=== PATIENT | male | born 1965 | race Caucasian/White ===

== ENCOUNTER 2020-07-22 13:46 | Inpatient (IN) | payer OTHER, SELFPAY ==
[2020-07-23 02:51] VITALS: BMI 24.3
[2020-07-24] VITALS: BP 166/60; PULSE 88; RESP 18; TEMP 36.6; O2SAT 90
[2020-07-24 04:00] VITALS: BP 165/70; PULSE 85; RESP 18; TEMP 37; O2SAT 93
[2020-07-24] MEDS: 0.9 % Sodium Chloride Flush 3 ML SYRINGE 2 ML IVFLUSH ×2 (06:46→08:21)
[2020-07-24 08:00] VITALS: BP 103/56; PULSE 58; RESP 18; TEMP 36.3; O2SAT 95
[2020-07-24] MEDS: hydrOXYzine HCL 25 MG TABLET PO (08:21)
[2020-07-24] MEDS: Amphetamine Mixed Salts 20 MG TABLET PO (08:21)
[2020-07-24] MEDS: Buprenorphine/Naloxone 8/2 mg FILM 2 FILM SUBLINGUAL (08:21)
[2020-07-24] MEDS: Gabapentin 300 MG CAPSULE PO ×2 (08:21→14:23)
[2020-07-24] MEDS: clonazePAM 1 MG TABLET PO ×2 (08:21→14:23)
[2020-07-24 10:06] LABS: MANUAL DIFF FLAG NO
[2020-07-24 10:07] LABS: Basophils Percent Auto 0.2 % (0-2); Eosinophils Absolute Auto 0.2 X10*3/uL (0.0-0.4); Eosinophils Percent Auto 1.4 % (0-4); Hematocrit 32.5 % (42-52); Hemoglobin 10.7 g/dl (14.0-18.0); Imm Gran Abs Auto 0.04 X10*3/uL (0.00-0.03); Imm Gran Pct Auto 0.3 % (0.0-0.4); Lymphocytes Absolute Auto 2.9 X10*3/uL (1.2-4.9); Mean Corpuscular HGB Conc 32.9 g/dl (31.0-36.0); Mean Corpuscular Hemoglobin 29.3 pg (27.0-33.0); Mean Platelet Volume 9.5 fL (9.4-12.4); Monocytes Absolute Auto 0.9 X10*3/uL (0.1-1.2); Monocytes Percent Auto 7.4 % (2-11); Neutrophils Absolute Auto 8.5 X10*3/uL (2.0-8.3); Neutrophils Percent Auto 67.7 % (45-73); Platelet Count 268 X10*3/uL (160-400); Red Blood Count 3.65 X10*6/uL (4.60-5.80); Red Cell Distribution Width 13.1 % (11.0-16.0); White Blood Count 12.6 X10*3/uL (4.8-10.8)
[2020-07-24] MEDS: cefTRIAXone sodium 1 GM in 0.9 % Sodium Chloride 50 ML IV (11:43)
[2020-07-24] MEDS: Azithromycin 500 MG TABLET PO (11:44)
[2020-07-24 11:59] VITALS: BP 106/56; PULSE 66; RESP 18; TEMP 36.4; O2SAT 95
--- NOTE | 2020-07-24 13:43 | P.DS_ITS ---
DS: Providers Provider Date of admission: 07/22/20 13:46 Primary care physician: Alli Duarte MD DS: Summary Hospital Course Hospital Course: 54-year-old gentleman recently discharged from [facility] on 07/13/2020 after being treated for pneumonia presented to [facility] due to feeling tired with unsteady gait headache dizziness patient denied any shortness of breath patient was noted to be mildly hypoxemic with finger oximetry 90% on room [place] [address] D-dimer of 431 a CTA chest was obtained that was negative for PE aortic dissection or aneurysm however it showed small airway disease, patient had 2- recent COVID-19 test patient was subsequently admitted to [facility] due to ongoing symptoms of pneumonia. Discharge diagnosis pneumonia with no acute hypoxic respiratory failure patient was treated with azithromycin and IV ceftriaxone patient's symptoms improved significantly a Repeat covind PCR study came back nonreactive patient was treated with 1 dose of IV steroids therefore noted to have a bump in WBC count with a repeat CBC showing improvement in WBC since patient is hemodynamically stable finger oximetry is stable 93% on room air therefore patient is being discharged home to finish the course of Ceftin and azithromycin. in regard to patient's chronic medical issues including anxiety depression history of substance abuse and ADHD has been continued on all of his baseline medications. Time Spent with Patient Time attestation: Total time spent providing and/or coordinating discharge services: Physical Exam Vital Signs and I&O and Narrative: Vital Signs and I&O: Vital Signs Temp 97.6 F 07/24/20 11:59 Pulse 66 07/24/20 11:59 Resp 18 07/24/20 11:59 BP 106/56 L 07/24/20 11:59 Pulse Ox 95 07/24/20 11:59 Intake & Output 07/23/20 07/24/20 07/24/20 18:59 06:59 18:59 Intake Total 50 / 50 Output Total 2 / 2 Balance -2 / -2 50 / 50 Urine Output (Aver age ml/kg/hr) 0.00 0.00 Intake: Intake, IV Amoun t 50 / 50 cefTRIAXone so dium 1 gm In 0.9 50 / 50 % Sodium Chlor ottoniel 50 ml @ 100 mls/hr IV Q24H [facility] Rx#: [id number] Output: Output, Urine Am ount 2 / 2 Other: Meal Refused Yes Body Mass Index 24.3 DS: Data Data Completed and Pending Labs on day of discharge: Labs from last 24 hours 07/24/20 07/23/20 07/23/20 09:00 05:57 05:57 WBC 12.6 H Cancelled 18.2 H RBC 3.65 L Cancelled 3.76 L Hgb 10.7 L Cancelled 11.0 L Hct 32.5 L Cancelled 33.3 L MCV 89.0 Cancelled 88.6 MCH 29.3 Cancelled 29.3 MCHC 32.9 Cancelled 33.0 RDW 13.1 RDW Coeff of Selene Cancelled 12.7 Plt Count 268 Cancelled 314 D MPV 9.5 Cancelled 9.7 Immature Gran % (Auto) 0.3 0.7 H Neut % (Auto) 67.7 89.8 H Lymph % (Auto) 23.0 6.8 L [place] % (Auto) 7.4 2.6 Eos % (Auto) 1.4 0.0 Baso % (Auto) 0.2 0.1 Neut # (Auto) 8.5 H Lymph # (Auto) 2.9 [place] # (Auto) 0.9 Eos # (Auto) 0.2 Baso # (Auto) 0.0 Abs Immat Gran (auto) 0.04 H 0.13 H Absolute Lymphs (auto) 1.2 Absolute Monos (auto) 0.5 Absolute Eos (auto) 0.0 Absolute Basos (auto) 0.0 Absolute Nucleated RBC 0.000 Cancelled 0.000 Nucleated RBC % (auto) 0.0 Cancelled 0.0 Absolute Neutrophils 16.4 H D-Dimer Sodium Potassium Chloride Bicarbonate Anion Gap BUN Creatinine Estimated Creat Clear Est GFR (Non-Af Amer) Random Glucose Fasting Glucose Lactic Acid Calcium Magnesium Total Bilirubin Direct Bilirubin AST ALT Alkaline Phosphatase Lactate Dehydrogenase Troponin I High Sens B-Natriuretic Peptide Total Protein Albumin Urine Color Urine Appearance Urine pH Ur Specific [place] Urine Protein Urine Glucose (UA) Urine Ketones Urine Blood Urine Nitrite Urine WBC (Auto) Respiratory Panel Morton Adenovirus (PCR) B.pert (TEM-PCR) B.parapertussis DNA PCR C. pneumoniae DNA (PCR) Coronavirus OC43 (PCR) Coronavirus HKU1 (PCR) Coronavirus 229E (PCR) Coronavirus NL63 (PCR) Human Metapneumovir PCR Influenza A (RT-PCR) Influenza B (RT-PCR) M. pneumoniae (PCR) Parainfluenza 1 (PCR) Parainfluenza 2 (PCR) Parainfluenza 3 (PCR) Parainfluenza 4 (PCR) RSV (RT-PCR) Entero/Rhino (PCR) SARS Virus RNA (RT-PCR) 07/23/20 07/22/20 07/22/20 05:57 15:20 11:19 WBC RBC Hgb Hct MCV MCH MCHC RDW RDW Coeff of Selene Plt Count MPV Immature Gran % (Auto) Neut % (Auto) Lymph % (Auto) [place] % (Auto) Eos % (Auto) Baso % (Auto) Neut # (Auto) Lymph # (Auto) [place] # (Auto) Eos # (Auto) Baso # (Auto) Abs Immat Gran (auto) Absolute Lymphs (auto) Absolute Monos (auto) Absolute Eos (auto) Absolute Basos (auto) Absolute Nucleated RBC Nucleated RBC % (auto) Absolute Neutrophils D-Dimer Sodium 135 Potassium 4.5 Chloride 100 Bicarbonate 26 Anion Gap 14 BUN 22 H D Creatinine 0.81 Estimated Creat Clear 99.7 Est GFR (Non-Af Amer) > 60 Random Glucose Fasting Glucose 142 H Lactic Acid Calcium 9.7 D Magnesium Total Bilirubin Direct Bilirubin AST ALT Alkaline Phosphatase Lactate Dehydrogenase Troponin I High Sens B-Natriuretic Peptide Total Protein Albumin Urine Color YELLOW Urine Appearance CLEAR Urine pH 6.0 Ur Specific [place] 1.010 Urine Protein NEG Urine Glucose (UA) NEG Urine Ketones NEG Urine Blood NEG Urine Nitrite NEG Urine WBC (Auto) NEG Respiratory Panel Morton SEE NOTE Adenovirus (PCR) NOT DETECTED B.pert (TEM-PCR) NOT DETECTED B.parapertussis DNA PCR NOT DETECTED C. pneumoniae DNA (PCR) NOT DETECTED Coronavirus OC43 (PCR) NOT DETECTED Coronavirus HKU1 (PCR) NOT DETECTED Coronavirus 229E (PCR) NOT DETECTED Coronavirus NL63 (PCR) NOT DETECTED Human Metapneumovir PCR NOT DETECTED Influenza A (RT-PCR) NOT DETECTED Influenza B (RT-PCR) NOT DETECTED M. pneumoniae (PCR) NOT DETECTED Parainfluenza 1 (PCR) NOT DETECTED Parainfluenza 2 (PCR) NOT DETECTED Parainfluenza 3 (PCR) NOT DETECTED Parainfluenza 4 (PCR) NOT DETECTED RSV (RT-PCR) NOT DETECTED Entero/Rhino (PCR) NOT DETECTED SARS Virus RNA (RT-PCR) NOT DETECTED 07/22/20 07/22/20 07/22/20 10:35 10:35 10:35 WBC 16.0 H RBC 3.71 L Hgb 10.8 L Hct 32.7 L MCV 88.1 MCH 29.1 MCHC 33.0 RDW RDW Coeff of Selene 12.7 Plt Count 237 MPV 9.1 L Immature Gran % (Auto) 0.4 Neut % (Auto) 87.5 H Lymph % (Auto) 7.0 L [place] % (Auto) 4.1 Eos % (Auto) 0.9 Baso % (Auto) 0.1 Neut # (Auto) Lymph # (Auto) [place] # (Auto) Eos # (Auto) Baso # (Auto) Abs Immat Gran (auto) 0.07 H Absolute Lymphs (auto) 1.1 L Absolute Monos (auto) 0.7 Absolute Eos (auto) 0.2 Absolute Basos (auto) 0.0 Absolute Nucleated RBC 0.000 Nucleated RBC % (auto) 0.0 Absolute Neutrophils 14.0 H D-Dimer 431 Sodium Potassium Chloride Bicarbonate Anion Gap BUN Creatinine Estimated Creat Clear Est GFR (Non-Af Amer) Random Glucose Fasting Glucose Lactic Acid Calcium Magnesium Total Bilirubin Direct Bilirubin AST ALT Alkaline Phosphatase Lactate Dehydrogenase Troponin I High Sens 4.1 B-Natriuretic Peptide 72 Total Protein Albumin Urine Color Urine Appearance Urine pH Ur Specific [place] Urine Protein Urine Glucose (UA) Urine Ketones Urine Blood Urine Nitrite Urine WBC (Auto) Respiratory Panel [place] Adenovirus (PCR) B.pert (TEM-PCR) B.parapertussis DNA PCR C. pneumoniae DNA (PCR) Coronavirus OC43 (PCR) Coronavirus HKU1 (PCR) Coronavirus 229E (PCR) Coronavirus NL63 (PCR) Human Metapneumovir PCR Influenza A (RT-PCR) Influenza B (RT-PCR) M. pneumoniae (PCR) Parainfluenza 1 (PCR) Parainfluenza 2 (PCR) Parainfluenza 3 (PCR) Parainfluenza 4 (PCR) RSV (RT-PCR) Entero/Rhino (PCR) SARS Virus RNA (RT-PCR) 07/22/20 07/22/20 10:35 10:35 WBC RBC Hgb Hct MCV MCH MCHC RDW RDW Coeff of Selene Plt Count MPV Immature Gran % (Auto) Neut % (Auto) Lymph % (Auto) [place] % (Auto) Eos % (Auto) Baso % (Auto) Neut # (Auto) Lymph # (Auto) [place] # (Auto) Eos # (Auto) Baso # (Auto) Abs Immat Gran (auto) Absolute Lymphs (auto) Absolute Monos (auto) Absolute Eos (auto) Absolute Basos (auto) Absolute Nucleated RBC Nucleated RBC % (auto) Absolute Neutrophils D-Dimer Sodium 134 L Potassium 4.6 Chloride 101 Bicarbonate 26 Anion Gap 12 BUN 12 Creatinine 0.82 Estimated Creat Clear 98.5 Est GFR (Non-Af Amer) > 60 Random Glucose 126 H Fasting Glucose Lactic Acid 1.3 Calcium Magnesium 1.6 Total Bilirubin 0.5 Direct Bilirubin 0.2 AST 13 ALT 8 Alkaline Phosphatase 68 Lactate Dehydrogenase 144 Troponin I High Sens B-Natriuretic Peptide Total Protein 6.2 L Albumin 3.9 Urine Color Urine Appearance Urine pH Ur Specific [place] Urine Protein Urine Glucose (UA) Urine Ketones Urine Blood Urine Nitrite Urine WBC (Auto) Respiratory Panel [place] Adenovirus (PCR) B.pert (TEM-PCR) B.parapertussis DNA PCR C. pneumoniae DNA (PCR) Coronavirus OC43 (PCR) Coronavirus HKU1 (PCR) Coronavirus 229E (PCR) Coronavirus NL63 (PCR) Human Metapneumovir PCR Influenza A (RT-PCR) Influenza B (RT-PCR) M. pneumoniae (PCR) Parainfluenza 1 (PCR) Parainfluenza 2 (PCR) Parainfluenza 3 (PCR) Parainfluenza 4 (PCR) RSV (RT-PCR) Entero/Rhino (PCR) SARS Virus RNA (RT-PCR) Discharge Plan Discharge Patient Disposition: Home, Self-Care Referrals: Alli Duarte MD [Primary Care Provider] - Discharge Medications: Continued trazodone 50 mg Tablet 50 mg PO BEDTIME RF: 0 clonazepam 1 mg Tablet 1 mg PO TID RF: 0 dextroamphetamine-amphetamine [Adderall] 30 mg Tablet 30 mg PO DAILY RF: 0 fluoxetine 20 mg Tablet 20 mg PO BEDTIME RF: 0 dextroamphetamine-amphetamine [Adderall] 20 mg Tablet 20 mg PO DAILY RF: 0 gabapentin 300 mg Capsule 300 mg PO TID RF: 0 hydroxyzine HCl 25 mg Tablet 25 mg PO BID RF: 0 cefuroxime axetil 500 mg Tablet 500 mg PO Q12H RF: 0 prazosin [Minipress] 2 mg Capsule 2 mg PO BEDTIME RF: 0 azithromycin 500 mg Tablet 500 mg PO Q24H RF: 0 buprenorphine-naloxone [Suboxone] 8-2 mg Film 2 film SUBLINGUAL DAILY RF: 0 Discharge Orders: Discharge Order (Routine); Ordered 07/24/20 Ordered By: Michael Heard Diet: regular diet Activity on Discharge: As tolerated Visit Report Forms: Patient Portal Discharge page Care Plan Goals: As per discharge plan Health Concerns: as per discharge plan Plan of Treatment: close outpatient follow-up with PCP finish course of azithromycin and Ceftin
--- NOTE | 2020-07-24 14:06 | MHC.CM.PN ---
Patient is being discharged today back to [facility] via chair van.
== END 2020-07-24 15:40 | disposition home or self-care (01) | DRG 139 ==
PROVIDERS: Admitting Provider Internal Medicine; Emergency Provider Emergency Medicine; PCP Internal Medicine Hematology; Visit Provider Hospitalist
DX: J18.9 Pneumonia, unspecified organism (principal); F11.20 Opioid dependence, uncomplicated; F31.9 Bipolar disorder, unspecified; F17.210 Nicotine dependence, cigarettes, uncomplicated; Z71.6 Tobacco abuse counseling; F90.9 Attention-deficit hyperactivity disorder, unspecified type; F41.9 Anxiety disorder, unspecified; Z11.59 Encounter for screening for other viral diseases; Z79.899 Other long term (current) drug therapy
CPT/HCPCS: 0202U; 36415; 71045; 71275; 80048; 80051; 80076; 81003; 82565; 82947; 83605; 83615; 83735; 83880; 84484; 84520; 85025; 85379; 87040; 87070; 87205; 93005; 94640; 96365; 96366; 96367; 96375; 99219; 99285; J0456; J0572; J0574; J0696; J2405; J2930; Q9967

== ENCOUNTER 2020-07-26 12:48 | Emergency (ER) | payer OTHER, SELFPAY ==
[2020-07-26 13:03] VITALS: BP 120/56; PULSE 74; RESP 17; TEMP 37.2; O2SAT 96; BMI 24.4
--- NOTE | 2020-07-26 13:46 | ED.GENADULT ---
HPI - General Adult General Chief complaint: Medical Clearance Stated complaint: med refill Time Seen by Provider: 07/26/20 13:46 History of Present Illness HPI narrative: patient presents requesting medication refill for his Adderall because he has had trouble getting in to see his psychiatrist and missed an appointment an arm he has no other complaints Related Data Home Medications Medication Instructions Recorded Confirmed azithromycin 500 mg PO Q24H 07/23/20 07/23/20 buprenorphine-naloxone [Suboxone] 2 film SUBLINGUAL DAILY 07/23/20 07/23/20 cefuroxime axetil 500 mg PO Q12H 07/23/20 07/23/20 clonazepam 1 mg PO TID 07/23/20 07/23/20 dextroamphetamine-amphetamine 20 mg PO DAILY 07/23/20 07/23/20 [Adderall] dextroamphetamine-amphetamine 30 mg PO DAILY 07/23/20 07/23/20 [Adderall] fluoxetine 20 mg PO BEDTIME 07/23/20 07/23/20 gabapentin 300 mg PO TID 07/23/20 07/23/20 hydroxyzine HCl 25 mg PO BID 07/23/20 07/23/20 prazosin [Minipress] 2 mg PO BEDTIME 07/23/20 07/23/20 trazodone 50 mg PO BEDTIME 07/23/20 07/23/20 Previous Rx's Medication Instructions Recorded dextroamphetamine-amphetamine 20 mg PO DAILY #3 tab 07/26/20 [Adderall] dextroamphetamine-amphetamine 30 mg PO DAILY #3 tab 07/26/20 [Adderall] Allergies Allergy/AdvReac Type Severity Reaction Status Date / Time No Known Allergies Allergy Unverified 07/10/20 18:53 [No Known Allergies*] Review of Systems Review of Systems: no fever no chills no chest pain no shortness of breath no nausea no vomiting no palpitations no headache no weakness PMFSH Past Medical History Source: nursing notes reviewed Medical History (Updated 07/26/20 @ 13:57 by BING Wild) Anxiety No known health problems Pneumonia Social History Social History Alcohol intake: former Smoking Status: Current every day smoker Smoked in Last 30 Days: Yes Use of substances other than those prescribed or required for medical reasons: Unknown Advance Directives: No Advance Directives Information Provided: No Physical Exam Vital Signs and I&O and Narrative: Vital Signs and I&O: Vital Signs Temp 98.9 F 07/26/20 13:03 Pulse 74 07/26/20 13:03 Resp 17 07/26/20 13:03 BP 120/56 L 07/26/20 13:03 Pulse Ox 96 07/26/20 13:03 Intake & Output 07/25/20 07/26/20 07/26/20 18:59 06:59 18:59 Weight 70.76 kg Body Mass Index 24.4 general appearance no acute distress comfortable relaxed cooperative Neck is supple Respirations no respiratory distress Extremities full range of motion x4 neuro A&O x4 Course Reevaluation(s) Reevaluation #1: patient takes Adderall for several months for ADD and I agreed to a 3 day refill and he could contact his doctor during business hours on Tuesday or Tuesday Discharge Plan Discharge Clinical Impression: Medication refill Additional Instructions: a 3 day course of her medication was sent to the pharmacy As this is a controlled substance any long-term prescription has to come from your regular doctor Prescriptions: New dextroamphetamine-amphetamine [Adderall] 20 mg tablet 20 mg PO DAILY Qty: 3 RF: 0 dextroamphetamine-amphetamine [Adderall] 30 mg tablet 30 mg PO DAILY Qty: 3 RF: 0 No Action trazodone 50 mg Tablet 50 mg PO BEDTIME RF: 0 clonazepam 1 mg Tablet 1 mg PO TID RF: 0 dextroamphetamine-amphetamine [Adderall] 30 mg Tablet 30 mg PO DAILY RF: 0 fluoxetine 20 mg Tablet 20 mg PO BEDTIME RF: 0 dextroamphetamine-amphetamine [Adderall] 20 mg Tablet 20 mg PO DAILY RF: 0 gabapentin 300 mg Capsule 300 mg PO TID RF: 0 hydroxyzine HCl 25 mg Tablet 25 mg PO BID RF: 0 cefuroxime axetil 500 mg Tablet 500 mg PO Q12H RF: 0 prazosin [Minipress] 2 mg Capsule 2 mg PO BEDTIME RF: 0 azithromycin 500 mg Tablet 500 mg PO Q24H RF: 0 buprenorphine-naloxone [Suboxone] 8-2 mg Film 2 film SUBLINGUAL DAILY RF: 0
== END 2020-07-26 14:06 | disposition home or self-care (01) ==
PROVIDERS: Emergency Provider Emergency Medicine; PCP Internal Medicine Hematology
DX: Z76.0 Encounter for issue of repeat prescription (principal); F98.8 Other specified behavioral and emotional disorders with onset usually occurring in childhood and adolescence
CPT/HCPCS: 99282; 99284

== ENCOUNTER 2022-09-04 23:21 | Emergency (ER) | payer OTHER, SELFPAY ==
--- NOTE | ~2022-09-04 | XR_ITS ---
EXAMINATION: XR CHEST CLINICAL INFORMATION: Shortness of breath. COMPARISON: Chest radiograph 07/22/2020. TECHNIQUE: 2 views of the chest were obtained. FINDINGS: Normal appearance of the cardiomediastinal silhouette. Subtle focal airspace opacities in the lateral right lower lobe are new compared to 2020. No pleural effusion or pneumothorax. Unchanged nonaggressive appearing osseous lesion in the proximal right humerus. No displaced fractures. XR/XR chest 2V IMPRESSION: Very subtle focal airspace opacities in the lateral right lower lobe could represent subsegmental atelectasis or developing infiltrate. Recommend a follow-up imaging after treatment.
[2022-09-04 23:27] VITALS: BP 142/90; PULSE 24; BMI 25.8
[2022-09-04 23:31] VITALS: BP 94/68; PULSE 73; TEMP 37.1; O2SAT 89
[2022-09-04 23:40] VITALS: O2SAT 96
[2022-09-04] MEDS: Albuterol/Iprat 2.5/0.5MG 3 ML AMPUL.NEB INHALE (23:42)
[2022-09-04 23:43] VITALS: PULSE 71; RESP 16; O2SAT 97
[2022-09-04 23:46] LABS: Basophils Percent Auto 0.3 % (0-2); Eosinophils Absolute Auto 1.1 X10*3/uL (0.0-0.4); Eosinophils Percent Auto 12.1 % (0-4); Hematocrit 32.4 % (42.0-52.0); Hemoglobin 10.6 g/dl (14.0-18.0); Imm Gran Abs Auto 0.03 X10*3/uL (0.00-0.03); Imm Gran Pct Auto 0.3 % (0.0-0.4); Lymphocytes Absolute Auto 2.7 X10*3/uL (1.2-4.9); Lymphocytes Percent Auto 29.1 % (20-40); MANUAL DIFF FLAG NO; Mean Corpuscular HGB Conc 32.7 g/dl (31.0-36.0); Mean Corpuscular Hemoglobin 27.9 pg (27.0-33.0); Mean Corpuscular Volume 85.3 fL (80.0-98.0); Mean Platelet Volume 10.1 fL (9.4-12.4); Monocytes Absolute Auto 0.6 X10*3/uL (0.1-1.2); Monocytes Percent Auto 6.4 % (2-11); Neutrophils Absolute Auto 4.8 x10*3/uL (2.0-8.3); Neutrophils Percent Auto 51.8 % (45-73); Platelet Count 220 X10*3/uL (160-400); Red Cell Distribution Width 14.1 % (11.0-16.0); White Blood Count 9.2 X10*3/uL (4.8-10.8)
--- NOTE | 2022-09-04 23:53 | PC.NURSE ---
Pt refused EKG. Dr. Hu and nurse aware.
[2022-09-05 00:17] LABS: Troponin-I High Sensitivity < 3.5 ng/L (<3.5-35.0)
[2022-09-05 00:46] LABS: Anion Gap 15 (12-20); Blood Urea Nitrogen 14 mg/dL (9-16); Calcium 9.1 mg/dL (8.4-10.2); Carbon Dioxide 21 mmol/L (22-29); Chloride 108 mmol/L (96-108); Creatinine Clr Calc Pharmacy 98.6; Estimated Glomerular Filt Rate > 60; Glucose Random 111 mg/dL (60-115); Potassium 3.8 mmol/L (3.3-5.1); Sodium 140 mmol/L (135-145)
[2022-09-05 01:18] VITALS: BP 106/56; PULSE 63; RESP 17; O2SAT 94
--- NOTE | 2022-09-05 01:27 | ED.ASTHMA ---
HPI - Asthma General Chief Complaint: Asthma Stated Complaint: Sob Time Seen by Provider: 09/04/22 23:30 Source: patient History of Present Illness MD complaint: shortness of breath Onset (ago): day(s) (2) Severity: moderate Context: none known Associated symptoms: dry cough Related Data Current Asthma Therapy: none Home Medications Medication Instructions Recorded Confirmed azithromycin 500 mg tablet 500 mg PO Q24H 07/23/20 07/23/20 buprenorphine 8 mg-naloxone 2 mg 2 film sublingual DAILY 07/23/20 07/23/20 sublingual film (Suboxone) cefuroxime axetil 500 mg tablet 500 mg PO Q12H 07/23/20 07/23/20 clonazepam 1 mg tablet 1 mg PO TID 07/23/20 07/23/20 dextroamphetamine-amphetamine 20 20 mg PO DAILY 07/23/20 07/23/20 mg tablet (Adderall) dextroamphetamine-amphetamine 30 30 mg PO DAILY 07/23/20 07/23/20 mg tablet (Adderall) fluoxetine 20 mg tablet 20 mg PO BEDTIME 07/23/20 07/23/20 gabapentin 300 mg capsule 300 mg PO TID 07/23/20 07/23/20 hydroxyzine HCl 25 mg tablet 25 mg PO BID 07/23/20 07/23/20 prazosin 2 mg capsule (Minipress) 2 mg PO BEDTIME 07/23/20 07/23/20 trazodone 50 mg tablet 50 mg PO BEDTIME 07/23/20 07/23/20 Previous Rx's Medication Instructions Recorded dextroamphetamine-amphetamine 20 20 mg PO DAILY #3 tabs 07/26/20 mg tablet (Adderall) dextroamphetamine-amphetamine 30 30 mg PO DAILY #3 tabs 07/26/20 mg tablet (Adderall) azithromycin 250 mg tablet 250 mg PO DAILY 4 days #4 tabs 09/05/22 (Zithromax) Allergies Allergy/AdvReac Type Severity Reaction Status Date / Time No Known Allergies Allergy Unverified 07/10/20 18:53 [No Known Allergies*] Review of Systems Review of Systems: Yes all other systems are reviewed and are negative Constitutional: Constitutional: Denies chills and Denies fever(s) Eyes: Eyes: Reports no additional eye complaints ENT: Reports system reviewed and no additional complaints, except as documented Cardiovascular: Cardiovascular: Denies chest pain, Denies lightheadedness and Denies Loss of Consciousness Respiratory: Respiratory: Reports cough, Denies hemoptysis and Reports wheezing Gastrointestinal: Gastrointestinal: Reports no additional gastrointestinal complaints Genitourinary: Genitourinary: Reports no additional male genitourinary complaints Musculoskeletal: Musculoskeletal: Reports no additional musculoskeletal complaints Neurologic: Reports system reviewed and no additional complaints, except as documented Allergic/Immunologic: Allergic/Immunologic: Reports wheezing PMFSH Past Medical History Medical History Anxiety No known health problems Pneumonia Social History Social History Alcohol intake: former Advance Directives: No Physical Exam Vital Signs: Vital Signs: Last Vital Signs Temp 98.7 F 09/04/22 23:31 Pulse 63 09/05/22 01:18 Resp 17 09/05/22 01:18 BP 106/56 L 09/05/22 01:18 Pulse Ox 94 09/05/22 01:18 O2 Del Method 09/05/22 01:18 O2 Flow Rate 2 09/04/22 23:40 BMI result Body Mass Index 25.8 Vital signs noted and are normal Const: General: cooperative, healthy appearing and no acute distress Orientation/consciousness: patient oriented x3 HEENT: Head: Yes normal to inspection, Yes normocephalic and Yes atraumatic Ears: hearing grossly normal bilaterally and external ears normal General nose exam: Normal external nose present Eyes: General: appearance normal, both eyes and all related structures Conjunctivae: conjunctivae normal Sclerae: sclerae normal Neck: Neck: Yes normal visual inspection and Yes full ROM Chest: Chest palpation & inspection: normal inspection of the chest Resp: Effort & Inspection: normal respiratory effort and no cough Auscultation: wheezes Cardio: Rate: regular rate Rhythm: regular rhythm GI: Inspection: Yes normal to inspection and No obesity Back/Spine/Pelvis: Cervical Spine: normal cervical lordosis and cervical ROM normal Skin: General skin exam: no rashes or lesions noted Neuro: General: patient oriented x3 Cranial nerves: Yes CN's II-XII intact bilaterally and Yes Bilaterally intact EOM present Medications Administered Discontinued Medications Generic Name Dose Route Start Last Admin Trade Name Freq PRN Reason Stop Dose Admin Albuterol/Ipratropium 3 ml 09/04/22 23:32 11/12/22 23:42 Albuterol/Iprat 2.5/0.5mg 3 Ml Ampul.Neb INHALE 09/04/22 23:33 3 ml ONCE ONE Administration MDM - Asthma MDM Narrative Medical decision making narrative: 56-year-old male with shortness0 of breath for several days. No history of asthma. Laboratory studies unremarkable with exception of a hematocrit slightly low at 33. X-ray shows questionable pneumonia per Radiology. The patient will receive a dose of Zithromax 500 mg and will get a prescription for same. He will be able to be discharged home and follow-up with his primary care doctor on Tuesday. Differential Diagnosis Differential diagnosis: Likely Pneumonia Lab Data Attestation: I reviewed the patient's lab results. Result diagrams: 09/04/22 23:39 09/05/22 00:10 Labs: Lab Results 09/04/22 09/04/22 09/05/22 Range/Units 23:39 23:39 00:10 WBC 9.2 (4.8-10.8) X10*3/uL RBC 3.80 L (4.60-5.80) X10*6/uL Hgb 10.6 L (14.0-18.0) g/dl Hct 32.4 L (42.0-52.0) % MCV 85.3 (80.0-98.0) fL MCH 27.9 (27.0-33.0) pg MCHC 32.7 (31.0-36.0) g/dl RDW 14.1 (11.0-16.0) % Plt Count 220 (160-400) X10*3/uL MPV 10.1 (9.4-12.4) fL Immature Gran % (Auto) 0.3 (0.0-0.4) % Neut % (Auto) 51.8 (45-73) % Lymph % (Auto) 29.1 (20-40) % [place] % (Auto) 6.4 (2-11) % Eos % (Auto) 12.1 H (0-4) % Baso % (Auto) 0.3 (0-2) % Lymph # (Auto) 2.7 (1.2-4.9) X10*3/uL [place] # (Auto) 0.6 (0.1-1.2) X10*3/uL Eos # (Auto) 1.1 H (0.0-0.4) X10*3/uL Baso # (Auto) 0.0 (0.0-0.2) X10*3/uL Abs Immat Gran (auto) 0.03 (0.00-0.03) X10*3/uL Absolute Neuts (auto) 4.8 (2.0-8.3) x10*3/uL Absolute Nucleated RBC 0.000 (0.0-0.012) X10*3/uL Nucleated RBC % (auto) 0.0 (0.0-0.2) /100WBC Sodium 140 (135-145) mmol/L Potassium 3.8 (3.3-5.1) mmol/L Chloride 108 (96-108) mmol/L Carbon Dioxide 21 L (22-29) mmol/L Anion Gap 15 (12-20) BUN 14 (9-16) mg/dL Creatinine 0.80 (0.5-1.4) mg/dL Estim Creat Clear Calc 98.6 Estimated GFR > 60 Random Glucose 111 (60-115) mg/dL Calcium 9.1 (8.4-10.2) mg/dL Troponin I High Sens < 3.5 (<3.5-35.0) ng/L Imaging Data Chest x-ray: Radiologist's impression: IMPRESSION: Very subtle focal airspace opacities in the lateral right lower lobe could represent subsegmental atelectasis or developing infiltrate. Recommend a follow-up imaging after treatment. Discharge Plan Discharge Clinical Impression: Pneumonia Patient Disposition: Home, Self-Care Instructions: Pneumonia (ED) Prescriptions: New azithromycin [Zithromax] 250 mg tablet 250 mg PO DAILY 4 Days Qty: 4 0RF Rx Instructions: start on day 2 of therapy Tuesday afternoon No Action trazodone 50 mg Tablet 50 mg PO BEDTIME clonazepam 1 mg Tablet 1 mg PO TID dextroamphetamine-amphetamine [Adderall] 30 mg Tablet 30 mg PO DAILY Rx Instructions: TOTAL OF 50 MG/DAY fluoxetine 20 mg Tablet 20 mg PO BEDTIME dextroamphetamine-amphetamine [Adderall] 20 mg Tablet 20 mg PO DAILY Rx Instructions: TOTAL OF 50 MG/DAY gabapentin 300 mg Capsule 300 mg PO TID hydroxyzine HCl 25 mg Tablet 25 mg PO BID cefuroxime axetil 500 mg Tablet 500 mg PO Q12H prazosin [Minipress] 2 mg Capsule 2 mg PO BEDTIME azithromycin 500 mg Tablet 500 mg PO Q24H buprenorphine-naloxone [Suboxone] 8-2 mg Film 2 film SUBLINGUAL DAILY dextroamphetamine-amphetamine [Adderall] 20 mg tablet 20 mg PO DAILY Qty: 3 0RF Rx Instructions: 20 mg once a day in the morning for 3 days dextroamphetamine-amphetamine [Adderall] 30 mg tablet 30 mg PO DAILY Qty: 3 0RF Rx Instructions: 30 mg once daily in the evening for 3 days
[2022-09-05] MEDS: Azithromycin 500 MG TABLET PO (01:30)
[2022-09-05 01:47] LABS: COVID-19 Test Negative (Negative)
== END 2022-09-05 01:50 | disposition home or self-care (01) ==
PROVIDERS: Emergency Provider Emergency Medicine
DX: J18.9 Pneumonia, unspecified organism (principal); Z20.822 Contact with and (suspected) exposure to COVID-19
CPT/HCPCS: 36415; 71046; 80048; 84484; 85025; 87635; 94640; 99284

== ENCOUNTER 2025-08-24 16:46 | Inpatient (IN) | payer OTHER, SELFPAY ==
--- OUTSIDE RECORDS SUMMARY | 2025-04-04 07:00 | XMS_ITS ---
Author Organization [facility] Address [address] [place] [address] Care Team Providers Care Commercial Instructor Supervisor Name Role Phone ZZArchive - DO NOT USE, Mail Pickup Primary Care Provider Unavailable Linda Cisneros Unavailable ZZArchive - DO NOT USE, Benefits Intervention Un available Unavailable Encounters Encounter Location Date Provider Diagnosis [facility] [address] [place], [place] [phone] 04/04/2025 Linad Cisneros Plan Of Treatment No Information Progress Notes * Lon SANCHEZ DDOB: 8 (59 yo M)Acc No.[id number]:04/04/2025 Case Management Patient: Mayr Lon Costello Provider: Ashley Cisneros :1965 A ge:59 Y S ex:Male Date:04/04/2025 Address:[facility] [address], [place], [place] Pcp:Stephani Pickup ZZArchive - DO NOT USE Subjective: * Chief Complaints: * * Medical History: Objective: Assessment: Plan: * Treatment: * Images: Billing Information: * Visit Code: * Procedure Codes: Care Plan Details* * Electronic signature of Olman Cisneros on 08/24/2025 at 05:09 PM EDT Sign off status: Pending * Provider: Ashley Cisneros Date: 0 04/04/2025 Generated for Curt kendrcik/Saray/eTinder on: 10/24/2024 05:09 PM EDT
--- OUTSIDE RECORDS SUMMARY | 2025-05-10 05:00 | XMS_ITS ---
Author Organization [facility] Address [address] [place] [address] Care Team Providers Care Seo Expert Name Role Phone ZZArchive - DO NOT USE, Mail Pickup Primary Care Provider Unavailable Linda Cisneros Unavailable ZZArchive - DO NOT USE, Benefits Intervention Un available Unavailable Encounters Encounter Location Date Provider Diagnosis [facility] [address], [place] [phone] 05/10/2025 Linda Cisneros Plan Of Treatment No Information Progress Notes * Lon SANCHEZ DDOB: 8 (59 yo M)Acc No.[id number]:05/10/2025 Case Management Patient: Mary Lon Costello Provider: Ashley Cisneros :1965 A ge:59 Y S ex:Male Date:05/10/2025 Address:[facility] [address], [facility] Pcp:Stephani Pickup ZZArchive - DO NOT USE Subjective: * Chief Complaints: * * Medical History: Objective: Assessment: Plan: * Treatment: * Images: Billing Information: * Visit Code: * Procedure Codes: Care Plan Details* * Electronic signature of Olman Cisneros on 08/24/2025 at 05:10 PM EDT Sign off status: Pending * Provider: Ashley Cisneros Date: 05/10/2025 Generated for Curt kendrick/Saray/eTsaminasmcandice on: 10/24/2024 05:10 PM EDT
--- NOTE | ~2025-08-24 | CT_ITS ---
CLINICAL HISTORY: hypoxia CT angiography chest with contrast. 3D Postprocessing. Comparison: None provided Findings: NECK BASE: Limited views of the thyroid are unremarkable. LUNGS/PLEURA: Multifocal ground-glass consolidations. PULM VASCULAR: No pulmonary embolism. MEDIASTINUM: Mildly prominent mediastinal nodes measuring up to 9 mm, may be reactive. CARDIAC: No pericardial effusion. No cardiomegaly. AORTA: No aneurysm. CHEST WALL: No masses or axillary lymphadenopathy. LIMITED ABDOMEN: Limited views are unremarkable. BONES: No acute fracture. IMPRESSION: 1. No pulmonary emboli. 2. Multifocal pneumonia. This document has been electronically signed by: Karla Vasquez MD on 09/02/2025 01:18:33
--- NOTE | 2025-08-24 16:56 | ED.PSYCH ---
HPI - Psych General Chief Complaint: Psychiatric Symptoms Stated Complaint: Detox/crisis Time Seen by Provider: 08/24/25 17:10 Source: patient, family and old records reviewed Mode of arrival: ambulatory Limitations: no limitations History of Present Illness ED Provider: MICA LEONE Narrative: 59 yo male with PMH of substance abuse has not taken his methadone since 08/17, ETOH use disorder last drank 9 hours ago, mental health issues, here with c/o depression, overdosed and seen at [facility] after using 11.5 bags - doesn't carry narcan. He was kicked out of [facility] He states he has hx of seizures takes gabapentin. He has no medical complaints or injury. He told triage he was suicidal but now tells me he wants detox so he can stay or his of one week is going to leave him. MD complaint: suicidal ideation, feels depressed, substance abuse and alcohol abuse Onset (ago): day(s) Duration: getting worse History of same: Yes Relieving factors: none Exacerbating factors: alcohol and drug use Context: recent alcohol abuse, recent drug abuse, not taking psychiatric medications and significant life stressor Associated psychiatric symptoms: depression and suicidal ideation Associated symptoms: denies other symptoms Treatments prior to arrival: none Related Data Home Medications ?Medication ?Instructions ?Recorded ?Confirmed gabapentin 300 mg capsule 300 mg PO TID 07/23/20 08/24/25 trazodone 50 mg tablet 50 - 100 mg PO BEDTIME PRN Insomnia 07/23/20 08/24/25 doxazosin 1 mg tablet 1 mg PO BEDTIME 08/24/25 08/24/25 quetiapine 50 mg tablet 50 mg PO BEDTIME 08/24/25 08/24/25 sertraline 50 mg tablet 50 mg PO DAILY 08/24/25 08/24/25 methadone 10 mg/mL oral 180 mg PO DAILY 08/25/25 08/25/25 concentrate (Methadone Intensol) Allergies Allergy/AdvReac Type Severity Reaction Status Date / Time tomato sauce Allergy Intermediate Hives Uncoded 08/24/25 18:42 Review of Systems Review of Systems: Constitutional : No Fever, No Chills ENT/Mouth : No Ear Pain, No Nasal Congestion, No sore throat Eyes: No Eye Pain, No Swelling, No Redness Cardiovascular : No Chest Pain, No SOB Respiratory : No Cough, No Sputum, No Dyspnea Gastrointestinal : No Nausea, No Vomiting, No Diarrhea, No Hematochezia, No Melena Genitourinary : No Dysuria, No Urinary Frequency, No Hematuria Musculoskeletal : No Myalgias Skin : No Skin Lesions, No rash Neuro : No Weakness, No Numbness, No Paresthesias, No Dizziness, No Headache Psych : positive Anxiety, positive Depression, positive SI no HI All other systems reviewed and are negative [facility] Past Medical History Attestation statement: The following information was validated with the patient. Source: old records reviewed Medical History No known health problems Anxiety Pneumonia Social History Social History Housing: Homeless Housing Other:: Safe place Do you presently have visiting nurse or other home services: No Alcohol intake: current Alcohol intake frequency: a few times a week Alcohol type: beer and hard liquor Patient Tobacco Use Status: Current everyday Tobacco user Tobacco use type: Cigarette Cigarettes Per Day: 5 Smoked in Last 30 Days: Yes e-Cigarette/Vaping Use: Never Used Patient Interested in Nicotine Replacement: No Patient Given Instructions on How to Stop Smoking: Yes Date Education Initiated: 08/26/25 Second Hand Smoke Exposure: Yes Use of substances other than those prescribed or required for medical reasons: Yes Substance Use Type: Crack/Cocaine, Heroin and Opiates Substance Use Frequency: Chronic Longstanding Last Used Substance: Just Prior to Admission Any prior treatment program specific to substance use: No Have you been hit, kicked, punched, or otherwise hurt by someone within the past year? If so, by whom?: No Do you feel safe in your current relationship?: No Is there a partner from a previous relationship who is making you feel unsafe now?: No Are you made to feel afraid or neglected: No Spiritual Healthcare Practices: No Gnosticism Healthcare Practices: No Cultural Healthcare Practices: No Advance Directives: No Advance Directives Information Provided: No Do you have thoughts of harming others: None Do you have a plan to hurt others: No Plan Recently lost weight without trying: Unsure Eating poorly because of decreased appetite: No Physical Exam Vital Signs: Vital Signs: Last Vital Signs Temp 98.8 F 08/26/25 19:52 Pulse 88 08/26/25 20:15 Resp 18 08/26/25 20:15 BP 156/78 H 08/26/25 20:24 Pulse Ox 95 08/26/25 19:52 O2 Del Method Room Air 08/26/25 19:52 BMI result Body Mass Index 22.1 Appearance: Alert. Oriented X3. No acute distress. Eyes: Pupils equal, round and reactive to light. ENT: Pharynx normal. Neck: Normal inspection. Neck supple. CVS: Normal heart rate and rhythm. Pulses normal. Respiratory: No respiratory distress. Breath sounds normal. Abdomen: Soft and nontender. Skin: Skin warm and dry. Normal skin color. Normal skin turgor. Extremities: No lower extremity edema. No calf ttp Neuro: Oriented X 3. No motor deficit. No sensory deficit. CN2-12 intact Course Course Course Narrative: This is a Rapid Medical Exam performed in triage by Nicolle Nieves PA-C. Full HPI, ROS and PE to be performed by primary ED provider. 59 yo M presenting to the ED c/o +SI with plan. Admits he OD'd yesterday by drinking 3 bottles of vodka, injecting 11.5 bags heroin & smoking crack cocaine. states he was unresponsive. denies HI PE: suicidal, NAD, ambulating with steady gait Plan: EKG, labs, VALDEZ, CARE team consult Reevaluation(s) Reevaluation #1: Time: 06:14 Date: 08/26/25 Provider: Charity Elizabeth, DO Patient in physician observation for psychiatric evaluation.? No acute events reported overnight. No current complaints. VS stable.? Patient is in bed search status. Will continue to monitor. 08/26/2025 12:00 Physician observation ended and inpatient admitted inpatient [facility] Medications Administered Generic Name Dose Route Start Last Admin Trade Name Freq PRN Reason Stop Dose Admin Acetaminophen 650 mg 08/26/25 13:50 08/27/25 05:49 Acetaminophen 325 Mg Tablet PO 650 mg Q6H PRN Administration Headache/Pain, Scale 1-10 Doxazosin Mesylate 1 mg 08/24/25 21:00 08/26/25 20:24 Doxazosin Mesylate 1 Mg Tablet PO 1 mg BEDTIME AYDEE Administration Protocol Gabapentin 300 mg 08/24/25 21:00 08/26/25 20:24 Gabapentin 300 Mg Capsule PO 300 mg TID AYDEE Administration Hydroxyzine HCl 25 mg 08/26/25 13:50 08/27/25 05:49 Hydroxyzine Hcl 25 Mg Tablet PO 25 mg Q6H PRN Administration mild anxiety Lorazepam 1 mg 08/26/25 13:50 08/27/25 05:49 Lorazepam 1 Mg Tablet PO 1 mg Q2H PRN Administration CIWA 8-11 Methadone HCl 50 mg 08/26/25 09:00 08/26/25 07:58 Methadone Hcl 20 Mg/2 Ml Oral.Conc PO 50 mg DAILY AYDEE Administration Quetiapine Fumarate 50 mg 08/24/25 21:00 08/26/25 20:25 Quetiapine Fumarate 50 Mg Tablet PO 50 mg BEDTIME AYDEE Administration Sertraline HCl 50 mg 08/25/25 09:00 08/26/25 07:30 Sertraline Hcl 50 Mg Tablet PO 50 mg DAILY AYDEE Administration Trazodone HCl 100 mg 08/24/25 19:09 08/24/25 20:45 Trazodone Hcl 100 Mg Tablet PO 100 mg BEDTIME PRN Administration Insomnia Discontinued Medications Generic Name Dose Route Start Last Admin Trade Name Edilq PRN Reason Stop Dose Admin Lorazepam 2 mg 08/24/25 19:10 08/26/25 07:30 Lorazepam 1 Mg Tablet PO 2 mg Q3H PRN Administration Alcohol Withdrawal Methadone HCl 40 mg 08/24/25 18:00 08/24/25 18:24 Methadone Hcl 20 Mg/2 Ml Oral.Conc PO 40 mg DAILY AYDEE Administration Methadone HCl 50 mg 08/25/25 08:30 08/25/25 08:43 Methadone Hcl 20 Mg/2 Ml Oral.Conc PO 08/25/25 08:31 50 mg ONCE ONE Administration Medical Decision Making Medical Decision Making MDM Narrative: 59 yo male with PMH of substance abuse has not taken his methadone since 08/17, ETOH use disorder last drank 9 hours ago, mental health issues, here with c/o SI to triage and wants to stop using drugs at this time will need labs, PO methadone 40mg, refer to CARE team. He seems to be seeking dual dx. He has no medical complaints. His sister is at bedside Differential Diagnosis Differential Diagnoses: The differential diagnosis associated with the presentation includes substance abuse, depression Admission/Observation Consideration of admission/observation: Escalation of care including admission/observation considered phys obs started at 605pm pending CARE team Consult Healthcare Provider Management of the patient was discussed with: Behavioral Health Provider Lab Data MDM Lab Attestation statement: I reviewed the patient's lab results. 08/24/25 17:57 08/24/25 17:57 Labs: Lab Results 08/24/25 Range/Units 17:57 WBC 8.3 (4.8-10.8) X10*3/uL RBC 4.54 L (4.60-5.80) X10*6/uL Hgb 13.8 L D (14.0-18.0) g/dl Hct 40.3 L D (42.0-52.0) % MCV 88.8 (80.0-98.0) fL MCH 30.4 (27.0-33.0) pg MCHC 34.2 (31.0-36.0) g/dl RDW 12.0 (11.0-16.0) % Plt Count 310 D (160-400) X10*3/uL MPV 8.4 L (9.4-12.4) fL Immature Gran % (Auto) 0.2 (0.0-0.4) % Neut % (Auto) 55.4 (45-73) % Lymph % (Auto) 36.5 (20-40) % [place] % (Auto) 7.0 (2-11) % Eos % (Auto) 0.4 (0-4) % Baso % (Auto) 0.5 (0-2) % Lymph # (Auto) 3.0 (1.2-4.9) X10*3/uL [place] # (Auto) 0.6 (0.1-1.2) X10*3/uL Eos # (Auto) 0.0 (0.0-0.4) X10*3/uL Baso # (Auto) 0.0 (0.0-0.2) X10*3/uL Abs Immat Gran (auto) 0.02 (0.00-0.03) X10*3/uL Absolute Neuts (auto) 4.6 (2.0-8.3) x10*3/uL Absolute Nucleated RBC 0.000 (0.0-0.012) X10*3/uL Nucleated RBC % (auto) 0.0 (0.0-0.2) /100WBC Sodium 142 (135-145) mmol/L Potassium 3.4 (3.3-5.1) mmol/L Chloride 102 (96-108) mmol/L Carbon Dioxide 27 (22-29) mmol/L Anion Gap 16 (12-20) BUN 10 (9-16) mg/dL Creatinine 0.82 (0.5-1.4) mg/dL Estim Creat Clear Calc 90.1 Estimated GFR > 60 Random Glucose 96 (60-115) mg/dL Calcium 9.1 (8.4-10.2) mg/dL Total Bilirubin 0.5 (0.0-1.0) mg/dL Direct Bilirubin 0.2 (0.0-0.5) mg/dL AST 55 H (5-37) U/L ALT 34 (0-40) U/L Alkaline Phosphatase 108 (39-117) U/L Total Protein 7.5 (6.5-8.0) g/dL Albumin 4.7 (3.5-5.0) g/dL Lipase 48 (8-78) U/L Urine Color Yellow Urine Appearance Clear Urine pH 6.5 (5.0-9.0) Ur Specific [place] 1.010 (1.005-1.025) Urine Protein Trace (Neg-Trace) mg/dL Urine Glucose (UA) Negative (Negative) mg/dL Urine Ketones Negative (Negative) mg/dL Urine Blood Negative (Negative) Urine Nitrite Negative (Negative) Ur Leukocyte Esterase Negative (Negative) Urine Opiates Screen Not Detected (Not Detect) Ur Buprenorphine Scrn Not Detected (Not Detect) ng/mL Ur Oxycodone Screen Not Detected (Not Detect) ng/mL Urine Methadone Screen Positive H (Not Detect) ng/mL Urine Fentanyl Screen POSITIVE H (Not Detect) Ur Barbiturates Screen Not Detected (Not Detect) Ur Phencyclidine Scrn Not Detected (Not Detect) Ur Amphetamines Screen Not Detected (Not Detect) U Benzodiazepines Scrn Not Detected (Not Detect) Urine Cocaine Screen Not Detected (Not Detect) U Marijuana (THC) Screen Not Detected (Not Detect) Ethyl Alcohol 326 H* mg/dL Independent Historian Clinical information obtained from an independent historian. History obtained from or confirmed by: Other External Record Review External record reviewed: Outpatient record Discharge Plan Discharge Clinical Impression: Polysubstance abuse Depression Qualifiers: Depression Type: unspecified Qualified Code(s): F32.A - Depression, unspecified Patient Disposition: Admitted As Inpatient Interventions: [place]-Suicide Risk Severity Scale Last Done: 08/27/25 00:21 Admission Worksheet (ED) Last Done: 08/26/25 12:55 Discharge Date/Time: 08/26/25 13:38
[2025-08-24 16:57] VITALS: BP 160/72; PULSE 99; RESP 18; TEMP 36.6; O2SAT 96; BMI 22.1
--- OUTSIDE RECORDS SUMMARY | 2025-08-24 17:10 | XMS_ITS | Patient Health Record ---
Author Organization [facility] Address [address] [place] [address] Care Team Providers Care Beam Dyer Operator Name Role Phone ZZArchive - DO NOT USE, Mail Pickup Primary Care Provider Unavailable Linda Cisneros Unavailable [phone] ZZArchive - DO NOT USE, Benefits Intervention Un available Unavailable Reason For Referral No Information Encounters Encounter Location Date Provider Diagnosis [facility] [address] [place] [phone] 12/13/2024 Linda Cisneros [facility] [address] [place], [place] [phone] 12/17/2024 Linda Cisneros [facility] [address] [place] [phone] 12/27/2024 Linda Cisneros [facility] [address] [place] [phone] 05/03/2025 Linda Cisneros [facility] [address] [place], [place] [phone] 04/30/2025 Linda Cisneros [facility] [address] [place], [place] [phone] 05/10/2025 Linda Cisneros [facility] [address] [place] [phone] 06/05/2025 Linda Cisneros Plan Of Treatment No Information Insurance Providers Payer Name Payer Address Payer Phone Subscriber Number Group Number Insured Name Patient Relationship to Insured Coverage Start Date Coverage End Date [facility] [employer] [address] [place] [phone] [id number] Lon Anguiano Self - patient is the insured 8 9
[2025-08-24 17:12] VITALS: RESP 16
--- NOTE | 2025-08-24 17:25 | PC.NURSE ---
Lon presents to the ED today reporting increased depression over the past week with increased drinking and using drugs. Pt reports that he got one week ago and then attempted to overdose on heroin/other drugs as well as drinking tons and tons of alcohol . Pt reports that he has been having recent alcohol binges and regularly uses drugs (he reports that he orally ingests all drugs, does not use IV). Reports he last used drugs this am and his last drink was 7-8 hours prior to arrival (of note, patient smells strongly of alcohol at this time of conversation). Patient outwardly denies SI but states he is depressed enough to not want to do it anymore . Pt then follow statement up with my new is so beautiful and I will do anything to save myself to not lose her . Pt is intermittently tearful during converation, frequently bouncing from topic to topic, unable to maintain single conversation for a couple minutes of time. Pt is currently calm and cooperative, hyperverbal at time, has sister visiting in room. Pt is aware of plan of care for medical clearance and CARE team evaluation
--- NOTE | 2025-08-24 18:01 | PC.NURSE ---
RE: methadone pt typically doses at [facility] on [facility] ([phone]), last dosed there on 08/17/25 at 180mg Pt was recently at [facility] and dosed there on 08/23/25 at 30mg DO aware, plan for 40mg dose to start
[2025-08-24 18:02] LABS: MANUAL DIFF FLAG NO
[2025-08-24 18:06] LABS: Appearance Urine Clear; Glucose Urine UA Negative (Negative); PH 6.5 (5.0-9.0); Specific Gravity - Urine 1.010 (1.005-1.025)
[2025-08-24 18:08] LABS: Hematocrit 40.3 % (42.0-52.0); Hemoglobin 13.8 g/dl (14.0-18.0); Imm Gran Abs Auto 0.02 X10*3/uL (0.00-0.03); Imm Gran Pct Auto 0.2 % (0.0-0.4); Lymphocytes Absolute Auto 3.0 X10*3/uL (1.2-4.9); Mean Corpuscular HGB Conc 34.2 g/dl (31.0-36.0); Mean Corpuscular Hemoglobin 30.4 pg (27.0-33.0); Mean Corpuscular Volume 88.8 fL (80.0-98.0); NRBC Abs Auto 0.000 X10*3/uL (0.0-0.012); NRBC Pct Auto 0.0 /100WBC (0.0-0.2); Platelet Count 310 X10*3/uL (160-400); Red Blood Count 4.54 X10*6/uL (4.60-5.80); White Blood Count 8.3 X10*3/uL (4.8-10.8)
[2025-08-24 18:16] LABS: Lipase 48 U/L (8-78)
[2025-08-24 18:18] LABS: Alanine Aminotransferase 34 U/L (0-40); Albumin Level 4.7 g/dL (3.5-5.0); Alkaline Phosphatase 108 U/L (39-117); Anion Gap 16 (12-20); Aspartate Amino Transferase 55 U/L (5-37); Blood Urea Nitrogen 10 mg/dL (9-16); Calcium 9.1 mg/dL (8.4-10.2); Carbon Dioxide 27 mmol/L (22-29); Chloride 102 mmol/L (96-108); Creatinine Clr Calc Pharmacy 90.1; Estimated Glomerular Filt Rate > 60; Potassium 3.4 mmol/L (3.3-5.1); Sodium 142 mmol/L (135-145); Total Protein 7.5 g/dL (6.5-8.0)
[2025-08-24] MEDS: methADONE HCl 20 MG/2 ML ORAL.CONC 40 MG PO (18:24)
[2025-08-24 20:38] LABS: Cannabinoid Screen Urine Not Detected (Not Detect)
[2025-08-24 20:45] VITALS: BP 140/65; PULSE 80; RESP 19; TEMP 37.2; O2SAT 98
--- NOTE | 2025-08-24 21:41 | PC.NURSE ---
Assumed care at 1845. Presents as calm and cooperative. Speech is hyperverbal at times. Visible on the unit, spent time between milieu and room. Adherent to HS scheduled medications. Utilized PRN Trazodone for sleep. Reports he hasn't slept in days. Reports 5/10 chronic shoulder pain, improved by HS scheduled Gabapentin. Frequently requesting food/snacks. Endorses passive SI, no plan/intent. Feels safe on the unit. Presents as help seeking and states I just got last week and I need to do better for her. Denies HI/AVH. Agreeable to alert staff if feeling unsafe. 15 minute safety checks ongoing. Plan of care ongoing...
[2025-08-25] VITALS (7 sets, daily range): BP systolic 118–162; BP diastolic 62–74; PULSE 58–82; RESP 14–20; TEMP 36.2–36.6; O2SAT 95–99
--- NOTE | 2025-08-25 07:16 | PC.NURSE ---
Assumed care of patient at 0645, patient appears to be in no apparent distress this am, sleeping soundly, respirations are even and unlabored. Continue plan of care for CARE team assessment this am
--- NOTE | 2025-08-25 08:13 | HE.PHANOTE ---
Re: Methadone Pt receives 180mg from [facility], , per Lucero at facility, with no take home bottles. Last dosed @ [facility] on 08/23 @ per VENUS David.
[2025-08-25] MEDS: methADONE HCl 20 MG/2 ML ORAL.CONC 50 MG PO (08:43)
--- NOTE | 2025-08-25 11:08 | PHA.MEDREC ---
Pharmacy Consult ? Medication Reconciliation Pharmacy has reviewed the medication reconciliation.
--- NOTE | 2025-08-25 17:01 | PC.NURSE ---
Pt was noted to be tremulous by MHT, this RN observed and completed CIWA. VSS, hypertensive. Pt medicated per MAR for elevated CIWA score
--- NOTE | 2025-08-26 00:54 | PC.NURSE ---
Took over care at 23:00 pt sleeping at this time, no sign of distess.
--- NOTE | 2025-08-26 02:07 | PC.NURSE ---
pt sleeping at this time.
[2025-08-26 06:22] VITALS: BP 158/86; PULSE 66; RESP 16; TEMP 36.4; O2SAT 98
[2025-08-26] MEDS: methADONE HCl 20 MG/2 ML ORAL.CONC 50 MG PO (07:58)
--- NOTE | 2025-08-26 08:31 | ECG_ITS ---
Test Reason : CHECK QTC Blood Pressure : */* mmHG Vent. Rate : 60 BPM Atrial Rate : 60 BPM P-R Int : 202 ms QRS Dur : 98 ms QT Int : 426 ms P-R-T Axes : 37 59 42 degrees QTcB Int : 426 ms Normal sinus rhythm Normal ECG When compared with ECG of 22-Jul-2020 10:14, No significant change was found Referred By: Charity Elizabeth Electronically Signed By: Fran Sigala
--- NOTE | 2025-08-26 09:23 | PC.NURSE ---
Assumed care, report received. Pt is anxious with tremors and restless. He scores CIWA -9 and is medicated per orders. He is provided breakfast and ADL supplies.
--- NOTE | 2025-08-26 11:31 | MHC.EDTECH ---
Guest arrives with four bags of unopened candy, sweatpants, sweatshirt, package of underwear and package of socks. Candy given to patient and is at bedside. Clothing placed in belongings bag and added to patients other items in locker #4.
[2025-08-26 13:53] VITALS: BP 142/72; PULSE 76; RESP 18; TEMP 36.9; O2SAT 97
[2025-08-26 14:14] VITALS: BMI 22.6
--- NOTE | 2025-08-26 16:36 | PC.ADMIT ---
Nursing admission note: 59 year old male DX: Unspecified depressive Disorder, Stimulant use disorder. Referred for treatment by CARE team. Signed conditional voluntary for admission. Lon arrived to [facility] via private vehicle on 08/24/2025. Reported recent overdose with intent to . Patient engaged easily for admission assessment however appeared to have difficulty maintaining interaction, appearing drowsy, requiring frequent repetition of questions. Calm and cooperative. A+O x3, not oriented to date. Dressed in hospital attire, attending to ADL's. Not malodorous. Patient reports increase in depression, feelings of hopelessness. Reports feeling anxious, stating he does not feel right . Currently denies SI/HI. Able to engage staff if feelings intensify or become overwhelming. Thoughts are linear and organized. Denies A/V hallucinations at this time. No overt psychosis or expressed delusions. Reports good appetite eating a lot stating this is due to hyperactive thyroid . Reports poor sleep, difficulty falling and maintaining sleep. Reports alcohol use several times a week, reporting 1/2 gallon of vodka weekly. Last use prior to admission, BAL on presentation to ED 326. TOX positive for Fentanyl and Methadone. Long history of substance use, including detox and substance use treatment. Currently on Methadone. Reports smoking approx 5 cigarettes a day, declined NRT at this time. Medical history includes allergy to tomato sauce. Psoriasis with multiple patchy areas on legs, buttock, thighs and arms. Reports vaccinated for this flu season. Patient placed on q 4 hours CIWA, 15 minutes safety checks. Oriented to unit. See nursing assessment/crisis evaluation for further details.
[2025-08-26 19:52] VITALS: BP 182/77; PULSE 90; RESP 16; TEMP 37.1; O2SAT 95
[2025-08-26 20:15] VITALS: BP 156/78; PULSE 88; RESP 18
[2025-08-26 20:24] VITALS: BP 156/78
--- NOTE | 2025-08-26 23:21 | HO.PSYADMNOT ---
HPI Date of Service: 08/26/25 Chief Complaint: SI Sources of Information: patient interviewed, chart reviewed and crisis/core team assessment reviewed HPI Subjective Notes: Conditional Voluntary Healthcare Proxy: No Guardianship: No Medical Problems Affecting Mental Status: No Narrative: Per Care team note: Patient is a newly , 59yo [place] Speaking male with a history of poly substance use who self presented to [facility] on , driven by his sister, due to vague SI, alcohol and drug withdrawal , and following an alleged overdose with intent to . Lon recalled being assessed at [facility] a couple days ago after he drank booze and used 60 dollars worth of crack cocaine with intent to and suffered from a overdose . He was reportedly withdrawing from methadone and drinking 1/ 2 gallon of Vodka daily. Lon endorsed poor sleep, anhedonia, heightened anxiety and worsening depression. He reported a family history of completed suicides and addiction. I watched my brother off himself On M3: Patient observed falling asleep while sitting at the dining table prior to meeting with this provider. However, he is able to engage in assessment. Patient starts conversation with the content of missing Sun and Tuesday dosage out of no where like this provider is reading his mind. He goes back and forth the two days that he missed his dose. Then states that he takes MTD 180mg daily at the clinic in [facility]. Patient is mumbling says that he supposed to get take home bottle before the wedding just in case the has W/D symptoms and went to [facility] and [facility]. Somewhat does not make sense. Report that he is a man with no children. He is currently homeless and I need a place . Report he graduated high school with Associate Degree after. 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 Denies family mental health or substance use issues. Report he used to use heroin but not currently. Denies FEN. Report WILLA use once in while when I have access with last use was last week. Report on and off using MJ/THC. Report that he drinks daily wiht 1/2 Gallon of Vodka for 25 years but cannot recall when he had last drink. Report trauma hx I guest so but not able to give more information. Report no legal issues. No psychiatric provider but on the waiting list of therapist. No PCP. Report he has 12 IPLOC admission with last admission was 10-12 days ago but cannot recall the name of the hospital. Denies SI/SIB/HI/AVH. Denies suicide attempts. Patient has tried hard to stay away for the assessment but cannot finish as he is falling asleep. It is possible that patient is sedated from medication received (got Ativan PRN per CIWA protocol). He also admits that he is too sleepy but says that he will be clearer and more awake tomorrow to talk. Patient is A+Ox3, wearing hospital attire, calm, sedated but cooperative. Possible not a good historian at this time. Speech is soft, mumbling with period of clear. Thought process is disorganized- could be affected by medication received earlier per CIWA protocol. Thought content is WNL. No SI/SIB/HI/AVH. Poor judgment and insight. Past Psychiatric History: Report up to 12 psychiatric admission with last admission was 10-12 days ago. Cannot recall name of the hospital Current no psychiatrist, no PCP but on waiting list for therapist. On Methadone Maintenance. Not sure actually he supposes to receive. self report 180mg via [facility]. Medical Evaluation Reviewed: Yes REPLACED BY [facility] Medical History No known health problems Anxiety Pneumonia Family History: Denies family mental health or substance use but report to Care team suicide attempts in family Social History: , no children, currently homeless. Received SSI. 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 Denies FEN. Report WILLA use once in while when I have access with last use was last week. Report on and off using MJ/THC. Report that he drinks daily wiht 1/2 Gallon of Vodka for 25 years but cannot recall when he had last drink. Placed on CIWA protocol with PRN Ativan for W/D symptoms Trauma History: Unclear Diagnostics Vital Signs (24Hr): Vital Signs - 24 hr 08/26/25 06:22 08/26/25 13:53 08/26/25 19:52 Temperature 97.5 F 98.4 F 98.8 F Pulse Rate 66 76 90 Respiratory Rate 16 18 16 Blood Pressure 158/86 H 142/72 H 182/77 H Pulse Oximetry 98 97 95 Oxygen Delivery Method Room Air Room Air Room Air 08/26/25 20:15 08/26/25 20:24 Temperature Pulse Rate 88 Respiratory Rate 18 Blood Pressure 156/78 H 156/78 H Pulse Oximetry Oxygen Delivery Method BMI result Body Mass Index 22.6 Labs 08/24/25 17:57 08/24/25 17:57 EKG EKG: reviewed Meds/Allergies Meds Home Medications ?Medication ?Instructions ?Recorded ?Confirmed ?Type gabapentin 300 mg capsule 300 mg PO TID 07/23/20 08/24/25 History trazodone 50 mg tablet 50 - 100 mg PO BEDTIME PRN Insomnia 07/23/20 08/24/25 History doxazosin 1 mg tablet 1 mg PO BEDTIME 08/24/25 08/24/25 History quetiapine 50 mg tablet 50 mg PO BEDTIME 08/24/25 08/24/25 History sertraline 50 mg tablet 50 mg PO DAILY 08/24/25 08/24/25 History methadone 10 mg/mL oral 180 mg PO DAILY 08/25/25 08/25/25 History concentrate (Methadone Intensol) Allergies Allergies Allergy/AdvReac Type Severity Reaction Status Date / Time tomato sauce Allergy Intermediate Hives Uncoded 08/24/25 18:42 Mental Status Exam Mental Status Exam Narrative: Patient is A+Ox3, wearing hospital attire, calm, sedated but cooperative. Possible not a good historian at this time. Speech is soft, mumbling with period of clear. Thought process is disorganized- could be affected by medication received earlier per [facility] protocol. Thought content is WNL. No SI/SIB/HI/AVH. Poor judgment and insight. Assessment & Plan Assessment & Plan (1) Cocaine use disorder: Status: Acute Code(s): F14.10 - Cocaine abuse, uncomplicated (2) Alcohol abuse: Status: Acute Code(s): F10.10 - Alcohol abuse, uncomplicated (3) Major depressive disorder, recurrent, unspecified: Status: Acute Code(s): F33.9 - Major depressive disorder, recurrent, unspecified Plan HPI: Patient is a newly , 59yo [place] Speaking male with a history of poly substance use who self presented to [facility] ED on , driven by his sister, due to vague SI, alcohol and drug withdrawal , and following an alleged overdose with intent to . Patient recalled being assessed at [facility] a couple days ago after he drank booze and used 60 dollars worth of crack cocaine with intent to and suffered from a overdose . He was reportedly withdrawing from methadone and drinking 1/ 2 gallon of Vodka daily. Lon endorsed poor sleep, anhedonia, heightened anxiety and worsening depression. He reported a family history of completed suicides and addiction. I watched my brother off himself Formulation/clinical reasoning: Increased substance use, increase depression symptoms, homeless, SI and used WILLA with alcohol OD with intent to . Given above information, patient would benefit in restrictive environment for own safety, medication management , and refer patient to OP psychiatric services for for aftercare. Patient would also benefit for treatment for substance use programs. Hospital course: 08/26/25: continue with home meds. Not able to discuss with patient regarding medication hx/plan d/t sedation. Place on CIWA Protocol with Ativan PRN for alcohol W/D symptoms. Plan Patient on 15 minute checks for safety. Admitted to . CV. Work with treatment team to do collateral for CSS/CCS if possible for aftercare. Refer to patient to logistics specialist: Will address with patient is more coherence and less sedated. Patient educated on: diagnosis, medication risk/benefits, substance abuse and therapeutic strategies Informed Consent: further education needed Reason for continued inpatient stay Substantial Risk for: med/psych decompensation Statement Statement: I have reviewed the history and physical and performed a pertinent examination on my patient. No changes have occurred unless specified. If the History and Physical was not performed prior to admission, the Hospitalist's service will be consulted for completing the admission physical. Time Spent With Patient Time: Total time managing care of this patient today ____ minutes.
--- NOTE | 2025-08-27 06:09 | PC.NURSE ---
Patient came to the nurse around 5:45am and complained of headache, tremors, anxiety and feeling tactile disturbances. CIWA assessment was completed and he scored a 9. PRN Tylenol and Ativan were given.
[2025-08-27] MEDS: methADONE HCl 20 MG/2 ML ORAL.CONC 50 MG PO (08:02)
[2025-08-27 08:04] LABS: Alanine Aminotransferase 25 U/L (0-40); Albumin Level 4.6 g/dL (3.5-5.0); Alkaline Phosphatase 128 U/L (39-117); Anion Gap 11 (12-20); Aspartate Amino Transferase 27 U/L (5-37); Blood Urea Nitrogen 23 mg/dL (9-16); Calcium 9.9 mg/dL (8.4-10.2); Carbon Dioxide 31 mmol/L (22-29); Chloride 99 mmol/L (96-108); Cholesterol 201 mg/dL (<200); Creatinine Clr Calc Pharmacy 89.6; Estimated Glomerular Filt Rate > 60; HDL Cholesterol 55 mg/dL (>40); Potassium 5.0 mmol/L (3.3-5.1); Sodium 136 mmol/L (135-145); Total Protein 7.4 g/dL (6.5-8.0); Triglycerides 187 mg/dL (<150)
--- NOTE | 2025-08-27 08:31 | HO.PM.IMCN ---
History of Present Illness Data of Consult Service Date: 08/27/25 Primary Care Provider: Unknown Physician HPI Reason for consult: Medical consult 59-year-old male with a past medical history of major depressive disorder, seizure disorder alcohol abuse, polysubstance abuse on methadone presented to the ED with increased depression and suicidal ideation with a plan. Patient was seen at [facility] after using the 11.5 bags of heroin in the was kicked ?kicked out of [facility] patient also drank 3 bottles of vodka and was using crack cocaine along with the 11.5 bags of heroin. Initial workup revealed no leukocytosis, very mild anemia, slight increase in AST otherwise normal electrolytes. Urine without evidence of infection, U tox positive for methadone, fentanyl, BAL on admit 326. Patient is medically cleared and now admitted to inpatient psychiatry for further care and stabilization. On exam he has no medical concerns. Somnolent. Review of Systems Review of Systems: Denies any shortness of breath, chest pain, headaches, dysuria, abdominal pain or discomfort, nausea, vomiting or diarrhea. Denies fever or chills. [facility] Medical History No known health problems Anxiety Pneumonia Social History Housing: Homeless Housing Other:: Safe place Do you presently have visiting nurse or other home services: No Alcohol intake: current Alcohol intake frequency: a few times a week Alcohol type: beer and hard liquor Patient Tobacco Use Status: Current everyday Tobacco user Tobacco use type: Cigarette Cigarettes Per Day: 5 Smoked in Last 30 Days: Yes e-Cigarette/Vaping Use: Never Used Patient Interested in Nicotine Replacement: No Patient Given Instructions on How to Stop Smoking: Yes Date Education Initiated: 08/26/25 Second Hand Smoke Exposure: Yes Use of substances other than those prescribed or required for medical reasons: Yes Substance Use Type: Crack/Cocaine, Heroin and Opiates Substance Use Frequency: Chronic Longstanding Last Used Substance: Just Prior to Admission Any prior treatment program specific to substance use: No Have you been hit, kicked, punched, or otherwise hurt by someone within the past year? If so, by whom?: No Do you feel safe in your current relationship?: No Is there a partner from a previous relationship who is making you feel unsafe now?: No Are you made to feel afraid or neglected: No Spiritual Healthcare Practices: No Sabianism Healthcare Practices: No Cultural Healthcare Practices: No Advance Directives: No Advance Directives Information Provided: No Do you have thoughts of harming others: None Do you have a plan to hurt others: No Plan Recently lost weight without trying: Unsure Eating poorly because of decreased appetite: No service: No Sexual orientation: Straight/Heterosexual Meds Allergies Allergy/AdvReac Type Severity Reaction Status Date / Time tomato sauce Allergy Intermediate Hives Uncoded 08/24/25 18:42 Active Medications: Current Medications Acetaminophen (Acetaminophen 325 Mg Tablet) 650 mg PO Q6H PRN PRN Reason: Headache/Pain, Scale 1-10 Last Admin: 08/27/25 05:49 Dose: 650 mg Al Hydroxide/Mg Hydroxide (Magnesium Hydrox/Alum Hydrox 30 Ml Oral.Susp) 30 ml PO Q6H PRN PRN Reason: Heartburn/Nausea Doxazosin Mesylate (Doxazosin Mesylate 1 Mg Tablet) 1 mg PO BEDTIME [facility]; Protocol Last Admin: 08/26/25 20:24 Dose: 1 mg Gabapentin (Gabapentin 300 Mg Capsule) 300 mg PO TID [facility] Last Admin: 08/26/25 20:24 Dose: 300 mg Hydroxyzine HCl (Hydroxyzine Hcl 25 Mg Tablet) 25 mg PO Q6H PRN PRN Reason: mild anxiety Last Admin: 08/27/25 05:49 Dose: 25 mg Lorazepam (Lorazepam 1 Mg Tablet) 1 mg PO Q2H PRN PRN Reason: CIWA 8-11 Last Admin: 08/27/25 05:49 Dose: 1 mg Lorazepam (Lorazepam 1 Mg Tablet) 2 mg PO Q2H PRN PRN Reason: CIWA 12-15 Lorazepam (Lorazepam 1 Mg Tablet) 3 mg PO Q2H PRN PRN Reason: CIWA > 15, and call Magnesium Hydroxide (Milk Of Magnesia 30 Ml Oral.Susp) 30 ml PO DAILY PRN PRN Reason: Constipation Methadone HCl (Methadone Hcl 20 Mg/2 Ml Oral.Conc) 50 mg PO DAILY [facility] Last Admin: 08/27/25 08:02 Dose: 50 mg Nicotine (Nicotine 21 Mg Patch.Td24) 21 mg TRANSDERMA DAILY [facility] Nicotine Polacrilex (Nicotine Polacrilex 2 Mg Gum) 4 mg BUCCAL Q2H PRN PRN Reason: Nicotine Cravings Quetiapine Fumarate (Quetiapine Fumarate 50 Mg Tablet) 50 mg PO BEDTIME AYDEE Last Admin: 08/26/25 20:25 Dose: 50 mg Sertraline HCl (Sertraline Hcl 50 Mg Tablet) 50 mg PO DAILY AYDEE Last Admin: 08/26/25 07:30 Dose: 50 mg Thiamine HCl (Thiamine Hcl 100 Mg Tablet) 100 mg PO DAILY [facility] Trazodone HCl (Trazodone Hcl 100 Mg Tablet) 100 mg PO BEDTIME PRN PRN Reason: Insomnia Last Admin: 08/24/25 20:45 Dose: 100 mg Home Medications ?Medication ?Instructions ?Recorded ?Confirmed ?Last Taken ?Type gabapentin 300 mg capsule 300 mg PO TID 07/23/20 08/24/25 Unknown History trazodone 50 mg tablet 50 - 100 mg PO BEDTIME PRN Insomnia 07/23/20 08/24/25 Unknown History doxazosin 1 mg tablet 1 mg PO BEDTIME 08/24/25 08/24/25 Unknown History quetiapine 50 mg tablet 50 mg PO BEDTIME 08/24/25 08/24/25 Unknown History sertraline 50 mg tablet 50 mg PO DAILY 08/24/25 08/24/25 Unknown History methadone 10 mg/mL oral 180 mg PO DAILY 08/25/25 08/25/25 08/17/25 History concentrate (Methadone Intensol) 0709 Physical Exam Vital Signs and Narrative: Vital Signs: Last Vital Signs Temp 98.8 F 08/26/25 19:52 Pulse 88 08/26/25 20:15 Resp 18 08/26/25 20:15 BP 156/78 H 08/26/25 20:24 Pulse Ox 95 08/26/25 19:52 O2 Del Method Room Air 08/26/25 19:52 BMI result Body Mass Index 22.6 Alert and oriented X3, calm and cooperative. Answers questions. Falls asleep during exam Neuro: CN II-X11 intact, no deficits, visual acuity intact EYES: PERRLA, EOM intact ENT: Hearing intact, MMM Cardiac: S1 S2 RRR, No ectopy Pulmonary: lungs clear to auscultation, No increased WOB. Abdominal: BS active in all 4 quadrants, no guarding or tenderness MSK: Strength 5/5 upper and lower extremities : Deferred Extremities: No edema in lower extremities Psych: Mood stable, Quiet and cooperative. Skin: Warm and dry, Intact Results Labs 08/24/25 17:57 08/27/25 07:41 Labs: Laboratory Results - last 24 hr 08/27/25 07:41 Anion Gap 11 L Estim Creat Clear Calc 89.6 Estimated GFR > 60 Random Glucose 101 Estimat Average Glucose 111 Hemoglobin A1c % 5.5 Calcium 9.9 D Total Bilirubin 0.6 AST 27 ALT 25 Alkaline Phosphatase 128 H Total Protein 7.4 Albumin 4.6 Triglycerides 187 H Cholesterol 201 H LDL Cholesterol, Calc 109 H HDL Cholesterol 55 Assessment and Plan (1) Alcohol abuse: Status: Acute Plan 59-year-old male who has medical history listed below presented to the ED with increased depression and suicide ideation with a plan. Admitted to inpatient psych for further care and treatment. Major depressive disorder/alcohol abuse/polysubstance abuse on methadone/suicide ideation Blood alcohol level on admit 326-on CIWA scale Somnolent on exam, received methadone this morning Treatment per psychiatric team Seizure disorder No recent seizures reported Thank you for allowing me to participate in the care of this patient. Will follow with you, please notify medical provider with any changes in condition or concerns.
--- NOTE | 2025-08-27 09:07 | HO.PSYCHPN ---
Subjective Subjective Date of Service: 08/27/25 Reason For Visit: SI Subjective Notes: Conditional Voluntary Interim History: Active on unit. keeping to self. observed falling asleep while standing. Patient reports feeling depressed ; pt stated, I just feel suicidal sometimes. Everything was going great. I think the drugs are confusing me very much . denies HI/VH/AH. Patient reports he was using heroin, cocaine and alcohol prior to arrival to ER. continues on CIWA protocol. Patient presents with mumbled and slurred speech; difficult to understand at times. Addiction medicine consult placed; pt requesting to be switched from methadone to suboxone; Shea Morris NP, aware. Medication Compliance: Yes Mental Status Exam Mental Status Exam Patient Appearance: Appropriate Patient Orientation: Person, Place and Situation Level of Consciousness: Drowsy Patient Behavior: Cooperative and Sedated Mood Description: Depressed Affect Description: Blunted Ability to Follow Directions: Good Speech Pattern: Slurred and Mumbled Hallucinations: None Delusions: Not Present Thought Process: Slowed Thinking Thought Content: positive for Disoriented Diagnostics Vital Signs (24Hr): Vital Signs - 24 hr 08/26/25 13:53 08/26/25 19:52 08/26/25 20:15 Temperature 98.4 F 98.8 F Pulse Rate 76 90 88 Respiratory Rate 18 16 18 Blood Pressure 142/72 H 182/77 H 156/78 H Pulse Oximetry 97 95 Oxygen Delivery Method Room Air Room Air 08/26/25 20:24 Temperature Pulse Rate Respiratory Rate Blood Pressure 156/78 H Pulse Oximetry Oxygen Delivery Method BMI result Body Mass Index 22.6 Labs 08/24/25 17:57 08/27/25 07:41 Labs: Laboratory Results - last 48 hr 08/27/25 07:41 Sodium 136 Potassium 5.0 D Chloride 99 Carbon Dioxide 31 H Anion Gap 11 L BUN 23 H Creatinine 0.84 Estim Creat Clear Calc 89.6 Estimated GFR > 60 Random Glucose 101 Estimat Average Glucose 111 Hemoglobin A1c % 5.5 Calcium 9.9 D Total Bilirubin 0.6 AST 27 ALT 25 Alkaline Phosphatase 128 H Total Protein 7.4 Albumin 4.6 Triglycerides 187 H Cholesterol 201 H LDL Cholesterol, Calc 109 H HDL Cholesterol 55 Medications Medications Current Medications Acetaminophen (Acetaminophen 325 Mg Tablet) 650 mg PO Q6H PRN PRN Reason: Headache/Pain, Scale 1-10 Last Admin: 08/27/25 05:49 Dose: 650 mg Al Hydroxide/Mg Hydroxide (Magnesium Hydrox/Alum Hydrox 30 Ml Oral.Susp) 30 ml PO Q6H PRN PRN Reason: Heartburn/Nausea Doxazosin Mesylate (Doxazosin Mesylate 1 Mg Tablet) 1 mg PO BEDTIME AYDEE; Protocol Last Admin: 08/26/25 20:24 Dose: 1 mg Gabapentin (Gabapentin 300 Mg Capsule) 300 mg PO TID AYDEE Last Admin: 08/26/25 20:24 Dose: 300 mg Hydroxyzine HCl (Hydroxyzine Hcl 25 Mg Tablet) 25 mg PO Q6H PRN PRN Reason: mild anxiety Last Admin: 08/27/25 05:49 Dose: 25 mg Lorazepam (Lorazepam 1 Mg Tablet) 1 mg PO Q2H PRN PRN Reason: CIWA 8-11 Last Admin: 08/27/25 05:49 Dose: 1 mg Lorazepam (Lorazepam 1 Mg Tablet) 2 mg PO Q2H PRN PRN Reason: CIWA 12-15 Lorazepam (Lorazepam 1 Mg Tablet) 3 mg PO Q2H PRN PRN Reason: CIWA > 15, and call Magnesium Hydroxide (Milk Of Magnesia 30 Ml Oral.Susp) 30 ml PO DAILY PRN PRN Reason: Constipation Methadone HCl (Methadone Hcl 20 Mg/2 Ml Oral.Conc) 50 mg PO DAILY [facility] Last Admin: 08/27/25 08:02 Dose: 50 mg Nicotine (Nicotine 21 Mg Patch.Td24) 21 mg TRANSDERMA DAILY [facility] Nicotine Polacrilex (Nicotine Polacrilex 2 Mg Gum) 4 mg BUCCAL Q2H PRN PRN Reason: Nicotine Cravings Quetiapine Fumarate (Quetiapine Fumarate 50 Mg Tablet) 50 mg PO BEDTIME AYDEE Last Admin: 08/26/25 20:25 Dose: 50 mg Sertraline HCl (Sertraline Hcl 50 Mg Tablet) 50 mg PO DAILY AY[facility]E Last Admin: 08/26/25 07:30 Dose: 50 mg Thiamine HCl (Thiamine Hcl 100 Mg Tablet) 100 mg PO DAILY [facility] Trazodone HCl (Trazodone Hcl 100 Mg Tablet) 100 mg PO BEDTIME PRN PRN Reason: Insomnia Last Admin: 08/24/25 20:45 Dose: 100 mg Allergies Allergies Allergy/AdvReac Type Severity Reaction Status Date / Time tomato sauce Allergy Intermediate Hives Uncoded 08/24/25 18:42 Assessment & Plan Assessment & Plan (1) Major depressive disorder, recurrent, unspecified: Status: Acute Code(s): F33.9 - Major depressive disorder, recurrent, unspecified (2) Cocaine use disorder: Status: Acute Code(s): F14.10 - Cocaine abuse, uncomplicated (3) Alcohol abuse: Status: Acute Code(s): F10.10 - Alcohol abuse, uncomplicated Plan HPI: Patient is a newly , 59yo [place] Speaking male with a history of poly substance use who self presented to [facility] on , driven by his sister, due to vague SI, alcohol and drug withdrawal , and following an alleged overdose with intent to . Patient recalled being assessed at [facility] a couple days ago after he drank booze and used 60 dollars worth of crack cocaine with intent to and suffered from a overdose . He was reportedly withdrawing from methadone and drinking 1/ 2 gallon of Vodka daily. Lon endorsed poor sleep, anhedonia, heightened anxiety and worsening depression. He reported a family history of completed suicides and addiction. I watched my brother off himself Formulation/clinical reasoning: Increased substance use, increase depression symptoms, homeless, SI and used WILLA with alcohol OD with intent to . Given above information, patient would benefit in restrictive environment for own safety, medication management , and refer patient to OP psychiatric services for for aftercare. Patient would also benefit for treatment for substance use programs. Plan: Patient on 15 minute checks for safety. Admitted to . CV. Work with treatment team to do collateral for CSS/CCS if possible for aftercare. Refer to patient to supplier quality specialist: Will address with patient is more coherence and less sedated. 08/26: continue with home meds. Not able to discuss with patient regarding medication hx/plan d/t sedation. Place on CIWA Protocol with Ativan PRN for alcohol W/D symptoms. 08/27: Active on unit. keeping to self. observed falling asleep while standing. Patient reports feeling depressed ; pt stated, I just feel suicidal sometimes. Everything was going great. I think the drugs are confusing me very much . denies HI/VH/AH. Patient reports he was using heroin, cocaine and alcohol prior to arrival to ER. continues on CIWA protocol. Patient presents with mumbled and slurred speech; difficult to understand at times. Addiction medicine consult placed; pt requesting to be switched from methadone to suboxone; Shea Morris, OVI, aware. Patient educated on: diagnosis and medication risk/benefits Reason for continued inpatient stay Substantial Risk for: med/psych decompensation Time Spent With Patient Time: Total time managing care of this patient today _20___ minutes.
[2025-08-27] MEDS: Nicotine 21 MG PATCH.TD24 TRANSDERMA (09:13)
[2025-08-27 09:16] VITALS: BP 156/78; PULSE 87; RESP 16; TEMP 36.4; O2SAT 97
--- NOTE | 2025-08-27 16:22 | MHC.RECOVRN ---
Met with pt on M3 after consult placed to Addiction Medicine. Pt reports he wants to transition from Methadone to Suboxone. On approach pt appears lethargic with eyes closed, sitting alone. His speech is mumbled and difficult to follow. He agreed to meet with TW, however his eyes remained mostly closed for the duration of the conversation as well as periods when he appeared to be sleeping. Of note, pt was administered 2mg of lorazepam at 13:41 When questioned why he wants to transition he was unable to articulate a response other than, it helps my withdrawal Pt reports he is dosed 180mg of methadone for the last 5 years @ [facility] and feels his dose is adequate in the community. He is unsure why his dose is currently 50mg. He also reports utilizing a head girls golf coach Alysa through [facility] Pt adds he was previously on 32mg of Suboxone in the past but reports it was not helpful. Case was discussed w/ Shea Morris PMHNP-BC and pt will be reassessed tomorrow morning due to current presentation. ACS team available as needed for ongoing support.
[2025-08-27 20:00] VITALS: BP 146/71; PULSE 92; RESP 18; TEMP 36.2; O2SAT 95
[2025-08-28 07:57] VITALS: BP 130/63; PULSE 76; RESP 14; TEMP 36.2; O2SAT 97
[2025-08-28] MEDS: methADONE HCl 20 MG/2 ML ORAL.CONC 50 MG PO (08:06)
--- NOTE | 2025-08-28 09:06 | HO.ADDICTCON ---
History of Present Illness Date of Service: 08/28/2025 Chief Complaint: SI Reason for Consult: requesting to switch from methadone to buprenorphine Sources of Information: patient interviewed and chart reviewed HPI Narrative: Patient is a 59 year old male admitted to with worsening depression and ongoing substance use. Consult requested as patient requested to transition to buprenorphine from methadone. Patient seen in room 319. He was laying in bed upon approach, but wakes easily to voice and participated in interview. He states that he had previously been taking methadone 180mg QD through [facility] Cuffed and [facility]. Per RN, last dose 08/17. Patient then received methadone 30mg at [facility] on 08/23 --unclear why dose was decreased Admitted to [facility] on 08/24 and methadone 40mg administered. When asked about wanting to switch to buprenorphine, patient stated I think I am immune to it now . Has been engaged in treatment for OUD for 5 years. He reports that he has not discussed this with his [facility] provider. No other rationale provided to transition medication This morning patient received methadone 50mg. Feeling uncomfortable. Would like to go back up with methadone dose Past Psychiatric History: Report up to 12 psychiatric admission with last admission was 10-12 days ago. Cannot recall name of the hospital Current no psychiatrist, no PCP but on waiting list for therapist. On Methadone Maintenance. Not sure actually he supposes to receive. self report 180mg via [employer]. Medical Evaluation Reviewed: Yes Review of Systems Constitutional: Reports as per HPI, Reports body ache(s), Reports lethargy and Reports malaise Diagnostics Vital Signs (24Hr): Vital Signs - 24 hr 08/27/25 09:16 08/27/25 20:00 08/28/25 07:57 Temperature 97.6 F 97.2 F 97.2 F Pulse Rate 87 92 76 Respiratory Rate 16 18 14 Blood Pressure 156/78 H 146/71 H 130/63 Pulse Oximetry 97 95 97 Oxygen Delivery Method Room Air Room Air Room Air BMI result Body Mass Index 22.6 Labs 08/24/25 17:57 08/27/25 07:41 Labs: Laboratory Results - last 48 hr 08/27/25 07:41 Sodium 136 Potassium 5.0 D Chloride 99 Carbon Dioxide 31 H Anion Gap 11 L BUN 23 H Creatinine 0.84 Estim Creat Clear Calc 89.6 Estimated GFR > 60 Random Glucose 101 Estimat Average Glucose 111 Hemoglobin A1c % 5.5 Calcium 9.9 D Total Bilirubin 0.6 AST 27 ALT 25 Alkaline Phosphatase 128 H Total Protein 7.4 Albumin 4.6 Triglycerides 187 H Cholesterol 201 H LDL Cholesterol, Calc 109 H HDL Cholesterol 55 Mental Status Exam Mental Status Exam Patient Appearance: Appropriate Level of Consciousness: Awake, Appropriate and Alert Patient Behavior: Appropriate and Talkative Affect Description: Calm Speech Pattern: Clear Thought Process: Intact Thought Content: positive for Intact Judgement: Good Medications Medications Current Medications Acetaminophen (Acetaminophen 325 Mg Tablet) 650 mg PO Q6H PRN PRN Reason: Headache/Pain, Scale 1-10 Last Admin: 08/28/25 08:39 Dose: 650 mg Al Hydroxide/Mg Hydroxide (Magnesium Hydrox/Alum Hydrox 30 Ml Oral.Susp) 30 ml PO Q6H PRN PRN Reason: Heartburn/Nausea Doxazosin Mesylate (Doxazosin Mesylate 1 Mg Tablet) 1 mg PO BEDTIME [facility]; Protocol Last Admin: 08/27/25 20:34 Dose: 1 mg Gabapentin (Gabapentin 300 Mg Capsule) 300 mg PO TID [facility] Last Admin: 08/28/25 08:08 Dose: 300 mg Hydroxyzine HCl (Hydroxyzine Hcl 25 Mg Tablet) 25 mg PO Q6H PRN PRN Reason: mild anxiety Last Admin: 08/27/25 20:35 Dose: 25 mg Lorazepam (Lorazepam 1 Mg Tablet) 1 mg PO Q2H PRN PRN Reason: CIWA 8-11 Last Admin: 08/28/25 08:40 Dose: 1 mg Lorazepam (Lorazepam 1 Mg Tablet) 2 mg PO Q2H PRN PRN Reason: CIWA 12-15 Last Admin: 08/27/25 13:41 Dose: 2 mg Lorazepam (Lorazepam 1 Mg Tablet) 3 mg PO Q2H PRN PRN Reason: CIWA > 15, and call Magnesium Hydroxide (Milk Of Magnesia 30 Ml Oral.Susp) 30 ml PO DAILY PRN PRN Reason: Constipation Methadone HCl (Methadone Hcl 20 Mg/2 Ml Oral.Conc) 50 mg PO DAILY [facility] Last Admin: 08/28/25 08:06 Dose: 50 mg Nicotine (Nicotine 21 Mg Patch.Td24) 21 mg TRANSDERMA DAILY [facility] Last Admin: 08/28/25 08:09 Dose: Not Given Nicotine Polacrilex (Nicotine Polacrilex 2 Mg Gum) 4 mg BUCCAL Q2H PRN PRN Reason: Nicotine Cravings Quetiapine Fumarate (Quetiapine Fumarate 50 Mg Tablet) 50 mg PO BEDTIME [facility] Last Admin: 08/27/25 20:34 Dose: 50 mg Sertraline HCl (Sertraline Hcl 50 Mg Tablet) 50 mg PO DAILY [facility] Last Admin: 08/28/25 08:08 Dose: 50 mg Thiamine HCl (Thiamine Hcl 100 Mg Tablet) 100 mg PO DAILY [facility] Last Admin: 08/28/25 08:08 Dose: 100 mg Trazodone HCl (Trazodone Hcl 100 Mg Tablet) 100 mg PO BEDTIME PRN PRN Reason: Insomnia Last Admin: 08/24/25 20:45 Dose: 100 mg Allergies Allergies Allergy/AdvReac Type Severity Reaction Status Date / Time tomato sauce Allergy Intermediate Hives Uncoded 08/24/25 18:42 Assessment & Plan Assessment & Plan (1) Opioid use disorder: Status: Acute Code(s): F11.90 - Opioid use, unspecified, uncomplicated Assessment and Plan: additional 40mg methadone today-total 90mg. will continue to follow and titrate dose back up will follow up with patient regarding request to transition to buprenorphine, and appropriateness/feasibility of doing that inpatient--will defer to outpatient provider Total time managing care of this patient today ___35_ minutes. PMFSH Past Medical History Medical History No known health problems Anxiety Pneumonia Social History Social History Housing: Homeless Housing Other:: Safe place Do you presently have visiting nurse or other home services: No Alcohol intake: current Alcohol intake frequency: a few times a week Alcohol type: beer and hard liquor Patient Tobacco Use Status: Current everyday Tobacco user Tobacco use type: Cigarette Cigarettes Per Day: 5 Smoked in Last 30 Days: Yes e-Cigarette/Vaping Use: Never Used Patient Interested in Nicotine Replacement: No Patient Given Instructions on How to Stop Smoking: Yes Date Education Initiated: 08/26/25 Second Hand Smoke Exposure: Yes Use of substances other than those prescribed or required for medical reasons: Yes Substance Use Type: Crack/Cocaine, Heroin and Opiates Substance Use Frequency: Chronic Longstanding Last Used Substance: Just Prior to Admission Currently Displaying Signs/Symptoms of Drug Intoxication Withdrawal: No Any prior treatment program specific to substance use: No Have you been hit, kicked, punched, or otherwise hurt by someone within the past year? If so, by whom?: No Do you feel safe in your current relationship?: No Is there a partner from a previous relationship who is making you feel unsafe now?: No Are you made to feel afraid or neglected: No Spiritual Healthcare Practices: No Hindu Healthcare Practices: No Cultural Healthcare Practices: No Advance Directives: No Advance Directives Information Provided: No Do you have thoughts of harming others: None Do you have a plan to hurt others: No Plan Recently lost weight without trying: Unsure Eating poorly because of decreased appetite: No service: No Sexual orientation: Straight/Heterosexual
[2025-08-28] MEDS: methADONE HCl 20 MG/2 ML ORAL.CONC 40 MG PO (09:50)
--- NOTE | 2025-08-28 12:56 | P.PNPSI_ITS ---
Subjective Subjective Date of Service: 08/28/25 Reason For Visit: SI Subjective Notes: Conditional Voluntary Interim History: Observed making multiple phone calls today. Patient continues with mumbled speech; difficult to understand at times. Patient reports feeling depressed and anxious ; pt stated, I need some more rest. I think about the worst things in the world and it prevents me from sleeping. I've had a lot of friends overdose so I think about it . Per nursing, pt slept 6 hours last night. Patient reports he is interested in going to a substance abuse program; pt stated, I need a program. I want to get my life straightened out . denies SI/HI/VH/AH. continues on CIWA protocol. continue tx plan. Medication Compliance: Yes Side effects from medications: No Attending Groups: No Mental Status Exam Mental Status Exam Narrative: Pt is alert and oriented; behavior is cooperative and calm; dressed in casual attire; mood is described as depressed ; eye contact appropriate; Speech is normal rate, volume and not pressured; thought process is organized; Thought content is on tx; denies SI/HI/VH/AH. Diagnostics Vital Signs (24Hr): Vital Signs - 24 hr 08/27/25 20:00 08/28/25 07:57 Temperature 97.2 F 97.2 F Pulse Rate 92 76 Respiratory Rate 18 14 Blood Pressure 146/71 H 130/63 Pulse Oximetry 95 97 Oxygen Delivery Method Room Air Room Air BMI result Body Mass Index 22.6 Labs 08/24/25 17:57 08/27/25 07:41 Labs: Laboratory Results - last 48 hr 08/27/25 07:41 Sodium 136 Potassium 5.0 D Chloride 99 Carbon Dioxide 31 H Anion Gap 11 L BUN 23 H Creatinine 0.84 Estim Creat Clear Calc 89.6 Estimated GFR > 60 Random Glucose 101 Estimat Average Glucose 111 Hemoglobin A1c % 5.5 Calcium 9.9 D Total Bilirubin 0.6 AST 27 ALT 25 Alkaline Phosphatase 128 H Total Protein 7.4 Albumin 4.6 Triglycerides 187 H Cholesterol 201 H LDL Cholesterol, Calc 109 H HDL Cholesterol 55 Medications Medications Current Medications Acetaminophen (Acetaminophen 325 Mg Tablet) 650 mg PO Q6H PRN PRN Reason: Headache/Pain, Scale 1-10 Last Admin: 08/28/25 08:39 Dose: 650 mg Al Hydroxide/Mg Hydroxide (Magnesium Hydrox/Alum Hydrox 30 Ml Oral.Susp) 30 ml PO Q6H PRN PRN Reason: Heartburn/Nausea Doxazosin Mesylate (Doxazosin Mesylate 1 Mg Tablet) 1 mg PO BEDTIME [facility]; Protocol Last Admin: 08/27/25 20:34 Dose: 1 mg Gabapentin (Gabapentin 300 Mg Capsule) 300 mg PO TID [facility] Last Admin: 08/28/25 08:08 Dose: 300 mg Hydroxyzine HCl (Hydroxyzine Hcl 25 Mg Tablet) 25 mg PO Q6H PRN PRN Reason: mild anxiety Last Admin: 08/27/25 20:35 Dose: 25 mg Lorazepam (Lorazepam 1 Mg Tablet) 1 mg PO Q2H PRN PRN Reason: CIWA 8-11 Last Admin: 08/28/25 08:40 Dose: 1 mg Lorazepam (Lorazepam 1 Mg Tablet) 2 mg PO Q2H PRN PRN Reason: CIWA 12-15 Last Admin: 08/27/25 13:41 Dose: 2 mg Lorazepam (Lorazepam 1 Mg Tablet) 3 mg PO Q2H PRN PRN Reason: CIWA > 15, and call Magnesium Hydroxide (Milk Of Magnesia 30 Ml Oral.Susp) 30 ml PO DAILY PRN PRN Reason: Constipation Methadone HCl (Methadone Hcl 20 Mg/2 Ml Oral.Conc) 50 mg PO DAILY [facility] Last Admin: 08/28/25 08:06 Dose: 50 mg Nicotine (Nicotine 21 Mg Patch.Td24) 21 mg TRANSDERMA DAILY [facility] Last Admin: 08/28/25 08:09 Dose: Not Given Nicotine Polacrilex (Nicotine Polacrilex 2 Mg Gum) 4 mg BUCCAL Q2H PRN PRN Reason: Nicotine Cravings Quetiapine Fumarate (Quetiapine Fumarate 50 Mg Tablet) 50 mg PO BEDTIME [facility] Last Admin: 08/27/25 20:34 Dose: 50 mg Sertraline HCl (Sertraline Hcl 50 Mg Tablet) 50 mg PO DAILY [facility] Last Admin: 08/28/25 08:08 Dose: 50 mg Thiamine HCl (Thiamine Hcl 100 Mg Tablet) 100 mg PO DAILY [facility] Last Admin: 08/28/25 08:08 Dose: 100 mg Trazodone HCl (Trazodone Hcl 100 Mg Tablet) 100 mg PO BEDTIME PRN PRN Reason: Insomnia Last Admin: 08/24/25 20:45 Dose: 100 mg Allergies Allergies Allergy/AdvReac Type Severity Reaction Status Date / Time tomato sauce Allergy Intermediate Hives Uncoded 08/24/25 18:42 Assessment & Plan Assessment & Plan (1) Major depressive disorder, recurrent, unspecified: Status: Acute Code(s): F33.9 - Major depressive disorder, recurrent, unspecified (2) Opioid use disorder: Status: Acute Code(s): F11.90 - Opioid use, unspecified, uncomplicated Assessment and Plan: * additional 40mg methadone today-total 90mg. * will follow up with patient regarding request to transition to buprenorphine, and appropriateness/feasibility of doing that inpatient (3) Cocaine use disorder: Status: Acute Code(s): F14.10 - Cocaine abuse, uncomplicated (4) Alcohol abuse: Status: Acute Code(s): F10.10 - Alcohol abuse, uncomplicated Plan Patient is a newly , 59yo [place]ij[place] Speaking male with a history of poly substance use who self presented to [facility] on , driven by his sister, due to vague SI, alcohol and drug withdrawal , and following an alleged overdose with intent to . Patient recalled being assessed at [facility] a couple days ago after he drank booze and used 60 dollars worth of crack cocaine with intent to and suffered from a overdose . He was reportedly withdrawing from methadone and drinking 1/ 2 gallon of Vodka daily. Lon endorsed poor sleep, anhedonia, heightened anxiety and worsening depression. He reported a family history of completed suicides and addiction. I watched my brother off himself Formulation/clinical reasoning: Increased substance use, increase depression symptoms, homeless, SI and used WILLA with alcohol OD with intent to . Given above information, patient would benefit in restrictive environment for own safety, medication management , and refer patient to OP psychiatric services for for aftercare. Patient would also benefit for treatment for substance use programs. Plan: Patient on 15 minute checks for safety. Admitted to . CV. Work with treatment team to do collateral for CSS/CCS if possible for aftercare. Refer to patient to engineering technical specialist: Will address with patient is more coherence and less sedated. 08/26: continue with home meds. Not able to discuss with patient regarding medication hx/plan d/t sedation. Place on CIWA Protocol with Ativan PRN for alcohol W/D symptoms. 08/27: Active on unit. keeping to self. observed falling asleep while standing. Patient reports feeling depressed ; pt stated, I just feel suicidal sometimes. Everything was going great. I think the drugs are confusing me very much . denies HI/VH/AH. Patient reports he was using heroin, cocaine and alcohol prior to arrival to ER. continues on CIWA protocol. Patient presents with mumbled and slurred speech; difficult to understand at times. Addiction medicine consult placed; pt requesting to be switched from methadone to suboxone; Shea Morris NP, aware. 08/28: Observed making multiple phone calls today. Patient continues with mumbled speech; difficult to understand at times. Patient reports feeling depressed and anxious ; pt stated, I need some more rest. I think about the worst things in the world and it prevents me from sleeping. I've had a lot of friends overdose so I think about it . Per nursing, pt slept 6 hours last night. Patient reports he is interested in going to a substance abuse program; pt stated, I need a program. I want to get my life straightened out . denies SI/HI/VH/AH. continues on CIWA protocol. continue tx plan. Patient educated on: diagnosis and medication risk/benefits Reason for continued inpatient stay Substantial Risk for: med/psych decompensation Time Spent With Patient Time: Total time managing care of this patient today _20___ minutes.
[2025-08-28 20:00] VITALS: BP 128/62; PULSE 81; RESP 16; TEMP 36.6; O2SAT 98
[2025-08-29 07:00] VITALS: BMI 22.7
[2025-08-29] MEDS: methADONE HCl 20 MG/2 ML ORAL.CONC 90 MG PO (07:48)
[2025-08-29 07:55] VITALS: BP 159/62; PULSE 95; RESP 18; TEMP 37.1; O2SAT 96
--- NOTE | 2025-08-29 09:19 | P.PNPSI_ITS ---
Subjective Subjective Date of Service: 08/29/25 Reason For Visit: SI Subjective Notes: Conditional Voluntary Interim History: Patient presents with clearer speech today;however, difficult to understand at times. Patient continues to report feeling depressed; pt stated, my isn't doing good because we just got and this is happening . He reports not sleeping well last night d/t nightmares; discussed starting Prazosin; risks/benefits reviewed, pt agreed to trial. Start: Prazosin 1mg PO bedtime. denies SI/HI/VH/AH. continues on CIWA protocol; pt reports withdrawal symptoms are decreasing. Medication Compliance: Yes Side effects from medications: No Attending Groups: Intermittent Mental Status Exam Mental Status Exam Narrative: Pt is alert and oriented; behavior is cooperative and calm; dressed in casual attire; mood is described as depressed ; eye contact appropriate; Speech is normal rate, volume and not pressured; thought process is organized; Thought content is on tx; denies SI/HI/VH/AH. Diagnostics Vital Signs (24Hr): Vital Signs - 24 hr 08/28/25 20:00 08/29/25 07:55 Temperature 97.9 F 98.8 F Pulse Rate 81 95 Respiratory Rate 16 18 Blood Pressure 128/62 159/62 H Pulse Oximetry 98 96 Oxygen Delivery Method Room Air Room Air BMI result Body Mass Index 22.7 Labs 08/24/25 17:57 08/27/25 07:41 Medications Medications Current Medications Acetaminophen (Acetaminophen 325 Mg Tablet) 650 mg PO Q6H PRN PRN Reason: Headache/Pain, Scale 1-10 Last Admin: 08/28/25 14:44 Dose: 650 mg Al Hydroxide/Mg Hydroxide (Magnesium Hydrox/Alum Hydrox 30 Ml Oral.Susp) 30 ml PO Q6H PRN PRN Reason: Heartburn/Nausea Doxazosin Mesylate (Doxazosin Mesylate 1 Mg Tablet) 1 mg PO BEDTIME [facility]; Protocol Last Admin: 08/28/25 20:16 Dose: 1 mg Gabapentin (Gabapentin 300 Mg Capsule) 300 mg PO TID [facility] Last Admin: 08/29/25 08:51 Dose: 300 mg Hydroxyzine HCl (Hydroxyzine Hcl 25 Mg Tablet) 25 mg PO Q6H PRN PRN Reason: mild anxiety Last Admin: 08/29/25 00:43 Dose: 25 mg Ibuprofen (Ibuprofen 600 Mg Tablet) 600 mg PO Q8H PRN PRN Reason: Pain, Moderate(Pain Scale 4-6) Last Admin: 08/29/25 08:51 Dose: 600 mg Lorazepam (Lorazepam 1 Mg Tablet) 1 mg PO Q2H PRN PRN Reason: CIWA 8-11 Last Admin: 08/28/25 20:17 Dose: 1 mg Lorazepam (Lorazepam 1 Mg Tablet) 2 mg PO Q2H PRN PRN Reason: CIWA 12-15 Last Admin: 08/27/25 13:41 Dose: 2 mg Lorazepam (Lorazepam 1 Mg Tablet) 3 mg PO Q2H PRN PRN Reason: CIWA > 15, and call Magnesium Hydroxide (Milk Of Magnesia 30 Ml Oral.Susp) 30 ml PO DAILY PRN PRN Reason: Constipation Methadone HCl (Methadone Hcl 20 Mg/2 Ml Oral.Conc) 90 mg PO DAILY@0800 [facility] Last Admin: 08/29/25 07:48 Dose: 90 mg Nicotine (Nicotine 21 Mg Patch.Td24) 21 mg TRANSDERMA DAILY [facility] Last Admin: 08/29/25 08:51 Dose: Not Given Nicotine Polacrilex (Nicotine Polacrilex 2 Mg Gum) 4 mg BUCCAL Q2H PRN PRN Reason: Nicotine Cravings Quetiapine Fumarate (Quetiapine Fumarate 50 Mg Tablet) 50 mg PO BEDTIME [facility] Last Admin: 08/28/25 20:17 Dose: 50 mg Sertraline HCl (Sertraline Hcl 50 Mg Tablet) 50 mg PO DAILY [facility] Last Admin: 08/29/25 08:51 Dose: 50 mg Thiamine HCl (Thiamine Hcl 100 Mg Tablet) 100 mg PO DAILY [facility] Last Admin: 08/29/25 08:51 Dose: 100 mg Trazodone HCl (Trazodone Hcl 100 Mg Tablet) 100 mg PO BEDTIME PRN PRN Reason: Insomnia Last Admin: 08/29/25 00:43 Dose: 100 mg Allergies Allergies Allergy/AdvReac Type Severity Reaction Status Date / Time tomato sauce Allergy Intermediate Hives Uncoded 08/24/25 18:42 Assessment & Plan Assessment & Plan (1) Major depressive disorder, recurrent, unspecified: Status: Acute Code(s): F33.9 - Major depressive disorder, recurrent, unspecified (2) Opioid use disorder: Status: Acute Code(s): F11.90 - Opioid use, unspecified, uncomplicated Assessment and Plan: * additional 40mg methadone today-total 90mg. will continue to follow and titrate dose back up * will follow up with patient regarding request to transition to buprenorphine, and appropriateness/feasibility of doing that inpatient--will defer to outpatient provider (3) Alcohol abuse: Status: Acute Code(s): F10.10 - Alcohol abuse, uncomplicated (4) Cocaine use disorder: Status: Acute Code(s): F14.10 - Cocaine abuse, uncomplicated Plan Patient is a newly , 59yo [place] Speaking male with a history of poly substance use who self presented to [facility] on , driven by his sister, due to vague SI, alcohol and drug withdrawal , and following an alleged overdose with intent to . Patient recalled being assessed at [facility] a couple days ago after he drank booze and used 60 dollars worth of crack cocaine with intent to and suffered from a overdose . He was reportedly withdrawing from methadone and drinking 1/ 2 gallon of Vodka daily. Lon endorsed poor sleep, anhedonia, heightened anxiety and worsening depression. He reported a family history of completed suicides and addiction. I watched my brother off himself Formulation/clinical reasoning: Increased substance use, increase depression symptoms, homeless, SI and used WILLA with alcohol OD with intent to . Given above information, patient would benefit in restrictive environment for own safety, medication management , and refer patient to OP psychiatric services for for aftercare. Patient would also benefit for treatment for substance use programs. Plan: Patient on 15 minute checks for safety. Admitted to . CV. Work with treatment team to do collateral for CSS/CCS if possible for aftercare. Refer to patient to offender job retention specialist: Will address with patient is more coherence and less sedated. 08/26: continue with home meds. Not able to discuss with patient regarding medication hx/plan d/t sedation. Place on CIWA Protocol with Ativan PRN for alcohol W/D symptoms. 08/27: Active on unit. keeping to self. observed falling asleep while standing. Patient reports feeling depressed ; pt stated, I just feel suicidal sometimes. Everything was going great. I think the drugs are confusing me very much . denies HI/VH/AH. Patient reports he was using heroin, cocaine and alcohol prior to arrival to ER. continues on CIWA protocol. Patient presents with mumbled and slurred speech; difficult to understand at times. Addiction medicine consult placed; pt requesting to be switched from methadone to suboxone; Shea Morris SALES PROJECT COORDINATOR, aware. 08/28: Observed making multiple phone calls today. Patient continues with mumbled speech; difficult to understand at times. Patient reports feeling depressed and anxious ; pt stated, I need some more rest. I think about the worst things in the world and it prevents me from sleeping. I've had a lot of friends overdose so I think about it . Per nursing, pt slept 6 hours last night. Patient reports he is interested in going to a substance abuse program; pt stated, I need a program. I want to get my life straightened out . denies SI/HI/VH/AH. continues on CIWA protocol. continue tx plan. 08/29: Patient presents with clearer speech today;however, difficult to understand at times. Patient continues to report feeling depressed; pt stated, my isn't doing good because we just got and this is happening . He reports not sleeping well last night d/t nightmares; discussed starting Prazosin; risks/benefits reviewed, pt agreed to trial. Start: Prazosin 1mg PO bedtime. denies SI/HI/VH/AH. continues on CIWA protocol; pt reports withdrawal symptoms are decreasing. Patient educated on: diagnosis, medication risk/benefits and therapeutic strategies Reason for continued inpatient stay Substantial Risk for: med/psych decompensation Time Spent With Patient Time: Total time managing care of this patient today _20___ minutes.
--- NOTE | 2025-08-29 09:56 | PC.NURSE ---
Pt is asking if there is a sober living housing for couples in this area. He was referred to work.
--- NOTE | 2025-08-29 11:14 | PC.NURSE ---
Pt with slurred speech, trailing off mid-sentence, disorganized, audible wheezing. VSS. Reported to provider [id number]. She stated that she doesn't have any concerns. Pupils equal and reactive, fingers squeezed equally, and stimulus felt BL on feet. Pt also c/o dizziness.
[2025-08-29] MEDS: Triamcinolone Acet 0.1 % Cream 15 GM TUBE 1 APPL TOPICAL ×2 (11:31→20:16)
--- NOTE | 2025-08-29 15:24 | P.PNADD_ITS ---
Subjective Subjective Date of Service: 08/29/25 Reason For Visit: SI Interim History: Patient seen in follow up Reports feeling better as methadone dose is titrated Still experiencing restless legs and difficulty sleeping Review of Systems Acute medical concerns: No Review of Systems Constitutional: Reports as per HPI Mental Status Exam Mental Status Exam Patient Appearance: Disheveled Level of Consciousness: Awake, Appropriate and Alert Patient Behavior: Appropriate Affect Description: Calm Speech Pattern: Clear Thought Process: Intact Thought Content: positive for Intact Judgement: Fair Diagnostics Vital Signs (24Hr): Vital Signs - 24 hr 08/28/25 20:00 08/29/25 07:55 Temperature 97.9 F 98.8 F Pulse Rate 81 95 Respiratory Rate 16 18 Blood Pressure 128/62 159/62 H Pulse Oximetry 98 96 Oxygen Delivery Method Room Air Room Air BMI result Body Mass Index 22.7 Labs 08/24/25 17:57 08/27/25 07:41 Medications Medications Current Medications Acetaminophen (Acetaminophen 325 Mg Tablet) 650 mg PO Q6H PRN PRN Reason: Headache/Pain, Scale 1-10 Last Admin: 08/29/25 11:09 Dose: 650 mg Al Hydroxide/Mg Hydroxide (Magnesium Hydrox/Alum Hydrox 30 Ml Oral.Susp) 30 ml PO Q6H PRN PRN Reason: Heartburn/Nausea Doxazosin Mesylate (Doxazosin Mesylate 1 Mg Tablet) 1 mg PO BEDTIME AYDEE; Protocol Last Admin: 08/28/25 20:16 Dose: 1 mg Gabapentin (Gabapentin 300 Mg Capsule) 300 mg PO TID AYDEE Last Admin: 08/29/25 14:51 Dose: 300 mg Hydroxyzine HCl (Hydroxyzine Hcl 25 Mg Tablet) 25 mg PO Q6H PRN PRN Reason: mild anxiety Last Admin: 08/29/25 00:43 Dose: 25 mg Ibuprofen (Ibuprofen 600 Mg Tablet) 600 mg PO Q8H PRN PRN Reason: Pain, Moderate(Pain Scale 4-6) Last Admin: 08/29/25 08:51 Dose: 600 mg Lorazepam (Lorazepam 1 Mg Tablet) 1 mg PO Q2H PRN PRN Reason: CIWA 8-11 Last Admin: 08/28/25 20:17 Dose: 1 mg Lorazepam (Lorazepam 1 Mg Tablet) 2 mg PO Q2H PRN PRN Reason: CIWA 12-15 Last Admin: 08/27/25 13:41 Dose: 2 mg Lorazepam (Lorazepam 1 Mg Tablet) 3 mg PO Q2H PRN PRN Reason: CIWA > 15, and call Magnesium Hydroxide (Milk Of Magnesia 30 Ml Oral.Susp) 30 ml PO DAILY PRN PRN Reason: Constipation Methadone HCl (Methadone Hcl 20 Mg/2 Ml Oral.Conc) 90 mg PO DAILY@0800 [facility] Last Admin: 08/29/25 07:48 Dose: 90 mg Nicotine Polacrilex (Nicotine Polacrilex 2 Mg Gum) 4 mg BUCCAL Q2H PRN PRN Reason: Nicotine Cravings Prazosin HCl (Prazosin Hcl 1 Mg Capsule) 1 mg PO BEDTIME AYDEE; Protocol Quetiapine Fumarate (Quetiapine Fumarate 50 Mg Tablet) 50 mg PO BEDTIME AYDEE Last Admin: 08/28/25 20:17 Dose: 50 mg Sertraline HCl (Sertraline Hcl 50 Mg Tablet) 50 mg PO DAILY AYDEE Last Admin: 08/29/25 08:51 Dose: 50 mg Thiamine HCl (Thiamine Hcl 100 Mg Tablet) 100 mg PO DAILY [facility] Last Admin: 08/29/25 08:51 Dose: 100 mg Trazodone HCl (Trazodone Hcl 100 Mg Tablet) 100 mg PO BEDTIME PRN PRN Reason: Insomnia Last Admin: 08/29/25 00:43 Dose: 100 mg Triamcinolone Acetonide (Triamcinolone Acet 0.1 % Cream 15 Gm Tube) 1 appl TOPICAL BID AYDEE; Protocol Last Admin: 08/29/25 11:31 Dose: 1 appl Allergies Allergies Allergy/AdvReac Type Severity Reaction Status Date / Time tomato sauce Allergy Intermediate Hives Uncoded 08/24/25 18:42 Assessment & Plan Assessment & Plan (1) Opioid use disorder: Status: Acute Code(s): F11.90 - Opioid use, unspecified, uncomplicated Assessment and Plan: * methadone increase to 100mg in AM -can increase additional 10mg over the weekend * will follow up on Tuesday, if patient still admitted Total time managing care of this patient today _15___ minutes.
[2025-08-29] MEDS: Magnesium Hydrox/Alum Hydrox 30 ML ORAL.SUSP PO (16:49)
[2025-08-29 20:00] VITALS: BP 130/60; PULSE 86; RESP 16; TEMP 38; O2SAT 92
[2025-08-30 04:21] VITALS: RESP 16; TEMP 37.7
[2025-08-30 08:00] VITALS: BP 104/51; PULSE 86; RESP 18; TEMP 36.9; O2SAT 85
[2025-08-30] MEDS: methADONE HCl 20 MG/2 ML ORAL.CONC 100 MG PO (08:21)
[2025-08-30] MEDS: Triamcinolone Acet 0.1 % Cream 15 GM TUBE 1 APPL TOPICAL ×2 (08:24→21:05)
--- NOTE | 2025-08-30 08:42 | P.PNPSI_ITS ---
Subjective Subjective Date of Service: 08/30/25 Reason For Visit: SI Subjective Notes: Conditional Voluntary Interim History: Active on unit. Patient continues to report feeling depressed; pt stated, my is just worried about me. I hope I get into a program . denies SI/HI/VH/AH. Focused on going to a program after discharge. BECKYWA DC'd/ Started on Ativan taper. continue tx plan. Medication Compliance: Yes Side effects from medications: No Attending Groups: Intermittent Mental Status Exam Mental Status Exam Narrative: Pt is alert and oriented; behavior is cooperative and calm; dressed in casual attire; mood is described as depressed ; eye contact appropriate; Speech is normal rate, volume and not pressured; thought process is organized; Thought content is on tx; denies SI/HI/VH/AH. Diagnostics Vital Signs (24Hr): Vital Signs - 24 hr 08/29/25 20:00 08/30/25 04:21 08/30/25 08:00 Temperature 100.4 F 99.8 F 98.5 F Pulse Rate 86 86 Respiratory Rate 16 16 18 Blood Pressure 130/60 104/51 L Pulse Oximetry 92 85 L Oxygen Delivery Method Room Air Room Air BMI result Body Mass Index 22.7 Labs 08/24/25 17:57 08/27/25 07:41 Medications Medications Current Medications Acetaminophen (Acetaminophen 325 Mg Tablet) 650 mg PO Q6H PRN PRN Reason: Headache/Pain, Scale 1-10 Last Admin: 08/30/25 04:18 Dose: 650 mg Al Hydroxide/Mg Hydroxide (Magnesium Hydrox/Alum Hydrox 30 Ml Oral.Susp) 30 ml PO Q6H PRN PRN Reason: Heartburn/Nausea Last Admin: 08/29/25 16:49 Dose: 30 ml Doxazosin Mesylate (Doxazosin Mesylate 1 Mg Tablet) 1 mg PO BEDTIME AYDEE; Protocol Last Admin: 08/29/25 20:17 Dose: 1 mg Gabapentin (Gabapentin 300 Mg Capsule) 300 mg PO TID AYDEE Last Admin: 08/30/25 08:23 Dose: 300 mg Hydroxyzine HCl (Hydroxyzine Hcl 25 Mg Tablet) 25 mg PO Q6H PRN PRN Reason: mild anxiety Last Admin: 08/29/25 00:43 Dose: 25 mg Ibuprofen (Ibuprofen 600 Mg Tablet) 600 mg PO Q8H PRN PRN Reason: Pain, Moderate(Pain Scale 4-6) Last Admin: 08/29/25 20:16 Dose: 600 mg Lorazepam (Lorazepam 1 Mg Tablet) 1 mg PO Q2H PRN PRN Reason: CIWA 8-11 Last Admin: 08/30/25 04:15 Dose: 1 mg Lorazepam (Lorazepam 1 Mg Tablet) 2 mg PO Q2H PRN PRN Reason: CIWA 12-15 Last Admin: 08/29/25 16:57 Dose: 2 mg Lorazepam (Lorazepam 1 Mg Tablet) 3 mg PO Q2H PRN PRN Reason: CIWA > 15, and call Magnesium Hydroxide (Milk Of Magnesia 30 Ml Oral.Susp) 30 ml PO DAILY PRN PRN Reason: Constipation Methadone HCl (Methadone Hcl 20 Mg/2 Ml Oral.Conc) 100 mg PO DAILY@0800 AYDEE Last Admin: 08/30/25 08:21 Dose: 100 mg Nicotine Polacrilex (Nicotine Polacrilex 2 Mg Gum) 4 mg BUCCAL Q2H PRN PRN Reason: Nicotine Cravings Prazosin HCl (Prazosin Hcl 1 Mg Capsule) 1 mg PO BEDTIME AYDEE; Protocol Last Admin: 08/29/25 20:17 Dose: 1 mg Quetiapine Fumarate (Quetiapine Fumarate 50 Mg Tablet) 50 mg PO BEDTIME AYDEE Last Admin: 08/29/25 20:17 Dose: 50 mg Sertraline HCl (Sertraline Hcl 50 Mg Tablet) 50 mg PO DAILY AYDEE Last Admin: 08/30/25 08:23 Dose: 50 mg Thiamine HCl (Thiamine Hcl 100 Mg Tablet) 100 mg PO DAILY AYDEE Last Admin: 08/30/25 08:23 Dose: 100 mg Trazodone HCl (Trazodone Hcl 100 Mg Tablet) 100 mg PO BEDTIME PRN PRN Reason: Insomnia Last Admin: 08/29/25 00:43 Dose: 100 mg Triamcinolone Acetonide (Triamcinolone Acet 0.1 % Cream 15 Gm Tube) 1 appl TOPICAL BID AYDEE; Protocol Last Admin: 08/30/25 08:24 Dose: 1 appl Allergies Allergies Allergy/AdvReac Type Severity Reaction Status Date / Time tomato sauce Allergy Intermediate Hives Uncoded 08/24/25 18:42 Assessment & Plan Assessment & Plan (1) Major depressive disorder, recurrent, unspecified: Status: Acute Code(s): F33.9 - Major depressive disorder, recurrent, unspecified (2) Opioid use disorder: Status: Acute Code(s): F11.90 - Opioid use, unspecified, uncomplicated Assessment and Plan: * methadone increase to 100mg in AM -can increase additional 10mg over the weekend * will follow up on Tuesday, if patient still admitted (3) Cocaine use disorder: Status: Acute Code(s): F14.10 - Cocaine abuse, uncomplicated (4) Alcohol abuse: Status: Acute Code(s): F10.10 - Alcohol abuse, uncomplicated Plan Patient is a newly , 59yo Maced[place] Speaking male with a history of poly substance use who self presented to [facility] on , driven by his sister, due to vague SI, alcohol and drug withdrawal , and following an alleged overdose with intent to . Patient recalled being assessed at [facility] a couple days ago after he drank booze and used 60 dollars worth of crack cocaine with intent to and suffered from a overdose . He was reportedly withdrawing from methadone and drinking 1/ 2 gallon of Vodka daily. Lon endorsed poor sleep, anhedonia, heightened anxiety and worsening depression. He reported a family history of completed suicides and addiction. I watched my brother off himself Formulation/clinical reasoning: Increased substance use, increase depression symptoms, homeless, SI and used WILLA with alcohol OD with intent to . Given above information, patient would benefit in restrictive environment for own safety, medication management , and refer patient to OP psychiatric services for for aftercare. Patient would also benefit for treatment for substance use programs. Plan: Patient on 15 minute checks for safety. Admitted to . CV. Work with treatment team to do collateral for CSS/CCS if possible for aftercare. Refer to patient to customer training specialist: Will address with patient is more coherence and less sedated. 08/26: continue with home meds. Not able to discuss with patient regarding medication hx/plan d/t sedation. Place on CIWA Protocol with Ativan PRN for alcohol W/D symptoms. 08/27: Active on unit. keeping to self. observed falling asleep while standing. Patient reports feeling depressed ; pt stated, I just feel suicidal sometimes. Everything was going great. I think the drugs are confusing me very much . denies HI/VH/AH. Patient reports he was using heroin, cocaine and alcohol prior to arrival to ER. continues on CIWA protocol. Patient presents with mumbled and slurred speech; difficult to understand at times. Addiction medicine consult placed; pt requesting to be switched from methadone to suboxone; Shea Morris NP, aware. 08/28: Observed making multiple phone calls today. Patient continues with mumbled speech; difficult to understand at times. Patient reports feeling depressed and anxious ; pt stated, I need some more rest. I think about the worst things in the world and it prevents me from sleeping. I've had a lot of friends overdose so I think about it . Per nursing, pt slept 6 hours last night. Patient reports he is interested in going to a substance abuse program; pt stated, I need a program. I want to get my life straightened out . denies SI/HI/VH/AH. continues on CIWA protocol. continue tx plan. 08/29: Patient presents with clearer speech today;however, difficult to understand at times. Patient continues to report feeling depressed; pt stated, my isn't doing good because we just got and this is happening . He reports not sleeping well last night d/t nightmares; discussed starting Prazosin; risks/benefits reviewed, pt agreed to trial. Start: Prazosin 1mg PO bedtime. denies SI/HI/VH/AH. continues on CIWA protocol; pt reports withdrawal symptoms are decreasing. 08/30: Active on unit. Patient continues to report feeling depressed; pt stated, my is just worried about me. I hope I get into a program . denies SI/HI/VH/AH. Focused on going to a program after discharge. BECKYWA DC'd/ Started on Ativan taper. continue tx plan. Patient educated on: diagnosis, medication risk/benefits and therapeutic strategies Reason for continued inpatient stay Substantial Risk for: med/psych decompensation Time Spent With Patient Time: Total time managing care of this patient today _20___ minutes.
[2025-08-30 20:00] VITALS: BP 146/56; PULSE 90; RESP 18; TEMP 35.7; O2SAT 97
[2025-08-30 21:03] VITALS: BP 146/56
[2025-08-30 21:04] VITALS: BP 146/56
[2025-08-31] MEDS: methADONE HCl 20 MG/2 ML ORAL.CONC 100 MG PO (07:55)
[2025-08-31 08:00] VITALS: BP 134/63; PULSE 95; RESP 16; TEMP 36.6; O2SAT 95
[2025-08-31] MEDS: Triamcinolone Acet 0.1 % Cream 15 GM TUBE 1 APPL TOPICAL ×2 (10:57→20:28)
[2025-08-31 20:00] VITALS: BP 115/71; PULSE 82; RESP 20; TEMP 36.5; O2SAT 92
[2025-08-31 20:33] VITALS: BP 115/71
--- NOTE | 2025-08-31 22:59 | P.PNPSI_ITS ---
Subjective Subjective Date of Service: 08/31/25 Reason For Visit: SI Subjective Notes: Conditional Voluntary Healthcare Proxy: No Guardianship: No Medical Problems Affecting Mental Status: No Interim History: Medical record and nursing notes reviewed; case discussed during rounds with team/nursing staff, and met with patient for supportive therapy/psychoeducation, as well as medication management. Patient is focused on eating lunch, superficial, denies safety concerns, stating that he feel much better. Denies safety concerns. Yesterday he reports feeling congested and body ache received Motrin for headache. Patient appeared to be restless, somewhat disorganized. Medication Compliance: Yes Side effects from medications: No Attending Groups: No Review of Systems Medical Review of Systems: unchanged Review of Systems Review of Systems Constitutional: Denies fatigue and Denies fever(s) Cardiovascular: Denies chest pain and Denies dyspnea Respiratory: Denies dyspnea Gastrointestinal: Denies abdominal pain Psychiatric: denies suicidal ideation Endocrine: Denies fatigue Yes all other systems are reviewed and are negative Mental Status Exam Mental Status Exam Narrative: Pt is alert and oriented; behavior is cooperative and calm; dressed in casual attire; mood is described as I am ok ; eye contact appropriate; Speech is normal rate, volume and not pressured; thought process is with mild disorganized; Thought content is on tx; denies SI/HI/VH/AH. Diagnostics Vital Signs (24Hr): Vital Signs - 24 hr 08/31/25 08:00 08/31/25 20:00 08/31/25 20:33 Temperature 97.8 F 97.7 F Pulse Rate 95 82 Respiratory Rate 16 20 Blood Pressure 134/63 115/71 115/71 Pulse Oximetry 95 92 Oxygen Delivery Method Room Air Room Air 08/31/25 20:33 Temperature Pulse Rate Respiratory Rate Blood Pressure 115/71 Pulse Oximetry Oxygen Delivery Method BMI result Body Mass Index 22.7 Labs 08/24/25 17:57 08/27/25 07:41 Medications Medications Current Medications Acetaminophen (Acetaminophen 325 Mg Tablet) 650 mg PO Q6H PRN PRN Reason: Headache/Pain, Scale 1-10 Last Admin: 08/30/25 13:42 Dose: 650 mg Al Hydroxide/Mg Hydroxide (Magnesium Hydrox/Alum Hydrox 30 Ml Oral.Susp) 30 ml PO Q6H PRN PRN Reason: Heartburn/Nausea Last Admin: 08/29/25 16:49 Dose: 30 ml Doxazosin Mesylate (Doxazosin Mesylate 1 Mg Tablet) 1 mg PO BEDTIME AYDEE; Protocol Last Admin: 08/31/25 20:33 Dose: 1 mg Gabapentin (Gabapentin 300 Mg Capsule) 300 mg PO TID AYDEE Last Admin: 08/31/25 20:33 Dose: 300 mg Hydroxyzine HCl (Hydroxyzine Hcl 25 Mg Tablet) 25 mg PO Q6H PRN PRN Reason: mild anxiety Last Admin: 08/29/25 00:43 Dose: 25 mg Ibuprofen (Ibuprofen 600 Mg Tablet) 600 mg PO Q8H PRN PRN Reason: Pain, Moderate(Pain Scale 4-6) Last Admin: 08/31/25 17:07 Dose: 600 mg Lorazepam (Lorazepam 0.5 Mg Tablet) 0.5 mg PO BID AYDEE Stop: 09/02/25 22:00 Magnesium Hydroxide (Milk Of Magnesia 30 Ml Oral.Susp) 30 ml PO DAILY PRN PRN Reason: Constipation Methadone HCl (Methadone Hcl 20 Mg/2 Ml Oral.Conc) 100 mg PO DAILY@0800 [facility] Last Admin: 08/31/25 07:55 Dose: 100 mg Nicotine Polacrilex (Nicotine Polacrilex 2 Mg Gum) 4 mg BUCCAL Q2H PRN PRN Reason: Nicotine Cravings Prazosin HCl (Prazosin Hcl 1 Mg Capsule) 1 mg PO BEDTIME AYDEE; Protocol Last Admin: 08/31/25 20:33 Dose: 1 mg Quetiapine Fumarate (Quetiapine Fumarate 50 Mg Tablet) 50 mg PO BEDTIME AYDEE Last Admin: 08/31/25 20:35 Dose: 50 mg Sertraline HCl (Sertraline Hcl 50 Mg Tablet) 50 mg PO DAILY AYDEE Last Admin: 08/31/25 09:19 Dose: 50 mg Trazodone HCl (Trazodone Hcl 100 Mg Tablet) 100 mg PO BEDTIME PRN PRN Reason: Insomnia Last Admin: 08/29/25 00:43 Dose: 100 mg Triamcinolone Acetonide (Triamcinolone Acet 0.1 % Cream 15 Gm Tube) 1 appl TOPICAL BID AYDEE; Protocol Last Admin: 08/31/25 20:28 Dose: 1 appl Allergies Allergies Allergy/AdvReac Type Severity Reaction Status Date / Time tomato sauce Allergy Intermediate Hives Uncoded 08/24/25 18:42 Assessment & Plan Assessment & Plan (1) Major depressive disorder, recurrent, unspecified: Status: Acute Code(s): F33.9 - Major depressive disorder, recurrent, unspecified (2) Opioid use disorder: Status: Acute Code(s): F11.90 - Opioid use, unspecified, uncomplicated Assessment and Plan: * methadone increase to 100mg in AM -can increase additional 10mg over the weekend * will follow up on Tuesday, if patient still admitted (3) Cocaine use disorder: Status: Acute Code(s): F14.10 - Cocaine abuse, uncomplicated (4) Alcohol abuse: Status: Acute Code(s): F10.10 - Alcohol abuse, uncomplicated Plan Patient is a newly , 59yo [place] Speaking male with a history of poly substance use who self presented to [facility] [place] , driven by his sister, due to vague SI, alcohol and drug withdrawal , and following an alleged overdose with intent to . Patient recalled being assessed at [facility] a couple days ago after he drank booze and used 60 dollars worth of crack cocaine with intent to and suffered from a overdose . He was reportedly withdrawing from methadone and drinking 1/ 2 gallon of Vodka daily. Lon endorsed poor sleep, anhedonia, heightened anxiety and worsening depression. He reported a family history of completed suicides and addiction. I watched my brother off himself Formulation/clinical reasoning: Increased substance use, increase depression symptoms, homeless, SI and used WILLA with alcohol OD with intent to . Given above information, patient would benefit in restrictive environment for own safety, medication management , and refer patient to OP psychiatric services for for aftercare. Patient would also benefit for treatment for substance use programs. Plan: Patient on 15 minute checks for safety. Admitted to . CV. Work with treatment team to do collateral for CSS/CCS if possible for aftercare. Refer to patient to water pollution specialist: Will address with patient is more coherence and less sedated. 08/26: continue with home meds. Not able to discuss with patient regarding medication hx/plan d/t sedation. Place on CIWA Protocol with Ativan PRN for alcohol W/D symptoms. 08/27: Active on unit. keeping to self. observed falling asleep while standing. Patient reports feeling depressed ; pt stated, I just feel suicidal sometimes. Everything was going great. I think the drugs are confusing me very much . denies HI/VH/AH. Patient reports he was using heroin, cocaine and alcohol prior to arrival to ER. continues on [facility] protocol. Patient presents with mumbled and slurred speech; difficult to understand at times. Addiction medicine consult placed; pt requesting to be switched from methadone to suboxone; Shea Morris, OVI, aware. 08/28: Observed making multiple phone calls today. Patient continues with mumbled speech; difficult to understand at times. Patient reports feeling depressed and anxious ; pt stated, I need some more rest. I think about the worst things in the world and it prevents me from sleeping. I've had a lot of friends overdose so I think about it . Per nursing, pt slept 6 hours last night. Patient reports he is interested in going to a substance abuse program; pt stated, I need a program. I want to get my life straightened out . denies SI/HI/VH/AH. continues on [facility] protocol. continue tx plan. 08/29: Patient presents with clearer speech today;however, difficult to understand at times. Patient continues to report feeling depressed; pt stated, my isn't doing good because we just got and this is happening . He reports not sleeping well last night d/t nightmares; discussed starting Prazosin; risks/benefits reviewed, pt agreed to trial. Start: Prazosin 1mg PO bedtime. denies SI/HI/VH/AH. continues on [facility] protocol; pt reports withdrawal symptoms are decreasing. 08/30: Active on unit. Patient continues to report feeling depressed; pt stated, my is just worried about me. I hope I get into a program . denies SI/HI/VH/AH. Focused on going to a program after discharge. [facility] DC'd/ Started on Ativan taper. continue tx plan. 08/31/25: Patient is focused on eating lunch, superficial, denies safety concerns, stating that he feel much better. Denies safety concerns. Yesterday he reports feeling congested and body ache received Motrin for headache. Order Flonase and Mucinex as needed for congestion. Patient appeared to be restless, somewhat disorganized. Continue with Ativan taper. Patient educated on: diagnosis, medication risk/benefits, substance abuse and therapeutic strategies Informed Consent: understands and further education needed Reason for continued inpatient stay Substantial Risk for: med/psych decompensation Time Spent With Patient Time: Total time managing care of this patient today ____ minutes.
--- NOTE | 2025-09-01 | ECG_ITS ---
Test Reason : hypoxia Blood Pressure : */* mmHG Vent. Rate : 88 BPM Atrial Rate : 88 BPM P-R Int : 174 ms QRS Dur : 86 ms QT Int : 358 ms P-R-T Axes : 24 98 56 degrees QTcB Int : 433 ms Normal sinus rhythm Rightward axis Borderline ECG When compared with ECG of 26-Aug-2025 08:35, No significant change was found Referred By: Rosa Patel Electronically Signed By: RIGOBERTO GAITAN MD
[2025-09-01 08:00] VITALS: BP 123/58; PULSE 68; RESP 12; TEMP 35.9; O2SAT 90
[2025-09-01] MEDS: methADONE HCl 20 MG/2 ML ORAL.CONC 100 MG PO (08:09)
[2025-09-01 20:00] VITALS: BP 148/66; PULSE 73; RESP 18; TEMP 37.2; O2SAT 93
[2025-09-01] MEDS: Triamcinolone Acet 0.1 % Cream 15 GM TUBE 1 APPL TOPICAL (20:19)
[2025-09-01 20:20] VITALS: BP 148/66
[2025-09-01 20:22] VITALS: BP 148/66
--- NOTE | 2025-09-01 20:48 | P.PNPSI_ITS ---
Subjective Subjective Date of Service: 09/01/25 Reason For Visit: SI Subjective Notes: Conditional Voluntary Healthcare Proxy: No Guardianship: No Medical Problems Affecting Mental Status: No Interim History: Medical record and nursing notes reviewed; case discussed during rounds with team/nursing staff, and met with patient for supportive therapy/psychoeducation, as well as medication management. Meet with patient in room after lunch, appear to be sedated, confused, and disorganized, making nonsensical statements, slur speech. Per nursing, patient vomited yesterday morning. Patient sounds congested. Report hearing voices but not able to complete his thoughts, then shifted to his voices. Self report having fever and stressful , observed coughing a couple times during 1-1 assessment, eye close mostly d/t sedation. WIll order some labworks to rule out any medical conditions causing confusion. Medication Compliance: Yes Side effects from medications: No (Appear to be sedated, confused ) Attending Groups: No Review of Systems Acute medical concerns: No Medical Review of Systems: unchanged Review of Systems Review of Systems Constitutional: Denies fatigue and Denies fever(s) Cardiovascular: Denies chest pain and Denies dyspnea Respiratory: Denies dyspnea. Congested. Gastrointestinal: Denies abdominal pain. Report vomited yesterday per nursing. Psychiatric: denies suicidal ideation Endocrine: Denies fatigue Yes all other systems are reviewed and are negative Mental Status Exam Mental Status Exam Narrative: Pt is alert and oriented; behavior is cooperative and calm; dressed in same casual attire as yesterday; mood is described as stress ; eye closed mostly even sitting up in bed; Speech is soft, slow in rate, slur speech bu not pressured; thought process is with disorganized, confused; Thought content is on tx; denies SI/HI/VH/AH. Diagnostics Vital Signs (24Hr): Vital Signs - 24 hr 09/01/25 08:00 09/01/25 20:20 09/01/25 20:22 Temperature 96.6 F L Pulse Rate 68 Respiratory Rate 12 Blood Pressure 123/58 L 148/66 H 148/66 H Pulse Oximetry 90 L Oxygen Delivery Method Room Air BMI result Body Mass Index 22.7 Labs 08/24/25 17:57 08/27/25 07:41 Medications Medications Current Medications Acetaminophen (Acetaminophen 325 Mg Tablet) 650 mg PO Q6H PRN PRN Reason: Headache/Pain, Scale 1-10 Last Admin: 09/01/25 12:43 Dose: 650 mg Al Hydroxide/Mg Hydroxide (Magnesium Hydrox/Alum Hydrox 30 Ml Oral.Susp) 30 ml PO Q6H PRN PRN Reason: Heartburn/Nausea Last Admin: 08/29/25 16:49 Dose: 30 ml Benzocaine (Throat Lozenge, Medicated Lozenge) 1 lozenge MUCOUS MEM Q2H PRN PRN Reason: Sore Throat Doxazosin Mesylate (Doxazosin Mesylate 1 Mg Tablet) 1 mg PO BEDTIME AYDEE; Protocol Last Admin: 09/01/25 20:22 Dose: 1 mg Gabapentin (Gabapentin 300 Mg Capsule) 300 mg PO TID AYDEE Last Admin: 09/01/25 20:22 Dose: 300 mg Guaifenesin (Guaifenesin 200 Mg/10 Ml 10 Ml Liquid) 10 ml PO Q4H PRN PRN Reason: Cough Guaifenesin (Guaifenesin La 600 Mg Tab.Er.12h) 600 mg PO BID AYDEE Hydroxyzine HCl (Hydroxyzine Hcl 25 Mg Tablet) 25 mg PO Q6H PRN PRN Reason: mild anxiety Last Admin: 09/01/25 14:33 Dose: 25 mg Ibuprofen (Ibuprofen 600 Mg Tablet) 600 mg PO Q8H PRN PRN Reason: Pain, Moderate(Pain Scale 4-6) Last Admin: 08/31/25 17:07 Dose: 600 mg Lorazepam (Lorazepam 0.5 Mg Tablet) 0.5 mg PO BID [facility] Stop: 09/02/25 22:00 Last Admin: 09/01/25 20:20 Dose: 0.5 mg Magnesium Hydroxide (Milk Of Magnesia 30 Ml Oral.Susp) 30 ml PO DAILY PRN PRN Reason: Constipation Methadone HCl (Methadone Hcl 20 Mg/2 Ml Oral.Conc) 100 mg PO DAILY@0800 [facility] Last Admin: 09/01/25 08:09 Dose: 100 mg Nicotine Polacrilex (Nicotine Polacrilex 2 Mg Gum) 4 mg BUCCAL Q2H PRN PRN Reason: Nicotine Cravings Prazosin HCl (Prazosin Hcl 1 Mg Capsule) 1 mg PO BEDTIME AYDEE; Protocol Last Admin: 09/01/25 20:20 Dose: 1 mg Quetiapine Fumarate (Quetiapine Fumarate 50 Mg Tablet) 50 mg PO BEDTIME AYDEE Last Admin: 09/01/25 20:21 Dose: 50 mg Sertraline HCl (Sertraline Hcl 50 Mg Tablet) 50 mg PO DAILY AYDEE Last Admin: 09/01/25 08:08 Dose: 50 mg Trazodone HCl (Trazodone Hcl 100 Mg Tablet) 100 mg PO BEDTIME PRN PRN Reason: Insomnia Last Admin: 08/29/25 00:43 Dose: 100 mg Triamcinolone Acetonide (Triamcinolone Acet 0.1 % Cream 15 Gm Tube) 1 appl TOPICAL BID AYDEE; Protocol Last Admin: 09/01/25 20:19 Dose: 1 appl Allergies Allergies Allergy/AdvReac Type Severity Reaction Status Date / Time tomato sauce Allergy Intermediate Hives Uncoded 08/24/25 18:42 Assessment & Plan Assessment & Plan (1) Major depressive disorder, recurrent, unspecified: Status: Acute Code(s): F33.9 - Major depressive disorder, recurrent, unspecified (2) Opioid use disorder: Status: Acute Code(s): F11.90 - Opioid use, unspecified, uncomplicated Assessment and Plan: * methadone increase to 100mg in AM -can increase additional 10mg over the weekend * will follow up on Tuesday, if patient still admitted (3) Cocaine use disorder: Status: Acute Code(s): F14.10 - Cocaine abuse, uncomplicated (4) Alcohol abuse: Status: Acute Code(s): F10.10 - Alcohol abuse, uncomplicated Plan Patient is a newly , 59yo Zambian Speaking male with a history of poly substance use who self presented to [facility] on , driven by his sister, due to vague SI, alcohol and drug withdrawal , and following an alleged overdose with intent to . Patient recalled being assessed at [facility] a couple days ago after he drank booze and used 60 dollars worth of crack cocaine with intent to and suffered from a overdose . He was reportedly withdrawing from methadone and drinking 1/ 2 gallon of Vodka daily. Lon endorsed poor sleep, anhedonia, heightened anxiety and worsening depression. He reported a family history of completed suicides and addiction. I watched my brother off himself Formulation/clinical reasoning: Increased substance use, increase depression symptoms, homeless, SI and used WILLA with alcohol OD with intent to . Given above information, patient would benefit in restrictive environment for own safety, medication management , and refer patient to OP psychiatric services for for aftercare. Patient would also benefit for treatment for substance use programs. Plan: Patient on 15 minute checks for safety. Admitted to . CV. Work with treatment team to do collateral for CSS/CCS if possible for aftercare. Refer to patient to oracle specialist: Will address with patient is more coherence and less sedated. 08/26: continue with home meds. Not able to discuss with patient regarding medication hx/plan d/t sedation. Place on CIWA Protocol with Ativan PRN for alcohol W/D symptoms. 08/27: Active on unit. keeping to self. observed falling asleep while standing. Patient reports feeling depressed ; pt stated, I just feel suicidal sometimes. Everything was going great. I think the drugs are confusing me very much . denies HI/VH/AH. Patient reports he was using heroin, cocaine and alcohol prior to arrival to ER. continues on CIWA protocol. Patient presents with mumbled and slurred speech; difficult to understand at times. Addiction medicine consult placed; pt requesting to be switched from methadone to suboxone; Shea Morris, OVI, aware. 08/28: Observed making multiple phone calls today. Patient continues with mumbled speech; difficult to understand at times. Patient reports feeling depressed and anxious ; pt stated, I need some more rest. I think about the worst things in the world and it prevents me from sleeping. I've had a lot of friends overdose so I think about it . Per nursing, pt slept 6 hours last night. Patient reports he is interested in going to a substance abuse program; pt stated, I need a program. I want to get my life straightened out . denies SI/HI/VH/AH. continues on CIWA protocol. continue tx plan. 08/29: Patient presents with clearer speech today;however, difficult to understand at times. Patient continues to report feeling depressed; pt stated, my isn't doing good because we just got and this is happening . He reports not sleeping well last night d/t nightmares; discussed starting Prazosin; risks/benefits reviewed, pt agreed to trial. Start: Prazosin 1mg PO bedtime. denies SI/HI/VH/AH. continues on CIWA protocol; pt reports withdrawal symptoms are decreasing. 08/30: Active on unit. Patient continues to report feeling depressed; pt stated, my is just worried about me. I hope I get into a program . denies SI/HI/VH/AH. Focused on going to a program after discharge. [facility] DC'd/ Started on Ativan taper. continue tx plan. 08/31/25: Patient is focused on eating lunch, superficial, denies safety concerns, stating that he feel much better. Denies safety concerns. Yesterday he reports feeling congested and body ache received Motrin for headache. Order Flonase and Mucinex as needed for congestion. Patient appeared to be restless, somewhat disorganized. Continue with Ativan taper. 09/01/25: Meet with patient in room after lunch, appear to be sedated, confused, and disorganized, making nonsensical statements, slur speech. Per nursing, patient vomited yesterday morning. Patient sounds congested. Report hearing voices but not able to complete his thoughts, then shifted to his voices. Self report having fever and stressful , observed coughing a couple times during 1-1 assessment, eye close mostly d/t sedation. Will order some labworks to rule out any medical conditions causing confusion. Covid test, CBC w/diff, CMP, Ammonia, U/A wtih culture. Mucinex BID, Cough syrup, and Cepacol PRN for congestion/cough. Patient educated on: diagnosis, medication risk/benefits, substance abuse and therapeutic strategies Informed Consent: further education needed Reason for continued inpatient stay Substantial Risk for: med/psych decompensation Time Spent With Patient Time: Total time managing care of this patient today ____ minutes.
[2025-09-01] MEDS: guaiFENesin LA 600 MG TAB.ER.12H PO (21:15)
[2025-09-01 22:23] LABS: COVID-19 Test Negative (Negative); IDNOW Serial# 6674DD1D
--- NOTE | 2025-09-01 23:54 | PM.PSYDC ---
DS: Providers Provider Date of Service: 09/01/25 Date of admission: 08/26/25 11:53 Date of discharge: 09/01/25 Primary care physician: Unknown Physician Attending physician on admission: Marcy Healy Consults: 08/27/25 14:07 Addiction Medicine Provider Routine Consulting Provider: Addiction Covering Reason for consultation: wants to switch to suboxone from methadone Has provider been notified: No Attending physician on discharge: Marcy Healy DS: Diagnosis Discharge Diagnosis (1) Major depressive disorder, recurrent, unspecified: Status: Acute (2) Opioid use disorder: Status: Acute (3) Cocaine use disorder: Status: Acute (4) Alcohol abuse: Status: Acute DS: Medications Discharge Medications Home Medications: Home Medications ?Medication ?Instructions ?Recorded ?Confirmed gabapentin 300 mg capsule 300 mg PO TID 07/23/20 08/24/25 doxazosin 1 mg tablet 1 mg PO BEDTIME 08/24/25 08/24/25 quetiapine 50 mg tablet 50 mg PO BEDTIME 08/24/25 08/24/25 sertraline 50 mg tablet 50 mg PO DAILY 08/24/25 08/24/25 Previous Rx's ?Medication ?Instructions ?Recorded hydroxyzine HCl 25 mg tablet 25 mg PO Q6H PRN mild anxiety #0 09/01/25 tabs ibuprofen 600 mg tablet 600 mg PO Q8H PRN Pain, 09/01/25 Moderate(Pain Scale 4-6) #0 tabs lorazepam 0.5 mg tablet 0.5 mg PO BID #0 tabs 09/01/25 methadone 10 mg/mL oral 100 mg (10 mL) PO DAILY@0800 #0 mL 09/01/25 concentrate (Methadose) prazosin 1 mg capsule 1 mg PO BEDTIME #0 caps 09/01/25 trazodone 100 mg tablet 100 mg PO BEDTIME PRN Insomnia #0 09/01/25 tabs triamcinolone acetonide 0.1 % 1 appl topical BID #0 grams 09/01/25 topical cream Mental Status Exam Mental Status Exam Narrative: Patient is discharged to [facility] for further workup for altered mental status Data Data Completed and Pending Completed studies during hospitalization [Text1]: 08/27/25 09/01/25 07:41 21:23 Sodium 136 Potassium 5.0 D Chloride 99 Carbon Dioxide 31 H Anion Gap 11 L BUN 23 H Creatinine 0.84 Estim Creat Clear Calc 89.6 Estimated GFR > 60 Random Glucose 101 Estimat Average Glucose 111 Hemoglobin A1c % 5.5 Calcium 9.9 D Total Bilirubin 0.6 AST 27 ALT 25 Alkaline Phosphatase 128 H Total Protein 7.4 Albumin 4.6 Triglycerides 187 H Cholesterol 201 H LDL Cholesterol, Calc 109 H HDL Cholesterol 55 COVID-19 (ROXANN) Negative COVID-19 Clin Com See Note DS: Summary Hospital Course Hospital Course: HPI: Patient is a newly , 59yo Hungarian Speaking male with a history of poly substance use who self presented to [facility] on , driven by his sister, due to vague SI, alcohol and drug withdrawal , and following an alleged overdose with intent to . Patient recalled being assessed at [facility] a couple days ago after he drank booze and used 60 dollars worth of crack cocaine with intent to and suffered from a overdose . He was reportedly withdrawing from methadone and drinking 1/ 2 gallon of Vodka daily. Lon endorsed poor sleep, anhedonia, heightened anxiety and worsening depression. He reported a family history of completed suicides and addiction. I watched my brother off himself Formulation/clinical reasoning: Increased substance use, increase depression symptoms, homeless, SI and used WILLA with alcohol OD with intent to . Given above information, patient would benefit in restrictive environment for own safety, medication management , and refer patient to OP psychiatric services for for aftercare. Patient would also benefit for treatment for substance use programs. Hospital course: 08/26: continue with home meds. Not able to discuss with patient regarding medication hx/plan d/t sedation. Place on CIWA Protocol with Ativan PRN for alcohol W/D symptoms. 08/27: Active on unit. keeping to self. observed falling asleep while standing. Patient reports feeling depressed ; pt stated, I just feel suicidal sometimes. Everything was going great. I think the drugs are confusing me very much . denies HI/VH/AH. Patient reports he was using heroin, cocaine and alcohol prior to arrival to ER. continues on CIWA protocol. Patient presents with mumbled and slurred speech; difficult to understand at times. Addiction medicine consult placed; pt requesting to be switched from methadone to suboxone; Shea Morris NP, aware. 08/28: Observed making multiple phone calls today. Patient continues with mumbled speech; difficult to understand at times. Patient reports feeling depressed and anxious ; pt stated, I need some more rest. I think about the worst things in the world and it prevents me from sleeping. I've had a lot of friends overdose so I think about it . Per nursing, pt slept 6 hours last night. Patient reports he is interested in going to a substance abuse program; pt stated, I need a program. I want to get my life straightened out . denies SI/HI/VH/AH. continues on [facility] protocol. continue tx plan. 08/29: Patient presents with clearer speech today;however, difficult to understand at times. Patient continues to report feeling depressed; pt stated, my isn't doing good because we just got and this is happening . He reports not sleeping well last night d/t nightmares; discussed starting Prazosin; risks/benefits reviewed, pt agreed to trial. Start: Prazosin 1mg PO bedtime. denies SI/HI/VH/AH. continues on [facility] protocol; pt reports withdrawal symptoms are decreasing. 08/30: Active on unit. Patient continues to report feeling depressed; pt stated, my is just worried about me. I hope I get into a program . denies SI/HI/VH/AH. Focused on going to a program after discharge. [facility] DC'd/ Started on Ativan taper. continue tx plan. 08/31/25: Patient is focused on eating lunch, superficial, denies safety concerns, stating that he feel much better. Denies safety concerns. Yesterday he reports feeling congested and body ache received Motrin for headache. Order Flonase and Mucinex as needed for congestion. Patient appeared to be restless, somewhat disorganized. Continue with Ativan taper. 09/01/25: Meet with patient in room after lunch, appear to be sedated, confused, and disorganized, making nonsensical statements, slur speech. Per nursing, patient vomited yesterday morning. Patient sounds congested. Report hearing voices but not able to complete his thoughts, then shifted to his voices. Self report having fever and stressful , observed coughing a couple times during 1-1 assessment, eye close mostly d/t sedation. Will order some labworks to rule out any medical conditions causing confusion. Covid test, CBC w/diff, CMP, Ammonia, U/A with culture. Mucinex BID, Cough syrup, and Cepacol PRN for congestion/cough. Nursing contacted, requested discharge order per Hospitalist plan. Patient is discharged to [facility] for further workup d/t altered mental status. Increasing in confusion and disorganization which may affected by medical conditions. Time spent discussing smoking cessation with patient: 3 to 10 minutes (not able to discuss d/t mental status change. Patient d/c to [facility]) Status at Discharge Cognitive/behavioral status at discharge: Confused, disorganization. Patient discharged to [facility] for further workup Functional status at discharge: independent ambulation Overall status at discharge: patient is not back to baseline Time Spent with Patient Time attestation: Total time managing care of this patient today ____ minutes. Time spent: Greater than 30 minutes Discharge Plan Discharge Anticipated Discharge Date/Time: 09/01/25 23:34 Patient Disposition: er [facility] Discharge Diagnosis: MDD- unspecified, Opioid use D/O, Cocaine use D/O, Alcohol Use D/O Referrals: Physician,Unknown J [Primary Care Provider, Medical] - 1 Week Discharge Medications: New prazosin 1 mg Capsule 1 mg PO BEDTIME Qty: 0 0RF Protocol: Hold for SBP< HOLD for SBP < : 90 triamcinolone acetonide 0.1 % Cream 1 appl topical BID Qty: 0 0RF Protocol: Apply to: Apply to: affected area trazodone 100 mg Tablet 100 mg PO BEDTIME PRN (Reason: Insomnia) Qty: 0 0RF hydroxyzine HCl 25 mg Tablet 25 mg PO Q6H PRN (Reason: mild anxiety) Qty: 0 0RF ibuprofen 600 mg Tablet 600 mg PO Q8H PRN (Reason: Pain, Moderate(Pain Scale 4-6)) Qty: 0 0RF lorazepam 0.5 mg Tablet 0.5 mg PO BID Qty: 0 0RF methadone [Methadose] 10 mg/mL Concentrate 100 mg PO DAILY@0800 Qty: 0 0RF Rx Instructions: Partial Fill upon patient request. Continued gabapentin 300 mg Capsule 300 mg PO TID doxazosin 1 mg tablet 1 mg PO BEDTIME sertraline 50 mg tablet 50 mg PO DAILY quetiapine 50 mg tablet 50 mg PO BEDTIME Discontinued trazodone 50 mg Tablet 50 - 100 mg PO BEDTIME PRN (Reason: Insomnia) methadone [Methadone Intensol] 10 mg/mL Concentrate 180 mg PO DAILY Discharge Orders: Discharge Order (Routine); Ordered 09/01/25 Ordered By: Marcy Healy Diet: Regular diet Activity on Discharge: No Restrictions Stand Alone Forms: Patient Portal Discharge page Print Language: Hungarian Care Plan Goals: Maintain mood and safe behaviors Take medications as prescribed Continue to pursue sobriety Practice coping skills Continue with outpatient providers and reach out to them as needed Health Concerns: Patient has increased altered mental status Plan of Treatment: Follow up with your PCP, psychiatric provider and other outpatient providers regarding above concerns Take medications as prescribed Assessment: Patient sent to [facility] for further workup d/t increasing altered mental status
[2025-09-01 23:58] LABS: MANUAL DIFF FLAG NO
[2025-09-01 23:59] LABS: Hematocrit 28.8 % (42.0-52.0); Hemoglobin 9.6 g/dl (14.0-18.0); Imm Gran Abs Auto 0.21 X10*3/uL (0.00-0.03); Imm Gran Pct Auto 2.0 % (0.0-0.4); Lymphocytes Absolute Auto 1.0 X10*3/uL (1.2-4.9); Mean Corpuscular HGB Conc 33.3 g/dl (31.0-36.0); Mean Corpuscular Hemoglobin 30.4 pg (27.0-33.0); Mean Corpuscular Volume 91.1 fL (80.0-98.0); NRBC Abs Auto 0.000 X10*3/uL (0.0-0.012); NRBC Pct Auto 0.0 /100WBC (0.0-0.2); Platelet Count 200 X10*3/uL (160-400); Red Blood Count 3.16 X10*6/uL (4.60-5.80); White Blood Count 10.5 X10*3/uL (4.8-10.8)
--- NOTE | 2025-09-02 00:14 | PC.NURSE ---
Roughly around 22:50 patient is seen wandering in the hallway looking confused. He stated that he was looking for his room and had to be guided back to it with staff assistance. Patient appeared diaphoretic and stated I'm burning up! Patient was brought to his bed and layed down immediately. He is visualized picking objects in the air and heard making non sensical statements while staring up at the ceiling. RA O2 sat 73% Temp 101.8. Temperature was retaken using oral thermometer reading 104.0. Patient was administered Tylenol 650mg. will call clerk Hospitalist Janey CHAVEZ was notified promptly of patients rapid decompensation and increased altered mental status. VS at 23:10- BP 158/67 HR 78 RA O2 86% BING Jensen and Chencho Toth MD came to patients bedside to evaluate. 4L oxygen via nasal cannula placed onto patient, O2 reading increased to 86% Per Hospitalist, patient is to be moved to [facility] floor at this time and orders will be put in for EKG, CT, lab work, and abx. Housing Wafer Fab Operator made aware and patient was moved to [facility]. Nurse to nurse report was given on unit by viscose cellar charge hand.
[2025-09-02 00:23] LABS: Alanine Aminotransferase 10 U/L (0-40); Albumin Level 3.8 g/dL (3.5-5.0); Alkaline Phosphatase 80 U/L (39-117); Anion Gap 16 (12-20); Aspartate Amino Transferase 20 U/L (5-37); Blood Urea Nitrogen 19 mg/dL (9-16); Calcium 9.5 mg/dL (8.4-10.2); Carbon Dioxide 26 mmol/L (22-29); Chloride 96 mmol/L (96-108); Creatinine Clr Calc Pharmacy 71.6; Estimated Glomerular Filt Rate > 60; Potassium 4.6 mmol/L (3.3-5.1); Sodium 133 mmol/L (135-145); Total Protein 6.8 g/dL (6.5-8.0)
[2025-09-02 00:27] LABS: NT Pro B Type Natriuretic Pept 1121.6 pg/mL (<300); Troponin-I High Sensitivity 31.4 ng/L (<3.5-35.0)
[2025-09-02] MEDS: iohexoL 350 MG/ML 100 ML INFUS..BTL 65 ML IV (00:32)
[2025-09-02 11:24] LABS: Glucose, Whole Blood 107 mg/dL (60-115)
== END 2025-09-02 00:04 | disposition short-term general hospital (02) | DRG 751 ==
LOC: HO.ED 17:12 → HO.PADLT16 08-26 12:01
PROVIDERS: Nurse Practitioner Psychiatric/Mental Health; Physician Assistant; Admitting Provider Registered Nurse; Emergency Provider Emergency Medicine; Responsible Provider Registered Nurse; Visit Provider Psychiatry & Neurology Psychiatry
DX: F33.9 Major depressive disorder, recurrent, unspecified (principal); R45.851 Suicidal ideations; G40.909 Epilepsy, unspecified, not intractable, without status epilepticus; F10.139 Alcohol abuse with withdrawal, unspecified; F11.20 Opioid dependence, uncomplicated; Y90.8 Blood alcohol level of 240 mg/100 ml or more; F14.10 Cocaine abuse, uncomplicated; Z20.822 Contact with and (suspected) exposure to COVID-19; Z79.899 Other long term (current) drug therapy
CPT/HCPCS: 36415; 71275; 80048; 80053; 80061; 80076; 80307; 81003; 82947; 83036; 83605; 83690; 83880; 84484; 85025; 87040; 87077; 87186; 87205; 87635; 93005; 99285; Q9967; S9485

== ENCOUNTER → 2025-08-26 08:31 | Outpatient (BNV) | payer OTHER, SELFPAY | PROVIDERS: Admitting Provider Registered Nurse; Emergency Provider Emergency Medicine; Responsible Provider Registered Nurse; Visit Provider Internal Medicine Cardiovascular Disease | DX: Z13.6 Encounter for screening for cardiovascular disorders (principal) | CPT/HCPCS: 93010 ==

== ENCOUNTER 2025-08-26 11:53 | Outpatient (BNV) | payer OTHER, SELFPAY | END 2025-09-01 23:39 | PROVIDERS: Admitting Provider Registered Nurse; Emergency Provider Emergency Medicine; Responsible Provider Registered Nurse; Visit Provider Internal Medicine Cardiovascular Disease | DX: R09.02 Hypoxemia (principal) | CPT/HCPCS: 93010 ==

== ENCOUNTER → 2025-08-26 11:53 | Outpatient (BNV) | payer OTHER, SELFPAY | PROVIDERS: Admitting Provider Registered Nurse; Emergency Provider Emergency Medicine; Responsible Provider Registered Nurse; Visit Provider Nurse Practitioner Family | DX: F10.10 Alcohol abuse, uncomplicated (principal) | CPT/HCPCS: 99221 ==

== ENCOUNTER → 2025-08-26 11:53 | Outpatient (BNV) | payer OTHER, SELFPAY | PROVIDERS: Admitting Provider Registered Nurse; Emergency Provider Emergency Medicine; Responsible Provider Registered Nurse; Visit Provider Registered Nurse | DX: F11.90 Opioid use, unspecified, uncomplicated (principal) | CPT/HCPCS: 99231; 99232; 99499 ==

== ENCOUNTER 2025-09-02 01:07 | Outpatient (BNV) | payer OTHER, SELFPAY | END 2025-09-10 08:43 | PROVIDERS: Admitting Provider Hospitalist; Visit Provider Internal Medicine | DX: R00.1 Bradycardia, unspecified (principal); I44.0 Atrioventricular block, first degree | CPT/HCPCS: 93010 ==

== ENCOUNTER 2025-09-02 01:07 | Outpatient (BNV) | payer OTHER, SELFPAY | END 2025-09-07 09:12 | PROVIDERS: Admitting Provider Hospitalist; Visit Provider Radiology Neuroradiology | DX: K80.20 Calculus of gallbladder without cholecystitis without obstruction (principal); N32.89 Other specified disorders of bladder; M61.411 Other calcification of muscle, right shoulder | CPT/HCPCS: 73200; 74177 ==

== ENCOUNTER 2025-09-02 01:07 | Inpatient (IN) | payer OTHER, SELFPAY ==
--- OUTSIDE RECORDS SUMMARY | 2025-04-04 06:00 | XMS_ITS ---
Author Organization [facility] Address [address] [place] [address] Care Team Providers Care Care Transition Mgr Name Role Phone [employer] - DO NOT USE, Mail Pickup Primary Care Provider Unavailable Linda Cisneros Unavailable [employer] - DO NOT USE, Benefits Intervention Un available Unavailable Encounters Encounter Location Date Provider Diagnosis [facility] [address], [place] [phone] 04/04/2025 Linda Cisneros Plan Of Treatment No Information Progress Notes * Lon SANCHEZ DDOB: [birth year] (59 yo M)Acc No.[id number]:04/04/2025 Case Management Patient: Mary Lon Costello Provider: Ashley Cisneros :1965 A ge:59 Y S ex:Male Date:04/04/2025 Address:[facility] [address], [place], [id number] Pcp:Stephani Pickup [employer] - DO NOT USE Subjective: * Chief Complaints: * * Medical History: Objective: Assessment: Plan: * Treatment: * Images: Billing Information: * Visit Code: * Procedure Codes: Care Plan Details* * Electronic signature of Olman Cisneros on 09/02/2025 at 01:12 AM EST Sign off status: Pending * Provider: Ashley Cisneros Date: 0 04/04/2025 Generated for Curt kendrick/Saray/Carmina on: 1 11/02/2024 01:12 AM EST
--- OUTSIDE RECORDS SUMMARY | 2025-05-10 04:00 | XMS_ITS ---
Author Organization [facility] Address [address] [place] [address] Care Team Providers Care Cover Stripper Name Role Phone ZZArchive - DO NOT USE, Mail Pickup Primary Care Provider Unavailable Linda Cisneros Unavailable ZZArchive - DO NOT USE, Benefits Intervention Un available Unavailable Encounters Encounter Location Date Provider Diagnosis [facility] [address] [place], [place] [phone] 05/10/2025 Linda Cisneros Plan Of Treatment No Information Progress Notes * Lon SANCHEZ DDOB: 8 (59 yo M)Acc No.[id number]:05/10/2025 Case Management Patient: Mary Lon Costello Provider: Ashley Cisneros :1965 A ge:59 Y S ex:Male Date:05/10/2025 Address:[facility] [address], [place], [place] Pcp:Stephani Pickup ZZArchive - DO NOT USE Subjective: * Chief Complaints: * * Medical History: Objective: Assessment: Plan: * Treatment: * Images: Billing Information: * Visit Code: * Procedure Codes: Care Plan Details* * Electronic signature of Olman Cisneros on 09/02/2025 at 01:12 AM EST Sign off status: Pending * Provider: Ashley Cisneros Date: 05/10/2025 Generated for Curt kendrick/Saray/Carmina on: 11/02/2024 01:12 AM EST
--- NOTE | ~2025-09-02 | CT_ITS ---
CLINICAL HISTORY: brain abcess vs hematoma-request by ID Dr [email or web address] CT head without contrast Comparison: None Findings: No intracranial mass, midline shift, hydrocephalus, or acute hemorrhage. No CT evidence of acute ischemia. Visualized paranasal sinuses and mastoid air cells normal. Orbits unremarkable. No skull fracture Impression: 1. No acute intracranial abnormalities. This document has been electronically signed by: Leonid Perez MD on 09/07/2025 16:35:31
--- NOTE | ~2025-09-02 | CT_ITS ---
CLINICAL HISTORY: Klebsiella bacteremia r o liver abcess CT abdomen and pelvis with contrast Comparison: None provided Findings: Airspace disease is nonspecific and most pronounced in the imaged right lung base. Differential considerations include pneumonitis/pneumonia. Steatotic change of the fat deposition of the liver. With regards with reported history of the lower abscess, fluid is minimal of the anterior margin of the liver measuring up to 6 mm thickness. No well-defined or definite drainable intraparenchymal abscess by [address] at this time. Cholelithiasis by CT. Gallbladder wall thickening is nonspecific and accentuated by underdistention. The spleen is nonenlarged. Adrenal glands are within upper limits of normal. Pancreas partly obscured and otherwise unremarkable. Imaged CBD measures 1.1 cm diameter. Multiple right-sided nephrolithiasis measuring up to 5 mm. No hydronephrosis of the either kidney. Small retroperitoneal and mesenteric lymph nodes are nonspecific and may be reactive. A left anterior mesenteric lymph node measures 9 mm (225 of series 4), for follow-up. No small bowel obstruction. Fluid in the cecum can be seen with diarrhea type illnesses in the mild colitis, along with a additional fluid in the portions of the large intestine including descending colon. Diverticula noted. Imaged appendix is nondilated (43 of series 5). Calcified and noncalcified plaque include imaged aorta and its branches. Moderate wall thickening of the urinary bladder is nonspecific and can be associated with cystitis. The prostate gland measures 4.8 cm transverse. Small fat containing bilateral inguinal hernias. Degenerative changes include imaged hips, pubic symphysis, and SI joints. Partial fusion of the SI joints (ankylosis) noted. Degenerative disc changes and facet arthropathy are multifocal. IMPRESSION: 1. Mild fluid of the anterior margin of the liver without well-defined intraparenchymal liver abscess at this time. Please consider attention on follow-up to ensure complete resolution. 2. Cholelithiasis by CT. 3. Fluid in the large intestine is nonspecific and can be associated with diarrhea type illnesses and mild colitis. 4. Wall thickening of the urinary bladder. No hydronephrosis. This document has been electronically signed by: Hank Dumont MD on 09/07/2025 11:17:30
--- NOTE | ~2025-09-02 | XR_ITS ---
EXAMINATION: XR HUMERUS, RIGHT CLINICAL INFORMATION: Right shoulder pain COMPARISON: Correlated to CT chest dated September 02, 2025. TECHNIQUE: AP and lateral views of the right humerus. FINDINGS: 22 mm sclerotic/osseous lesion, right humeral neck. No acute cortical disruption. No periosteal bone reaction. Pulmonary reticular nodular pattern right lung. 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 Multifocal pneumonia versus malignancy, right lung. Electronically signed by: Alcon Butts MD 09/06/2025 10:12 AM [facility]
--- NOTE | ~2025-09-02 | CT_ITS ---
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 Comparison: Humerus radiographs dated 09/06/2025. Findings: Osseous structures: There is no fracture or dislocation. Mildly irregular calcification within the surgical neck of the proximal humerus measures up to 17 x 14 mm cross-sectional dimension (measured on 2; 131, and extends over oblique craniocaudad distance of up to 2.5 cm (6; 42). There is no surrounding lucency, findings suggest likely enchondroma. No osseous resorption. No other focal osseous lesions. There are very minimal glenohumeral and acromioclavicular degenerative changes. Soft tissues: No axillary adenopathy or masses. No circumscribed collections appreciated. Chest wall appears intact. Visualized lungs reveal patchy increased reticular markings and minimal areas of ground-glass opacity, could suggest nonspecific pneumonitis or sequela of scarring/fibrosis. Impression: 1. Intramedullary calcification within right femoral neck, likely representing enchondroma. Consider follow-up humerus or shoulder radiographs in approximately 6 months, to document stability. This document has been electronically signed by: Leonid Perez MD on 09/07/2025 17:58:04
[2025-09-02 00:30] VITALS: BP 131/60; PULSE 68; RESP 16; TEMP 37.9; O2SAT 96
--- NOTE | 2025-09-02 01:05 | P.HPHOSP_ITS ---
History of Present Illness Date of Service: 09/02/25 Attending physician on admission: Chencho Toth Chief Complaint: fever, hypoxia, delirium pt is a 59-year-old male with a past medical history of major depressive disorder, seizure disorder alcohol abuse, polysubstance abuse on methadone presented to the ED with increased depression and suicidal ideation with a plan, transferred to [place] [id number], with worsening delirium. he has auditory and likely visual hallucinations at he is trying to hand me something but has nothing in his hand. when he was seen in the ED he reported heroin use and he drank 3 bottles of vodka, used crack cocine and 11.5 bag of heroin prior to arrival. Initial workup revealed no leukocytosis, very mild anemia, slight increase in AST otherwise normal electrolytes. Urine without evidence of infection, U tox positive for methadone, fentanyl, BAL on admit 326. Nursing staff notified hospitalist that the pt has been febrile, initially 101.8, given tylenol and 104 on recheck. pt is more delirious and became combatitive with her, which is unlike him. he is unable to provide an accurate history at this time but say yes to SOB and chest pain when asked. he also stated that he does not feel good . he has been reporting cold sx for the past few days including headache, congestion, runny nose and cough. Review of Systems Review of Systems: Yes Unobtainable due to mental condition and Unobtainable due to mental status [facility] Medical History No known health problems Anxiety Pneumonia Social History Housing: Homeless Housing Other:: Safe place Do you presently have visiting nurse or other home services: No Alcohol intake: current Alcohol intake frequency: a few times a week Alcohol type: beer and hard liquor Patient Tobacco Use Status: Current everyday Tobacco user Tobacco use type: Cigarette Cigarettes Per Day: 5 e-Cigarette/Vaping Use: Never Used Second Hand Smoke Exposure: Yes Substance Use Type: Crack/Cocaine, Heroin and Opiates Advance Directives: No Advance Directives Information Provided: No service: No Sexual orientation: Straight/Heterosexual Meds Allergies Allergy/AdvReac Type Severity Reaction Status Date / Time tomato sauce Allergy Intermediate Hives Uncoded 08/24/25 18:42 Active Medications: Current Medications Acetaminophen (Acetaminophen 325 Mg Tablet) 650 mg PO Q6H PRN PRN Reason: Headache/Pain, Scale 1-10 Al Hydroxide/Mg Hydroxide (Magnesium Hydrox/Alum Hydrox 30 Ml Oral.Susp) 30 ml PO Q6H PRN PRN Reason: Heartburn/Nausea Benzocaine (Throat Lozenge, Medicated Lozenge) 1 lozenge MUCOUS MEM Q2H PRN PRN Reason: Sore Throat Calcium Carbonate (Calcium Carbonate 750 Mg Tab.Chew) 750 mg PO Q4H PRN PRN Reason: Heartburn Doxazosin Mesylate (Doxazosin Mesylate 1 Mg Tablet) 1 mg PO BEDTIME AYDEE; Protocol Enoxaparin Sodium (Enoxaparin Sodium 40 Mg/0.4 Ml Syringe) 40 mg SUBCUT Q24H [facility] Gabapentin (Gabapentin 300 Mg Capsule) 300 mg PO TID [facility] Guaifenesin (Guaifenesin La 600 Mg Tab.Er.12h) 600 mg PO BID [facility] Guaifenesin (Guaifenesin 200 Mg/10 Ml 10 Ml Liquid) 10 ml PO Q4H PRN PRN Reason: Cough Hydroxyzine HCl (Hydroxyzine Hcl 25 Mg Tablet) 25 mg PO Q6H PRN PRN Reason: mild anxiety Lactated Ringer's (Lr) 1,000 mls @ 100 mls/hr IVCONT .Q10H [facility] Ceftriaxone Sodium 1 gm/ (Sodium Chloride) 50 mls @ 100 mls/hr IV Q24H [facility] Thiamine HCl 500 mg/ Sodium (Chloride) 105 mls @ 210 mls/hr IV DAILY [facility] Stop: 09/05/25 08:59 Ibuprofen (Ibuprofen 600 Mg Tablet) 600 mg PO Q8H PRN PRN Reason: Pain, Moderate(Pain Scale 4-6) Lorazepam (Lorazepam 0.5 Mg Tablet) 0.5 mg PO BID [facility] Stop: 09/02/25 22:00 Magnesium Hydroxide (Milk Of Magnesia 30 Ml Oral.Susp) 30 ml PO DAILY PRN PRN Reason: Constipation Magnesium Hydroxide (Milk Of Magnesia 30 Ml Oral.Susp) 30 ml PO DAILY PRN PRN Reason: Constipation Melatonin (Melatonin 3 Mg Tablet) 6 mg PO BEDTIME PRN PRN Reason: Insomnia Methadone HCl (Methadone Hcl 20 Mg/2 Ml Oral.Conc) 100 mg PO DAILY@0800 [facility] Nicotine Polacrilex (Nicotine Polacrilex 2 Mg Gum) 4 mg BUCCAL Q2H PRN PRN Reason: Nicotine Cravings Ondansetron HCl (Ondansetron Hcl 4 Mg/2 Ml Vial) 4 mg IVPUSH Q8H PRN PRN Reason: Nausea and Vomiting Prazosin HCl (Prazosin Hcl 1 Mg Capsule) 1 mg PO BEDTIME AYDEE; Protocol Quetiapine Fumarate (Quetiapine Fumarate 50 Mg Tablet) 50 mg PO BEDTIME AY[facility]E Sertraline HCl (Sertraline Hcl 50 Mg Tablet) 50 mg PO DAILY [facility] Sodium Chloride (0.9 % Sodium Chloride Flush 3 Ml Syringe) 3 ml IVFLUSH QSHIFT [facility] Trazodone HCl (Trazodone Hcl 100 Mg Tablet) 100 mg PO BEDTIME PRN PRN Reason: Insomnia Triamcinolone Acetonide (Triamcinolone Acet 0.1 % Cream 15 Gm Tube) 1 appl TOPICAL BID AYDEE; Protocol Home Medications ?Medication ?Instructions ?Recorded ?Confirmed ?Last Taken ?Type gabapentin 300 mg capsule 300 mg PO TID 07/23/2008/24 Unknown History doxazosin 1 mg tablet 1 mg PO BEDTIME 08/24/2511/17 Unknown History quetiapine 50 mg tablet 50 mg PO BEDTIME 08/24/25 Unknown History sertraline 50 mg tablet 50 mg PO DAILY 08/24/2511/17 Unknown History Physical Exam Vital Signs and Narrative: General: Alert, not oriented, no acute distress Resp: diminished throughout, no wheezing or crackles CVS: S1, S2, RRR GI: +BS, NT, no distention Skin: Warm, dry Neuro: Cranial nerves II-XII grossly intact bilaterally. Motor grossly intact bilaterally Extremities: No pitting edema Psych: Delirious, visual and hallucinations Assessment and Plan (1) Acute respiratory failure with hypoxia: Status: Acute (2) Acute delirium: Status: Acute (3) Fever: Status: Acute Plan pt is a 59-year-old male with a past medical history of major depressive disorder, seizure disorder alcohol abuse, polysubstance abuse on methadone presented to the ED with increased depression and suicidal ideation with a plan, transferred to adult psych M3, with worsening delirium. acute delirium, concern for Wernicke encephalopathy - monitor CIWA - thiamine 500mg IV daily x3 days - 1:1 sitter acute hypoxia, fever - CBC, CMP, trop, lactic, blood culture x2 - CTA chest r/o PE/pneumonia - ceftriaxone prophylactically - monitor CBC and BMP anemia,normocytic - hgb 13.8 --> 9.6 over 8 days - iron, b12, folate, OBS x1 seizure disorder - seizure precautions - gabapentin MDD/SI - plan per psych - prazosin, sertraline, quetiapine, hydroxyzine Full code VTE prophylaxis: Lovenox Patient with acute delirium, acute hypoxia and fever, requiring admission transfer to medical floor for at least 2 midnight stay for further evaluation, treatment and monitoring. Quality Stroke Does the patient have a stroke diagnosis?: No VTE Prior VTE?: No VTE Risk Level:: Medical - moderate - high VTE Device Contraindication: Treatment Not Indicated VTE Drug Contraindication: N/A - Med Ordered
--- OUTSIDE RECORDS SUMMARY | 2025-09-02 01:13 | XMS_ITS | Patient Health Record ---
Author Organization [facility] Address [address] [place] [address] Care Team Providers Care Dental Assistant Medical Assistant Name Role Phone [employer] - DO NOT USE, Mail Pickup Primary Care Provider Unavailable Linda Cisneros Unavailable [phone] [employer] - DO NOT USE, Benefits Intervention Un available Unavailable Reason For Referral No Information Encounters Encounter Location Date Provider Diagnosis [facility] [address] [place] [phone] 12/13/2024 Linda Cisneros [facility] [address] [place], [place] [phone] 12/17/2024 Linda Cisneros [facility] [address] [place] [address] [id number] 12/27/2024 Linda Cisneros [facility] [address] [place] [address] [phone] 05/03/2025 Linda Cisneors [facility] [address] [place], [place] [phone] 04/30/2025 Linda Cisneros [facility] [address] [place], [place] [phone] 05/10/2025 Linda Cisneros [facility] [address] [place] [address] [phone] 06/05/2025 Linda Cisneros Plan Of Treatment No Information Insurance Providers Payer Name Payer Address Payer Phone Subscriber Number Group Number Insured Name Patient Relationship to Insured Coverage Start Date Coverage End Date [facility] [address] [place] [address] [place] [address] [phone] [id number] Lon Anguiano Self - patient is the insured 8 [phone]
[2025-09-02] MEDS: Lactated Ringers 1,000 ML 100 ML IVCONT ×3 (01:43→22:56)
[2025-09-02 04:00] VITALS: BP 129/70; PULSE 65; RESP 16; TEMP 36.2; O2SAT 92
--- NOTE | 2025-09-02 06:43 | PC.NURSE ---
S.O. notified of transfer
[2025-09-02 07:13] LABS: MANUAL DIFF FLAG NO
[2025-09-02 07:22] VITALS: BP 116/57; PULSE 58; RESP 18; TEMP 36.1; O2SAT 92
[2025-09-02 07:35] LABS: Anion Gap 13 (12-20); Blood Urea Nitrogen 16 mg/dL (9-16); Calcium 9.5 mg/dL (8.4-10.2); Carbon Dioxide 27 mmol/L (22-29); Chloride 101 mmol/L (96-108); Estimated Glomerular Filt Rate > 60; Iron 11 mcg/dL (45-160); Magnesium 2.0 mg/dL (1.6-2.6); Percent Iron Saturation 5 % (15-50); Potassium 4.2 mmol/L (3.3-5.1); Sodium 137 mmol/L (135-145); Total Iron Binding Capacity 206 mcg/dL (228-428); Unsaturated Iron Binding 195 ug/dL
[2025-09-02 07:37] LABS: Ammonia 34 umol/L (13-55)
[2025-09-02 07:38] LABS: Alanine Aminotransferase 8 U/L (0-40); Albumin Level 3.7 g/dL (3.5-5.0); Alkaline Phosphatase 81 U/L (39-117); Anion Gap 14 (12-20); Aspartate Amino Transferase 18 U/L (5-37); Blood Urea Nitrogen 16 mg/dL (9-16); Calcium 9.7 mg/dL (8.4-10.2); Carbon Dioxide 25 mmol/L (22-29); Chloride 102 mmol/L (96-108); Estimated Glomerular Filt Rate > 60; Potassium 4.2 mmol/L (3.3-5.1); Sodium 137 mmol/L (135-145); Total Protein 6.6 g/dL (6.5-8.0)
[2025-09-02 07:46] LABS: Hematocrit 32.9 % (42.0-52.0); Hemoglobin 10.8 g/dl (14.0-18.0); Imm Gran Abs Auto 0.23 X10*3/uL (0.00-0.03); Imm Gran Pct Auto 2.7 % (0.0-0.4); Lymphocytes Absolute Auto 1.2 X10*3/uL (1.2-4.9); Mean Corpuscular HGB Conc 32.8 g/dl (31.0-36.0); Mean Corpuscular Hemoglobin 30.3 pg (27.0-33.0); Mean Corpuscular Volume 92.4 fL (80.0-98.0); NRBC Abs Auto 0.000 X10*3/uL (0.0-0.012); NRBC Pct Auto 0.0 /100WBC (0.0-0.2); Platelet Count 214 X10*3/uL (160-400); Red Blood Count 3.56 X10*6/uL (4.60-5.80); White Blood Count 8.6 X10*3/uL (4.8-10.8)
[2025-09-02 07:47] LABS: Chlamydia pneumoniae PCR Not Detected (Not Detect.); Coronavirus 229E PCR Not Detected (Not Detect.); Coronavirus HKU1 PCR Not Detected (Not Detect.); Coronavirus NL63 PCR Not Detected (Not Detect.); Coronavirus OC43 PCR Not Detected (Not Detect.); RSV PCR Not Detected (Not Detect.); Rhino/Enterovirus PCR Not Detected (Not Detect.)
[2025-09-02 07:47] LABS: Hematocrit 33.1 % (42.0-52.0); Hemoglobin 10.7 g/dl (14.0-18.0); Imm Gran Abs Auto 0.26 X10*3/uL (0.00-0.03); Imm Gran Pct Auto 3.1 % (0.0-0.4); Lymphocytes Absolute Auto 1.1 X10*3/uL (1.2-4.9); Mean Corpuscular HGB Conc 32.3 g/dl (31.0-36.0); Mean Corpuscular Hemoglobin 29.8 pg (27.0-33.0); Mean Corpuscular Volume 92.2 fL (80.0-98.0); NRBC Abs Auto 0.000 X10*3/uL (0.0-0.012); NRBC Pct Auto 0.0 /100WBC (0.0-0.2); Platelet Count 220 X10*3/uL (160-400); Red Blood Count 3.59 X10*6/uL (4.60-5.80); White Blood Count 8.5 X10*3/uL (4.8-10.8)
[2025-09-02 07:50] LABS: SARS-CoV-2 PCR Not Detected (Not Detect.)
[2025-09-02 07:51] LABS: Influenza A H1 PCR Not Detected (Not Detect.); Influenza A H1-2009 PCR Not Detected (Not Detect.); Influenza A H3 PCR Not Detected (Not Detect.)
[2025-09-02 08:09] LABS: Folate 9.0 ng/mL (> or = 4.0); Vitamin B12 472 pg/mL (200-900)
[2025-09-02 08:11] VITALS: BMI 24.3
[2025-09-02] MEDS: methADONE HCl 20 MG/2 ML ORAL.CONC 100 MG PO (08:15)
--- NOTE | 2025-09-02 08:37 | HO.PM.IMPN ---
Subjective Subjective Date of Service: 09/02/25 Interval History: feeling withdrawal Physical Exam Exam: Exam: General: AO X 3, no acute distress, jittery, anxious Resp: CTA bilateral, no accessory muscles used CVS: S1,S2,RRR GI: soft, non tender, non distended Neuro: motor grossly intact, alert, mild tremor Vital Signs: Vital Signs: Last Vital Signs Temp 97.0 F 09/02/25 07:22 Pulse 58 09/02/25 07:22 Resp 18 09/02/25 07:22 BP 116/57 L 09/02/25 07:22 Pulse Ox 92 09/02/25 07:22 O2 Del Method Room Air 09/02/25 07:22 O2 Flow Rate 4 09/02/25 00:30 BMI result Body Mass Index 24.3 Objective Data Active Medications Acetaminophen (Acetaminophen 325 Mg Tablet) 650 mg PO Q6H PRN PRN Reason: Headache/Pain, Scale 1-10 Last Admin: 09/02/25 01:44 Dose: 650 mg Documented By: ROSITA Al Hydroxide/Mg Hydroxide (Magnesium Hydrox/Alum Hydrox 30 Ml Oral.Susp) 30 ml PO Q6H PRN PRN Reason: Heartburn/Nausea Azithromycin (Azithromycin 500 Mg Tablet) 500 mg PO Q24H [facility] Benzocaine (Throat Lozenge, Medicated Lozenge) 1 lozenge MUCOUS MEM Q2H PRN PRN Reason: Sore Throat Calcium Carbonate (Calcium Carbonate 750 Mg Tab.Chew) 750 mg PO Q4H PRN PRN Reason: Heartburn Doxazosin Mesylate (Doxazosin Mesylate 1 Mg Tablet) 1 mg PO BEDTIME AYDEE; Protocol Enoxaparin Sodium (Enoxaparin Sodium 40 Mg/0.4 Ml Syringe) 40 mg SUBCUT Q24H [facility] Gabapentin (Gabapentin 300 Mg Capsule) 300 mg PO TID [facility] Guaifenesin (Guaifenesin La 600 Mg Tab.Er.12h) 600 mg PO BID [facility] Guaifenesin (Guaifenesin 200 Mg/10 Ml 10 Ml Liquid) 10 ml PO Q4H PRN PRN Reason: Cough Hydroxyzine HCl (Hydroxyzine Hcl 25 Mg Tablet) 25 mg PO Q6H PRN PRN Reason: mild anxiety Last Admin: 09/02/25 01:44 Dose: 25 mg Documented By: ROSITA Lactated Ringer's (Lr) 1,000 mls @ 100 mls/hr IVCONT .Q10H [facility] Last Infusion: 09/02/25 04:00 Dose: 100 mls/hr Documented By: ROSITA Ceftriaxone Sodium 1 gm/ (Sodium Chloride) 50 mls @ 100 mls/hr IV Q24H [facility] Last Infusion: 09/02/25 02:14 Dose: Infused Documented By: ROSITA Thiamine HCl 500 mg/ Sodium (Chloride) 105 mls @ 210 mls/hr IV DAILY [facility] Stop: 09/05/25 08:59 Ibuprofen (Ibuprofen 600 Mg Tablet) 600 mg PO Q8H PRN PRN Reason: Pain, Moderate(Pain Scale 4-6) Lorazepam (Lorazepam 0.5 Mg Tablet) 0.5 mg PO BID [facility] Stop: 09/02/25 22:00 Magnesium Hydroxide (Milk Of Magnesia 30 Ml Oral.Susp) 30 ml PO DAILY PRN PRN Reason: Constipation Magnesium Hydroxide (Milk Of Magnesia 30 Ml Oral.Susp) 30 ml PO DAILY PRN PRN Reason: Constipation Melatonin (Melatonin 3 Mg Tablet) 6 mg PO BEDTIME PRN PRN Reason: Insomnia Methadone HCl (Methadone Hcl 20 Mg/2 Ml Oral.Conc) 100 mg PO DAILY@0800 [facility] Last Admin: 09/02/25 08:15 Dose: 100 mg Documented By: TRUNG Co-signed By: JENN Nicotine Polacrilex (Nicotine Polacrilex 2 Mg Gum) 4 mg BUCCAL Q2H PRN PRN Reason: Nicotine Cravings Ondansetron HCl (Ondansetron Hcl 4 Mg/2 Ml Vial) 4 mg IVPUSH Q8H PRN PRN Reason: Nausea and Vomiting Pharmacy Consult (Consult Rx Etoh Phenob Im/Po) 1 each MISCELLANE ONCE PRN; Protocol PRN Reason: Consult order Phenobarbital (Phenobarbital 15 Mg Tablet) 45 mg PO BID [facility] Stop: 09/04/25 09:01 Phenobarbital (Phenobarbital 30 Mg Tablet) 30 mg PO BID [facility] Stop: 09/06/25 09:01 Phenobarbital (Phenobarbital 30 Mg Tablet) 30 mg PO BEDTIME [facility] Stop: 09/07/25 21:01 Phenobarbital Sodium (Phenobarbital Sodium 130 Mg/Ml Vial Im Q3hx2) 198 mg IM Q3H [facility] Stop: 11/10/25 14:31 Prazosin HCl (Prazosin Hcl 1 Mg Capsule) 1 mg PO BEDTIME ADYEE; Protocol Quetiapine Fumarate (Quetiapine Fumarate 50 Mg Tablet) 50 mg PO BEDTIME [facility] Sertraline HCl (Sertraline Hcl 50 Mg Tablet) 50 mg PO DAILY [facility] Sodium Chloride (0.9 % Sodium Chloride Flush 3 Ml Syringe) 3 ml IVFLUSH QSHIFT [facility] Trazodone HCl (Trazodone Hcl 100 Mg Tablet) 100 mg PO BEDTIME PRN PRN Reason: Insomnia Triamcinolone Acetonide (Triamcinolone Acet 0.1 % Cream 15 Gm Tube) 1 appl TOPICAL BID AYDEE; Protocol Labs 09/02/25 07:07 09/02/25 07:07 Labs: Laboratory Results - last 24 hr 09/02/25 09/02/25 09/02/25 02:14 07:07 07:07 MCV 92.2 92.4 MCH 29.8 MCHC RDW Plt Count MPV Immature Gran % (Auto) Neut % (Auto) Lymph % (Auto) Alpine % (Auto) Eos % (Auto) Baso % (Auto) Lymph # (Auto) Alpine # (Auto) Eos # (Auto) Baso # (Auto) Abs Immat Gran (auto) Absolute Neuts (auto) Absolute Nucleated RBC Nucleated RBC % (auto) Anion Gap Estim Creat Clear Calc Estimated GFR Random Glucose Calcium Magnesium Iron TIBC % Saturation Unsat Iron Binding Total Bilirubin AST ALT Alkaline Phosphatase Ammonia Total Protein Albumin Vitamin B12 Folate Respiratory Panel Morton See Note Adenovirus (Rapid PCR) Not Detected B.pert (TEM-PCR) Not Detected B.parapertussis DNA PCR Not Detected C. pneumoniae DNA (PCR) Not Detected Coronavirus OC43 (PCR) Not Detected Coronavirus HKU1 (PCR) Not Detected Coronavirus 229E (PCR) Not Detected Coronavirus NL63 (PCR) Not Detected Human Metapneumovir PCR Not Detected Influenza A (RT-PCR) Not Detected Influenza A (H1) PCR Not Detected Influ A (H1/09) PCR Not Detected Influenza A (H3) PCR Not Detected Influenza B (RT-PCR) Not Detected M. pneumoniae (PCR) Not Detected Parainfluenza 1 (PCR) Not Detected Parainfluenza 2 (PCR) Not Detected Parainfluenza 3 (PCR) Not Detected Parainfluenza 4 (PCR) Not Detected RSV (PCR) Not Detected Entero/Rhino (PCR) Not Detected SARS-CoV-2 RNA (RT-PCR) Not Detected 09/02/25 09/02/25 09/02/25 07:07 07:07 07:07 MCV MCH 30.3 MCHC 32.3 32.8 RDW 11.9 12.0 Plt Count 220 MPV Immature Gran % (Auto) Neut % (Auto) Lymph % (Auto) Alpine % (Auto) Eos % (Auto) Baso % (Auto) Lymph # (Auto) Alpine # (Auto) Eos # (Auto) Baso # (Auto) Abs Immat Gran (auto) Absolute Neuts (auto) Absolute Nucleated RBC Nucleated RBC % (auto) Anion Gap Estim Creat Clear Calc Estimated GFR Random Glucose Calcium Magnesium Iron TIBC % Saturation Unsat Iron Binding Total Bilirubin AST ALT Alkaline Phosphatase Ammonia Total Protein Albumin Vitamin B12 Folate Respiratory Panel [place] Adenovirus (Rapid PCR) B.pert (TEM-PCR) B.parapertussis DNA PCR C. pneumoniae DNA (PCR) Coronavirus OC43 (PCR) Coronavirus HKU1 (PCR) Coronavirus 229E (PCR) Coronavirus NL63 (PCR) Human Metapneumovir PCR Influenza A (RT-PCR) Influenza A (H1) PCR Influ A (H1/09) PCR Influenza A (H3) PCR Influenza B (RT-PCR) M. pneumoniae (PCR) Parainfluenza 1 (PCR) Parainfluenza 2 (PCR) Parainfluenza 3 (PCR) Parainfluenza 4 (PCR) RSV (PCR) Entero/Rhino (PCR) SARS-CoV-2 RNA (RT-PCR) 09/02/25 09/02/25 09/02/25 07:07 07:07 07:07 MCV MCH MCHC RDW Plt Count 214 MPV 9.4 9.5 Immature Gran % (Auto) 3.1 H 2.7 H Neut % (Auto) 67.9 Lymph % (Auto) Alpine % (Auto) Eos % (Auto) Baso % (Auto) Lymph # (Auto) Alpine # (Auto) Eos # (Auto) Baso # (Auto) Abs Immat Gran (auto) Absolute Neuts (auto) Absolute Nucleated RBC Nucleated RBC % (auto) Anion Gap Estim Creat Clear Calc Estimated GFR Random Glucose Calcium Magnesium Iron TIBC % Saturation Unsat Iron Binding Total Bilirubin AST ALT Alkaline Phosphatase Ammonia Total Protein Albumin Vitamin B12 Folate Respiratory Panel [place] Adenovirus (Rapid PCR) B.pert (TEM-PCR) B.parapertussis DNA PCR C. pneumoniae DNA (PCR) Coronavirus OC43 (PCR) Coronavirus HKU1 (PCR) Coronavirus 229E (PCR) Coronavirus NL63 (PCR) Human Metapneumovir PCR Influenza A (RT-PCR) Influenza A (H1) PCR Influ A () PCR Influenza A (H3) PCR Influenza B (RT-PCR) M. pneumoniae (PCR) Parainfluenza 1 (PCR) Parainfluenza 2 (PCR) Parainfluenza 3 (PCR) Parainfluenza 4 (PCR) RSV (PCR) Entero/Rhino (PCR) SARS-CoV-2 RNA (RT-PCR) 09/02/25 09/02/25 09/02/25 07:07 07:07 07:07 MCV MCH MCHC RDW Plt Count MPV Immature Gran % (Auto) Neut % (Auto) 67.2 Lymph % (Auto) 12.5 L 14.1 L Alpine % (Auto) 13.8 H 13.1 H Eos % (Auto) 2.0 Baso % (Auto) Lymph # (Auto) Alpine # (Auto) Eos # (Auto) Baso # (Auto) Abs Immat Gran (auto) Absolute Neuts (auto) Absolute Nucleated RBC Nucleated RBC % (auto) Anion Gap Estim Creat Clear Calc Estimated GFR Random Glucose Calcium Magnesium Iron TIBC % Saturation Unsat Iron Binding Total Bilirubin AST ALT Alkaline Phosphatase Ammonia Total Protein Albumin Vitamin B12 Folate Respiratory Panel [place] Adenovirus (Rapid PCR) B.pert (TEM-PCR) B.parapertussis DNA PCR C. pneumoniae DNA (PCR) Coronavirus OC43 (PCR) Coronavirus HKU1 (PCR) Coronavirus 229E (PCR) Coronavirus NL63 (PCR) Human Metapneumovir PCR Influenza A (RT-PCR) Influenza A (H1) PCR Influ A () PCR Influenza A (H3) PCR Influenza B (RT-PCR) M. pneumoniae (PCR) Parainfluenza 1 (PCR) Parainfluenza 2 (PCR) Parainfluenza 3 (PCR) Parainfluenza 4 (PCR) RSV (PCR) Entero/Rhino (PCR) SARS-CoV-2 RNA (RT-PCR) 09/02/25 09/02/25 09/02/25 07:07 07:07 07:07 MCV MCH MCHC RDW Plt Count MPV Immature Gran % (Auto) Neut % (Auto) Lymph % (Auto) Alpine % (Auto) Eos % (Auto) 2.1 Baso % (Auto) 0.7 0.8 Lymph # (Auto) 1.1 L 1.2 Alpine # (Auto) 1.2 Eos # (Auto) Baso # (Auto) Abs Immat Gran (auto) Absolute Neuts (auto) Absolute Nucleated RBC Nucleated RBC % (auto) Anion Gap Estim Creat Clear Calc Estimated GFR Random Glucose Calcium Magnesium Iron TIBC % Saturation Unsat Iron Binding Total Bilirubin AST ALT Alkaline Phosphatase Ammonia Total Protein Albumin Vitamin B12 Folate Respiratory Panel Morton Adenovirus (Rapid PCR) B.pert (TEM-PCR) B.parapertussis DNA PCR C. pneumoniae DNA (PCR) Coronavirus OC43 (PCR) Coronavirus HKU1 (PCR) Coronavirus 229E (PCR) Coronavirus NL63 (PCR) Human Metapneumovir PCR Influenza A (RT-PCR) Influenza A (H1) PCR Influ A (H1/09) PCR Influenza A (H3) PCR Influenza B (RT-PCR) M. pneumoniae (PCR) Parainfluenza 1 (PCR) Parainfluenza 2 (PCR) Parainfluenza 3 (PCR) Parainfluenza 4 (PCR) RSV (PCR) Entero/Rhino (PCR) SARS-CoV-2 RNA (RT-PCR) 09/02/25 09/02/25 09/02/25 07:07 07:07 07:07 MCV MCH MCHC RDW Plt Count MPV Immature Gran % (Auto) Neut % (Auto) Lymph % (Auto) Alpine % (Auto) Eos % (Auto) Baso % (Auto) Lymph # (Auto) Alpine # (Auto) 1.1 Eos # (Auto) 0.2 0.2 Baso # (Auto) 0.1 0.1 Abs Immat Gran (auto) 0.26 H Absolute Neuts (auto) Absolute Nucleated RBC Nucleated RBC % (auto) Anion Gap Estim Creat Clear Calc Estimated GFR Random Glucose Calcium Magnesium Iron TIBC % Saturation Unsat Iron Binding Total Bilirubin AST ALT Alkaline Phosphatase Ammonia Total Protein Albumin Vitamin B12 Folate Respiratory Panel [place] Adenovirus (Rapid PCR) B.pert (TEM-PCR) B.parapertussis DNA PCR C. pneumoniae DNA (PCR) Coronavirus OC43 (PCR) Coronavirus HKU1 (PCR) Coronavirus 229E (PCR) Coronavirus NL63 (PCR) Human Metapneumovir PCR Influenza A (RT-PCR) Influenza A (H1) PCR Influ A (H1) PCR Influenza A (H3) PCR Influenza B (RT-PCR) M. pneumoniae (PCR) Parainfluenza 1 (PCR) Parainfluenza 2 (PCR) Parainfluenza 3 (PCR) Parainfluenza 4 (PCR) RSV (PCR) Entero/Rhino (PCR) SARS-CoV-2 RNA (RT-PCR) 09/02/25 09/02/25 09/02/25 07:07 07:07 07:07 MCV MCH MCHC RDW Plt Count MPV Immature Gran % (Auto) Neut % (Auto) Lymph % (Auto) Alpine % (Auto) Eos % (Auto) Baso % (Auto) Lymph # (Auto) Alpine # (Auto) Eos # (Auto) Baso # (Auto) Abs Immat Gran (auto) 0.23 H Absolute Neuts (auto) 5.7 5.8 Absolute Nucleated RBC 0.000 0.000 Nucleated RBC % (auto) 0.0 Anion Gap Estim Creat Clear Calc Estimated GFR Random Glucose Calcium Magnesium Iron TIBC % Saturation Unsat Iron Binding Total Bilirubin AST ALT Alkaline Phosphatase Ammonia Total Protein Albumin Vitamin B12 Folate Respiratory Panel [place] Adenovirus (Rapid PCR) B.pert (TEM-PCR) B.parapertussis DNA PCR C. pneumoniae DNA (PCR) Coronavirus OC43 (PCR) Coronavirus HKU1 (PCR) Coronavirus 229E (PCR) Coronavirus NL63 (PCR) Human Metapneumovir PCR Influenza A (RT-PCR) Influenza A (H1) PCR Influ A (H1/) PCR Influenza A (H3) PCR Influenza B (RT-PCR) M. pneumoniae (PCR) Parainfluenza 1 (PCR) Parainfluenza 2 (PCR) Parainfluenza 3 (PCR) Parainfluenza 4 (PCR) RSV (PCR) Entero/Rhino (PCR) SARS-CoV-2 RNA (RT-PCR) 09/02/25 09/02/25 09/02/25 07:07 07:07 07:07 MCV MCH MCHC RDW Plt Count MPV Immature Gran % (Auto) Neut % (Auto) Lymph % (Auto) Alpine % (Auto) Eos % (Auto) Baso % (Auto) Lymph # (Auto) Alpine # (Auto) Eos # (Auto) Baso # (Auto) Abs Immat Gran (auto) Absolute Neuts (auto) Absolute Nucleated RBC Nucleated RBC % (auto) 0.0 Anion Gap 14 13 Estim Creat Clear Calc TNP TNP Estimated GFR > 60 Random Glucose Calcium Magnesium Iron TIBC % Saturation Unsat Iron Binding Total Bilirubin AST ALT Alkaline Phosphatase Ammonia Total Protein Albumin Vitamin B12 Folate Respiratory Panel Morton Adenovirus (Rapid PCR) B.pert (TEM-PCR) B.parapertussis DNA PCR C. pneumoniae DNA (PCR) Coronavirus OC43 (PCR) Coronavirus HKU1 (PCR) Coronavirus 229E (PCR) Coronavirus NL63 (PCR) Human Metapneumovir PCR Influenza A (RT-PCR) Influenza A (H1) PCR Influ A (H1/09) PCR Influenza A (H3) PCR Influenza B (RT-PCR) M. pneumoniae (PCR) Parainfluenza 1 (PCR) Parainfluenza 2 (PCR) Parainfluenza 3 (PCR) Parainfluenza 4 (PCR) RSV (PCR) Entero/Rhino (PCR) SARS-CoV-2 RNA (RT-PCR) 09/02/25 09/02/25 09/02/25 07:07 07:07 07:07 MCV MCH MCHC RDW Plt Count MPV Immature Gran % (Auto) Neut % (Auto) Lymph % (Auto) Alpine % (Auto) Eos % (Auto) Baso % (Auto) Lymph # (Auto) Alpine # (Auto) Eos # (Auto) Baso # (Auto) Abs Immat Gran (auto) Absolute Neuts (auto) Absolute Nucleated RBC Nucleated RBC % (auto) Anion Gap Estim Creat Clear Calc Estimated GFR > 60 Random Glucose 97 95 Calcium 9.7 9.5 Magnesium 2.0 Iron 11 L TIBC 206 L % Saturation 5 L Unsat Iron Binding 195 Total Bilirubin 0.2 AST 18 ALT 8 Alkaline Phosphatase 81 Ammonia 34 Total Protein 6.6 Albumin 3.7 Vitamin B12 472 Folate 9.0 Respiratory Panel Morton Adenovirus (Rapid PCR) B.pert (TEM-PCR) B.parapertussis DNA PCR C. pneumoniae DNA (PCR) Coronavirus OC43 (PCR) Coronavirus HKU1 (PCR) Coronavirus 229E (PCR) Coronavirus NL63 (PCR) Human Metapneumovir PCR Influenza A (RT-PCR) Influenza A (H1) PCR Influ A (H1/) PCR Influenza A (H3) PCR Influenza B (RT-PCR) M. pneumoniae (PCR) Parainfluenza 1 (PCR) Parainfluenza 2 (PCR) Parainfluenza 3 (PCR) Parainfluenza 4 (PCR) RSV (PCR) Entero/Rhino (PCR) SARS-CoV-2 RNA (RT-PCR) Assessment and Plan (1) Alcohol abuse: Status: Acute Plan 59M PMH mood disorder, etoh dependence, epilepsy, polysubstance dependence, presented with SI and fever ,ams Alcohol dependence with acute withdrawal and withdrawal delirium Phenobarb, CIWA, thiamine Transient hypoxia, fevers Due to multifocal pneumonia Ceftriaxone azithromycin Now on room air Epilepsy Gabapentin Polysubstance dependence Methadone Mood disorder Sertraline, Ativan DVT prophylaxis with Lovenox Full code reason for continued hospitalization: Active withdrawal Quality Stroke Does the patient have a stroke diagnosis?: No VTE Prior VTE?: No VTE Risk Level:: Medical - moderate - high VTE Device Contraindication: Treatment Not Indicated VTE Drug Contraindication: N/A - Med Ordered
--- NOTE | 2025-09-02 08:41 | MHC.CM.PN ---
CM met with Patient at bedside. Patient is homeless and was recently and his is homeless as well(she is currently staying with a Friend). Patient came to [facility] from [facility] and may return there pending Care Team Consult. Per [facility] PN, Patient is on a waiting list for [facility]. CM has initiated and will follow for dc planning. Patient cannot provide the name of his PCP. Patient receives hos Methadone from [facility]. Transport at dc it TBD.
[2025-09-02] MEDS: guaiFENesin LA 600 MG TAB.ER.12H PO ×2 (08:47→20:33)
[2025-09-02] MEDS: 0.9 % Sodium Chloride Flush 3 ML SYRINGE IVFLUSH ×2 (08:48→15:42)
[2025-09-02] MEDS: Triamcinolone Acet 0.1 % Cream 15 GM TUBE 1 APPL TOPICAL (08:52)
[2025-09-02] MEDS: PHENobarbitaL sodium 130 MG/ML IM ONCE 264 MG IM (09:06)
--- NOTE | 2025-09-02 09:26 | PHA.MEDREC ---
Addendum entered by Palomo Smith, PharmD 09/02/25 09:54: MED REC CHECKED BY [facility] Original Note: Pharmacy Consult ? Medication Reconciliation Pharmacy has completed the medication reconciliation. Patient was able to name his medications. Patient confirmed Methadone [address] [facility]. pt could not tell me when he last had his medications.
[2025-09-02 11:16] VITALS: BP 120/62; PULSE 68; RESP 18; TEMP 36.9; O2SAT 92
[2025-09-02] MEDS: PHENobarbitaL sodium 130 MG/ML VIAL IM Q3Hx2 198 MG IM ×2 (12:26→15:39)
--- NOTE | 2025-09-02 12:48 | HO.ADDICTPRO ---
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 Prior to this he spent some time sharing his frustration for not being able to find an apt. When asked about withdrawal sx, he stated I'm fine, but body just hurts He does not appear diaphoretic, is somewhat restless, unable to assess for tremor as patient declined to bring arms out from under blanket In terms of orientation he is able to tell t/w that he was on a different floor before this that he is currently at now--but not aware of date While on unit patient was being monitored with CIWA and receiving lorazepam based on CIWA scores Review of Systems Acute medical concerns: Yes Review of Systems Constitutional: Reports as per HPI (pt declining to engage ) Mental Status Exam Mental Status Exam Level of Consciousness: Awake Patient Behavior: Uncooperative (irritable, but allowing medical care ) Affect Description: Angry Speech Pattern: Clear Thought Content: positive for [place] Judgement: Fair Diagnostics Vital Signs (24Hr): Vital Signs - 24 hr 09/02/25 00:30 09/02/25 04:00 09/02/25 07:22 Temperature 100.2 F 97.2 F 97.0 F Pulse Rate 68 65 58 Respiratory Rate 16 16 18 Blood Pressure 131/60 129/70 116/57 L Pulse Oximetry 96 92 92 Oxygen Delivery Method Nasal Cannula Room Air Room Air Oxygen Flow Rate 4 09/02/25 11:16 Temperature 98.5 F Pulse Rate 68 Respiratory Rate 18 Blood Pressure 120/62 Pulse Oximetry 92 Oxygen Delivery Method Nasal Cannula Oxygen Flow Rate 2 BMI result Body Mass Index 24.3 Labs 09/02/25 07:07 09/02/25 07:07 Labs: Laboratory Results - last 48 hr 09/02/25 09/02/25 09/02/25 02:14 07:07 07:07 WBC 8.5 8.6 RBC 3.59 L Hgb Hct MCV MCH MCHC RDW Plt Count MPV Immature Gran % (Auto) Neut % (Auto) Lymph % (Auto) [place] % (Auto) Eos % (Auto) Baso % (Auto) Lymph # (Auto) [place] # (Auto) Eos # (Auto) Baso # (Auto) Abs Immat Gran (auto) Absolute Neuts (auto) Absolute Nucleated RBC Nucleated RBC % (auto) Sodium Potassium Chloride Carbon Dioxide Anion Gap BUN Creatinine Estim Creat Clear Calc Estimated GFR Random Glucose Calcium Magnesium Iron TIBC % Saturation Unsat Iron Binding Total Bilirubin AST ALT Alkaline Phosphatase Ammonia Total Protein Albumin Vitamin B12 Folate Respiratory Panel Morton See Note Adenovirus (Rapid PCR) Not Detected B.pert (TEM-PCR) Not Detected B.parapertussis DNA PCR Not Detected C. pneumoniae DNA (PCR) Not Detected Coronavirus OC43 (PCR) Not Detected Coronavirus HKU1 (PCR) Not Detected Coronavirus 229E (PCR) Not Detected Coronavirus NL63 (PCR) Not Detected Human Metapneumovir PCR Not Detected Influenza A (RT-PCR) Not Detected Influenza A (H1) PCR Not Detected Influ A (H1/09) PCR Not Detected Influenza A (H3) PCR Not Detected Influenza B (RT-PCR) Not Detected M. pneumoniae (PCR) Not Detected Parainfluenza 1 (PCR) Not Detected Parainfluenza 2 (PCR) Not Detected Parainfluenza 3 (PCR) Not Detected Parainfluenza 4 (PCR) Not Detected RSV (PCR) Not Detected Entero/Rhino (PCR) Not Detected SARS-CoV-2 RNA (RT-PCR) Not Detected 09/02/25 09/02/25 09/02/25 07:07 07:07 07:07 WBC RBC 3.56 L Hgb 10.7 L 10.8 L Hct 33.1 L 32.9 L MCV 92.2 MCH MCHC RDW Plt Count MPV Immature Gran % (Auto) Neut % (Auto) Lymph % (Auto) [place] % (Auto) Eos % (Auto) Baso % (Auto) Lymph # (Auto) [place] # (Auto) Eos # (Auto) Baso # (Auto) Abs Immat Gran (auto) Absolute Neuts (auto) Absolute Nucleated RBC Nucleated RBC % (auto) Sodium Potassium Chloride Carbon Dioxide Anion Gap BUN Creatinine Estim Creat Clear Calc Estimated GFR Random Glucose Calcium Magnesium Iron TIBC % Saturation Unsat Iron Binding Total Bilirubin AST ALT Alkaline Phosphatase Ammonia Total Protein Albumin Vitamin B12 Folate Respiratory Panel [place] Adenovirus (Rapid PCR) B.pert (TEM-PCR) B.parapertussis DNA PCR C. pneumoniae DNA (PCR) Coronavirus OC43 (PCR) Coronavirus HKU1 (PCR) Coronavirus 229E (PCR) Coronavirus NL63 (PCR) Human Metapneumovir PCR Influenza A (RT-PCR) Influenza A (H1) PCR Influ A () PCR Influenza A (H3) PCR Influenza B (RT-PCR) M. pneumoniae (PCR) Parainfluenza 1 (PCR) Parainfluenza 2 (PCR) Parainfluenza 3 (PCR) Parainfluenza 4 (PCR) RSV (PCR) Entero/Rhino (PCR) SARS-CoV-2 RNA (RT-PCR) 09/02/25 09/02/25 09/02/25 07:07 07:07 07:07 WBC RBC Hgb Hct MCV 92.4 MCH 29.8 30.3 MCHC 32.3 32.8 RDW 11.9 Plt Count MPV Immature Gran % (Auto) Neut % (Auto) Lymph % (Auto) [place] % (Auto) Eos % (Auto) Baso % (Auto) Lymph # (Auto) [place] # (Auto) Eos # (Auto) Baso # (Auto) Abs Immat Gran (auto) Absolute Neuts (auto) Absolute Nucleated RBC Nucleated RBC % (auto) Sodium Potassium Chloride Carbon Dioxide Anion Gap BUN Creatinine Estim Creat Clear Calc Estimated GFR Random Glucose Calcium Magnesium Iron TIBC % Saturation Unsat Iron Binding Total Bilirubin AST ALT Alkaline Phosphatase Ammonia Total Protein Albumin Vitamin B12 Folate Respiratory Panel [place] Adenovirus (Rapid PCR) B.pert (TEM-PCR) B.parapertussis DNA PCR C. pneumoniae DNA (PCR) Coronavirus OC43 (PCR) Coronavirus HKU1 (PCR) Coronavirus 229E (PCR) Coronavirus NL63 (PCR) Human Metapneumovir PCR Influenza A (RT-PCR) Influenza A (H1) PCR Influ A () PCR Influenza A (H3) PCR Influenza B (RT-PCR) M. pneumoniae (PCR) Parainfluenza 1 (PCR) Parainfluenza 2 (PCR) Parainfluenza 3 (PCR) Parainfluenza 4 (PCR) RSV (PCR) Entero/Rhino (PCR) SARS-CoV-2 RNA (RT-PCR) 09/02/25 09/02/25 09/02/25 07:07 07:07 07:07 WBC RBC Hgb Hct MCV MCH MCHC RDW 12.0 Plt Count 220 214 MPV 9.4 9.5 Immature Gran % (Auto) 3.1 H Neut % (Auto) Lymph % (Auto) [place] % (Auto) Eos % (Auto) Baso % (Auto) Lymph # (Auto) [place] # (Auto) Eos # (Auto) Baso # (Auto) Abs Immat Gran (auto) Absolute Neuts (auto) Absolute Nucleated RBC Nucleated RBC % (auto) Sodium Potassium Chloride Carbon Dioxide Anion Gap BUN Creatinine Estim Creat Clear Calc Estimated GFR Random Glucose Calcium Magnesium Iron TIBC % Saturation Unsat Iron Binding Total Bilirubin AST ALT Alkaline Phosphatase Ammonia Total Protein Albumin Vitamin B12 Folate Respiratory Panel [place] Adenovirus (Rapid PCR) B.pert (TEM-PCR) B.parapertussis DNA PCR C. pneumoniae DNA (PCR) Coronavirus OC43 (PCR) Coronavirus HKU1 (PCR) Coronavirus 229E (PCR) Coronavirus NL63 (PCR) Human Metapneumovir PCR Influenza A (RT-PCR) Influenza A (H1) PCR Influ A (H1/09) PCR Influenza A (H3) PCR Influenza B (RT-PCR) M. pneumoniae (PCR) Parainfluenza 1 (PCR) Parainfluenza 2 (PCR) Parainfluenza 3 (PCR) Parainfluenza 4 (PCR) RSV (PCR) Entero/Rhino (PCR) SARS-CoV-2 RNA (RT-PCR) 09/02/25 09/02/25 09/02/25 07:07 07:07 07:07 WBC RBC Hgb Hct MCV MCH MCHC RDW Plt Count MPV Immature Gran % (Auto) 2.7 H Neut % (Auto) 67.9 67.2 Lymph % (Auto) 12.5 L 14.1 L [place] % (Auto) 13.8 H Eos % (Auto) Baso % (Auto) Lymph # (Auto) [place] # (Auto) Eos # (Auto) Baso # (Auto) Abs Immat Gran (auto) Absolute Neuts (auto) Absolute Nucleated RBC Nucleated RBC % (auto) Sodium Potassium Chloride Carbon Dioxide Anion Gap BUN Creatinine Estim Creat Clear Calc Estimated GFR Random Glucose Calcium Magnesium Iron TIBC % Saturation Unsat Iron Binding Total Bilirubin AST ALT Alkaline Phosphatase Ammonia Total Protein Albumin Vitamin B12 Folate Respiratory Panel [place] Adenovirus (Rapid PCR) B.pert (TEM-PCR) B.parapertussis DNA PCR C. pneumoniae DNA (PCR) Coronavirus OC43 (PCR) Coronavirus HKU1 (PCR) Coronavirus 229E (PCR) Coronavirus NL63 (PCR) Human Metapneumovir PCR Influenza A (RT-PCR) Influenza A (H1) PCR Influ A () PCR Influenza A (H3) PCR Influenza B (RT-PCR) M. pneumoniae (PCR) Parainfluenza 1 (PCR) Parainfluenza 2 (PCR) Parainfluenza 3 (PCR) Parainfluenza 4 (PCR) RSV (PCR) Entero/Rhino (PCR) SARS-CoV-2 RNA (RT-PCR) 09/02/25 09/02/25 09/02/25 07:07 07:07 07:07 WBC RBC Hgb Hct MCV MCH MCHC RDW Plt Count MPV Immature Gran % (Auto) Neut % (Auto) Lymph % (Auto) [place] % (Auto) 13.1 H Eos % (Auto) 2.0 2.1 Baso % (Auto) 0.7 0.8 Lymph # (Auto) 1.1 L [place] # (Auto) Eos # (Auto) Baso # (Auto) Abs Immat Gran (auto) Absolute Neuts (auto) Absolute Nucleated RBC Nucleated RBC % (auto) Sodium Potassium Chloride Carbon Dioxide Anion Gap BUN Creatinine Estim Creat Clear Calc Estimated GFR Random Glucose Calcium Magnesium Iron TIBC % Saturation Unsat Iron Binding Total Bilirubin AST ALT Alkaline Phosphatase Ammonia Total Protein Albumin Vitamin B12 Folate Respiratory Panel [place] Adenovirus (Rapid PCR) B.pert (TEM-PCR) B.parapertussis DNA PCR C. pneumoniae DNA (PCR) Coronavirus OC43 (PCR) Coronavirus HKU1 (PCR) Coronavirus 229E (PCR) Coronavirus NL63 (PCR) Human Metapneumovir PCR Influenza A (RT-PCR) Influenza A (H1) PCR Influ A () PCR Influenza A (H3) PCR Influenza B (RT-PCR) M. pneumoniae (PCR) Parainfluenza 1 (PCR) Parainfluenza 2 (PCR) Parainfluenza 3 (PCR) Parainfluenza 4 (PCR) RSV (PCR) Entero/Rhino (PCR) SARS-CoV-2 RNA (RT-PCR) 09/02/25 09/02/25 09/02/25 07:07 07:07 07:07 WBC RBC Hgb Hct MCV MCH MCHC RDW Plt Count MPV Immature Gran % (Auto) Neut % (Auto) Lymph % (Auto) [place] % (Auto) Eos % (Auto) Baso % (Auto) Lymph # (Auto) 1.2 [place] # (Auto) 1.2 1.1 Eos # (Auto) 0.2 0.2 Baso # (Auto) 0.1 Abs Immat Gran (auto) Absolute Neuts (auto) Absolute Nucleated RBC Nucleated RBC % (auto) Sodium Potassium Chloride Carbon Dioxide Anion Gap BUN Creatinine Estim Creat Clear Calc Estimated GFR Random Glucose Calcium Magnesium Iron TIBC % Saturation Unsat Iron Binding Total Bilirubin AST ALT Alkaline Phosphatase Ammonia Total Protein Albumin Vitamin B12 Folate Respiratory Panel [place] Adenovirus (Rapid PCR) B.pert (TEM-PCR) B.parapertussis DNA PCR C. pneumoniae DNA (PCR) Coronavirus OC43 (PCR) Coronavirus HKU1 (PCR) Coronavirus 229E (PCR) Coronavirus NL63 (PCR) Human Metapneumovir PCR Influenza A (RT-PCR) Influenza A (H1) PCR Influ A (H1/09) PCR Influenza A (H3) PCR Influenza B (RT-PCR) M. pneumoniae (PCR) Parainfluenza 1 (PCR) Parainfluenza 2 (PCR) Parainfluenza 3 (PCR) Parainfluenza 4 (PCR) RSV (PCR) Entero/Rhino (PCR) SARS-CoV-2 RNA (RT-PCR) 09/02/25 09/02/25 09/02/25 07:07 07:07 07:07 WBC RBC Hgb Hct MCV MCH MCHC RDW Plt Count MPV Immature Gran % (Auto) Neut % (Auto) Lymph % (Auto) [place] % (Auto) Eos % (Auto) Baso % (Auto) Lymph # (Auto) [place] # (Auto) Eos # (Auto) Baso # (Auto) 0.1 Abs Immat Gran (auto) 0.26 H 0.23 H Absolute Neuts (auto) 5.7 5.8 Absolute Nucleated RBC 0.000 Nucleated RBC % (auto) Sodium Potassium Chloride Carbon Dioxide Anion Gap BUN Creatinine Estim Creat Clear Calc Estimated GFR Random Glucose Calcium Magnesium Iron TIBC % Saturation Unsat Iron Binding Total Bilirubin AST ALT Alkaline Phosphatase Ammonia Total Protein Albumin Vitamin B12 Folate Respiratory Panel [place] Adenovirus (Rapid PCR) B.pert (TEM-PCR) B.parapertussis DNA PCR C. pneumoniae DNA (PCR) Coronavirus OC43 (PCR) Coronavirus HKU1 (PCR) Coronavirus 229E (PCR) Coronavirus NL63 (PCR) Human Metapneumovir PCR Influenza A (RT-PCR) Influenza A (H1) PCR Influ A () PCR Influenza A (H3) PCR Influenza B (RT-PCR) M. pneumoniae (PCR) Parainfluenza 1 (PCR) Parainfluenza 2 (PCR) Parainfluenza 3 (PCR) Parainfluenza 4 (PCR) RSV (PCR) Entero/Rhino (PCR) SARS-CoV-2 RNA (RT-PCR) 09/02/25 09/02/25 09/02/25 07:07 07:07 07:07 WBC RBC Hgb Hct MCV MCH MCHC RDW Plt Count MPV Immature Gran % (Auto) Neut % (Auto) Lymph % (Auto) [place] % (Auto) Eos % (Auto) Baso % (Auto) Lymph # (Auto) [place] # (Auto) Eos # (Auto) Baso # (Auto) Abs Immat Gran (auto) Absolute Neuts (auto) Absolute Nucleated RBC 0.000 Nucleated RBC % (auto) 0.0 0.0 Sodium 137 137 Potassium 4.2 Chloride Carbon Dioxide Anion Gap BUN Creatinine Estim Creat Clear Calc Estimated GFR Random Glucose Calcium Magnesium Iron TIBC % Saturation Unsat Iron Binding Total Bilirubin AST ALT Alkaline Phosphatase Ammonia Total Protein Albumin Vitamin B12 Folate Respiratory Panel [place] Adenovirus (Rapid PCR) B.pert (TEM-PCR) B.parapertussis DNA PCR C. pneumoniae DNA (PCR) Coronavirus OC43 (PCR) Coronavirus HKU1 (PCR) Coronavirus 229E (PCR) Coronavirus NL63 (PCR) Human Metapneumovir PCR Influenza A (RT-PCR) Influenza A (H1) PCR Influ A () PCR Influenza A (H3) PCR Influenza B (RT-PCR) M. pneumoniae (PCR) Parainfluenza 1 (PCR) Parainfluenza 2 (PCR) Parainfluenza 3 (PCR) Parainfluenza 4 (PCR) RSV (PCR) Entero/Rhino (PCR) SARS-CoV-2 RNA (RT-PCR) 09/02/25 09/02/25 09/02/25 07:07 07:07 07:07 WBC RBC Hgb Hct MCV MCH MCHC RDW Plt Count MPV Immature Gran % (Auto) Neut % (Auto) Lymph % (Auto) [place] % (Auto) Eos % (Auto) Baso % (Auto) Lymph # (Auto) [place] # (Auto) Eos # (Auto) Baso # (Auto) Abs Immat Gran (auto) Absolute Neuts (auto) Absolute Nucleated RBC Nucleated RBC % (auto) Sodium Potassium 4.2 Chloride 102 101 Carbon Dioxide 25 27 Anion Gap 14 BUN Creatinine Estim Creat Clear Calc Estimated GFR Random Glucose Calcium Magnesium Iron TIBC % Saturation Unsat Iron Binding Total Bilirubin AST ALT Alkaline Phosphatase Ammonia Total Protein Albumin Vitamin B12 Folate Respiratory Panel [place] Adenovirus (Rapid PCR) B.pert (TEM-PCR) B.parapertussis DNA PCR C. pneumoniae DNA (PCR) Coronavirus OC43 (PCR) Coronavirus HKU1 (PCR) Coronavirus 229E (PCR) Coronavirus NL63 (PCR) Human Metapneumovir PCR Influenza A (RT-PCR) Influenza A (H1) PCR Influ A (H1/09) PCR Influenza A (H3) PCR Influenza B (RT-PCR) M. pneumoniae (PCR) Parainfluenza 1 (PCR) Parainfluenza 2 (PCR) Parainfluenza 3 (PCR) Parainfluenza 4 (PCR) RSV (PCR) Entero/Rhino (PCR) SARS-CoV-2 RNA (RT-PCR) 09/02/25 09/02/25 09/02/25 07:07 07:07 07:07 WBC RBC Hgb Hct MCV MCH MCHC RDW Plt Count MPV Immature Gran % (Auto) Neut % (Auto) Lymph % (Auto) [place] % (Auto) Eos % (Auto) Baso % (Auto) Lymph # (Auto) [place] # (Auto) Eos # (Auto) Baso # (Auto) Abs Immat Gran (auto) Absolute Neuts (auto) Absolute Nucleated RBC Nucleated RBC % (auto) Sodium Potassium Chloride Carbon Dioxide Anion Gap 13 BUN 16 16 Creatinine 0.81 0.79 Estim Creat Clear Calc TNP Estimated GFR Random Glucose Calcium Magnesium Iron TIBC % Saturation Unsat Iron Binding Total Bilirubin AST ALT Alkaline Phosphatase Ammonia Total Protein Albumin Vitamin B12 Folate Respiratory Panel [place] Adenovirus (Rapid PCR) B.pert (TEM-PCR) B.parapertussis DNA PCR C. pneumoniae DNA (PCR) Coronavirus OC43 (PCR) Coronavirus HKU1 (PCR) Coronavirus 229E (PCR) Coronavirus NL63 (PCR) Human Metapneumovir PCR Influenza A (RT-PCR) Influenza A (H1) PCR Influ A () PCR Influenza A (H3) PCR Influenza B (RT-PCR) M. pneumoniae (PCR) Parainfluenza 1 (PCR) Parainfluenza 2 (PCR) Parainfluenza 3 (PCR) Parainfluenza 4 (PCR) RSV (PCR) Entero/Rhino (PCR) SARS-CoV-2 RNA (RT-PCR) 09/02/25 09/02/25 09/02/25 07:07 07:07 07:07 WBC RBC Hgb Hct MCV MCH MCHC RDW Plt Count MPV Immature Gran % (Auto) Neut % (Auto) Lymph % (Auto) [place] % (Auto) Eos % (Auto) Baso % (Auto) Lymph # (Auto) [place] # (Auto) Eos # (Auto) Baso # (Auto) Abs Immat Gran (auto) Absolute Neuts (auto) Absolute Nucleated RBC Nucleated RBC % (auto) Sodium Potassium Chloride Carbon Dioxide Anion Gap BUN Creatinine Estim Creat Clear Calc TNP Estimated GFR > 60 > 60 Random Glucose 97 95 Calcium 9.7 Magnesium Iron TIBC % Saturation Unsat Iron Binding Total Bilirubin AST ALT Alkaline Phosphatase Ammonia Total Protein Albumin Vitamin B12 Folate Respiratory Panel [place] Adenovirus (Rapid PCR) B.pert (TEM-PCR) B.parapertussis DNA PCR C. pneumoniae DNA (PCR) Coronavirus OC43 (PCR) Coronavirus HKU1 (PCR) Coronavirus 229E (PCR) Coronavirus NL63 (PCR) Human Metapneumovir PCR Influenza A (RT-PCR) Influenza A (H1) PCR Influ A () PCR Influenza A (H3) PCR Influenza B (RT-PCR) M. pneumoniae (PCR) Parainfluenza 1 (PCR) Parainfluenza 2 (PCR) Parainfluenza 3 (PCR) Parainfluenza 4 (PCR) RSV (PCR) Entero/Rhino (PCR) SARS-CoV-2 RNA (RT-PCR) 09/02/25 07:07 WBC RBC Hgb Hct MCV MCH MCHC RDW Plt Count MPV Immature Gran % (Auto) Neut % (Auto) Lymph % (Auto) [place] % (Auto) Eos % (Auto) Baso % (Auto) Lymph # (Auto) [place] # (Auto) Eos # (Auto) Baso # (Auto) Abs Immat Gran (auto) Absolute Neuts (auto) Absolute Nucleated RBC Nucleated RBC % (auto) Sodium Potassium Chloride Carbon Dioxide Anion Gap BUN Creatinine Estim Creat Clear Calc Estimated GFR Random Glucose Calcium 9.5 Magnesium 2.0 Iron 11 L TIBC 206 L % Saturation 5 L Unsat Iron Binding 195 Total Bilirubin 0.2 AST 18 ALT 8 Alkaline Phosphatase 81 Ammonia 34 Total Protein 6.6 Albumin 3.7 Vitamin B12 472 Folate 9.0 Respiratory Panel [place] Adenovirus (Rapid PCR) B.pert (TEM-PCR) B.parapertussis DNA PCR C. pneumoniae DNA (PCR) Coronavirus OC43 (PCR) Coronavirus HKU1 (PCR) Coronavirus 229E (PCR) Coronavirus NL63 (PCR) Human Metapneumovir PCR Influenza A (RT-PCR) Influenza A (H1) PCR Influ A (H1/09) PCR Influenza A (H3) PCR Influenza B (RT-PCR) M. pneumoniae (PCR) Parainfluenza 1 (PCR) Parainfluenza 2 (PCR) Parainfluenza 3 (PCR) Parainfluenza 4 (PCR) RSV (PCR) Entero/Rhino (PCR) SARS-CoV-2 RNA (RT-PCR) Medications Medications Current Medications Acetaminophen (Acetaminophen 325 Mg Tablet) 650 mg PO Q6H PRN PRN Reason: Headache/Pain, Scale 1-10 Last Admin: 09/02/25 01:44 Dose: 650 mg Al Hydroxide/Mg Hydroxide (Magnesium Hydrox/Alum Hydrox 30 Ml Oral.Susp) 30 ml PO Q6H PRN PRN Reason: Heartburn/Nausea Azithromycin (Azithromycin 500 Mg Tablet) 500 mg PO Q24H AYDEE Last Admin: 09/02/25 08:47 Dose: 500 mg Benzocaine (Throat Lozenge, Medicated Lozenge) 1 lozenge MUCOUS MEM Q2H PRN PRN Reason: Sore Throat Calcium Carbonate (Calcium Carbonate 750 Mg Tab.Chew) 750 mg PO Q4H PRN PRN Reason: Heartburn Doxazosin Mesylate (Doxazosin Mesylate 1 Mg Tablet) 1 mg PO BEDTIME [facility]; Protocol Enoxaparin Sodium (Enoxaparin Sodium 40 Mg/0.4 Ml Syringe) 40 mg SUBCUT Q24H [facility] Last Admin: 09/02/25 08:57 Dose: 40 mg Gabapentin (Gabapentin 300 Mg Capsule) 300 mg PO TID [facility] Last Admin: 09/02/25 08:47 Dose: 300 mg Guaifenesin (Guaifenesin La 600 Mg Tab.Er.12h) 600 mg PO BID [facility] Last Admin: 09/02/25 08:47 Dose: 600 mg Guaifenesin (Guaifenesin 200 Mg/10 Ml 10 Ml Liquid) 10 ml PO Q4H PRN PRN Reason: Cough Hydroxyzine HCl (Hydroxyzine Hcl 25 Mg Tablet) 25 mg PO Q6H PRN PRN Reason: mild anxiety Last Admin: 09/02/25 01:44 Dose: 25 mg Lactated Ringer's (Lr) 1,000 mls @ 100 mls/hr IVCONT .Q10H [facility] Last Admin: 09/02/25 12:31 Dose: 100 mls/hr Ceftriaxone Sodium 1 gm/ (Sodium Chloride) 50 mls @ 100 mls/hr IV Q24H [facility] Last Infusion: 09/02/25 02:14 Dose: Infused Thiamine HCl 500 mg/ Sodium (Chloride) 105 mls @ 210 mls/hr IV DAILY [facility] Stop: 09/05/25 08:59 Last Infusion: 09/02/25 09:45 Dose: Infused Ibuprofen (Ibuprofen 600 Mg Tablet) 600 mg PO Q8H PRN PRN Reason: Pain, Moderate(Pain Scale 4-6) Lorazepam (Lorazepam 0.5 Mg Tablet) 0.5 mg PO BID [facility] Stop: 09/02/25 22:00 Last Admin: 09/02/25 08:47 Dose: 0.5 mg Magnesium Hydroxide (Milk Of Magnesia 30 Ml Oral.Susp) 30 ml PO DAILY PRN PRN Reason: Constipation Magnesium Hydroxide (Milk Of Magnesia 30 Ml Oral.Susp) 30 ml PO DAILY PRN PRN Reason: Constipation Melatonin (Melatonin 3 Mg Tablet) 6 mg PO BEDTIME PRN PRN Reason: Insomnia Methadone HCl (Methadone Hcl 20 Mg/2 Ml Oral.Conc) 100 mg PO DAILY@0800 [facility] Last Admin: 09/02/25 08:15 Dose: 100 mg Nicotine Polacrilex (Nicotine Polacrilex 2 Mg Gum) 4 mg BUCCAL Q2H PRN PRN Reason: Nicotine Cravings Ondansetron HCl (Ondansetron Hcl 4 Mg/2 Ml Vial) 4 mg IVPUSH Q8H PRN PRN Reason: Nausea and Vomiting Pharmacy Consult (Consult Rx Etoh Phenob Im/Po) 1 each MISCELLANE ONCE PRN; Protocol PRN Reason: Consult order Phenobarbital (Phenobarbital 15 Mg Tablet) 45 mg PO BID [facility] Stop: 09/04/25 09:01 Phenobarbital (Phenobarbital 30 Mg Tablet) 30 mg PO BID [facility] Stop: 09/06/25 09:01 Phenobarbital (Phenobarbital 30 Mg Tablet) 30 mg PO BEDTIME [facility] Stop: 09/07/25 21:01 Phenobarbital Sodium (Phenobarbital Sodium 130 Mg/Ml Vial Im Q3hx2) 198 mg IM Q3H [facility] Stop: 09/02/25 14:31 Last Admin: 09/02/25 12:26 Dose: 198 mg Prazosin HCl (Prazosin Hcl 1 Mg Capsule) 1 mg PO BEDTIME [facility]; Protocol Quetiapine Fumarate (Quetiapine Fumarate 50 Mg Tablet) 50 mg PO BEDTIME [facility] Sertraline HCl (Sertraline Hcl 50 Mg Tablet) 50 mg PO DAILY [facility] Last Admin: 09/02/25 08:57 Dose: 50 mg Sodium Chloride (0.9 % Sodium Chloride Flush 3 Ml Syringe) 3 ml IVFLUSH QSHIFT [facility] Last Admin: 09/02/25 08:48 Dose: 3 ml Trazodone HCl (Trazodone Hcl 100 Mg Tablet) 100 mg PO BEDTIME PRN PRN Reason: Insomnia Triamcinolone Acetonide (Triamcinolone Acet 0.1 % Cream 15 Gm Tube) 1 appl TOPICAL BID [facility]; Protocol Last Admin: 09/02/25 08:52 Dose: 1 appl Allergies Allergies Allergy/AdvReac Type Severity Reaction Status Date / Time tomato sauce Allergy Intermediate Hives Uncoded 08/24/25 18:42 Assessment & Plan Assessment & Plan (1) Opioid use disorder: Status: Acute Code(s): F11.90 - Opioid use, unspecified, uncomplicated Assessment and Plan: methadone increase to 110mg in AM consult requesting switch to buprenorphine --however now not appropriate secondary to AMS will continue to follow (2) Alcohol use disorder, severe, dependence: Status: Acute Code(s): F10.20 - Alcohol dependence, uncomplicated Assessment and Plan: phenobarbital initiated high dose IV thiamine order in place Total time managing care of this patient today __25__ minutes.
[2025-09-02 15:19] VITALS: BP 133/79; PULSE 63; RESP 18; TEMP 36.1; O2SAT 98
[2025-09-02 19:10] VITALS: BP 133/69; PULSE 71; RESP 16; TEMP 37.9; O2SAT 93
[2025-09-03] VITALS (8 sets, daily range): BP systolic 117–146; BP diastolic 60–89; PULSE 60–97; RESP 16–18; TEMP 36.2–37.3; O2SAT 90–97
[2025-09-03 06:39] LABS: Hematocrit 30.4 % (42.0-52.0); Hematocrit 30.5 % (42.0-52.0); Hemoglobin 10.0 g/dl (14.0-18.0); Mean Corpuscular HGB Conc 32.8 g/dl (31.0-36.0); Mean Corpuscular HGB Conc 32.9 g/dl (31.0-36.0); Mean Corpuscular Hemoglobin 30.0 pg (27.0-33.0); Mean Corpuscular Hemoglobin 30.1 pg (27.0-33.0); Mean Corpuscular Volume 91.6 fL (80.0-98.0); NRBC Abs Auto 0.000 X10*3/uL (0.0-0.012); NRBC Pct Auto 0.0 /100WBC (0.0-0.2); Platelet Count 225 X10*3/uL (160-400); Platelet Count 237 X10*3/uL (160-400); Red Blood Count 3.32 X10*6/uL (4.60-5.80); Red Blood Count 3.33 X10*6/uL (4.60-5.80); White Blood Count 6.8 X10*3/uL (4.8-10.8); White Blood Count 7.7 X10*3/uL (4.8-10.8)
[2025-09-03 07:03] LABS: Atypical Lymph Absolute Manual 0.2 x10*3/uL; Atypical Lymphs Percent Manual 2 % (0-6); Band Neutrophils Percent 3 % (3-5); Basophils Abs Manual 0.1 X10*3/uL (0.0-0.2); Basophils Percent Manual 1 % (0-2); Eosinophils Absolute Manual 0.1 X10*3/uL (0.0-0.4); Eosinophils Percent Manual 1 % (0-4); INTERNATIONAL NORM RATIO 1.2 (0.9-1.1); Lymphocytes Absolute Manual 1.7 X10*3/uL (1.2-4.9); Lymphocytes Percent Manual 22 % (20-40); Metamyelocytes Absolute 0.3 X10*3/uL; Metamyelocytes Percent 4 %; Monocytes Absolute Manual 0.6 X10*3/uL (0.1-1.2); Monocytes Percent Manual 8 % (2-11); Myelocytes Absolute 0.1 X10*/uL; Myelocytes Percent 1 %; Neutrophils Absolute Manual 4.7 X10*3/uL (2.0-8.3); Neutrophils Percent Manual 58 % (45-73); Prothrombin Time 14.9 SEC (11.2-13.5)
[2025-09-03 07:05] LABS: RBC Morphology NORMAL
[2025-09-03 07:17] LABS: Alanine Aminotransferase 14 U/L (0-40); Albumin Level 3.5 g/dL (3.5-5.0); Alkaline Phosphatase 79 U/L (39-117); Anion Gap 11 (12-20); Aspartate Amino Transferase 30 U/L (5-37); Blood Urea Nitrogen 15 mg/dL (9-16); Calcium 9.3 mg/dL (8.4-10.2); Carbon Dioxide 30 mmol/L (22-29); Chloride 94 mmol/L (96-108); Creatinine Clr Calc Pharmacy 85.6; Estimated Glomerular Filt Rate > 60; Magnesium 1.8 mg/dL (1.6-2.6); Potassium 4.2 mmol/L (3.3-5.1); Sodium 131 mmol/L (135-145); Total Protein 6.6 g/dL (6.5-8.0)
[2025-09-03] MEDS: guaiFENesin LA 600 MG TAB.ER.12H PO ×2 (08:07→20:29)
[2025-09-03] MEDS: methADONE HCl 20 MG/2 ML ORAL.CONC 100 MG PO (08:08)
[2025-09-03] MEDS: 0.9 % Sodium Chloride Flush 3 ML SYRINGE IVFLUSH ×2 (08:09→15:11)
[2025-09-03] MEDS: Triamcinolone Acet 0.1 % Cream 15 GM TUBE 1 APPL TOPICAL ×2 (08:17→20:28)
--- NOTE | 2025-09-03 09:52 | P.PNIM_ITS ---
Subjective Subjective Date of Service: 09/03/25 Interval History: Still feeling withdrawal symptoms Physical Exam 2 Exam: Exam: General: AO X 3, no acute distress, jittery, anxious Resp: CTA bilateral, no accessory muscles used CVS: S1,S2,RRR GI: soft, non tender, non distended Neuro: motor grossly intact, alert, mild tremor Vital Signs: Vital Signs: Last Vital Signs Temp 98.7 F 09/03/25 07:11 Pulse 69 09/03/25 07:11 Resp 16 09/03/25 07:11 BP 146/89 H 09/03/25 07:11 Pulse Ox 92 09/03/25 07:11 O2 Del Method Nasal Cannula 09/03/25 07:11 O2 Flow Rate 2 09/03/25 07:11 BMI result Body Mass Index 24.3 Objective Data Active Medications Acetaminophen (Acetaminophen 325 Mg Tablet) 650 mg PO Q6H PRN PRN Reason: Headache/Pain, Scale 1-10 Last Admin: 09/02/25 01:44 Dose: 650 mg Documented By: ROSITA Al Hydroxide/Mg Hydroxide (Magnesium Hydrox/Alum Hydrox 30 Ml Oral.Susp) 30 ml PO Q6H PRN PRN Reason: Heartburn/Nausea Azithromycin (Azithromycin 500 Mg Tablet) 500 mg PO Q24H [facility] Last Admin: 09/03/25 08:07 Dose: 500 mg Documented By: TRUNG Benzocaine (Throat Lozenge, Medicated Lozenge) 1 lozenge MUCOUS MEM Q2H PRN PRN Reason: Sore Throat Calcium Carbonate (Calcium Carbonate 750 Mg Tab.Chew) 750 mg PO Q4H PRN PRN Reason: Heartburn Doxazosin Mesylate (Doxazosin Mesylate 1 Mg Tablet) 1 mg PO BEDTIME [facility]; Protocol Last Admin: 09/02/25 20:33 Dose: 1 mg Documented By: CHEL Enoxaparin Sodium (Enoxaparin Sodium 40 Mg/0.4 Ml Syringe) 40 mg SUBCUT Q24H [facility] Last Admin: 09/03/25 08:08 Dose: 40 mg Documented By: TRUNG Gabapentin (Gabapentin 300 Mg Capsule) 300 mg PO TID [facility] Last Admin: 09/03/25 08:07 Dose: 300 mg Documented By: TRUNG Guaifenesin (Guaifenesin La 600 Mg Tab.Er.12h) 600 mg PO BID [facility] Last Admin: 09/03/25 08:07 Dose: 600 mg Documented By: TRUNG Guaifenesin (Guaifenesin 200 Mg/10 Ml 10 Ml Liquid) 10 ml PO Q4H PRN PRN Reason: Cough Hydroxyzine HCl (Hydroxyzine Hcl 25 Mg Tablet) 25 mg PO Q6H PRN PRN Reason: mild anxiety Last Admin: 09/03/25 02:36 Dose: 25 mg Documented By: CHEL Ceftriaxone Sodium 1 gm/ (Sodium Chloride) 50 mls @ 100 mls/hr IV Q24H [facility] Last Infusion: 09/03/25 02:45 Dose: Infused Documented By: CHEL Thiamine HCl 500 mg/ Sodium (Chloride) 105 mls @ 210 mls/hr IV DAILY [facility] Stop: 09/05/25 08:59 Last Infusion: 09/03/25 09:31 Dose: Infused Documented By: TRUNG Ibuprofen (Ibuprofen 600 Mg Tablet) 600 mg PO Q8H PRN PRN Reason: Pain, Moderate(Pain Scale 4-6) Magnesium Hydroxide (Milk Of Magnesia 30 Ml Oral.Susp) 30 ml PO DAILY PRN PRN Reason: Constipation Magnesium Hydroxide (Milk Of Magnesia 30 Ml Oral.Susp) 30 ml PO DAILY PRN PRN Reason: Constipation Melatonin (Melatonin 3 Mg Tablet) 6 mg PO BEDTIME PRN PRN Reason: Insomnia Methadone HCl (Methadone Hcl 20 Mg/2 Ml Oral.Conc) 100 mg PO DAILY@0800 [facility] Last Admin: 09/03/25 08:08 Dose: 100 mg Documented By: TRUNG Co-signed By: CLAIRE Nicotine Polacrilex (Nicotine Polacrilex 2 Mg Gum) 4 mg BUCCAL Q2H PRN PRN Reason: Nicotine Cravings Ondansetron HCl (Ondansetron Hcl 4 Mg/2 Ml Vial) 4 mg IVPUSH Q8H PRN PRN Reason: Nausea and Vomiting Pharmacy Consult (Consult Rx Etoh Phenob Im/Po) 1 each MISCELLANE ONCE PRN; Protocol PRN Reason: Consult order Phenobarbital (Phenobarbital 15 Mg Tablet) 45 mg PO BID [facility] Stop: 09/04/25 09:01 Last Admin: 09/03/25 08:07 Dose: 45 mg Documented By: TRUNG Phenobarbital (Phenobarbital 30 Mg Tablet) 30 mg PO BID [facility] Stop: 09/06/25 09:01 Phenobarbital (Phenobarbital 30 Mg Tablet) 30 mg PO BEDTIME [facility] Stop: 09/07/25 21:01 Prazosin HCl (Prazosin Hcl 1 Mg Capsule) 1 mg PO BEDTIME [facility]; Protocol Last Admin: 09/02/25 20:33 Dose: 1 mg Documented By: CHEL Quetiapine Fumarate (Quetiapine Fumarate 50 Mg Tablet) 50 mg PO BEDTIME [facility] Last Admin: 09/02/25 20:32 Dose: 50 mg Documented By: CHEL Sertraline HCl (Sertraline Hcl 50 Mg Tablet) 50 mg PO DAILY [facility] Last Admin: 09/03/25 08:06 Dose: 50 mg Documented By: TRUNG Sodium Chloride (0.9 % Sodium Chloride Flush 3 Ml Syringe) 3 ml IVFLUSH QSHIFT [facility] Last Admin: 09/03/25 08:09 Dose: 3 ml Documented By: TRUNG Trazodone HCl (Trazodone Hcl 100 Mg Tablet) 100 mg PO BEDTIME PRN PRN Reason: Insomnia Trazodone HCl (Trazodone Hcl 100 Mg Tablet) 100 mg PO BEDTIME PRN PRN Reason: Insomnia Triamcinolone Acetonide (Triamcinolone Acet 0.1 % Cream 15 Gm Tube) 1 appl TOPICAL BID [facility]; Protocol Last Admin: 09/03/25 08:17 Dose: 1 appl Documented By: TRUNG Labs 09/03/25 06:20 09/03/25 06:20 Labs: Laboratory Results - last 24 hr 09/03/25 09/03/25 09/03/25 06:20 06:20 06:20 MCV 91.6 91.6 MCH 30.0 30.1 MCHC 32.8 RDW Plt Count MPV Immature Gran % (Auto) Neut % (Auto) Lymph % (Auto) [place] % (Auto) Eos % (Auto) Baso % (Auto) Lymph # (Auto) [place] # (Auto) Eos # (Auto) Baso # (Auto) Abs Immat Gran (auto) Absolute Neuts (auto) Absolute Nucleated RBC Nucleated RBC % (auto) Neutrophils % (Manual) Band Neutrophils % Lymphocytes % (Manual) Atypical Lymphs % (Man) Monocytes % (Manual) Eosinophils % (Manual) Basophils % (Manual) Metamyelocytes % Myelocytes % Abs Neuts (Manual) Lymphocytes # (Manual) Atyp Lymphs # (Manual) Monocytes # (Manual) Eosinophils # (Manual) Basophils # (Manual) Metamyelocytes # Myelocytes # Platelet Estimate Plt Morphology Comment RBC Morphology PT INR Anion Gap Estim Creat Clear Calc Estimated GFR Random Glucose Calcium Magnesium Total Bilirubin Direct Bilirubin AST ALT Alkaline Phosphatase Total Protein Albumin 09/03/25 09/03/25 09/03/25 06:20 06:20 06:20 MCV MCH MCHC 32.9 RDW 12.2 12.3 Plt Count 225 237 MPV 8.8 L Immature Gran % (Auto) Neut % (Auto) Lymph % (Auto) [place] % (Auto) Eos % (Auto) Baso % (Auto) Lymph # (Auto) [place] # (Auto) Eos # (Auto) Baso # (Auto) Abs Immat Gran (auto) Absolute Neuts (auto) Absolute Nucleated RBC Nucleated RBC % (auto) Neutrophils % (Manual) Band Neutrophils % Lymphocytes % (Manual) Atypical Lymphs % (Man) Monocytes % (Manual) Eosinophils % (Manual) Basophils % (Manual) Metamyelocytes % Myelocytes % Abs Neuts (Manual) Lymphocytes # (Manual) Atyp Lymphs # (Manual) Monocytes # (Manual) Eosinophils # (Manual) Basophils # (Manual) Metamyelocytes # Myelocytes # Platelet Estimate Plt Morphology Comment RBC Morphology PT INR Anion Gap Estim Creat Clear Calc Estimated GFR Random Glucose Calcium Magnesium Total Bilirubin Direct Bilirubin AST ALT Alkaline Phosphatase Total Protein Albumin 09/03/25 09/03/25 09/03/25 06:20 06:20 06:20 MCV MCH MCHC RDW Plt Count MPV 9.0 L Immature Gran % (Auto) Cancelled Neut % (Auto) Cancelled Lymph % (Auto) Cancelled [place] % (Auto) Cancelled Eos % (Auto) Cancelled Baso % (Auto) Cancelled Lymph # (Auto) Cancelled [place] # (Auto) Cancelled Eos # (Auto) Cancelled Baso # (Auto) Cancelled Abs Immat Gran (auto) Cancelled Absolute Neuts (auto) Cancelled Absolute Nucleated RBC 0.000 0.000 Nucleated RBC % (auto) 0.0 0.0 Neutrophils % (Manual) 58 Band Neutrophils % 3 Lymphocytes % (Manual) 22 Atypical Lymphs % (Man) 2 Monocytes % (Manual) 8 Eosinophils % (Manual) 1 Basophils % (Manual) 1 Metamyelocytes % 4 Myelocytes % 1 Abs Neuts (Manual) 4.7 Lymphocytes # (Manual) 1.7 Atyp Lymphs # (Manual) 0.2 Monocytes # (Manual) 0.6 Eosinophils # (Manual) 0.1 Basophils # (Manual) 0.1 Metamyelocytes # 0.3 Myelocytes # 0.1 Platelet Estimate NORMAL Plt Morphology Comment NORMAL RBC Morphology NORMAL PT 14.9 H INR 1.2 H Anion Gap 11 L Estim Creat Clear Calc 85.6 Estimated GFR > 60 Random Glucose 80 Calcium 9.3 Magnesium 1.8 Total Bilirubin 0.2 Direct Bilirubin < 0.2 AST 30 ALT 14 Alkaline Phosphatase 79 Total Protein 6.6 Albumin 3.5 Assessment and Plan (1) Alcohol abuse: Status: Acute Plan 59M PMH mood disorder, etoh dependence, epilepsy, polysubstance dependence, presented with SI and fever ,ams Alcohol dependence with acute withdrawal and withdrawal delirium Continue Phenobarb, CIWA, thiamine Mental status back to baseline Transient hypoxia, fevers Due to multifocal pneumonia Ceftriaxone azithromycin Now on room air Epilepsy Gabapentin Polysubstance dependence Methadone Mood disorder with suicide ideation Sertraline, Ativan, 1:1 sitter care team prior to discharge DVT prophylaxis with Lovenox Full code reason for continued hospitalization: Active withdrawal Quality Stroke Does the patient have a stroke diagnosis?: No VTE Prior VTE?: No VTE Risk Level:: Medical - moderate - high VTE Device Contraindication: Treatment Not Indicated VTE Drug Contraindication: N/A - Med Ordered
--- NOTE | 2025-09-03 14:21 | HO.ADDICTPRO ---
Subjective Subjective Date of Service: 09/03/25 Reason For Visit: increased altermental status Interim History: Patient seen in follow up Still appearing confused--minimal responses to questions-mumbling Reporting his body is sore--working to titrate methadone dose back to previous dose Review of Systems Acute medical concerns: Yes Review of Systems Constitutional: Reports as per HPI (confused ) Mental Status Exam Mental Status Exam Level of Consciousness: Disoriented Patient Behavior: Confused Judgement: Poor Diagnostics Vital Signs (24Hr): Vital Signs - 24 hr 09/02/25 15:19 09/02/25 19:10 09/03/25 00:00 Temperature 97.0 F 100.3 F 97.1 F Pulse Rate 63 71 62 Respiratory Rate 18 16 18 Blood Pressure 133/79 133/69 123/60 Pulse Oximetry 98 93 93 Oxygen Delivery Method Nasal Cannula Nasal Cannula Nasal Cannula Oxygen Flow Rate 2 2 2 09/03/25 03:32 09/03/25 07:11 09/03/25 11:39 Temperature 97.5 F 98.7 F 98.8 F Pulse Rate 97 69 62 Respiratory Rate 18 16 18 Blood Pressure 121/78 146/89 H 131/70 Pulse Oximetry 97 92 94 Oxygen Delivery Method Nasal Cannula Nasal Cannula Nasal Cannula Oxygen Flow Rate 2 2 2 BMI result Body Mass Index 24.3 Labs 09/03/25 06:20 09/03/25 06:20 Labs: Laboratory Results - last 48 hr 09/02/25 09/02/25 09/02/25 02:14 07:07 07:07 WBC 8.5 8.6 RBC 3.59 L Hgb Hct MCV MCH MCHC RDW Plt Count MPV Immature Gran % (Auto) Neut % (Auto) Lymph % (Auto) Hughes % (Auto) Eos % (Auto) Baso % (Auto) Lymph # (Auto) Hughes # (Auto) Eos # (Auto) Baso # (Auto) Abs Immat Gran (auto) Absolute Neuts (auto) Absolute Nucleated RBC Nucleated RBC % (auto) Neutrophils % (Manual) Band Neutrophils % Lymphocytes % (Manual) Atypical Lymphs % (Man) Monocytes % (Manual) Eosinophils % (Manual) Basophils % (Manual) Metamyelocytes % Myelocytes % Abs Neuts (Manual) Lymphocytes # (Manual) Atyp Lymphs # (Manual) Monocytes # (Manual) Eosinophils # (Manual) Basophils # (Manual) Metamyelocytes # Myelocytes # Platelet Estimate Plt Morphology Comment RBC Morphology PT INR Sodium Potassium Chloride Carbon Dioxide Anion Gap BUN Creatinine Estim Creat Clear Calc Estimated GFR Random Glucose Calcium Magnesium Iron TIBC % Saturation Unsat Iron Binding Total Bilirubin Direct Bilirubin AST ALT Alkaline Phosphatase Ammonia Total Protein Albumin Vitamin B12 Folate Respiratory Panel Morton See Note Adenovirus (Rapid PCR) Not Detected B.pert (TEM-PCR) Not Detected B.parapertussis DNA PCR Not Detected C. pneumoniae DNA (PCR) Not Detected Coronavirus OC43 (PCR) Not Detected Coronavirus HKU1 (PCR) Not Detected Coronavirus 229E (PCR) Not Detected Coronavirus NL63 (PCR) Not Detected Human Metapneumovir PCR Not Detected Influenza A (RT-PCR) Not Detected Influenza A (H1) PCR Not Detected Influ A (H1/09) PCR Not Detected Influenza A (H3) PCR Not Detected Influenza B (RT-PCR) Not Detected M. pneumoniae (PCR) Not Detected Parainfluenza 1 (PCR) Not Detected Parainfluenza 2 (PCR) Not Detected Parainfluenza 3 (PCR) Not Detected Parainfluenza 4 (PCR) Not Detected RSV (PCR) Not Detected Entero/Rhino (PCR) Not Detected SARS-CoV-2 RNA (RT-PCR) Not Detected 09/02/25 09/02/25 09/02/25 07:07 07:07 07:07 WBC RBC 3.56 L Hgb 10.7 L 10.8 L Hct 33.1 L 32.9 L MCV 92.2 MCH MCHC RDW Plt Count MPV Immature Gran % (Auto) Neut % (Auto) Lymph % (Auto) Hughes % (Auto) Eos % (Auto) Baso % (Auto) Lymph # (Auto) Hughes # (Auto) Eos # (Auto) Baso # (Auto) Abs Immat Gran (auto) Absolute Neuts (auto) Absolute Nucleated RBC Nucleated RBC % (auto) Neutrophils % (Manual) Band Neutrophils % Lymphocytes % (Manual) Atypical Lymphs % (Man) Monocytes % (Manual) Eosinophils % (Manual) Basophils % (Manual) Metamyelocytes % Myelocytes % Abs Neuts (Manual) Lymphocytes # (Manual) Atyp Lymphs # (Manual) Monocytes # (Manual) Eosinophils # (Manual) Basophils # (Manual) Metamyelocytes # Myelocytes # Platelet Estimate Plt Morphology Comment RBC Morphology PT INR Sodium Potassium Chloride Carbon Dioxide Anion Gap BUN Creatinine Estim Creat Clear Calc Estimated GFR Random Glucose Calcium Magnesium Iron TIBC % Saturation Unsat Iron Binding Total Bilirubin Direct Bilirubin AST ALT Alkaline Phosphatase Ammonia Total Protein Albumin Vitamin B12 Folate Respiratory Panel [place] Adenovirus (Rapid PCR) B.pert (TEM-PCR) B.parapertussis DNA PCR C. pneumoniae DNA (PCR) Coronavirus OC43 (PCR) Coronavirus HKU1 (PCR) Coronavirus 229E (PCR) Coronavirus NL63 (PCR) Human Metapneumovir PCR Influenza A (RT-PCR) Influenza A (H1) PCR Influ A (H1/09) PCR Influenza A (H3) PCR Influenza B (RT-PCR) M. pneumoniae (PCR) Parainfluenza 1 (PCR) Parainfluenza 2 (PCR) Parainfluenza 3 (PCR) Parainfluenza 4 (PCR) RSV (PCR) Entero/Rhino (PCR) SARS-CoV-2 RNA (RT-PCR) 09/02/25 09/02/25 09/02/25 07:07 07:07 07:07 WBC RBC Hgb Hct MCV 92.4 MCH 29.8 30.3 MCHC 32.3 32.8 RDW 11.9 Plt Count MPV Immature Gran % (Auto) Neut % (Auto) Lymph % (Auto) Hughes % (Auto) Eos % (Auto) Baso % (Auto) Lymph # (Auto) Hughes # (Auto) Eos # (Auto) Baso # (Auto) Abs Immat Gran (auto) Absolute Neuts (auto) Absolute Nucleated RBC Nucleated RBC % (auto) Neutrophils % (Manual) Band Neutrophils % Lymphocytes % (Manual) Atypical Lymphs % (Man) Monocytes % (Manual) Eosinophils % (Manual) Basophils % (Manual) Metamyelocytes % Myelocytes % Abs Neuts (Manual) Lymphocytes # (Manual) Atyp Lymphs # (Manual) Monocytes # (Manual) Eosinophils # (Manual) Basophils # (Manual) Metamyelocytes # Myelocytes # Platelet Estimate Plt Morphology Comment RBC Morphology PT INR Sodium Potassium Chloride Carbon Dioxide Anion Gap BUN Creatinine Estim Creat Clear Calc Estimated GFR Random Glucose Calcium Magnesium Iron TIBC % Saturation Unsat Iron Binding Total Bilirubin Direct Bilirubin AST ALT Alkaline Phosphatase Ammonia Total Protein Albumin Vitamin B12 Folate Respiratory Panel [place] Adenovirus (Rapid PCR) B.pert (TEM-PCR) B.parapertussis DNA PCR C. pneumoniae DNA (PCR) Coronavirus OC43 (PCR) Coronavirus HKU1 (PCR) Coronavirus 229E (PCR) Coronavirus NL63 (PCR) Human Metapneumovir PCR Influenza A (RT-PCR) Influenza A (H1) PCR Influ A () PCR Influenza A (H3) PCR Influenza B (RT-PCR) M. pneumoniae (PCR) Parainfluenza 1 (PCR) Parainfluenza 2 (PCR) Parainfluenza 3 (PCR) Parainfluenza 4 (PCR) RSV (PCR) Entero/Rhino (PCR) SARS-CoV-2 RNA (RT-PCR) 09/02/25 09/02/25 09/02/25 07:07 07:07 07:07 WBC RBC Hgb Hct MCV MCH MCHC RDW 12.0 Plt Count 220 214 MPV 9.4 9.5 Immature Gran % (Auto) 3.1 H Neut % (Auto) Lymph % (Auto) Hughes % (Auto) Eos % (Auto) Baso % (Auto) Lymph # (Auto) Hughes # (Auto) Eos # (Auto) Baso # (Auto) Abs Immat Gran (auto) Absolute Neuts (auto) Absolute Nucleated RBC Nucleated RBC % (auto) Neutrophils % (Manual) Band Neutrophils % Lymphocytes % (Manual) Atypical Lymphs % (Man) Monocytes % (Manual) Eosinophils % (Manual) Basophils % (Manual) Metamyelocytes % Myelocytes % Abs Neuts (Manual) Lymphocytes # (Manual) Atyp Lymphs # (Manual) Monocytes # (Manual) Eosinophils # (Manual) Basophils # (Manual) Metamyelocytes # Myelocytes # Platelet Estimate Plt Morphology Comment RBC Morphology PT INR Sodium Potassium Chloride Carbon Dioxide Anion Gap BUN Creatinine Estim Creat Clear Calc Estimated GFR Random Glucose Calcium Magnesium Iron TIBC % Saturation Unsat Iron Binding Total Bilirubin Direct Bilirubin AST ALT Alkaline Phosphatase Ammonia Total Protein Albumin Vitamin B12 Folate Respiratory Panel [place] Adenovirus (Rapid PCR) B.pert (TEM-PCR) B.parapertussis DNA PCR C. pneumoniae DNA (PCR) Coronavirus OC43 (PCR) Coronavirus HKU1 (PCR) Coronavirus 229E (PCR) Coronavirus NL63 (PCR) Human Metapneumovir PCR Influenza A (RT-PCR) Influenza A (H1) PCR Influ A () PCR Influenza A (H3) PCR Influenza B (RT-PCR) M. pneumoniae (PCR) Parainfluenza 1 (PCR) Parainfluenza 2 (PCR) Parainfluenza 3 (PCR) Parainfluenza 4 (PCR) RSV (PCR) Entero/Rhino (PCR) SARS-CoV-2 RNA (RT-PCR) 09/02/25 09/02/25 09/02/25 07:07 07:07 07:07 WBC RBC Hgb Hct MCV MCH MCHC RDW Plt Count MPV Immature Gran % (Auto) 2.7 H Neut % (Auto) 67.9 67.2 Lymph % (Auto) 12.5 L 14.1 L Hughes % (Auto) 13.8 H Eos % (Auto) Baso % (Auto) Lymph # (Auto) Hughes # (Auto) Eos # (Auto) Baso # (Auto) Abs Immat Gran (auto) Absolute Neuts (auto) Absolute Nucleated RBC Nucleated RBC % (auto) Neutrophils % (Manual) Band Neutrophils % Lymphocytes % (Manual) Atypical Lymphs % (Man) Monocytes % (Manual) Eosinophils % (Manual) Basophils % (Manual) Metamyelocytes % Myelocytes % Abs Neuts (Manual) Lymphocytes # (Manual) Atyp Lymphs # (Manual) Monocytes # (Manual) Eosinophils # (Manual) Basophils # (Manual) Metamyelocytes # Myelocytes # Platelet Estimate Plt Morphology Comment RBC Morphology PT INR Sodium Potassium Chloride Carbon Dioxide Anion Gap BUN Creatinine Estim Creat Clear Calc Estimated GFR Random Glucose Calcium Magnesium Iron TIBC % Saturation Unsat Iron Binding Total Bilirubin Direct Bilirubin AST ALT Alkaline Phosphatase Ammonia Total Protein Albumin Vitamin B12 Folate Respiratory Panel [place] Adenovirus (Rapid PCR) B.pert (TEM-PCR) B.parapertussis DNA PCR C. pneumoniae DNA (PCR) Coronavirus OC43 (PCR) Coronavirus HKU1 (PCR) Coronavirus 229E (PCR) Coronavirus NL63 (PCR) Human Metapneumovir PCR Influenza A (RT-PCR) Influenza A (H1) PCR Influ A (H1/09) PCR Influenza A (H3) PCR Influenza B (RT-PCR) M. pneumoniae (PCR) Parainfluenza 1 (PCR) Parainfluenza 2 (PCR) Parainfluenza 3 (PCR) Parainfluenza 4 (PCR) RSV (PCR) Entero/Rhino (PCR) SARS-CoV-2 RNA (RT-PCR) 09/02/25 09/02/25 09/02/25 07:07 07:07 07:07 WBC RBC Hgb Hct MCV MCH MCHC RDW Plt Count MPV Immature Gran % (Auto) Neut % (Auto) Lymph % (Auto) Hughes % (Auto) 13.1 H Eos % (Auto) 2.0 2.1 Baso % (Auto) 0.7 0.8 Lymph # (Auto) 1.1 L Hughes # (Auto) Eos # (Auto) Baso # (Auto) Abs Immat Gran (auto) Absolute Neuts (auto) Absolute Nucleated RBC Nucleated RBC % (auto) Neutrophils % (Manual) Band Neutrophils % Lymphocytes % (Manual) Atypical Lymphs % (Man) Monocytes % (Manual) Eosinophils % (Manual) Basophils % (Manual) Metamyelocytes % Myelocytes % Abs Neuts (Manual) Lymphocytes # (Manual) Atyp Lymphs # (Manual) Monocytes # (Manual) Eosinophils # (Manual) Basophils # (Manual) Metamyelocytes # Myelocytes # Platelet Estimate Plt Morphology Comment RBC Morphology PT INR Sodium Potassium Chloride Carbon Dioxide Anion Gap BUN Creatinine Estim Creat Clear Calc Estimated GFR Random Glucose Calcium Magnesium Iron TIBC % Saturation Unsat Iron Binding Total Bilirubin Direct Bilirubin AST ALT Alkaline Phosphatase Ammonia Total Protein Albumin Vitamin B12 Folate Respiratory Panel [place] Adenovirus (Rapid PCR) B.pert (TEM-PCR) B.parapertussis DNA PCR C. pneumoniae DNA (PCR) Coronavirus OC43 (PCR) Coronavirus HKU1 (PCR) Coronavirus 229E (PCR) Coronavirus NL63 (PCR) Human Metapneumovir PCR Influenza A (RT-PCR) Influenza A (H1) PCR Influ A (H1/09) PCR Influenza A (H3) PCR Influenza B (RT-PCR) M. pneumoniae (PCR) Parainfluenza 1 (PCR) Parainfluenza 2 (PCR) Parainfluenza 3 (PCR) Parainfluenza 4 (PCR) RSV (PCR) Entero/Rhino (PCR) SARS-CoV-2 RNA (RT-PCR) 09/02/25 09/02/25 09/02/25 07:07 07:07 07:07 WBC RBC Hgb Hct MCV MCH MCHC RDW Plt Count MPV Immature Gran % (Auto) Neut % (Auto) Lymph % (Auto) Hughes % (Auto) Eos % (Auto) Baso % (Auto) Lymph # (Auto) 1.2 Hughes # (Auto) 1.2 1.1 Eos # (Auto) 0.2 0.2 Baso # (Auto) 0.1 Abs Immat Gran (auto) Absolute Neuts (auto) Absolute Nucleated RBC Nucleated RBC % (auto) Neutrophils % (Manual) Band Neutrophils % Lymphocytes % (Manual) Atypical Lymphs % (Man) Monocytes % (Manual) Eosinophils % (Manual) Basophils % (Manual) Metamyelocytes % Myelocytes % Abs Neuts (Manual) Lymphocytes # (Manual) Atyp Lymphs # (Manual) Monocytes # (Manual) Eosinophils # (Manual) Basophils # (Manual) Metamyelocytes # Myelocytes # Platelet Estimate Plt Morphology Comment RBC Morphology PT INR Sodium Potassium Chloride Carbon Dioxide Anion Gap BUN Creatinine Estim Creat Clear Calc Estimated GFR Random Glucose Calcium Magnesium Iron TIBC % Saturation Unsat Iron Binding Total Bilirubin Direct Bilirubin AST ALT Alkaline Phosphatase Ammonia Total Protein Albumin Vitamin B12 Folate Respiratory Panel [place] Adenovirus (Rapid PCR) B.pert (TEM-PCR) B.parapertussis DNA PCR C. pneumoniae DNA (PCR) Coronavirus OC43 (PCR) Coronavirus HKU1 (PCR) Coronavirus 229E (PCR) Coronavirus NL63 (PCR) Human Metapneumovir PCR Influenza A (RT-PCR) Influenza A (H1) PCR Influ A (H1/09) PCR Influenza A (H3) PCR Influenza B (RT-PCR) M. pneumoniae (PCR) Parainfluenza 1 (PCR) Parainfluenza 2 (PCR) Parainfluenza 3 (PCR) Parainfluenza 4 (PCR) RSV (PCR) Entero/Rhino (PCR) SARS-CoV-2 RNA (RT-PCR) 09/02/25 09/02/25 09/02/25 07:07 07:07 07:07 WBC RBC Hgb Hct MCV MCH MCHC RDW Plt Count MPV Immature Gran % (Auto) Neut % (Auto) Lymph % (Auto) Hughes % (Auto) Eos % (Auto) Baso % (Auto) Lymph # (Auto) Hughes # (Auto) Eos # (Auto) Baso # (Auto) 0.1 Abs Immat Gran (auto) 0.26 H 0.23 H Absolute Neuts (auto) 5.7 5.8 Absolute Nucleated RBC 0.000 Nucleated RBC % (auto) Neutrophils % (Manual) Band Neutrophils % Lymphocytes % (Manual) Atypical Lymphs % (Man) Monocytes % (Manual) Eosinophils % (Manual) Basophils % (Manual) Metamyelocytes % Myelocytes % Abs Neuts (Manual) Lymphocytes # (Manual) Atyp Lymphs # (Manual) Monocytes # (Manual) Eosinophils # (Manual) Basophils # (Manual) Metamyelocytes # Myelocytes # Platelet Estimate Plt Morphology Comment RBC Morphology PT INR Sodium Potassium Chloride Carbon Dioxide Anion Gap BUN Creatinine Estim Creat Clear Calc Estimated GFR Random Glucose Calcium Magnesium Iron TIBC % Saturation Unsat Iron Binding Total Bilirubin Direct Bilirubin AST ALT Alkaline Phosphatase Ammonia Total Protein Albumin Vitamin B12 Folate Respiratory Panel [place] Adenovirus (Rapid PCR) B.pert (TEM-PCR) B.parapertussis DNA PCR C. pneumoniae DNA (PCR) Coronavirus OC43 (PCR) Coronavirus HKU1 (PCR) Coronavirus 229E (PCR) Coronavirus NL63 (PCR) Human Metapneumovir PCR Influenza A (RT-PCR) Influenza A (H1) PCR Influ A (H1/09) PCR Influenza A (H3) PCR Influenza B (RT-PCR) M. pneumoniae (PCR) Parainfluenza 1 (PCR) Parainfluenza 2 (PCR) Parainfluenza 3 (PCR) Parainfluenza 4 (PCR) RSV (PCR) Entero/Rhino (PCR) SARS-CoV-2 RNA (RT-PCR) 09/02/25 09/02/25 09/02/25 07:07 07:07 07:07 WBC RBC Hgb Hct MCV MCH MCHC RDW Plt Count MPV Immature Gran % (Auto) Neut % (Auto) Lymph % (Auto) Hughes % (Auto) Eos % (Auto) Baso % (Auto) Lymph # (Auto) Hughes # (Auto) Eos # (Auto) Baso # (Auto) Abs Immat Gran (auto) Absolute Neuts (auto) Absolute Nucleated RBC 0.000 Nucleated RBC % (auto) 0.0 0.0 Neutrophils % (Manual) Band Neutrophils % Lymphocytes % (Manual) Atypical Lymphs % (Man) Monocytes % (Manual) Eosinophils % (Manual) Basophils % (Manual) Metamyelocytes % Myelocytes % Abs Neuts (Manual) Lymphocytes # (Manual) Atyp Lymphs # (Manual) Monocytes # (Manual) Eosinophils # (Manual) Basophils # (Manual) Metamyelocytes # Myelocytes # Platelet Estimate Plt Morphology Comment RBC Morphology PT INR Sodium 137 137 Potassium 4.2 Chloride Carbon Dioxide Anion Gap BUN Creatinine Estim Creat Clear Calc Estimated GFR Random Glucose Calcium Magnesium Iron TIBC % Saturation Unsat Iron Binding Total Bilirubin Direct Bilirubin AST ALT Alkaline Phosphatase Ammonia Total Protein Albumin Vitamin B12 Folate Respiratory Panel [place] Adenovirus (Rapid PCR) B.pert (TEM-PCR) B.parapertussis DNA PCR C. pneumoniae DNA (PCR) Coronavirus OC43 (PCR) Coronavirus HKU1 (PCR) Coronavirus 229E (PCR) Coronavirus NL63 (PCR) Human Metapneumovir PCR Influenza A (RT-PCR) Influenza A (H1) PCR Influ A (H1/09) PCR Influenza A (H3) PCR Influenza B (RT-PCR) M. pneumoniae (PCR) Parainfluenza 1 (PCR) Parainfluenza 2 (PCR) Parainfluenza 3 (PCR) Parainfluenza 4 (PCR) RSV (PCR) Entero/Rhino (PCR) SARS-CoV-2 RNA (RT-PCR) 09/02/25 09/02/25 09/02/25 07:07 07:07 07:07 WBC RBC Hgb Hct MCV MCH MCHC RDW Plt Count MPV Immature Gran % (Auto) Neut % (Auto) Lymph % (Auto) Hughes % (Auto) Eos % (Auto) Baso % (Auto) Lymph # (Auto) Hughes # (Auto) Eos # (Auto) Baso # (Auto) Abs Immat Gran (auto) Absolute Neuts (auto) Absolute Nucleated RBC Nucleated RBC % (auto) Neutrophils % (Manual) Band Neutrophils % Lymphocytes % (Manual) Atypical Lymphs % (Man) Monocytes % (Manual) Eosinophils % (Manual) Basophils % (Manual) Metamyelocytes % Myelocytes % Abs Neuts (Manual) Lymphocytes # (Manual) Atyp Lymphs # (Manual) Monocytes # (Manual) Eosinophils # (Manual) Basophils # (Manual) Metamyelocytes # Myelocytes # Platelet Estimate Plt Morphology Comment RBC Morphology PT INR Sodium Potassium 4.2 Chloride 102 101 Carbon Dioxide 25 27 Anion Gap 14 BUN Creatinine Estim Creat Clear Calc Estimated GFR Random Glucose Calcium Magnesium Iron TIBC % Saturation Unsat Iron Binding Total Bilirubin Direct Bilirubin AST ALT Alkaline Phosphatase Ammonia Total Protein Albumin Vitamin B12 Folate Respiratory Panel [place] Adenovirus (Rapid PCR) B.pert (TEM-PCR) B.parapertussis DNA PCR C. pneumoniae DNA (PCR) Coronavirus OC43 (PCR) Coronavirus HKU1 (PCR) Coronavirus 229E (PCR) Coronavirus NL63 (PCR) Human Metapneumovir PCR Influenza A (RT-PCR) Influenza A (H1) PCR Influ A () PCR Influenza A (H3) PCR Influenza B (RT-PCR) M. pneumoniae (PCR) Parainfluenza 1 (PCR) Parainfluenza 2 (PCR) Parainfluenza 3 (PCR) Parainfluenza 4 (PCR) RSV (PCR) Entero/Rhino (PCR) SARS-CoV-2 RNA (RT-PCR) 09/02/25 09/02/25 09/02/25 07:07 07:07 07:07 WBC RBC Hgb Hct MCV MCH MCHC RDW Plt Count MPV Immature Gran % (Auto) Neut % (Auto) Lymph % (Auto) Hughes % (Auto) Eos % (Auto) Baso % (Auto) Lymph # (Auto) Hughes # (Auto) Eos # (Auto) Baso # (Auto) Abs Immat Gran (auto) Absolute Neuts (auto) Absolute Nucleated RBC Nucleated RBC % (auto) Neutrophils % (Manual) Band Neutrophils % Lymphocytes % (Manual) Atypical Lymphs % (Man) Monocytes % (Manual) Eosinophils % (Manual) Basophils % (Manual) Metamyelocytes % Myelocytes % Abs Neuts (Manual) Lymphocytes # (Manual) Atyp Lymphs # (Manual) Monocytes # (Manual) Eosinophils # (Manual) Basophils # (Manual) Metamyelocytes # Myelocytes # Platelet Estimate Plt Morphology Comment RBC Morphology PT INR Sodium Potassium Chloride Carbon Dioxide Anion Gap 13 BUN 16 16 Creatinine 0.81 0.79 Estim Creat Clear Calc TNP Estimated GFR Random Glucose Calcium Magnesium Iron TIBC % Saturation Unsat Iron Binding Total Bilirubin Direct Bilirubin AST ALT Alkaline Phosphatase Ammonia Total Protein Albumin Vitamin B12 Folate Respiratory Panel [place] Adenovirus (Rapid PCR) B.pert (TEM-PCR) B.parapertussis DNA PCR C. pneumoniae DNA (PCR) Coronavirus OC43 (PCR) Coronavirus HKU1 (PCR) Coronavirus 229E (PCR) Coronavirus NL63 (PCR) Human Metapneumovir PCR Influenza A (RT-PCR) Influenza A (H1) PCR Influ A () PCR Influenza A (H3) PCR Influenza B (RT-PCR) M. pneumoniae (PCR) Parainfluenza 1 (PCR) Parainfluenza 2 (PCR) Parainfluenza 3 (PCR) Parainfluenza 4 (PCR) RSV (PCR) Entero/Rhino (PCR) SARS-CoV-2 RNA (RT-PCR) 09/02/25 09/02/25 09/02/25 07:07 07:07 07:07 WBC RBC Hgb Hct MCV MCH MCHC RDW Plt Count MPV Immature Gran % (Auto) Neut % (Auto) Lymph % (Auto) Hughes % (Auto) Eos % (Auto) Baso % (Auto) Lymph # (Auto) Hughes # (Auto) Eos # (Auto) Baso # (Auto) Abs Immat Gran (auto) Absolute Neuts (auto) Absolute Nucleated RBC Nucleated RBC % (auto) Neutrophils % (Manual) Band Neutrophils % Lymphocytes % (Manual) Atypical Lymphs % (Man) Monocytes % (Manual) Eosinophils % (Manual) Basophils % (Manual) Metamyelocytes % Myelocytes % Abs Neuts (Manual) Lymphocytes # (Manual) Atyp Lymphs # (Manual) Monocytes # (Manual) Eosinophils # (Manual) Basophils # (Manual) Metamyelocytes # Myelocytes # Platelet Estimate Plt Morphology Comment RBC Morphology PT INR Sodium Potassium Chloride Carbon Dioxide Anion Gap BUN Creatinine Estim Creat Clear Calc TNP Estimated GFR > 60 > 60 Random Glucose 97 95 Calcium 9.7 Magnesium Iron TIBC % Saturation Unsat Iron Binding Total Bilirubin Direct Bilirubin AST ALT Alkaline Phosphatase Ammonia Total Protein Albumin Vitamin B12 Folate Respiratory Panel [place] Adenovirus (Rapid PCR) B.pert (TEM-PCR) B.parapertussis DNA PCR C. pneumoniae DNA (PCR) Coronavirus OC43 (PCR) Coronavirus HKU1 (PCR) Coronavirus 229E (PCR) Coronavirus NL63 (PCR) Human Metapneumovir PCR Influenza A (RT-PCR) Influenza A (H1) PCR Influ A (H1/09) PCR Influenza A (H3) PCR Influenza B (RT-PCR) M. pneumoniae (PCR) Parainfluenza 1 (PCR) Parainfluenza 2 (PCR) Parainfluenza 3 (PCR) Parainfluenza 4 (PCR) RSV (PCR) Entero/Rhino (PCR) SARS-CoV-2 RNA (RT-PCR) 09/02/25 09/03/2525 07:07 06:20 06:20 WBC 6.8 7.7 RBC 3.33 L Hgb Hct MCV MCH MCHC RDW Plt Count MPV Immature Gran % (Auto) Neut % (Auto) Lymph % (Auto) Hughes % (Auto) Eos % (Auto) Baso % (Auto) Lymph # (Auto) Hughes # (Auto) Eos # (Auto) Baso # (Auto) Abs Immat Gran (auto) Absolute Neuts (auto) Absolute Nucleated RBC Nucleated RBC % (auto) Neutrophils % (Manual) Band Neutrophils % Lymphocytes % (Manual) Atypical Lymphs % (Man) Monocytes % (Manual) Eosinophils % (Manual) Basophils % (Manual) Metamyelocytes % Myelocytes % Abs Neuts (Manual) Lymphocytes # (Manual) Atyp Lymphs # (Manual) Monocytes # (Manual) Eosinophils # (Manual) Basophils # (Manual) Metamyelocytes # Myelocytes # Platelet Estimate Plt Morphology Comment RBC Morphology PT INR Sodium Potassium Chloride Carbon Dioxide Anion Gap BUN Creatinine Estim Creat Clear Calc Estimated GFR Random Glucose Calcium 9.5 Magnesium 2.0 Iron 11 L TIBC 206 L % Saturation 5 L Unsat Iron Binding 195 Total Bilirubin 0.2 Direct Bilirubin AST 18 ALT 8 Alkaline Phosphatase 81 Ammonia 34 Total Protein 6.6 Albumin 3.7 Vitamin B12 472 Folate 9.0 Respiratory Panel [place] Adenovirus (Rapid PCR) B.pert (TEM-PCR) B.parapertussis DNA PCR C. pneumoniae DNA (PCR) Coronavirus OC43 (PCR) Coronavirus HKU1 (PCR) Coronavirus 229E (PCR) Coronavirus NL63 (PCR) Human Metapneumovir PCR Influenza A (RT-PCR) Influenza A (H1) PCR Influ A (H1/09) PCR Influenza A (H3) PCR Influenza B (RT-PCR) M. pneumoniae (PCR) Parainfluenza 1 (PCR) Parainfluenza 2 (PCR) Parainfluenza 3 (PCR) Parainfluenza 4 (PCR) RSV (PCR) Entero/Rhino (PCR) SARS-CoV-2 RNA (RT-PCR) 09/03/25 09/03/25 09/03/25 06:20 06:20 06:20 WBC RBC 3.32 L Hgb 10.0 L 10.0 L Hct 30.5 L 30.4 L MCV 91.6 MCH MCHC RDW Plt Count MPV Immature Gran % (Auto) Neut % (Auto) Lymph % (Auto) Hughes % (Auto) Eos % (Auto) Baso % (Auto) Lymph # (Auto) Hughes # (Auto) Eos # (Auto) Baso # (Auto) Abs Immat Gran (auto) Absolute Neuts (auto) Absolute Nucleated RBC Nucleated RBC % (auto) Neutrophils % (Manual) Band Neutrophils % Lymphocytes % (Manual) Atypical Lymphs % (Man) Monocytes % (Manual) Eosinophils % (Manual) Basophils % (Manual) Metamyelocytes % Myelocytes % Abs Neuts (Manual) Lymphocytes # (Manual) Atyp Lymphs # (Manual) Monocytes # (Manual) Eosinophils # (Manual) Basophils # (Manual) Metamyelocytes # Myelocytes # Platelet Estimate Plt Morphology Comment RBC Morphology PT INR Sodium Potassium Chloride Carbon Dioxide Anion Gap BUN Creatinine Estim Creat Clear Calc Estimated GFR Random Glucose Calcium Magnesium Iron TIBC % Saturation Unsat Iron Binding Total Bilirubin Direct Bilirubin AST ALT Alkaline Phosphatase Ammonia Total Protein Albumin Vitamin B12 Folate Respiratory Panel [place] Adenovirus (Rapid PCR) B.pert (TEM-PCR) B.parapertussis DNA PCR C. pneumoniae DNA (PCR) Coronavirus OC43 (PCR) Coronavirus HKU1 (PCR) Coronavirus 229E (PCR) Coronavirus NL63 (PCR) Human Metapneumovir PCR Influenza A (RT-PCR) Influenza A (H1) PCR Influ A (H1/09) PCR Influenza A (H3) PCR Influenza B (RT-PCR) M. pneumoniae (PCR) Parainfluenza 1 (PCR) Parainfluenza 2 (PCR) Parainfluenza 3 (PCR) Parainfluenza 4 (PCR) RSV (PCR) Entero/Rhino (PCR) SARS-CoV-2 RNA (RT-PCR) 09/03/25 09/03/25 09/03/25 06:20 06:20 06:20 WBC RBC Hgb Hct MCV 91.6 MCH 30.0 30.1 MCHC 32.8 32.9 RDW 12.2 Plt Count MPV Immature Gran % (Auto) Neut % (Auto) Lymph % (Auto) Hughes % (Auto) Eos % (Auto) Baso % (Auto) Lymph # (Auto) Hughes # (Auto) Eos # (Auto) Baso # (Auto) Abs Immat Gran (auto) Absolute Neuts (auto) Absolute Nucleated RBC Nucleated RBC % (auto) Neutrophils % (Manual) Band Neutrophils % Lymphocytes % (Manual) Atypical Lymphs % (Man) Monocytes % (Manual) Eosinophils % (Manual) Basophils % (Manual) Metamyelocytes % Myelocytes % Abs Neuts (Manual) Lymphocytes # (Manual) Atyp Lymphs # (Manual) Monocytes # (Manual) Eosinophils # (Manual) Basophils # (Manual) Metamyelocytes # Myelocytes # Platelet Estimate Plt Morphology Comment RBC Morphology PT INR Sodium Potassium Chloride Carbon Dioxide Anion Gap BUN Creatinine Estim Creat Clear Calc Estimated GFR Random Glucose Calcium Magnesium Iron TIBC % Saturation Unsat Iron Binding Total Bilirubin Direct Bilirubin AST ALT Alkaline Phosphatase Ammonia Total Protein Albumin Vitamin B12 Folate Respiratory Panel Morton Adenovirus (Rapid PCR) B.pert (TEM-PCR) B.parapertussis DNA PCR C. pneumoniae DNA (PCR) Coronavirus OC43 (PCR) Coronavirus HKU1 (PCR) Coronavirus 229E (PCR) Coronavirus NL63 (PCR) Human Metapneumovir PCR Influenza A (RT-PCR) Influenza A (H1) PCR Influ A (H1/09) PCR Influenza A (H3) PCR Influenza B (RT-PCR) M. pneumoniae (PCR) Parainfluenza 1 (PCR) Parainfluenza 2 (PCR) Parainfluenza 3 (PCR) Parainfluenza 4 (PCR) RSV (PCR) Entero/Rhino (PCR) SARS-CoV-2 RNA (RT-PCR) 09/03/25 09/03/25 09/03/25 06:20 06:20 06:20 WBC RBC Hgb Hct MCV MCH MCHC RDW 12.3 Plt Count 225 237 MPV 8.8 L 9.0 L Immature Gran % (Auto) Cancelled Neut % (Auto) Cancelled Lymph % (Auto) Cancelled Hughes % (Auto) Cancelled Eos % (Auto) Cancelled Baso % (Auto) Cancelled Lymph # (Auto) Cancelled Hughes # (Auto) Cancelled Eos # (Auto) Cancelled Baso # (Auto) Cancelled Abs Immat Gran (auto) Cancelled Absolute Neuts (auto) Cancelled Absolute Nucleated RBC 0.000 Nucleated RBC % (auto) Neutrophils % (Manual) Band Neutrophils % Lymphocytes % (Manual) Atypical Lymphs % (Man) Monocytes % (Manual) Eosinophils % (Manual) Basophils % (Manual) Metamyelocytes % Myelocytes % Abs Neuts (Manual) Lymphocytes # (Manual) Atyp Lymphs # (Manual) Monocytes # (Manual) Eosinophils # (Manual) Basophils # (Manual) Metamyelocytes # Myelocytes # Platelet Estimate Plt Morphology Comment RBC Morphology PT INR Sodium Potassium Chloride Carbon Dioxide Anion Gap BUN Creatinine Estim Creat Clear Calc Estimated GFR Random Glucose Calcium Magnesium Iron TIBC % Saturation Unsat Iron Binding Total Bilirubin Direct Bilirubin AST ALT Alkaline Phosphatase Ammonia Total Protein Albumin Vitamin B12 Folate Respiratory Panel Morton Adenovirus (Rapid PCR) B.pert (TEM-PCR) B.parapertussis DNA PCR C. pneumoniae DNA (PCR) Coronavirus OC43 (PCR) Coronavirus HKU1 (PCR) Coronavirus 229E (PCR) Coronavirus NL63 (PCR) Human Metapneumovir PCR Influenza A (RT-PCR) Influenza A (H1) PCR Influ A (H1/09) PCR Influenza A (H3) PCR Influenza B (RT-PCR) M. pneumoniae (PCR) Parainfluenza 1 (PCR) Parainfluenza 2 (PCR) Parainfluenza 3 (PCR) Parainfluenza 4 (PCR) RSV (PCR) Entero/Rhino (PCR) SARS-CoV-2 RNA (RT-PCR) 09/03/25 09/03/25 06:20 06:20 WBC RBC Hgb Hct MCV MCH MCHC RDW Plt Count MPV Immature Gran % (Auto) Neut % (Auto) Lymph % (Auto) Hughes % (Auto) Eos % (Auto) Baso % (Auto) Lymph # (Auto) Hughes # (Auto) Eos # (Auto) Baso # (Auto) Abs Immat Gran (auto) Absolute Neuts (auto) Absolute Nucleated RBC 0.000 Nucleated RBC % (auto) 0.0 0.0 Neutrophils % (Manual) 58 Band Neutrophils % 3 Lymphocytes % (Manual) 22 Atypical Lymphs % (Man) 2 Monocytes % (Manual) 8 Eosinophils % (Manual) 1 Basophils % (Manual) 1 Metamyelocytes % 4 Myelocytes % 1 Abs Neuts (Manual) 4.7 Lymphocytes # (Manual) 1.7 Atyp Lymphs # (Manual) 0.2 Monocytes # (Manual) 0.6 Eosinophils # (Manual) 0.1 Basophils # (Manual) 0.1 Metamyelocytes # 0.3 Myelocytes # 0.1 Platelet Estimate NORMAL Plt Morphology Comment NORMAL RBC Morphology NORMAL PT 14.9 H INR 1.2 H Sodium 131 L Potassium 4.2 Chloride 94 L Carbon Dioxide 30 H Anion Gap 11 L BUN 15 Creatinine 0.89 Estim Creat Clear Calc 85.6 Estimated GFR > 60 Random Glucose 80 Calcium 9.3 Magnesium 1.8 Iron TIBC % Saturation Unsat Iron Binding Total Bilirubin 0.2 Direct Bilirubin < 0.2 AST 30 ALT 14 Alkaline Phosphatase 79 Ammonia Total Protein 6.6 Albumin 3.5 Vitamin B12 Folate Respiratory Panel Morton Adenovirus (Rapid PCR) B.pert (TEM-PCR) B.parapertussis DNA PCR C. pneumoniae DNA (PCR) Coronavirus OC43 (PCR) Coronavirus HKU1 (PCR) Coronavirus 229E (PCR) Coronavirus NL63 (PCR) Human Metapneumovir PCR Influenza A (RT-PCR) Influenza A (H1) PCR Influ A (H1/09) PCR Influenza A (H3) PCR Influenza B (RT-PCR) M. pneumoniae (PCR) Parainfluenza 1 (PCR) Parainfluenza 2 (PCR) Parainfluenza 3 (PCR) Parainfluenza 4 (PCR) RSV (PCR) Entero/Rhino (PCR) SARS-CoV-2 RNA (RT-PCR) Medications Medications Current Medications Acetaminophen (Acetaminophen 325 Mg Tablet) 650 mg PO Q6H PRN PRN Reason: Headache/Pain, Scale 1-10 Last Admin: 09/02/25 01:44 Dose: 650 mg Al Hydroxide/Mg Hydroxide (Magnesium Hydrox/Alum Hydrox 30 Ml Oral.Susp) 30 ml PO Q6H PRN PRN Reason: Heartburn/Nausea Azithromycin (Azithromycin 500 Mg Tablet) 500 mg PO Q24H AYDEE Last Admin: 09/03/25 08:07 Dose: 500 mg Benzocaine (Throat Lozenge, Medicated Lozenge) 1 lozenge MUCOUS MEM Q2H PRN PRN Reason: Sore Throat Calcium Carbonate (Calcium Carbonate 750 Mg Tab.Chew) 750 mg PO Q4H PRN PRN Reason: Heartburn Doxazosin Mesylate (Doxazosin Mesylate 1 Mg Tablet) 1 mg PO BEDTIME COUNTS INCLUDE 234 BEDS AT THE [facility]; Protocol Last Admin: 09/02/25 20:33 Dose: 1 mg Enoxaparin Sodium (Enoxaparin Sodium 40 Mg/0.4 Ml Syringe) 40 mg SUBCUT Q24H COUNTS INCLUDE 234 BEDS AT THE [facility] Last Admin: 09/03/25 08:08 Dose: 40 mg Gabapentin (Gabapentin 300 Mg Capsule) 300 mg PO TID COUNTS INCLUDE 234 BEDS AT THE [facility] Last Admin: 09/03/25 08:07 Dose: 300 mg Guaifenesin (Guaifenesin La 600 Mg Tab.Er.12h) 600 mg PO BID COUNTS INCLUDE 234 BEDS AT THE [facility] Last Admin: 09/03/25 08:07 Dose: 600 mg Guaifenesin (Guaifenesin 200 Mg/10 Ml 10 Ml Liquid) 10 ml PO Q4H PRN PRN Reason: Cough Hydroxyzine HCl (Hydroxyzine Hcl 25 Mg Tablet) 25 mg PO Q6H PRN PRN Reason: mild anxiety Last Admin: 09/03/25 02:36 Dose: 25 mg Ceftriaxone Sodium 1 gm/ (Sodium Chloride) 50 mls @ 100 mls/hr IV Q24H COUNTS INCLUDE 234 BEDS AT THE [facility] Last Infusion: 09/03/25 02:45 Dose: Infused Thiamine HCl 500 mg/ Sodium (Chloride) 105 mls @ 210 mls/hr IV DAILY COUNTS INCLUDE 234 BEDS AT THE [facility] Stop: 09/05/25 08:59 Last Infusion: 09/03/25 09:31 Dose: Infused Ibuprofen (Ibuprofen 600 Mg Tablet) 600 mg PO Q8H PRN PRN Reason: Pain, Moderate(Pain Scale 4-6) Magnesium Hydroxide (Milk Of Magnesia 30 Ml Oral.Susp) 30 ml PO DAILY PRN PRN Reason: Constipation Magnesium Hydroxide (Milk Of Magnesia 30 Ml Oral.Susp) 30 ml PO DAILY PRN PRN Reason: Constipation Melatonin (Melatonin 3 Mg Tablet) 6 mg PO BEDTIME PRN PRN Reason: Insomnia Methadone HCl (Methadone Hcl 20 Mg/2 Ml Oral.Conc) 110 mg PO DAILY@0800 COUNTS INCLUDE 234 BEDS AT THE [facility] Nicotine Polacrilex (Nicotine Polacrilex 2 Mg Gum) 4 mg BUCCAL Q2H PRN PRN Reason: Nicotine Cravings Ondansetron HCl (Ondansetron Hcl 4 Mg/2 Ml Vial) 4 mg IVPUSH Q8H PRN PRN Reason: Nausea and Vomiting Pharmacy Consult (Consult Rx Etoh Phenob Im/Po) 1 each MISCELLANE ONCE PRN; Protocol PRN Reason: Consult order Phenobarbital (Phenobarbital 15 Mg Tablet) 45 mg PO BID COUNTS INCLUDE 234 BEDS AT THE [facility] Stop: 09/04/25 09:01 Last Admin: 09/03/25 08:07 Dose: 45 mg Phenobarbital (Phenobarbital 30 Mg Tablet) 30 mg PO BID COUNTS INCLUDE 234 BEDS AT THE [facility] Stop: 09/06/25 09:01 Phenobarbital (Phenobarbital 30 Mg Tablet) 30 mg PO BEDTIME AYDEE Stop: 09/07/25 21:01 Prazosin HCl (Prazosin Hcl 1 Mg Capsule) 1 mg PO BEDTIME AYDEE; Protocol Last Admin: 09/02/25 20:33 Dose: 1 mg Quetiapine Fumarate (Quetiapine Fumarate 50 Mg Tablet) 50 mg PO BEDTIME AYDEE Last Admin: 09/02/25 20:32 Dose: 50 mg Sertraline HCl (Sertraline Hcl 50 Mg Tablet) 50 mg PO DAILY AYDEE Last Admin: 09/03/25 08:06 Dose: 50 mg Sodium Chloride (0.9 % Sodium Chloride Flush 3 Ml Syringe) 3 ml IVFLUSH QSHIFT AYDEE Last Admin: 09/03/25 08:09 Dose: 3 ml Trazodone HCl (Trazodone Hcl 100 Mg Tablet) 100 mg PO BEDTIME PRN PRN Reason: Insomnia Trazodone HCl (Trazodone Hcl 100 Mg Tablet) 100 mg PO BEDTIME PRN PRN Reason: Insomnia Triamcinolone Acetonide (Triamcinolone Acet 0.1 % Cream 15 Gm Tube) 1 appl TOPICAL BID AYDEE; Protocol Last Admin: 09/03/25 08:17 Dose: 1 appl Allergies Allergies Allergy/AdvReac Type Severity Reaction Status Date / Time tomato sauce Allergy Intermediate Hives Uncoded 08/24/25 18:42 Assessment & Plan Assessment & Plan (1) Opioid use disorder: Status: Acute Code(s): F11.90 - Opioid use, unspecified, uncomplicated Assessment and Plan: methadone at 110mg --will continue titrating as appropriate (as pheno dose is tapered off) (2) Alcohol use disorder, severe, dependence: Status: Acute Code(s): F10.20 - Alcohol dependence, uncomplicated Assessment and Plan: pheno taper in place IV thiamine still not at baseline Total time managing care of this patient today __15__ minutes.
[2025-09-04] VITALS (8 sets, daily range): BP systolic 96–134; BP diastolic 56–66; PULSE 55–62; RESP 16–18; TEMP 36.1–36.9; O2SAT 92–96
[2025-09-04] MEDS: 0.9 % Sodium Chloride Flush 3 ML SYRINGE IVFLUSH ×3 (01:51→19:58)
[2025-09-04 06:50] LABS: Hematocrit 33.8 % (42.0-52.0); Hemoglobin 11.5 g/dl (14.0-18.0); Mean Corpuscular HGB Conc 34.0 g/dl (31.0-36.0); Mean Corpuscular Hemoglobin 30.3 pg (27.0-33.0); Mean Corpuscular Volume 89.2 fL (80.0-98.0); NRBC Abs Auto 0.000 X10*3/uL (0.0-0.012); NRBC Pct Auto 0.0 /100WBC (0.0-0.2); Platelet Count 286 X10*3/uL (160-400); Red Blood Count 3.79 X10*6/uL (4.60-5.80); White Blood Count 8.4 X10*3/uL (4.8-10.8)
[2025-09-04 07:08] LABS: Anion Gap 14 (12-20); Blood Urea Nitrogen 15 mg/dL (9-16); Calcium 9.6 mg/dL (8.4-10.2); Carbon Dioxide 28 mmol/L (22-29); Chloride 94 mmol/L (96-108); Creatinine Clr Calc Pharmacy 94.0; Estimated Glomerular Filt Rate > 60; Magnesium 2.0 mg/dL (1.6-2.6); Potassium 4.2 mmol/L (3.3-5.1); Sodium 132 mmol/L (135-145)
[2025-09-04] MEDS: methADONE HCl 20 MG/2 ML ORAL.CONC 110 MG PO (08:27)
[2025-09-04] MEDS: guaiFENesin LA 600 MG TAB.ER.12H PO ×2 (08:28→19:58)
[2025-09-04] MEDS: Triamcinolone Acet 0.1 % Cream 15 GM TUBE 1 APPL TOPICAL (08:40)
[2025-09-04 09:24] LABS: Atypical Lymph Absolute Manual 0.1 x10*3/uL; Atypical Lymphs Percent Manual 1 % (0-6); Band Neutrophils Percent 18 % (3-5); Basophils Abs Manual 0.1 X10*3/uL (0.0-0.2); Basophils Percent Manual 1 % (0-2); Eosinophils Absolute Manual 0.2 X10*3/uL (0.0-0.4); Eosinophils Percent Manual 2 % (0-4); Lymphocytes Absolute Manual 2.4 X10*3/uL (1.2-4.9); Lymphocytes Percent Manual 28 % (20-40); Metamyelocytes Absolute 0.2 X10*3/uL; Metamyelocytes Percent 2 %; Monocytes Absolute Manual 0.8 X10*3/uL (0.1-1.2); Monocytes Percent Manual 9 % (2-11); Myelocytes Absolute 0.2 X10*/uL; Myelocytes Percent 2 %; Neutrophils Absolute Manual 4.6 X10*3/uL (2.0-8.3); Neutrophils Percent Manual 37 % (45-73)
[2025-09-04 09:27] LABS: RBC Morphology NORMAL
--- NOTE | 2025-09-04 10:29 | MHC.CM.PN ---
Per ROUNDS discussion, Patient is medically cleared for dc and ready to be evaluated by the Care Team. CM will follow.
--- NOTE | 2025-09-04 11:16 | MHC.CM.PN ---
Addendum entered by Tara Everett 09/04/25 14:08: Per MD, he has requested a Psych Consult to assist with disposition.CM will continue to follow. Original Note: Per Care Team, Patient is appropriate to return to [facility].
--- NOTE | 2025-09-04 12:25 | MHC.RECOVRN ---
Addendum entered by Cindy Randle RN 09/05/25 09:56: Pt does not meet IPLOC at this time per care team evacluation/ Discharge planning is ongoing at this time, however pt is has not been medically cleared at this time. Original Note: TW met with pt in [id number] to offer ongoing support Pt was a/o X 4, pleasant, and socializing with 1:1 who was present at bedside. Pt spoke clearly and logically. He states his primary concern at this time is housing placement. He reports some resetless leg and muscle pain but overall states he is feeling better . Care team evaluation complete and reflects pt continues to meet IPLOC. ACS to continue to follow and available as needed
--- NOTE | 2025-09-04 12:29 | P.DS_ITS ---
DS: Providers Provider Date of Service: 09/04/25 <Stacie Arango MD - Last Filed: 09/18/25 12:35> 09/11/25 <Jae Regalado MD - Last Filed: 09/11/25 10:26> Date of admission: 09/02/25 01:07 <Stacie Arango MD - Last Filed: 09/18/25 12:35> Date of discharge: 09/04/25 <Stacie Arango MD - Last Filed: 09/18/25 12:35> 09/11/25 <Jae Regalado MD - Last Filed: 09/11/25 10:26> Primary care physician: Unknown Physician <Stacie Arango MD - Last Filed: 09/18/25 12:35> Consults: 09/02/25 01:00 Consult for Sitter Routine Reason for consultation: psych transfer, SI Has provider been notified: No 09/02/25 01:00 Addiction Medicine Provider Routine Consulting Provider: Addiction Covering Reason for consultation: wants to switch to suboxone from methadone Has provider been notified: No 09/02/25 08:44 Consult for Sitter Routine Reason for consultation: SI 09/04/25 08:40 Consult to Infectious Diseases Routine Consulting Provider: [facility] Reason for consultation: klebsiella bactermia Has provider been notified: No 09/04/25 10:08 Inpt CARE Team Crisis Consult Routine Comment: Reason for consultation: Med clear 09/04/25 12:22 Consult to Psychiatry Routine Consulting Provider: [facility] Reason for consultation: mood dis Has provider been notified: No <Stacie Arango MD - Last Filed: 09/18/25 12:35> Attending physician on discharge: Stacie Arango <Stacie Arango MD - Last Filed: 09/18/25 12:35> Discharging clinician: Stacie Arango <Stacie Arango MD - Last Filed: 09/18/25 12:35> DS: Diagnosis Discharge Diagnosis (1) Opioid use disorder: Status: Acute <Stacie Arango MD - Last Filed: 09/18/25 12:35> (2) Alcohol use disorder, severe, dependence: Status: Acute <Stacie Arango MD - Last Filed: 09/18/25 12:35> DS: Summary Hospital Course Hospital Course: HPI:59-year-old male with a past medical history of major depressive disorder, seizure disorder alcohol abuse, polysubstance abuse on methadone presented to the ED with increased depression and suicidal ideation with a plan, transferred to adult [place] [id number], with worsening delirium. he has auditory and likely visual hallucinations at he is trying to hand me something but has nothing in his hand. when he was seen in the ED he reported heroin use and he drank 3 bottles of vodka, used crack cocine and 11.5 bag of heroin prior to arrival. Initial workup revealed no leukocytosis, very mild anemia, slight increase in AST otherwise normal electrolytes. Urine without evidence of infection, U tox positive for methadone, fentanyl, BAL on admit 326. Nursing staff notified hospitalist that the pt has been febrile, initially 101.8, given tylenol and 104 on recheck. pt is more delirious and became combatitive with her, which is unlike him. he is unable to provide an accurate history at this time but say yes to SOB and chest pain when asked. he also stated that he does not feel good . he has been reporting cold sx for the past few days including headache, congestion, runny nose and cough. Hospital course: 59M PMH mood disorder, etoh dependence, epilepsy, polysubstance dependence, presented with SI and fever ,ams: Alcohol dependence with acute withdrawal and withdrawal delirium Improved with phenobarb protocol, thiamine, folic acid Mental status back to baseline Transient hypoxia, fevers: Pneumonia/Klebsiella bacteremia Due to multifocal pneumonia Started on IV antibiotics, cultures sent-found to have Klebsiella bacteremia and evaluated by id eval noted: Klebsiella may be from lung or less likely liver abscess (urine is clear). It is sensitive to most antibiotics and Ceftriaxone is desirable. Nevertheless search for source should occur as should search for immunodeficiency. CT head : No acute intracranial abnormalities. CT abdomen and pelvis with IV contrast done -Mild fluid of the anterior margin of the liver without well-defined intraparenchymal liver abscess at this time. Otherwise continue Ceftiaxone and convert to po cephalosporin possibly if no other source found needing prison IV. Check HIVnegative and Hepatitis C (eia ) positive, but viral load pending followed by ID recomended switch to switch po cephalosporin total 14 days total . 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 right shoulder ct : Intramedullary calcification within right femoral neck, likely representing enchondroma. Consider follow-up humerus or shoulder radiographs in approximately 6 months, to document stability. 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 No acute fracture or dislocation has been observed. Encondroma vs bone infarct - Benign. May followup out patient if having continued pain. NSAIDs, rest, gentle ROM, ice as needed outpatient ortho follow up Epilepsy Gabapentin Polysubstance dependence Methadone (additction team adjusting) Mood disorder with suicide ideation Sertraline, seroquel ,clonidine seen by psych and care teams multiple times -plan for accepted at [facility] in [place], [place] (about 2 hrs away) and is expected . <Stacie Arango MD - Last Filed: 09/18/25 12:35> Time Attestation Total time managing care of this patient today: 45 mintues. <Stacie Arango MD - Last Filed: 09/18/25 12:35> Discharge Coordination Time (in mins): 35 <Jae Regalado MD - Last Filed: 09/11/25 10:26> Quality: Safe Use of Opioids Does Pt have an Active Cancer Diagnosis on the Problem List?: No <Jae Regalado MD - Last Filed: 09/11/25 10:26> Quality: Stroke Does the patient have a stroke diagnosis?: No <Jae Regalado MD - Last Filed: 09/11/25 10:26> Physical Exam Vital Signs: Vital Signs: Last Vital Signs Temp 97.8 F 09/04/25 11:01 Pulse 58 09/04/25 11:01 Resp 16 09/04/25 11:01 BP 134/57 L 09/04/25 11:01 Pulse Ox 96 09/04/25 11:01 O2 Del Method Room Air 09/04/25 11:01 O2 Flow Rate 3 09/04/25 07:12 BMI result Body Mass Index 24.3 <Stacie Arango MD - Last Filed: 09/18/25 12:35> DS: Data Data Completed and Pending Labs on day of discharge: Laboratory Results - last 24 hr 09/04/25 06:01 WBC 8.4 RBC 3.79 L Hgb 11.5 L Hct 33.8 L MCV 89.2 MCH 30.3 MCHC 34.0 RDW 11.9 Plt Count 286 MPV 9.3 L Immature Gran % (Auto) Cancelled Neut % (Auto) Cancelled Lymph % (Auto) Cancelled [place] % (Auto) Cancelled Eos % (Auto) Cancelled Baso % (Auto) Cancelled Lymph # (Auto) Cancelled [place] # (Auto) Cancelled Eos # (Auto) Cancelled Baso # (Auto) Cancelled Abs Immat Gran (auto) Cancelled Absolute Neuts (auto) Cancelled Absolute Nucleated RBC 0.000 Nucleated RBC % (auto) 0.0 Neutrophils % (Manual) 37 L Band Neutrophils % 18 H Lymphocytes % (Manual) 28 Atypical Lymphs % (Man) 1 Monocytes % (Manual) 9 Eosinophils % (Manual) 2 Basophils % (Manual) 1 Metamyelocytes % 2 Myelocytes % 2 Abs Neuts (Manual) 4.6 Lymphocytes # (Manual) 2.4 Atyp Lymphs # (Manual) 0.1 Monocytes # (Manual) 0.8 Eosinophils # (Manual) 0.2 Basophils # (Manual) 0.1 Metamyelocytes # 0.2 Myelocytes # 0.2 Platelet Estimate NORMAL Plt Morphology Comment NORMAL RBC Morphology NORMAL Sodium 132 L Potassium 4.2 Chloride 94 L Carbon Dioxide 28 Anion Gap 14 BUN 15 Creatinine 0.81 Estim Creat Clear Calc 94.0 Estimated GFR > 60 Random Glucose 95 Calcium 9.6 Magnesium 2.0 <Stacie Arango MD - Last Filed: 09/18/25 12:35> Discharge Plan Discharge Anticipated Discharge Date/Time: 09/04/25 12:24 <Stacie Arango MD - Last Filed: 09/18/25 12:35> Patient Disposition: Xfer Other <Stacie Arango MD - Last Filed: 09/18/25 12:35> Discharge Diagnosis: possible pneumonia /Klebsiella bacteremia <Stacie Arango MD - Last Filed: 09/18/25 12:35> possible pneumonia /Klebsiella bacteremia <Jae Regalado MD - Last Filed: 09/11/25 10:26> Referrals: [facility] [Other] - 1 Week Physician,Unknown J [Primary Care Provider, Medical] - 1 Week <Stacie Arango MD - Last Filed: 09/18/25 12:35> Discharge Medications: New clonidine HCl 0.1 mg Tablet 0.1 mg PO BID Qty: 30 0RF Protocol: Hold for SBP< HOLD for SBP < : 90 prazosin 1 mg Capsule 1 mg PO BEDTIME Qty: 30 0RF Protocol: Hold for SBP< HOLD for SBP < : 90 triamcinolone acetonide 0.1 % Cream 1 appl topical BID Qty: 1 0RF Protocol: Apply to: Apply to: affected area thiamine mononitrate (vit B1) 100 mg Tablet 200 mg PO DAILY Qty: 30 0RF methadone [Methadose] 10 mg/mL Concentrate 160 mg PO DAILY@0800 Qty: 1 0RF Rx Instructions: Partial Fill upon patient request. sertraline 25 mg Tablet 50 mg PO DAILY Qty: 180 0RF quetiapine 25 mg Tablet 25 mg PO TID PRN (Reason: Anxiety) Qty: 30 0RF cefuroxime axetil 500 mg Tablet 500 mg PO Q12H Qty: 14 0RF quetiapine [Seroquel] 50 mg tablet 75 mg PO BEDTIME Qty: 90 0RF naloxone [Narcan] 4 mg/actuation spray,non-aerosol 4 mg intranasal Q2M PRN (Reason: opioid overdose) Qty: 2 0RF Rx Instructions: spray 1 dose into ONE nostril; alternate nostrils w each dose until help arrives Continued sertraline 50 mg tablet 50 mg PO DAILY Qty: 90 0RF trazodone 100 mg Tablet 100 mg PO BEDTIME PRN (Reason: Insomnia) Qty: 30 0RF gabapentin 300 mg Capsule 300 mg PO TID Qty: 90 0RF hydroxyzine HCl 25 mg Tablet 25 mg PO Q6H PRN (Reason: mild anxiety) Qty: 90 0RF doxazosin 1 mg tablet 1 mg PO BEDTIME Discontinued methadone [Methadose] 10 mg/mL concentrate 180 mg PO DAILY@0800 Rx Instructions: Partial Fill upon patient request. quetiapine 50 mg tablet 50 mg PO BEDTIME <Stacie Arango MD - Last Filed: 09/18/25 12:35> Discharge Orders: Discharge Order (Routine); Ordered 09/11/25 Ordered By: Jae Regalado <Stacie Arango MD - Last Filed: 09/18/25 12:35> Diet: Advance to usual diet <Stacie Arango MD - Last Filed: 09/18/25 12:35> Advance to usual diet <Jae Regalado MD - Last Filed: 09/11/25 10:26> Activity on Discharge: As tolerated <Stacie Arango MD - Last Filed: 09/18/25 12:35> As tolerated <Jae Regalado MD - Last Filed: 09/11/25 10:26> Stand Alone Forms: Patient Portal Discharge page <Stacie Arango MD - Last Filed: 09/18/25 12:35> Print Language: Turkish <Stacie Arango MD - Last Filed: 09/18/25 12:35> Care Plan Goals: complete antibiotics , repeat chest imaging 3-4 weeks to see resolution of pneumonia . Workup positive for hepatitis-C screening EIA, viral load pending patient is to follow-up out patiently alcohol withdrawals -improved with phenobarbital. As per the addiction team-methadone dosing is 160 mg (please see above.). mood dis -continue home meds, seen by psych and care team cleared for discharge. will need pcp appointment arrangement . <Stacie Arango MD - Last Filed: 09/18/25 12:35> Health Concerns: as above . <Stacie Arango MD - Last Filed: 09/18/25 12:35> Plan of Treatment: as above. <Stacie Arango MD - Last Filed: 09/18/25 12:35> Assessment: as above. <Stacie Arango MD - Last Filed: 09/18/25 12:35> Patient Instructions: Pneumonia (DC) <Stacie Arango MD - Last Filed: 09/18/25 12:35> Discharge Date/Time: 09/11/25 10:21 <Stacie Arango MD - Last Filed: 09/18/25 12:35>
--- NOTE | 2025-09-04 12:38 | MHC.CARE ---
Pt seen by CARE team and to assess if patient continues to meet inpatient level of care, initially plan was tentatively for patient to return to [facility] however, patient denies any suicidal ideation plan or intent currently. Consult was done with [facility] provider Asha Glynn ROTARY FILTER OPERATOR and patient is not currently in an acute crisis and does not currently require inpatient admission. Provider Dr. Arango was notified and will reach out to ROTARY FILTER OPERATOR for further details. Pt was refereed to case management for discharge planning.
--- NOTE | 2025-09-04 13:03 | MHC.CM.PN ---
Patient has completed a HCP naming his /Marina as his Agent; a copy is on the chart and has been uploaded into [employer].
--- NOTE | 2025-09-04 16:22 | PM.PSYCN ---
History of Present Illness Date of Service: 09/04/25 Chief Complaint: increased altermental status Reason for Consult: mood disorder Requesting physician: Stacie Arango Discussed with referring provider: Yes Sources of Information: patient interviewed, chart reviewed and crisis/core team assessment reviewed HPI Narrative: Patient is a 59 year old male with hx of MDD,cocaine use d/o, opioid use d/o and alcohol use d/o who presented to ER due to vague SI, alcohol and drug withdrawal , and following an alleged overdose with intent to . Patient was admitted to and transferred to medical for acute withdrawal and withdrawal delirium. Psychiatric consult placed for: mood disorder During psychiatric assessment, patient presents alert and oriented x3. Calm and cooperative. Patient reports he feels fontana due to feeling like his withdrawal symptoms are not going away . Patient stated, my muscles and bones hurt . Patient reports he plans on following up with outpatient providers and will continue to call various programs for an open bed for substance treatment. He currently denies SI/HI/VH/AH. Patient was also assessed by care team and was deemed not inpatient level of care; please see assessment. Past Psychiatric History: Report up to 12 psychiatric admission with last admission was 10-12 days ago. Cannot recall name of the hospital Current no psychiatrist, no PCP but on waiting list for therapist. On Methadone Maintenance. Not sure actually he supposes to receive. self report 180mg via iLike. Medical Evaluation Reviewed: Yes [facility] Medical History No known health problems Anxiety Pneumonia Family History: Denies family mental health or substance use but report to Care team suicide attempts in family Social History: , no children, currently homeless. Received SSI. 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 Trauma History: Unclear Diagnostics Vital Signs (24Hr): Vital Signs - 24 hr 09/03/25 18:58 09/03/25 20:27 09/03/25 23:23 Temperature 99.1 F 97.5 F Pulse Rate 63 90 Respiratory Rate 18 18 Blood Pressure 138/78 138/78 117/70 Pulse Oximetry 96 96 Oxygen Delivery Method Nasal Cannula Nasal Cannula Oxygen Flow Rate 2 2 09/04/25 03:00 09/04/25 07:12 09/04/25 08:24 Temperature 97.8 F 96.9 F Pulse Rate 55 58 Respiratory Rate 16 16 Blood Pressure 116/61 104/60 96/60 Pulse Oximetry 92 96 Oxygen Delivery Method Nasal Cannula Nasal Cannula Oxygen Flow Rate 2 3 09/04/25 08:46 09/04/25 11:01 09/04/25 15:19 Temperature 97.8 F 97.5 F Pulse Rate 58 62 Respiratory Rate 16 16 Blood Pressure 118/66 134/57 L 111/56 L Pulse Oximetry 96 92 Oxygen Delivery Method Room Air Room Air Oxygen Flow Rate BMI result Body Mass Index 24.3 Labs 09/04/25 06:01 09/04/25 06:01 Labs: Laboratory Results - last 48 hr 09/03/25 09/03/25 09/03/25 06:20 06:20 06:20 WBC 6.8 7.7 RBC 3.33 L 3.32 L Hgb 10.0 L Hct MCV MCH MCHC RDW Plt Count MPV Immature Gran % (Auto) Neut % (Auto) Lymph % (Auto) [place] % (Auto) Eos % (Auto) Baso % (Auto) Lymph # (Auto) [place] # (Auto) Eos # (Auto) Baso # (Auto) Abs Immat Gran (auto) Absolute Neuts (auto) Absolute Nucleated RBC Nucleated RBC % (auto) Neutrophils % (Manual) Band Neutrophils % Lymphocytes % (Manual) Atypical Lymphs % (Man) Monocytes % (Manual) Eosinophils % (Manual) Basophils % (Manual) Metamyelocytes % Myelocytes % Abs Neuts (Manual) Lymphocytes # (Manual) Atyp Lymphs # (Manual) Monocytes # (Manual) Eosinophils # (Manual) Basophils # (Manual) Metamyelocytes # Myelocytes # Platelet Estimate Plt Morphology Comment RBC Morphology PT INR Sodium Potassium Chloride Carbon Dioxide Anion Gap BUN Creatinine Estim Creat Clear Calc Estimated GFR Random Glucose Calcium Magnesium Total Bilirubin Direct Bilirubin AST ALT Alkaline Phosphatase Total Protein Albumin 09/03/25 09/03/25 09/03/25 06:20 06:20 06:20 WBC RBC Hgb 10.0 L Hct 30.5 L 30.4 L MCV 91.6 91.6 MCH 30.0 MCHC RDW Plt Count MPV Immature Gran % (Auto) Neut % (Auto) Lymph % (Auto) [place] % (Auto) Eos % (Auto) Baso % (Auto) Lymph # (Auto) [place] # (Auto) Eos # (Auto) Baso # (Auto) Abs Immat Gran (auto) Absolute Neuts (auto) Absolute Nucleated RBC Nucleated RBC % (auto) Neutrophils % (Manual) Band Neutrophils % Lymphocytes % (Manual) Atypical Lymphs % (Man) Monocytes % (Manual) Eosinophils % (Manual) Basophils % (Manual) Metamyelocytes % Myelocytes % Abs Neuts (Manual) Lymphocytes # (Manual) Atyp Lymphs # (Manual) Monocytes # (Manual) Eosinophils # (Manual) Basophils # (Manual) Metamyelocytes # Myelocytes # Platelet Estimate Plt Morphology Comment RBC Morphology PT INR Sodium Potassium Chloride Carbon Dioxide Anion Gap BUN Creatinine Estim Creat Clear Calc Estimated GFR Random Glucose Calcium Magnesium Total Bilirubin Direct Bilirubin AST ALT Alkaline Phosphatase Total Protein Albumin 09/03/25 09/03/25 09/03/25 06:20 06:20 06:20 WBC RBC Hgb Hct MCV MCH 30.1 MCHC 32.8 32.9 RDW 12.2 12.3 Plt Count 225 MPV Immature Gran % (Auto) Neut % (Auto) Lymph % (Auto) [place] % (Auto) Eos % (Auto) Baso % (Auto) Lymph # (Auto) [place] # (Auto) Eos # (Auto) Baso # (Auto) Abs Immat Gran (auto) Absolute Neuts (auto) Absolute Nucleated RBC Nucleated RBC % (auto) Neutrophils % (Manual) Band Neutrophils % Lymphocytes % (Manual) Atypical Lymphs % (Man) Monocytes % (Manual) Eosinophils % (Manual) Basophils % (Manual) Metamyelocytes % Myelocytes % Abs Neuts (Manual) Lymphocytes # (Manual) Atyp Lymphs # (Manual) Monocytes # (Manual) Eosinophils # (Manual) Basophils # (Manual) Metamyelocytes # Myelocytes # Platelet Estimate Plt Morphology Comment RBC Morphology PT INR Sodium Potassium Chloride Carbon Dioxide Anion Gap BUN Creatinine Estim Creat Clear Calc Estimated GFR Random Glucose Calcium Magnesium Total Bilirubin Direct Bilirubin AST ALT Alkaline Phosphatase Total Protein Albumin 09/03/25 09/03/25 09/03/25 06:20 06:20 06:20 WBC RBC Hgb Hct MCV MCH MCHC RDW Plt Count 237 MPV 8.8 L 9.0 L Immature Gran % (Auto) Cancelled Neut % (Auto) Cancelled Lymph % (Auto) Cancelled [place] % (Auto) Cancelled Eos % (Auto) Cancelled Baso % (Auto) Cancelled Lymph # (Auto) Cancelled [place] # (Auto) Cancelled Eos # (Auto) Cancelled Baso # (Auto) Cancelled Abs Immat Gran (auto) Cancelled Absolute Neuts (auto) Cancelled Absolute Nucleated RBC 0.000 0.000 Nucleated RBC % (auto) 0.0 Neutrophils % (Manual) Band Neutrophils % Lymphocytes % (Manual) Atypical Lymphs % (Man) Monocytes % (Manual) Eosinophils % (Manual) Basophils % (Manual) Metamyelocytes % Myelocytes % Abs Neuts (Manual) Lymphocytes # (Manual) Atyp Lymphs # (Manual) Monocytes # (Manual) Eosinophils # (Manual) Basophils # (Manual) Metamyelocytes # Myelocytes # Platelet Estimate Plt Morphology Comment RBC Morphology PT INR Sodium Potassium Chloride Carbon Dioxide Anion Gap BUN Creatinine Estim Creat Clear Calc Estimated GFR Random Glucose Calcium Magnesium Total Bilirubin Direct Bilirubin AST ALT Alkaline Phosphatase Total Protein Albumin 09/03/25 09/04/25 06:20 06:01 WBC 8.4 RBC 3.79 L Hgb 11.5 L Hct 33.8 L MCV 89.2 MCH 30.3 MCHC 34.0 RDW 11.9 Plt Count 286 MPV 9.3 L Immature Gran % (Auto) Cancelled Neut % (Auto) Cancelled Lymph % (Auto) Cancelled [place] % (Auto) Cancelled Eos % (Auto) Cancelled Baso % (Auto) Cancelled Lymph # (Auto) Cancelled [place] # (Auto) Cancelled Eos # (Auto) Cancelled Baso # (Auto) Cancelled Abs Immat Gran (auto) Cancelled Absolute Neuts (auto) Cancelled Absolute Nucleated RBC 0.000 Nucleated RBC % (auto) 0.0 0.0 Neutrophils % (Manual) 58 37 L Band Neutrophils % 3 18 H Lymphocytes % (Manual) 22 28 Atypical Lymphs % (Man) 2 1 Monocytes % (Manual) 8 9 Eosinophils % (Manual) 1 2 Basophils % (Manual) 1 1 Metamyelocytes % 4 2 Myelocytes % 1 2 Abs Neuts (Manual) 4.7 4.6 Lymphocytes # (Manual) 1.7 2.4 Atyp Lymphs # (Manual) 0.2 0.1 Monocytes # (Manual) 0.6 0.8 Eosinophils # (Manual) 0.1 0.2 Basophils # (Manual) 0.1 0.1 Metamyelocytes # 0.3 0.2 Myelocytes # 0.1 0.2 Platelet Estimate NORMAL NORMAL Plt Morphology Comment NORMAL NORMAL RBC Morphology NORMAL NORMAL PT 14.9 H INR 1.2 H Sodium 131 L 132 L Potassium 4.2 4.2 Chloride 94 L 94 L Carbon Dioxide 30 H 28 Anion Gap 11 L 14 BUN 15 15 Creatinine 0.89 0.81 Estim Creat Clear Calc 85.6 94.0 Estimated GFR > 60 > 60 Random Glucose 80 95 Calcium 9.3 9.6 Magnesium 1.8 2.0 Total Bilirubin 0.2 Direct Bilirubin < 0.2 AST 30 ALT 14 Alkaline Phosphatase 79 Total Protein 6.6 Albumin 3.5 Mental Status Exam Mental Status Exam Patient Appearance: Appropriate Patient Orientation: Person, Place, Time and Situation Level of Consciousness: Awake and Alert Patient Behavior: Appropriate, Cooperative and Good Eye Contact Mood Description: Calm Affect Description: Calm Ability to Follow Directions: Good Speech Pattern: Clear Hallucinations: None Delusions: Not Present Thought Process: Intact and Goal Oriented Thought Content: positive for Intact Medications Medications Current Medications Acetaminophen (Acetaminophen 325 Mg Tablet) 650 mg PO Q6H PRN PRN Reason: Headache/Pain, Scale 1-10 Last Admin: 09/04/25 12:19 Dose: 650 mg Al Hydroxide/Mg Hydroxide (Magnesium Hydrox/Alum Hydrox 30 Ml Oral.Susp) 30 ml PO Q6H PRN PRN Reason: Heartburn/Nausea Azithromycin (Azithromycin 500 Mg Tablet) 500 mg PO Q24H [facility] Last Admin: 09/04/25 08:28 Dose: 500 mg Benzocaine (Throat Lozenge, Medicated Lozenge) 1 lozenge MUCOUS MEM Q2H PRN PRN Reason: Sore Throat Calcium Carbonate (Calcium Carbonate 750 Mg Tab.Chew) 750 mg PO Q4H PRN PRN Reason: Heartburn Doxazosin Mesylate (Doxazosin Mesylate 1 Mg Tablet) 1 mg PO BEDTIME [facility]; Protocol Last Admin: 09/03/25 20:27 Dose: 1 mg Enoxaparin Sodium (Enoxaparin Sodium 40 Mg/0.4 Ml Syringe) 40 mg SUBCUT Q24H [facility] Last Admin: 09/04/25 08:40 Dose: Not Given Gabapentin (Gabapentin 300 Mg Capsule) 300 mg PO TID [facility] Last Admin: 09/04/25 14:44 Dose: 300 mg Guaifenesin (Guaifenesin La 600 Mg Tab.Er.12h) 600 mg PO BID [facility] Last Admin: 09/04/25 08:28 Dose: 600 mg Guaifenesin (Guaifenesin 200 Mg/10 Ml 10 Ml Liquid) 10 ml PO Q4H PRN PRN Reason: Cough Hydroxyzine HCl (Hydroxyzine Hcl 25 Mg Tablet) 25 mg PO Q6H PRN PRN Reason: mild anxiety Last Admin: 09/04/25 03:12 Dose: 25 mg Ceftriaxone Sodium 1 gm/ (Sodium Chloride) 50 mls @ 100 mls/hr IV Q24H [facility] Last Infusion: 09/04/25 02:30 Dose: Infused Thiamine HCl 500 mg/ Sodium (Chloride) 105 mls @ 210 mls/hr IV DAILY [facility] Stop: 09/05/25 08:59 Last Infusion: 09/04/25 09:44 Dose: Infused Ibuprofen (Ibuprofen 600 Mg Tablet) 600 mg PO Q8H PRN PRN Reason: Pain, Moderate(Pain Scale 4-6) Last Admin: 09/04/25 03:12 Dose: 600 mg Magnesium Hydroxide (Milk Of Magnesia 30 Ml Oral.Susp) 30 ml PO DAILY PRN PRN Reason: Constipation Melatonin (Melatonin 3 Mg Tablet) 6 mg PO BEDTIME PRN PRN Reason: Insomnia Methadone HCl (Methadone Hcl 20 Mg/2 Ml Oral.Conc) 110 mg PO DAILY@0800 [facility] Last Admin: 09/04/25 08:27 Dose: 110 mg Nicotine Polacrilex (Nicotine Polacrilex 2 Mg Gum) 4 mg BUCCAL Q2H PRN PRN Reason: Nicotine Cravings Ondansetron HCl (Ondansetron Hcl 4 Mg/2 Ml Vial) 4 mg IVPUSH Q8H PRN PRN Reason: Nausea and Vomiting Pharmacy Consult (Consult Rx Etoh Phenob Im/Po) 1 each MISCELLANE ONCE PRN; Protocol PRN Reason: Consult order Phenobarbital (Phenobarbital 30 Mg Tablet) 30 mg PO BID [facility] Stop: 09/06/25 09:01 Phenobarbital (Phenobarbital 30 Mg Tablet) 30 mg PO BEDTIME [facility] Stop: 09/07/25 21:01 Prazosin HCl (Prazosin Hcl 1 Mg Capsule) 1 mg PO BEDTIME [facility]; Protocol Last Admin: 09/03/25 20:27 Dose: 1 mg Quetiapine Fumarate (Quetiapine Fumarate 50 Mg Tablet) 50 mg PO BEDTIME [facility] Last Admin: 11/11/25 20:28 Dose: 50 mg Sertraline HCl (Sertraline Hcl 50 Mg Tablet) 50 mg PO DAILY [facility] Last Admin: 09/04/25 08:28 Dose: 50 mg Sodium Chloride (0.9 % Sodium Chloride Flush 3 Ml Syringe) 3 ml IVFLUSH QSHIFT [facility] Last Admin: 09/04/25 08:35 Dose: 3 ml Trazodone HCl (Trazodone Hcl 100 Mg Tablet) 100 mg PO BEDTIME PRN PRN Reason: Insomnia Trazodone HCl (Trazodone Hcl 100 Mg Tablet) 100 mg PO BEDTIME PRN PRN Reason: Insomnia Triamcinolone Acetonide (Triamcinolone Acet 0.1 % Cream 15 Gm Tube) 1 appl TOPICAL BID [facility]; Protocol Last Admin: 09/04/25 08:40 Dose: 1 appl Allergies Allergies Allergy/AdvReac Type Severity Reaction Status Date / Time tomato sauce Allergy Intermediate Hives Uncoded 08/24/25 18:42 Assessment & Plan Assessment & Plan (1) Major depressive disorder, recurrent, unspecified: Status: Acute Code(s): F33.9 - Major depressive disorder, recurrent, unspecified (2) Opioid use disorder: Status: Acute Code(s): F11.90 - Opioid use, unspecified, uncomplicated (3) Cocaine use disorder: Status: Acute Code(s): F14.10 - Cocaine abuse, uncomplicated (4) Alcohol use disorder, severe, dependence: Status: Acute Code(s): F10.20 - Alcohol dependence, uncomplicated Plan Recommendations: -Continue current psychiatric medications. -Case management to provide information regarding walk in clinics and various substance abuse programs in the area. -Reconsult if needed. Total time managing care of this patient today _30___ minutes. Patient educated on: diagnosis and medication risk/benefits
--- NOTE | 2025-09-04 17:02 | HO.PM.IMPN ---
Subjective Subjective Date of Service: 09/04/25 Interval History: pneumonia, Klebsiella bacteremia Alcohol withdrawal Review of Systems Patient is still withdrawing CIWA scale11 Denies chest pain or shortness of breaths Review of Systems: Yes all other systems are reviewed and are negative Physical Exam Exam: Exam: General: AO X 3, no acute distress, jittery, anxious Resp: CTA bilateral, no accessory muscles used CVS: S1,S2,RRR GI: soft, non tender, non distended Neuro: motor grossly intact, alert, mild tremor Vital Signs: Vital Signs: Last Vital Signs Temp 97.5 F 09/04/25 15:19 Pulse 62 09/04/25 15:19 Resp 16 09/04/25 15:19 BP 111/56 L 09/04/25 15:19 Pulse Ox 92 09/04/25 15:19 O2 Del Method Room Air 09/04/25 15:19 O2 Flow Rate 3 09/04/25 07:12 BMI result Body Mass Index 24.3 Objective Data Active Medications Acetaminophen (Acetaminophen 325 Mg Tablet) 650 mg PO Q6H PRN PRN Reason: Headache/Pain, Scale 1-10 Last Admin: 09/04/25 12:19 Dose: 650 mg Documented By: CLARK Comments: pt request med Al Hydroxide/Mg Hydroxide (Magnesium Hydrox/Alum Hydrox 30 Ml Oral.Susp) 30 ml PO Q6H PRN PRN Reason: Heartburn/Nausea Azithromycin (Azithromycin 500 Mg Tablet) 500 mg PO Q24H [facility] Last Admin: 09/04/25 08:28 Dose: 500 mg Documented By: CLARK Benzocaine (Throat Lozenge, Medicated Lozenge) 1 lozenge MUCOUS MEM Q2H PRN PRN Reason: Sore Throat Calcium Carbonate (Calcium Carbonate 750 Mg Tab.Chew) 750 mg PO Q4H PRN PRN Reason: Heartburn Doxazosin Mesylate (Doxazosin Mesylate 1 Mg Tablet) 1 mg PO BEDTIME [facility]; Protocol Last Admin: 09/03/25 20:27 Dose: 1 mg Documented By: HANK Enoxaparin Sodium (Enoxaparin Sodium 40 Mg/0.4 Ml Syringe) 40 mg SUBCUT Q24H [facility] Last Admin: 09/04/25 08:40 Dose: Not Given Documented By: CLARK Non-Admin Reason: Patient Refused Gabapentin (Gabapentin 300 Mg Capsule) 300 mg PO TID [facility] Last Admin: 09/04/25 14:44 Dose: 300 mg Documented By: CLARK Guaifenesin (Guaifenesin La 600 Mg Tab.Er.12h) 600 mg PO BID [facility] Last Admin: 09/04/25 08:28 Dose: 600 mg Documented By: CLARK Guaifenesin (Guaifenesin 200 Mg/10 Ml 10 Ml Liquid) 10 ml PO Q4H PRN PRN Reason: Cough Hydroxyzine HCl (Hydroxyzine Hcl 25 Mg Tablet) 25 mg PO Q6H PRN PRN Reason: mild anxiety Last Admin: 09/04/25 03:12 Dose: 25 mg Documented By: HANK Ceftriaxone Sodium 1 gm/ (Sodium Chloride) 50 mls @ 100 mls/hr IV Q24H [facility] Last Infusion: 09/04/25 02:30 Dose: Infused Documented By: HANK Thiamine HCl 500 mg/ Sodium (Chloride) 105 mls @ 210 mls/hr IV DAILY [facility] Stop: 09/05/25 08:59 Last Infusion: 09/04/25 09:44 Dose: Infused Documented By: CLARK Ibuprofen (Ibuprofen 600 Mg Tablet) 600 mg PO Q8H PRN PRN Reason: Pain, Moderate(Pain Scale 4-6) Last Admin: 09/04/25 03:12 Dose: 600 mg Documented By: HANK Magnesium Hydroxide (Milk Of Magnesia 30 Ml Oral.Susp) 30 ml PO DAILY PRN PRN Reason: Constipation Melatonin (Melatonin 3 Mg Tablet) 6 mg PO BEDTIME PRN PRN Reason: Insomnia Methadone HCl (Methadone Hcl 20 Mg/2 Ml Oral.Conc) 110 mg PO DAILY@0800 [facility] Last Admin: 09/04/25 08:27 Dose: 110 mg Documented By: CLARK Co-signed By: DIANE Nicotine Polacrilex (Nicotine Polacrilex 2 Mg Gum) 4 mg BUCCAL Q2H PRN PRN Reason: Nicotine Cravings Ondansetron HCl (Ondansetron Hcl 4 Mg/2 Ml Vial) 4 mg IVPUSH Q8H PRN PRN Reason: Nausea and Vomiting Pharmacy Consult (Consult Rx Etoh Phenob Im/Po) 1 each MISCELLANE ONCE PRN; Protocol PRN Reason: Consult order Phenobarbital (Phenobarbital 30 Mg Tablet) 30 mg PO BID [facility] Stop: 09/06/25 09:01 Phenobarbital (Phenobarbital 30 Mg Tablet) 30 mg PO BEDTIME [facility] Stop: 09/07/25 21:01 Phenobarbital Sodium (Phenobarbital Sodium 65 Mg/Ml Vial) 65 mg IM ONCE ONE Stop: 09/04/25 17:01 Prazosin HCl (Prazosin Hcl 1 Mg Capsule) 1 mg PO BEDTIME [facility]; Protocol Last Admin: 09/03/25 20:27 Dose: 1 mg Documented By: HANK Quetiapine Fumarate (Quetiapine Fumarate 50 Mg Tablet) 50 mg PO BEDTIME [facility] Last Admin: 09/03/25 20:28 Dose: 50 mg Documented By: HANK Sertraline HCl (Sertraline Hcl 50 Mg Tablet) 50 mg PO DAILY [facility] Last Admin: 09/04/25 08:28 Dose: 50 mg Documented By: CLARK Sodium Chloride (0.9 % Sodium Chloride Flush 3 Ml Syringe) 3 ml IVFLUSH QSHIFT [facility] Last Admin: 09/04/25 16:38 Dose: Not Given Documented By: GRAZYNA Non-Admin Reason: Previously Administered Trazodone HCl (Trazodone Hcl 100 Mg Tablet) 100 mg PO BEDTIME PRN PRN Reason: Insomnia Trazodone HCl (Trazodone Hcl 100 Mg Tablet) 100 mg PO BEDTIME PRN PRN Reason: Insomnia Triamcinolone Acetonide (Triamcinolone Acet 0.1 % Cream 15 Gm Tube) 1 appl TOPICAL BID [facility]; Protocol Last Admin: 09/04/25 08:40 Dose: 1 appl Documented By: CLARK Labs 09/04/25 06:01 09/04/25 06:01 Labs: Laboratory Results - last 24 hr 09/04/25 06:01 MCV 89.2 MCH 30.3 MCHC 34.0 RDW 11.9 Plt Count 286 MPV 9.3 L Immature Gran % (Auto) Cancelled Neut % (Auto) Cancelled Lymph % (Auto) Cancelled [place] % (Auto) Cancelled Eos % (Auto) Cancelled Baso % (Auto) Cancelled Lymph # (Auto) Cancelled [place] # (Auto) Cancelled Eos # (Auto) Cancelled Baso # (Auto) Cancelled Abs Immat Gran (auto) Cancelled Absolute Neuts (auto) Cancelled Absolute Nucleated RBC 0.000 Nucleated RBC % (auto) 0.0 Neutrophils % (Manual) 37 L Band Neutrophils % 18 H Lymphocytes % (Manual) 28 Atypical Lymphs % (Man) 1 Monocytes % (Manual) 9 Eosinophils % (Manual) 2 Basophils % (Manual) 1 Metamyelocytes % 2 Myelocytes % 2 Abs Neuts (Manual) 4.6 Lymphocytes # (Manual) 2.4 Atyp Lymphs # (Manual) 0.1 Monocytes # (Manual) 0.8 Eosinophils # (Manual) 0.2 Basophils # (Manual) 0.1 Metamyelocytes # 0.2 Myelocytes # 0.2 Platelet Estimate NORMAL Plt Morphology Comment NORMAL RBC Morphology NORMAL Anion Gap 14 Estim Creat Clear Calc 94.0 Estimated GFR > 60 Random Glucose 95 Calcium 9.6 Magnesium 2.0 Assessment and Plan (1) Alcohol abuse: Status: Acute Plan 59M PMH mood disorder, etoh dependence, epilepsy, polysubstance dependence, presented with SI and fever: Alcohol dependence with acute withdrawal and withdrawal delirium Continue Phenobarb, CIWA 11, thiamine Mental status back to baseline Transient hypoxia, fevers: Pneumonia/Klebsiella bacteremia Due to multifocal pneumonia Continue ceftriaxone, ID consulted Now on room air Epilepsy Gabapentin Polysubstance dependence Methadone Mood disorder with suicide ideation Sertraline, Ativan, 1:1 sitter care team prior to discharge DVT prophylaxis with Lovenox Full code reason for continued hospitalization: Active withdrawal Quality Stroke Does the patient have a stroke diagnosis?: No VTE Prior VTE?: No VTE Risk Level:: Medical - moderate - high VTE Device Contraindication: Treatment Not Indicated VTE Drug Contraindication: N/A - Med Ordered
[2025-09-05 03:55] VITALS: BP 112/55; PULSE 53; RESP 18; TEMP 36.3; O2SAT 99
[2025-09-05 07:13] VITALS: BP 117/76; PULSE 64; RESP 16; TEMP 36.3; O2SAT 96
[2025-09-05] MEDS: 0.9 % Sodium Chloride Flush 3 ML SYRINGE IVFLUSH ×3 (09:13→21:13)
[2025-09-05] MEDS: guaiFENesin LA 600 MG TAB.ER.12H PO ×2 (09:13→21:08)
[2025-09-05] MEDS: methADONE HCl 20 MG/2 ML ORAL.CONC 110 MG PO (09:13)
--- NOTE | 2025-09-05 10:34 | MHC.CM.PN ---
Per MD, Patient is not yet medically cleared for dc (hallucinations, s/s of Withdrawal)yarn packer is assisting with dc planning and CM will continue to follow. Psych cleared Patient yesterday, no return to [facility] as of yesterday.
[2025-09-05 11:10] VITALS: BP 111/62; PULSE 57; RESP 16; TEMP 36.6; O2SAT 98
--- NOTE | 2025-09-05 14:49 | P.CNPS_ITS ---
History of Present Illness Date of Service: 09/05/2025 Chief Complaint: increased altermental status Reason for Consult: Hallucinations Requesting physician: Stacie Arango Discussed with referring provider: Yes Sources of Information: patient interviewed and chart reviewed HPI Narrative: 59M PMH mood disorder, etoh dependence, epilepsy, polysubstance dependence, presented with SI and fever. Past Psychiatric History: Report up to 12 psychiatric admission with last admission was 10-12 days ago. Cannot recall name of the hospital Current no psychiatrist, no PCP but on waiting list for therapist. On Methadone Maintenance. Not sure actually he supposes to receive. self report 180mg via [facility]. Medical Evaluation Reviewed: Yes [facility] Medical History No known health problems Anxiety Pneumonia Family History: Denies family mental health or substance use but report to Care team suicide attempts in family Social History: , no children, currently homeless. Received SSI. 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 Trauma History: Unclear Diagnostics Vital Signs (24Hr): Vital Signs - 24 hr 09/04/25 15:19 09/04/25 19:22 09/04/25 23:47 Temperature 97.5 F 98.5 F 97.2 F Pulse Rate 62 59 55 Respiratory Rate 16 18 18 Blood Pressure 111/56 L 117/57 L 109/57 L Pulse Oximetry 92 96 94 Oxygen Delivery Method Room Air Room Air Nasal Cannula Oxygen Flow Rate 3 09/05/25 03:55 09/05/25 07:13 09/05/25 11:10 Temperature 97.4 F 97.4 F 97.8 F Pulse Rate 53 64 57 Respiratory Rate 18 16 16 Blood Pressure 112/55 L 117/76 111/62 Pulse Oximetry 99 96 98 Oxygen Delivery Method Room Air Room Air Room Air Oxygen Flow Rate BMI result Body Mass Index 24.3 Labs 09/04/25 06:01 09/04/25 06:01 Labs: Laboratory Results - last 48 hr 09/04/25 06:01 WBC 8.4 RBC 3.79 L Hgb 11.5 L Hct 33.8 L MCV 89.2 MCH 30.3 MCHC 34.0 RDW 11.9 Plt Count 286 MPV 9.3 L Immature Gran % (Auto) Cancelled Neut % (Auto) Cancelled Lymph % (Auto) Cancelled [place] % (Auto) Cancelled Eos % (Auto) Cancelled Baso % (Auto) Cancelled Lymph # (Auto) Cancelled [place] # (Auto) Cancelled Eos # (Auto) Cancelled Baso # (Auto) Cancelled Abs Immat Gran (auto) Cancelled Absolute Neuts (auto) Cancelled Absolute Nucleated RBC 0.000 Nucleated RBC % (auto) 0.0 Neutrophils % (Manual) 37 L Band Neutrophils % 18 H Lymphocytes % (Manual) 28 Atypical Lymphs % (Man) 1 Monocytes % (Manual) 9 Eosinophils % (Manual) 2 Basophils % (Manual) 1 Metamyelocytes % 2 Myelocytes % 2 Abs Neuts (Manual) 4.6 Lymphocytes # (Manual) 2.4 Atyp Lymphs # (Manual) 0.1 Monocytes # (Manual) 0.8 Eosinophils # (Manual) 0.2 Basophils # (Manual) 0.1 Metamyelocytes # 0.2 Myelocytes # 0.2 Platelet Estimate NORMAL Plt Morphology Comment NORMAL RBC Morphology NORMAL Sodium 132 L Potassium 4.2 Chloride 94 L Carbon Dioxide 28 Anion Gap 14 BUN 15 Creatinine 0.81 Estim Creat Clear Calc 94.0 Estimated GFR > 60 Random Glucose 95 Calcium 9.6 Magnesium 2.0 Mental Status Exam Mental Status Exam Narrative: Appearance: Casually dressed, adequate hygiene and grooming Behavior: Calm and cooperative throughout the interview. Eye contact is appropriate, and there are no signs of psychomotor agitation or retardation Speech: Normal volume and prosody Thought process: Logical and goal-directed Thought content: Future oriented no self-harming thoughts Mood: Euthymic Affect: Mood-congruent SI: Denies HI: Denies VH/AH: None Delusions: None Insight/judgment: Good insight and judgment Memory/cog: Alert, oriented x 4. grossly intact to conversational testing Medications Medications Current Medications Acetaminophen (Acetaminophen 325 Mg Tablet) 650 mg PO Q6H PRN PRN Reason: Headache/Pain, Scale 1-10 Last Admin: 09/04/25 12:19 Dose: 650 mg Al Hydroxide/Mg Hydroxide (Magnesium Hydrox/Alum Hydrox 30 Ml Oral.Susp) 30 ml PO Q6H PRN PRN Reason: Heartburn/Nausea Benzocaine (Throat Lozenge, Medicated Lozenge) 1 lozenge MUCOUS MEM Q2H PRN PRN Reason: Sore Throat Calcium Carbonate (Calcium Carbonate 750 Mg Tab.Chew) 750 mg PO Q4H PRN PRN Reason: Heartburn Doxazosin Mesylate (Doxazosin Mesylate 1 Mg Tablet) 1 mg PO BEDTIME [facility]; Protocol Last Admin: 09/04/25 19:58 Dose: 1 mg Enoxaparin Sodium (Enoxaparin Sodium 40 Mg/0.4 Ml Syringe) 40 mg SUBCUT Q24H [facility] Last Admin: 09/05/25 09:18 Dose: Not Given Gabapentin (Gabapentin 300 Mg Capsule) 300 mg PO TID [facility] Last Admin: 09/05/25 09:13 Dose: 300 mg Guaifenesin (Guaifenesin La 600 Mg Tab.Er.12h) 600 mg PO BID [facility] Last Admin: 09/05/25 09:13 Dose: 600 mg Guaifenesin (Guaifenesin 200 Mg/10 Ml 10 Ml Liquid) 10 ml PO Q4H PRN PRN Reason: Cough Hydroxyzine HCl (Hydroxyzine Hcl 25 Mg Tablet) 25 mg PO Q6H PRN PRN Reason: mild anxiety Last Admin: 09/05/25 03:17 Dose: 25 mg Ceftriaxone Sodium 1 gm/ (Sodium Chloride) 50 mls @ 100 mls/hr IV Q24H [facility] Last Infusion: 09/05/25 01:24 Dose: Infused Ibuprofen (Ibuprofen 600 Mg Tablet) 600 mg PO Q8H PRN PRN Reason: Pain, Moderate(Pain Scale 4-6) Last Admin: 09/04/25 03:12 Dose: 600 mg Magnesium Hydroxide (Milk Of Magnesia 30 Ml Oral.Susp) 30 ml PO DAILY PRN PRN Reason: Constipation Melatonin (Melatonin 3 Mg Tablet) 6 mg PO BEDTIME PRN PRN Reason: Insomnia Methadone HCl (Methadone Hcl 20 Mg/2 Ml Oral.Conc) 110 mg PO DAILY@0800 [facility] Last Admin: 09/05/25 09:13 Dose: 110 mg Nicotine Polacrilex (Nicotine Polacrilex 2 Mg Gum) 4 mg BUCCAL Q2H PRN PRN Reason: Nicotine Cravings Ondansetron HCl (Ondansetron Hcl 4 Mg/2 Ml Vial) 4 mg IVPUSH Q8H PRN PRN Reason: Nausea and Vomiting Pharmacy Consult (Consult Rx Etoh Phenob Im/Po) 1 each MISCELLANE ONCE PRN; Protocol PRN Reason: Consult order Phenobarbital (Phenobarbital 30 Mg Tablet) 30 mg PO BID [facility] Stop: 09/06/25 09:01 Last Admin: 09/05/25 09:13 Dose: 30 mg Phenobarbital (Phenobarbital 30 Mg Tablet) 30 mg PO BEDTIME [facility] Stop: 09/07/25 21:01 Prazosin HCl (Prazosin Hcl 1 Mg Capsule) 1 mg PO BEDTIME [facility]; Protocol Last Admin: 09/04/25 19:58 Dose: 1 mg Quetiapine Fumarate (Quetiapine Fumarate 50 Mg Tablet) 50 mg PO BEDTIME [facility] Last Admin: 09/04/25 19:58 Dose: 50 mg Sertraline HCl (Sertraline Hcl 50 Mg Tablet) 50 mg PO DAILY [facility] Last Admin: 09/05/25 09:13 Dose: 50 mg Sodium Chloride (0.9 % Sodium Chloride Flush 3 Ml Syringe) 3 ml IVFLUSH QSHIFT [facility] Last Admin: 09/05/25 09:13 Dose: 3 ml Trazodone HCl (Trazodone Hcl 100 Mg Tablet) 100 mg PO BEDTIME PRN PRN Reason: Insomnia Trazodone HCl (Trazodone Hcl 100 Mg Tablet) 100 mg PO BEDTIME PRN PRN Reason: Insomnia Triamcinolone Acetonide (Triamcinolone Acet 0.1 % Cream 15 Gm Tube) 1 appl TOPICAL BID [facility]; Protocol Last Admin: 09/05/25 09:22 Dose: Not Given Allergies Allergies Allergy/AdvReac Type Severity Reaction Status Date / Time tomato sauce Allergy Intermediate Hives Uncoded 08/24/25 18:42 Assessment & Plan Total time managing care of this patient today ____ minutes.
[2025-09-05 15:46] VITALS: BP 127/60; PULSE 97; RESP 20; TEMP 36.4; O2SAT 97
--- NOTE | 2025-09-05 16:05 | P.PNIM_ITS ---
Subjective Subjective Date of Service: 09/05/25 Interval History: Alcohol withdrawal, hallucination Review of Systems Seems similar to yesterday Review of Systems: Yes all other systems are reviewed and are negative Physical Exam 2 Exam: Exam: General: AO X 3, no acute distress, jittery, anxious Resp: CTA bilateral, no accessory muscles used CVS: S1,S2,RRR GI: soft, non tender, non distended Neuro: motor grossly intact, alert, mild tremor Vital Signs: Vital Signs: Last Vital Signs Temp 97.6 F 09/05/25 15:46 Pulse 97 09/05/25 15:46 Resp 20 09/05/25 15:46 BP 127/60 09/05/25 15:46 Pulse Ox 97 09/05/25 15:46 O2 Del Method Room Air 09/05/25 15:46 O2 Flow Rate 3 09/04/25 23:47 BMI result Body Mass Index 24.3 General: AO X 3, no acute distress, jittery, anxious,hallucinations Resp: CTA bilateral, no accessory muscles used CVS: S1,S2,RRR GI: soft, non tender, non distended Neuro: motor grossly intact, alert. Objective Data Active Medications Acetaminophen (Acetaminophen 325 Mg Tablet) 650 mg PO Q6H PRN PRN Reason: Headache/Pain, Scale 1-10 Last Admin: 09/04/25 12:19 Dose: 650 mg Documented By: CLARK Comments: pt request med Al Hydroxide/Mg Hydroxide (Magnesium Hydrox/Alum Hydrox 30 Ml Oral.Susp) 30 ml PO Q6H PRN PRN Reason: Heartburn/Nausea Benzocaine (Throat Lozenge, Medicated Lozenge) 1 lozenge MUCOUS MEM Q2H PRN PRN Reason: Sore Throat Calcium Carbonate (Calcium Carbonate 750 Mg Tab.Chew) 750 mg PO Q4H PRN PRN Reason: Heartburn Doxazosin Mesylate (Doxazosin Mesylate 1 Mg Tablet) 1 mg PO BEDTIME [facility]; Protocol Last Admin: 09/04/25 19:58 Dose: 1 mg Documented By: HANK Enoxaparin Sodium (Enoxaparin Sodium 40 Mg/0.4 Ml Syringe) 40 mg SUBCUT Q24H [facility] Last Admin: 09/05/25 09:18 Dose: Not Given Documented By: MINGO Non-Admin Reason: Patient Refused Gabapentin (Gabapentin 300 Mg Capsule) 300 mg PO TID [facility] Last Admin: 09/05/25 09:13 Dose: 300 mg Documented By: MINGO Guaifenesin (Guaifenesin La 600 Mg Tab.Er.12h) 600 mg PO BID [facility] Last Admin: 09/05/25 09:13 Dose: 600 mg Documented By: MINGO Guaifenesin (Guaifenesin 200 Mg/10 Ml 10 Ml Liquid) 10 ml PO Q4H PRN PRN Reason: Cough Hydroxyzine HCl (Hydroxyzine Hcl 25 Mg Tablet) 25 mg PO Q6H PRN PRN Reason: mild anxiety Last Admin: 09/05/25 03:17 Dose: 25 mg Documented By: HANK Ceftriaxone Sodium 1 gm/ (Sodium Chloride) 50 mls @ 100 mls/hr IV Q24H [facility] Last Infusion: 09/05/25 01:24 Dose: Infused Documented By: HANK Ibuprofen (Ibuprofen 600 Mg Tablet) 600 mg PO Q8H PRN PRN Reason: Pain, Moderate(Pain Scale 4-6) Last Admin: 09/04/25 03:12 Dose: 600 mg Documented By: HANK Magnesium Hydroxide (Milk Of Magnesia 30 Ml Oral.Susp) 30 ml PO DAILY PRN PRN Reason: Constipation Melatonin (Melatonin 3 Mg Tablet) 6 mg PO BEDTIME PRN PRN Reason: Insomnia Methadone HCl (Methadone Hcl 20 Mg/2 Ml Oral.Conc) 110 mg PO DAILY@0800 [facility] Last Admin: 09/05/25 09:13 Dose: 110 mg Documented By: MINGO Co-signed By: ESTELA Nicotine Polacrilex (Nicotine Polacrilex 2 Mg Gum) 4 mg BUCCAL Q2H PRN PRN Reason: Nicotine Cravings Ondansetron HCl (Ondansetron Hcl 4 Mg/2 Ml Vial) 4 mg IVPUSH Q8H PRN PRN Reason: Nausea and Vomiting Pharmacy Consult (Consult Rx Etoh Phenob Im/Po) 1 each MISCELLANE ONCE PRN; Protocol PRN Reason: Consult order Phenobarbital (Phenobarbital 30 Mg Tablet) 30 mg PO BID [facility] Stop: 09/06/25 09:01 Last Admin: 09/05/25 09:13 Dose: 30 mg Documented By: MINGO Phenobarbital (Phenobarbital 30 Mg Tablet) 30 mg PO BEDTIME [facility] Stop: 09/07/25 21:01 Prazosin HCl (Prazosin Hcl 1 Mg Capsule) 1 mg PO BEDTIME [facility]; Protocol Last Admin: 09/04/25 19:58 Dose: 1 mg Documented By: HANK Quetiapine Fumarate (Quetiapine Fumarate 50 Mg Tablet) 50 mg PO BEDTIME [facility] Last Admin: 09/04/25 19:58 Dose: 50 mg Documented By: HANK Sertraline HCl (Sertraline Hcl 50 Mg Tablet) 50 mg PO DAILY [facility] Last Admin: 09/05/25 09:13 Dose: 50 mg Documented By: MINGO Sodium Chloride (0.9 % Sodium Chloride Flush 3 Ml Syringe) 3 ml IVFLUSH QSHIFT [facility] Last Admin: 09/05/25 09:13 Dose: 3 ml Documented By: MINGO Trazodone HCl (Trazodone Hcl 100 Mg Tablet) 100 mg PO BEDTIME PRN PRN Reason: Insomnia Trazodone HCl (Trazodone Hcl 100 Mg Tablet) 100 mg PO BEDTIME PRN PRN Reason: Insomnia Triamcinolone Acetonide (Triamcinolone Acet 0.1 % Cream 15 Gm Tube) 1 appl TOPICAL BID [facility]; Protocol Last Admin: 09/05/25 09:22 Dose: Not Given Documented By: MINGO Non-Admin Reason: Patient Refused Labs 09/04/25 06:01 09/04/25 06:01 Assessment and Plan (1) Alcohol use disorder, severe, dependence: Status: Acute Plan 59M PMH mood disorder, etoh dependence, epilepsy, polysubstance dependence, presented with SI and fever: Alcohol dependence with acute withdrawal and withdrawal delirium Continuephenobarbital im x1 dose given, Phenobarb, CIWA 11, thiamine Mental status back to baseline Transient hypoxia, fevers: Pneumonia/Klebsiella bacteremia Due to multifocal pneumonia Continue ceftriaxone, ID consulted Now on room air Epilepsy Gabapentin Polysubstance dependence Methadone Mood disorder with suicide ideation Sertraline, Ativan, 1:1 sitter care team cleared him yesterday , but patient with still in withdrawals and hallucinating DVT prophylaxis with Lovenox Full code reason for continued hospitalization: Active withdrawal- phenobarbital protocol, need psych input Quality Stroke Does the patient have a stroke diagnosis?: No VTE Prior VTE?: No VTE Risk Level:: Medical - moderate - high VTE Device Contraindication: Treatment Not Indicated VTE Drug Contraindication: N/A - Med Ordered
[2025-09-05] MEDS: Thiamine HCL 200 MG in 0.9 % Sodium Chloride 100 ML 204 MG IV (16:13)
[2025-09-05 19:47] VITALS: BP 111/59; PULSE 51; RESP 18; TEMP 36.2; O2SAT 95
[2025-09-06] VITALS (7 sets, daily range): BP systolic 110–116; BP diastolic 53–59; PULSE 43–58; RESP 16–18; TEMP 36.2–36.8; O2SAT 95–99
[2025-09-06] MEDS: Thiamine HCL 200 MG in 0.9 % Sodium Chloride 100 ML 204 MG IV ×3 (00:32→17:25)
[2025-09-06] MEDS: methADONE HCl 20 MG/2 ML ORAL.CONC 120 MG PO (07:33)
--- NOTE | 2025-09-06 08:45 | MHC.RECOVRN ---
TW left a message for [facility] to verify pt is on the waitlist; awaiting response. Also contacted [facility] who states pt has not been medically cleared and therefor is not on the wait list,. They will review him for admission once medically cleared.
[2025-09-06] MEDS: 0.9 % Sodium Chloride Flush 3 ML SYRINGE IVFLUSH ×3 (09:25→20:58)
[2025-09-06] MEDS: guaiFENesin LA 600 MG TAB.ER.12H PO ×2 (09:28→20:58)
--- NOTE | 2025-09-06 10:17 | MHC.CM.PN ---
Per MD in [facility], Patient is still hallucinating and will need to be evaluated by Psych again. CM will follow.
--- NOTE | 2025-09-06 12:51 | P.CNID_ITS ---
History of Present Illness Data of Consult Service Date: 09/06/25 Requesting physician: Stacie Arango Primary Care Provider: Unknown Physician HPI Reason for consult: altered mental status,bacteremia He presents with fatigue and weakness after overdose. He is seen at [facility] He has OUD and seizures in past. He had blood culture drawn temperature 100.2 and 96 also. He has no hypoxia at this time and is not on oxygen. He mentions he has psoriasis. Blood cultures Klebsiella pneumonia x1 and CT chest shows multilobar pneumonia. Urinalysis is negative. Review of Systems 2 Review of Systems: Yes all other systems are reviewed and are negative [facility] Past Medical History Medical History (Updated 09/06/25 @ 12:57 by Fransisca Blanca MD) No known health problems Anxiety Pneumonia Family History Family history: reviewed and not pertinent Social History Social History Household Members: Unknown / Unable to assess Housing: Unknown / Unable to assess Housing Other:: Safe place Do you presently have visiting nurse or other home services: No Alcohol intake: current Alcohol intake frequency: a few times a week Alcohol type: beer and hard liquor Comment: 1:1 sitter at bedside for safety Patient Tobacco Use Status: Refuse Tobacco use screen Tobacco use type: Cigarette Cigarettes Per Day: 5 e-Cigarette/Vaping Use: Never Used Second Hand Smoke Exposure: Yes Substance Use Type: Crack/Cocaine, Heroin and Opiates Currently Displaying Signs/Symptoms of Drug Intoxication Withdrawal: No Advance Directives: No Advance Directives Information Provided: No Do you have a plan to hurt others: No Plan Recently lost weight without trying: Unsure service: No Sexual orientation: Straight/Heterosexual Meds Allergies Allergy/AdvReac Type Severity Reaction Status Date / Time tomato sauce Allergy Intermediate Hives Uncoded 08/24/25 18:42 Active Medications: Current Medications Acetaminophen (Acetaminophen 325 Mg Tablet) 650 mg PO Q6H PRN PRN Reason: Headache/Pain, Scale 1-10 Last Admin: 09/06/25 06:34 Dose: 650 mg Al Hydroxide/Mg Hydroxide (Magnesium Hydrox/Alum Hydrox 30 Ml Oral.Susp) 30 ml PO Q6H PRN PRN Reason: Heartburn/Nausea Benzocaine (Throat Lozenge, Medicated Lozenge) 1 lozenge MUCOUS MEM Q2H PRN PRN Reason: Sore Throat Calcium Carbonate (Calcium Carbonate 750 Mg Tab.Chew) 750 mg PO Q4H PRN PRN Reason: Heartburn Doxazosin Mesylate (Doxazosin Mesylate 1 Mg Tablet) 1 mg PO BEDTIME [facility]; Protocol Last Admin: 09/05/25 21:08 Dose: 1 mg Enoxaparin Sodium (Enoxaparin Sodium 40 Mg/0.4 Ml Syringe) 40 mg SUBCUT Q24H [facility] Last Admin: 09/06/25 09:37 Dose: Not Given Folic Acid (Folic Acid 1 Mg Tablet) 1 mg PO DAILY [facility] Last Admin: 09/06/25 09:28 Dose: 1 mg Gabapentin (Gabapentin 300 Mg Capsule) 300 mg PO TID [facility] Last Admin: 09/06/25 09:29 Dose: 300 mg Guaifenesin (Guaifenesin La 600 Mg Tab.Er.12h) 600 mg PO BID [facility] Last Admin: 09/06/25 09:28 Dose: 600 mg Guaifenesin (Guaifenesin 200 Mg/10 Ml 10 Ml Liquid) 10 ml PO Q4H PRN PRN Reason: Cough Hydroxyzine HCl (Hydroxyzine Hcl 25 Mg Tablet) 25 mg PO Q6H PRN PRN Reason: mild anxiety Last Admin: 09/06/25 06:34 Dose: 25 mg Ceftriaxone Sodium 1 gm/ (Sodium Chloride) 50 mls @ 100 mls/hr IV Q24H [facility] Last Infusion: 09/06/25 01:52 Dose: Infused Thiamine HCl 200 mg/ Sodium (Chloride) 102 mls @ 204 mls/hr IV Q8H [facility] Last Infusion: 09/06/25 10:00 Dose: Infused Ibuprofen (Ibuprofen 600 Mg Tablet) 600 mg PO Q8H PRN PRN Reason: Pain, Moderate(Pain Scale 4-6) Last Admin: 09/04/25 03:12 Dose: 600 mg Magnesium Hydroxide (Milk Of Magnesia 30 Ml Oral.Susp) 30 ml PO DAILY PRN PRN Reason: Constipation Melatonin (Melatonin 3 Mg Tablet) 6 mg PO BEDTIME PRN PRN Reason: Insomnia Methadone HCl (Methadone Hcl 20 Mg/2 Ml Oral.Conc) 120 mg PO DAILY@0800 [facility] Last Admin: 09/06/25 07:33 Dose: 120 mg Nicotine Polacrilex (Nicotine Polacrilex 2 Mg Gum) 4 mg BUCCAL Q2H PRN PRN Reason: Nicotine Cravings Ondansetron HCl (Ondansetron Hcl 4 Mg/2 Ml Vial) 4 mg IVPUSH Q8H PRN PRN Reason: Nausea and Vomiting Pharmacy Consult (Consult Rx Etoh Phenob Im/Po) 1 each MISCELLANE ONCE PRN; Protocol PRN Reason: Consult order Phenobarbital (Phenobarbital 30 Mg Tablet) 30 mg PO BEDTIME [facility] Stop: 09/07/25 21:01 Prazosin HCl (Prazosin Hcl 1 Mg Capsule) 1 mg PO BEDTIME [facility]; Protocol Last Admin: 09/05/25 21:08 Dose: 1 mg Quetiapine Fumarate (Quetiapine Fumarate 50 Mg Tablet) 50 mg PO BEDTIME [facility] Last Admin: 09/05/25 21:08 Dose: 50 mg Sertraline HCl (Sertraline Hcl 50 Mg Tablet) 50 mg PO DAILY [facility] Last Admin: 09/06/25 09:28 Dose: 50 mg Sodium Chloride (0.9 % Sodium Chloride Flush 3 Ml Syringe) 3 ml IVFLUSH QSHIFT [facility] Last Admin: 09/06/25 09:25 Dose: 3 ml Trazodone HCl (Trazodone Hcl 100 Mg Tablet) 100 mg PO BEDTIME PRN PRN Reason: Insomnia Last Admin: 09/05/25 21:09 Dose: 100 mg Trazodone HCl (Trazodone Hcl 100 Mg Tablet) 100 mg PO BEDTIME PRN PRN Reason: Insomnia Triamcinolone Acetonide (Triamcinolone Acet 0.1 % Cream 15 Gm Tube) 1 appl TOPICAL BID [facility]; Protocol Last Admin: 09/06/25 12:37 Dose: Not Given Home Medications ?Medication ?Instructions ?Recorded ?Confirmed ?Last Taken ?Type gabapentin 300 mg capsule 300 mg PO TID 07/23/2009/02 Unknown History doxazosin 1 mg tablet 1 mg PO BEDTIME 08/24/2508/17 Unknown History quetiapine 50 mg tablet 50 mg PO BEDTIME 08/24/25 Unknown History sertraline 50 mg tablet 50 mg PO DAILY 08/24/2508/24 Unknown History methadone 10 mg/mL oral 180 mg PO DAILY@0800 5 Unknown History concentrate (Methadose) Physical Exam 2 Vital Signs: Vital Signs: Last Vital Signs Temp 97.2 F 09/06/25 11:43 Pulse 53 09/06/25 11:43 Resp 16 09/06/25 11:43 BP 115/56 L 09/06/25 11:43 Pulse Ox 98 09/06/25 11:43 O2 Del Method Room Air 09/06/25 11:43 O2 Flow Rate 3 09/04/25 23:47 BMI result Body Mass Index 24.3 Const: General: cooperative HEENT: Head: Yes normal to inspection Face and sinus: Yes normal facial exam Mouth: Normal oral and palatal mucosa present Teeth and gingiva: d entition normal Eyes: General: appearance normal, both eyes and all related structures P upils: Equal, round and reactive pupils present Resp: Effort & Inspection: normal respiratory effort Cardio: Rate: regular rate Rhythm: regular rhythm GI: Palpation (GI): Soft to palpation and nontender : General: Yes no CVA tenderness Back/Spine/Pelvis: Back: no CVA tenderness Skin: Other: some scaling lower extremities General skin exam: no rashes or lesions noted Neuro: General: moves all extremities Cranial nerves: Yes Equal, round and reactive pupils present Extrem: General: Yes normal to inspection Psych: Appearance: grossly normal Results Labs 09/04/25 06:01 09/04/25 06:01 Assessment and Plan (1) Depression: Qualifiers: Depression Type: unspecified Qualified Code(s): F32.A - Depression, unspecified Status: Acute (2) Major depressive disorder, recurrent, unspecified: Status: Acute (3) Polysubstance abuse: Status: Acute (4) Opioid use disorder: Status: Acute (5) Fever: Status: Acute Plan Klebsiella may be from lung or less likely liver abscess (urine is clear). It is sensitive to most antibiotics and Ceftriaxone is desirable. Nevertheless search for source should occur as should search for immunodeficiency. Would check CT head evaluate for infected hematoma,brain abscess. If head negative check CT abdomen and pelvis with IV contrast if able check liver abscess. Otherwise continue Ceftiaxone and convert to po cephalosporin possibly if no other source found needing oil heaterman IV. Check HIV and Hepatitis C evaluate immunodeficiency.
--- NOTE | 2025-09-06 14:10 | P.PNIM_ITS ---
Subjective Subjective Date of Service: 09/06/25 Interval History: mood dis ,si Review of Systems has mild tremers says still has hallucinations ,also endorsed the SI to staff. Physical Exam 2 Exam: Exam: General: AO X 3, no acute distress, anxious, had hallucinations last night also Resp: CTA bilateral, no accessory muscles used CVS: S1,S2,RRR GI: soft, non tender, non distended Neuro: motor grossly intact, alert, mild tremor Vital Signs: Vital Signs: Last Vital Signs Temp 97.2 F 09/06/25 11:43 Pulse 53 09/06/25 11:43 Resp 16 09/06/25 11:43 BP 115/56 L 09/06/25 11:43 Pulse Ox 98 09/06/25 11:43 O2 Del Method Room Air 09/06/25 11:43 O2 Flow Rate 3 09/04/25 23:47 BMI result Body Mass Index 24.3 Objective Data Active Medications Acetaminophen (Acetaminophen 325 Mg Tablet) 650 mg PO Q6H PRN PRN Reason: Headache/Pain, Scale 1-10 Last Admin: 09/06/25 06:34 Dose: 650 mg Documented By: RAJ Al Hydroxide/Mg Hydroxide (Magnesium Hydrox/Alum Hydrox 30 Ml Oral.Susp) 30 ml PO Q6H PRN PRN Reason: Heartburn/Nausea Benzocaine (Throat Lozenge, Medicated Lozenge) 1 lozenge MUCOUS MEM Q2H PRN PRN Reason: Sore Throat Calcium Carbonate (Calcium Carbonate 750 Mg Tab.Chew) 750 mg PO Q4H PRN PRN Reason: Heartburn Doxazosin Mesylate (Doxazosin Mesylate 1 Mg Tablet) 1 mg PO BEDTIME [facility]; Protocol Last Admin: 09/05/25 21:08 Dose: 1 mg Documented By: RAJ Enoxaparin Sodium (Enoxaparin Sodium 40 Mg/0.4 Ml Syringe) 40 mg SUBCUT Q24H [facility] Last Admin: 09/06/25 09:37 Dose: Not Given Documented By: LAKEISHA Non-Admin Reason: Patient Refused Folic Acid (Folic Acid 1 Mg Tablet) 1 mg PO DAILY [facility] Last Admin: 09/06/25 09:28 Dose: 1 mg Documented By: LAKEISHA Gabapentin (Gabapentin 300 Mg Capsule) 300 mg PO TID [facility] Last Admin: 09/06/25 09:29 Dose: 300 mg Documented By: LAKEISHA Guaifenesin (Guaifenesin La 600 Mg Tab.Er.12h) 600 mg PO BID [facility] Last Admin: 09/06/25 09:28 Dose: 600 mg Documented By: LAKEISHA Guaifenesin (Guaifenesin 200 Mg/10 Ml 10 Ml Liquid) 10 ml PO Q4H PRN PRN Reason: Cough Hydroxyzine HCl (Hydroxyzine Hcl 25 Mg Tablet) 25 mg PO Q6H PRN PRN Reason: mild anxiety Last Admin: 09/06/25 06:34 Dose: 25 mg Documented By: RAJ Ceftriaxone Sodium 1 gm/ (Sodium Chloride) 50 mls @ 100 mls/hr IV Q24H [facility] Last Infusion: 09/06/25 01:52 Dose: Infused Documented By: RAJ Thiamine HCl 200 mg/ Sodium (Chloride) 102 mls @ 204 mls/hr IV Q8H [facility] Last Infusion: 09/06/25 10:00 Dose: Infused Documented By: LAKEISHA Ibuprofen (Ibuprofen 600 Mg Tablet) 600 mg PO Q8H PRN PRN Reason: Pain, Moderate(Pain Scale 4-6) Last Admin: 09/04/25 03:12 Dose: 600 mg Documented By: HANK Magnesium Hydroxide (Milk Of Magnesia 30 Ml Oral.Susp) 30 ml PO DAILY PRN PRN Reason: Constipation Melatonin (Melatonin 3 Mg Tablet) 6 mg PO BEDTIME PRN PRN Reason: Insomnia Methadone HCl (Methadone Hcl 20 Mg/2 Ml Oral.Conc) 120 mg PO DAILY@0800 [facility] Last Admin: 09/06/25 07:33 Dose: 120 mg Documented By: RAJ Co-signed By: LAKEISHA Nicotine Polacrilex (Nicotine Polacrilex 2 Mg Gum) 4 mg BUCCAL Q2H PRN PRN Reason: Nicotine Cravings Ondansetron HCl (Ondansetron Hcl 4 Mg/2 Ml Vial) 4 mg IVPUSH Q8H PRN PRN Reason: Nausea and Vomiting Pharmacy Consult (Consult Rx Etoh Phenob Im/Po) 1 each MISCELLANE ONCE PRN; Protocol PRN Reason: Consult order Phenobarbital (Phenobarbital 30 Mg Tablet) 30 mg PO BEDTIME [facility] Stop: 09/07/25 21:01 Prazosin HCl (Prazosin Hcl 1 Mg Capsule) 1 mg PO BEDTIME [facility]; Protocol Last Admin: 09/05/25 21:08 Dose: 1 mg Documented By: RAJ Quetiapine Fumarate (Quetiapine Fumarate 50 Mg Tablet) 50 mg PO BEDTIME [facility] Last Admin: 09/05/25 21:08 Dose: 50 mg Documented By: RAJ Sertraline HCl (Sertraline Hcl 50 Mg Tablet) 50 mg PO DAILY [facility] Last Admin: 09/06/25 09:28 Dose: 50 mg Documented By: LAKEISHA Sodium Chloride (0.9 % Sodium Chloride Flush 3 Ml Syringe) 3 ml IVFLUSH QSHIFT [facility] Last Admin: 09/06/25 09:25 Dose: 3 ml Documented By: LAKEISHA Trazodone HCl (Trazodone Hcl 100 Mg Tablet) 100 mg PO BEDTIME PRN PRN Reason: Insomnia Last Admin: 09/05/25 21:09 Dose: 100 mg Documented By: RAJ Trazodone HCl (Trazodone Hcl 100 Mg Tablet) 100 mg PO BEDTIME PRN PRN Reason: Insomnia Triamcinolone Acetonide (Triamcinolone Acet 0.1 % Cream 15 Gm Tube) 1 appl TOPICAL BID [facility]; Protocol Last Admin: 09/06/25 12:37 Dose: Not Given Documented By: LAKEISHA Non-Admin Reason: Patient Refused Labs 09/04/25 06:01 09/04/25 06:01 Assessment and Plan (1) Alcohol use disorder, severe, dependence: Status: Acute Plan 59M PMH mood disorder, etoh dependence, epilepsy, polysubstance dependence, presented with SI and fever: Alcohol dependence with acute withdrawal and withdrawal delirium Continuephenobarbital im x1 dose given, Phenobarb, CIWA 11, thiamine Mental status back to baseline Transient hypoxia, fevers: Pneumonia/Klebsiella bacteremia Due to multifocal pneumonia Continue ceftriaxone, ID consulted Now on room air id eval noted: Klebsiella may be from lung or less likely liver abscess (urine is clear). It is sensitive to most antibiotics and Ceftriaxone is desirable. Nevertheless search for source should occur as should search for immunodeficiency. Would check CT head evaluate for infected hematoma,brain abscess. If head negative check CT abdomen and pelvis with IV contrast if able check liver abscess. Otherwise continue Ceftiaxone and convert to po cephalosporin possibly if no other source found needing ocean transportation intermediary IV. Check HIV and Hepatitis C evaluate immunodeficiency. Epilepsy Gabapentin Polysubstance dependence Methadone Mood disorder with suicide ideation Sertraline, Ativan, 1:1 sitter care team cleared him yesterday , but patient with still in withdrawals and hallucinating DVT prophylaxis with Lovenox Full code reason for continued hospitalization: Active withdrawal- phenobarbital protocol, need psych input Quality Stroke Does the patient have a stroke diagnosis?: No VTE Prior VTE?: No VTE Risk Level:: Medical - moderate - high VTE Device Contraindication: Treatment Not Indicated VTE Drug Contraindication: N/A - Med Ordered
[2025-09-06] MEDS: Triamcinolone Acet 0.1 % Cream 15 GM TUBE 1 APPL TOPICAL (21:53)
--- NOTE | 2025-09-06 23:03 | PM.PSYCN ---
History of Present Illness Date of Service: 09/06/25 @2054 Chief Complaint: increased altermental status Reason for Consult: Increased anxiety and hallucination Requesting physician: Stacie Arango Discussed with referring provider: No (However, discussed with assigned RN ) Sources of Information: patient interviewed, chart reviewed and crisis/core team assessment reviewed HPI Narrative: Per HPI: Patient is a 59 year old male with hx of MDD,cocaine use d/o, opioid use d/o and alcohol use d/o who presented to ER due to vague SI, alcohol and drug withdrawal , and following an alleged overdose with intent to . Patient was admitted to [facility] and transferred to medical floor on 09/02/25 for acute withdrawal and withdrawal delirium. Patient seen in assigned room #[id number]- for consult regarding anxiety and hallunication. Patient reports anxiety which can be baseline. Denies SI/SIB/HI/AVH. Denies hallucination states the voices are gone . Nursing reports that patient made it very clear that if patient is discharged he would drink himself to which nurse addressed with Dr Arango earlier of the day. This provider assesses and addresses this concerns. Patient states that he does not have SI but if he is discharged without treatment, he would drink to . Patient want treatment program regarding alchol and drug use. Patient states that he is not ready to be discharged without treatment in place. Patient states that they are working on finding the bed for him. Patient is pleasant and cooperative, bright affect. Do not show W/D symptoms. Skin is not moist. [place] and [place] is warm dry to touch. No sweating, no trenors. No c/o headache. VSs stable. Past Psychiatric History: Report up to 12 psychiatric admission with last admission was 10-12 days ago. Cannot recall name of the hospital Current no psychiatrist, no PCP but on waiting list for therapist. On Methadone Maintenance. Not sure actually he supposes to receive. self report 180mg via [address] Deferred to medical team Review of Systems Review of Systems No N/V, no SOB, no cough. Report Right shoulder pain. [facility] Medical History (Updated 09/06/25 @ 23:08 by Marcy Healy NP) No known health problems Anxiety Pneumonia Family History: Denies family mental health or substance use but report to Care team suicide attempts in family Social History: , no children, currently homeless. Received SSI. 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 Substance History: Polysubstance use hx Trauma History: Unclear Diagnostics Vital Signs (24Hr): Vital Signs - 24 hr 09/06/25 00:00 09/06/25 04:00 09/06/25 07:07 Temperature 97.3 F 97.6 F 97.1 F Pulse Rate 53 52 58 Respiratory Rate 18 18 16 Blood Pressure 116/57 L 114/56 L 116/57 L Pulse Oximetry 97 99 99 Oxygen Delivery Method Room Air Room Air Room Air 09/06/25 11:43 09/06/25 15:02 09/06/25 19:45 Temperature 97.2 F 97.3 F 98.3 F Pulse Rate 53 56 50 Respiratory Rate 16 18 18 Blood Pressure 115/56 L 110/54 L 112/53 L Pulse Oximetry 98 98 95 Oxygen Delivery Method Room Air Room Air Room Air BMI result Body Mass Index 24.3 Labs 09/04/25 06:01 09/04/25 06:01 Imaging Radiology Impressions: ITS Impressions Humerus X-Ray 09/06/25 10:03 IMPRESSION: 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 Multifocal pneumonia versus malignancy, right lung. Electronically signed by: Alcon Butts MD 09/06/2025 10:12 AM [facility] Mental Status Exam Mental Status Exam Narrative: Patient is A+O,x4, wearing hospital attire. Bright affect. Good eye contact. Anxious but pleasant and coperative. Speech is WNL, not confused, thoughts are organized. Goal directed. Future focus, looking forward to continuing with shelter treatment for his substance use. No SI/SIB/HI/AVH. Passive thoughts regarding not having treatment in place but no actually plan. Medications Medications Current Medications Acetaminophen (Acetaminophen 325 Mg Tablet) 650 mg PO Q6H PRN PRN Reason: Headache/Pain, Scale 1-10 Last Admin: 09/06/25 06:34 Dose: 650 mg Al Hydroxide/Mg Hydroxide (Magnesium Hydrox/Alum Hydrox 30 Ml Oral.Susp) 30 ml PO Q6H PRN PRN Reason: Heartburn/Nausea Benzocaine (Throat Lozenge, Medicated Lozenge) 1 lozenge MUCOUS MEM Q2H PRN PRN Reason: Sore Throat Calcium Carbonate (Calcium Carbonate 750 Mg Tab.Chew) 750 mg PO Q4H PRN PRN Reason: Heartburn Doxazosin Mesylate (Doxazosin Mesylate 1 Mg Tablet) 1 mg PO BEDTIME [facility]; Protocol Last Admin: 09/06/25 20:58 Dose: 1 mg Enoxaparin Sodium (Enoxaparin Sodium 40 Mg/0.4 Ml Syringe) 40 mg SUBCUT Q24H [facility] Last Admin: 09/06/25 09:37 Dose: Not Given Folic Acid (Folic Acid 1 Mg Tablet) 1 mg PO DAILY [facility] Last Admin: 09/06/25 09:28 Dose: 1 mg Gabapentin (Gabapentin 300 Mg Capsule) 300 mg PO TID [facility] Last Admin: 09/06/25 20:57 Dose: 300 mg Guaifenesin (Guaifenesin La 600 Mg Tab.Er.12h) 600 mg PO BID [facility] Last Admin: 09/06/25 20:58 Dose: 600 mg Guaifenesin (Guaifenesin 200 Mg/10 Ml 10 Ml Liquid) 10 ml PO Q4H PRN PRN Reason: Cough Hydroxyzine HCl (Hydroxyzine Hcl 25 Mg Tablet) 25 mg PO Q6H PRN PRN Reason: mild anxiety Last Admin: 09/06/25 16:00 Dose: 25 mg Ceftriaxone Sodium 1 gm/ (Sodium Chloride) 50 mls @ 100 mls/hr IV Q24H [facility] Last Infusion: 09/06/25 01:52 Dose: Infused Thiamine HCl 200 mg/ Sodium (Chloride) 102 mls @ 204 mls/hr IV Q8H [facility] Last Infusion: 09/06/25 18:26 Dose: Infused Ibuprofen (Ibuprofen 600 Mg Tablet) 600 mg PO Q8H PRN PRN Reason: Pain, Moderate(Pain Scale 4-6) Last Admin: 09/06/25 16:01 Dose: 600 mg Magnesium Hydroxide (Milk Of Magnesia 30 Ml Oral.Susp) 30 ml PO DAILY PRN PRN Reason: Constipation Melatonin (Melatonin 3 Mg Tablet) 6 mg PO BEDTIME PRN PRN Reason: Insomnia Methadone HCl (Methadone Hcl 20 Mg/2 Ml Oral.Conc) 120 mg PO DAILY@0800 [facility] Last Admin: 09/06/25 07:33 Dose: 120 mg Nicotine Polacrilex (Nicotine Polacrilex 2 Mg Gum) 4 mg BUCCAL Q2H PRN PRN Reason: Nicotine Cravings Ondansetron HCl (Ondansetron Hcl 4 Mg/2 Ml Vial) 4 mg IVPUSH Q8H PRN PRN Reason: Nausea and Vomiting Pharmacy Consult (Consult Rx Etoh Phenob Im/Po) 1 each MISCELLANE ONCE [facility]; Protocol PRN Reason: Consult order Phenobarbital (Phenobarbital 30 Mg Tablet) 30 mg PO BEDTIME [facility] Stop: 09/07/25 21:01 Last Admin: 09/06/25 20:58 Dose: 30 mg Prazosin HCl (Prazosin Hcl 1 Mg Capsule) 1 mg PO BEDTIME [facility]; Protocol Last Admin: 09/06/25 20:57 Dose: 1 mg Quetiapine Fumarate (Quetiapine Fumarate 50 Mg Tablet) 50 mg PO BEDTIME [facility] Last Admin: 09/06/25 20:58 Dose: 50 mg Quetiapine Fumarate (Quetiapine Fumarate 25 Mg Tablet) 25 mg PO TID PRN PRN Reason: Anxiety Sertraline HCl (Sertraline Hcl 50 Mg Tablet) 50 mg PO DAILY [facility] Last Admin: 09/06/25 09:28 Dose: 50 mg Sodium Chloride (0.9 % Sodium Chloride Flush 3 Ml Syringe) 3 ml IVFLUSH QSHIFT [facility] Last Admin: 09/06/25 20:58 Dose: 3 ml Trazodone HCl (Trazodone Hcl 100 Mg Tablet) 100 mg PO BEDTIME PRN PRN Reason: Insomnia Last Admin: 09/05/25 21:09 Dose: 100 mg Trazodone HCl (Trazodone Hcl 100 Mg Tablet) 100 mg PO BEDTIME PRN PRN Reason: Insomnia Triamcinolone Acetonide (Triamcinolone Acet 0.1 % Cream 15 Gm Tube) 1 appl TOPICAL BID [facility]; Protocol Last Admin: 09/06/25 21:53 Dose: 1 appl Allergies Allergies Allergy/AdvReac Type Severity Reaction Status Date / Time tomato sauce Allergy Intermediate Hives Uncoded 08/24/25 18:42 Assessment & Plan Assessment & Plan (1) Anxiety: Status: Acute Code(s): F41.9 - Anxiety disorder, unspecified Plan Discuss with patient regarding anxiety. Patient agrees with Seroquel PRN Recommendations: Seoquel 25mg TID PRN for severe anxiety. -Continue current psychiatric medications. -Case management to provide information regarding walk in clinics and various substance abuse programs in the area. Patient is very motived to get to addiction treatment program. -Reconsult if needed. Total time managing care of this patient today ____ minutes. Patient educated on: medication risk/benefits, substance abuse and therapeutic strategies Informed Consent: understands
[2025-09-07] VITALS (7 sets, daily range): BP systolic 94–143; BP diastolic 55–62; PULSE 49–78; RESP 16–20; TEMP 36.2–37.1; O2SAT 95–99
[2025-09-07] MEDS: Thiamine HCL 200 MG in 0.9 % Sodium Chloride 100 ML 204 MG IV ×3 (01:49→16:55)
[2025-09-07] MEDS: guaiFENesin LA 600 MG TAB.ER.12H PO ×2 (08:08→20:30)
[2025-09-07] MEDS: methADONE HCl 20 MG/2 ML ORAL.CONC 120 MG PO (08:08)
[2025-09-07] MEDS: 0.9 % Sodium Chloride Flush 3 ML SYRINGE IVFLUSH (08:09)
[2025-09-07 09:23] LABS: HBS Num1 117.54 mIU/mL (0-7.99); HBc Num1 0.56 S/CO (0.00-0.79); HBsAGNum1 0.29 S/CO (0.00-0.99); HIV Num 1 0.07 S/CO (0.00-0.99); Hepatitis B Surface Antigen Negative (Negative); ~HepC Num1 3.08 S/CO (0.00-0.79); ~Hepatitis B Surface Antibody REACTIVE (Nonreactive); ~Hepatitis C Antibody Reactive (Nonreactive)
[2025-09-07] MEDS: iohexoL 350 MG/ML 100 ML INFUS..BTL IV (09:42)
--- NOTE | 2025-09-07 11:39 | MHC.RECOVRN ---
TW checked in with pt in [id number] offer continued support in relation to TULIO and evaluation of withdrawal symptoms.? Pt reports ?aching bones and sniffling? in the evenings and requested an increase in methadone.? Reviewed w/ Shea Morris PMHNP who recommended pt be increased to a total of 135g of methadone QD beginnig 09/08/25, with 15mg to be ordered once for today.? Spoke with Dr. Arango who asked TW to enter order changes. Order entered as recommended above. ACS team to continue to follow and available as needed.?
[2025-09-07] MEDS: methADONE HCl 20 MG/2 ML ORAL.CONC 15 MG PO (12:17)
--- NOTE | 2025-09-07 15:36 | HO.PM.IMPN ---
Subjective Subjective Date of Service: 09/07/25 Interval History: mood dis ,si Review of Systems has mild tremers says still has hallucinations ,also endorsed the SI to staff. Physical Exam Exam: Exam: General: AO X 3, no acute distress, anxious, had hallucinations last night also Resp: CTA bilateral, no accessory muscles used CVS: S1,S2,RRR GI: soft, non tender, non distended Neuro: motor grossly intact, alert, mild tremor Vital Signs: Vital Signs: Last Vital Signs Temp 98.8 F 09/07/25 08:30 Pulse 51 09/07/25 11:51 Resp 16 09/07/25 11:51 BP 94/55 L 09/07/25 11:51 Pulse Ox 98 09/07/25 11:51 O2 Del Method Room Air 09/07/25 11:51 O2 Flow Rate 3 09/04/25 23:47 BMI result Body Mass Index 24.3 Objective Data Active Medications Acetaminophen (Acetaminophen 325 Mg Tablet) 650 mg PO Q6H PRN PRN Reason: Headache/Pain, Scale 1-10 Last Admin: 09/07/25 12:20 Dose: 650 mg Documented By: SABAS Al Hydroxide/Mg Hydroxide (Magnesium Hydrox/Alum Hydrox 30 Ml Oral.Susp) 30 ml PO Q6H PRN PRN Reason: Heartburn/Nausea Benzocaine (Throat Lozenge, Medicated Lozenge) 1 lozenge MUCOUS MEM Q2H PRN PRN Reason: Sore Throat Calcium Carbonate (Calcium Carbonate 750 Mg Tab.Chew) 750 mg PO Q4H PRN PRN Reason: Heartburn Doxazosin Mesylate (Doxazosin Mesylate 1 Mg Tablet) 1 mg PO BEDTIME [facility]; Protocol Last Admin: 09/06/25 20:58 Dose: 1 mg Documented By: RAUL Enoxaparin Sodium (Enoxaparin Sodium 40 Mg/0.4 Ml Syringe) 40 mg SUBCUT Q24H [facility] Last Admin: 09/07/25 08:10 Dose: Not Given Documented By: SABAS Non-Admin Reason: Patient Refused Folic Acid (Folic Acid 1 Mg Tablet) 1 mg PO DAILY [facility] Last Admin: 09/07/25 08:08 Dose: 1 mg Documented By: SABAS Gabapentin (Gabapentin 300 Mg Capsule) 300 mg PO TID [facility] Last Admin: 09/07/25 15:20 Dose: 300 mg Documented By: SABAS Guaifenesin (Guaifenesin La 600 Mg Tab.Er.12h) 600 mg PO BID [facility] Last Admin: 09/07/25 08:08 Dose: 600 mg Documented By: SABAS Guaifenesin (Guaifenesin 200 Mg/10 Ml 10 Ml Liquid) 10 ml PO Q4H PRN PRN Reason: Cough Hydroxyzine HCl (Hydroxyzine Hcl 25 Mg Tablet) 25 mg PO Q6H PRN PRN Reason: mild anxiety Last Admin: 09/06/25 16:00 Dose: 25 mg Documented By: LAKEISHA Ceftriaxone Sodium 1 gm/ (Sodium Chloride) 50 mls @ 100 mls/hr IV Q24H [facility] Last Infusion: 09/07/25 01:50 Dose: Infused Documented By: RAUL Thiamine HCl 200 mg/ Sodium (Chloride) 102 mls @ 204 mls/hr IV Q8H [facility] Last Infusion: 09/07/25 08:50 Dose: Infused Documented By: SABAS Ibuprofen (Ibuprofen 600 Mg Tablet) 600 mg PO Q8H PRN PRN Reason: Pain, Moderate(Pain Scale 4-6) Last Admin: 09/06/25 16:01 Dose: 600 mg Documented By: LAKEISHA Magnesium Hydroxide (Milk Of Magnesia 30 Ml Oral.Susp) 30 ml PO DAILY PRN PRN Reason: Constipation Melatonin (Melatonin 3 Mg Tablet) 6 mg PO BEDTIME PRN PRN Reason: Insomnia Methadone HCl (Methadone Hcl 20 Mg/2 Ml Oral.Conc) 135 mg PO DAILY@0800 [facility] Nicotine Polacrilex (Nicotine Polacrilex 2 Mg Gum) 4 mg BUCCAL Q2H PRN PRN Reason: Nicotine Cravings Ondansetron HCl (Ondansetron Hcl 4 Mg/2 Ml Vial) 4 mg IVPUSH Q8H PRN PRN Reason: Nausea and Vomiting Pharmacy Consult (Consult Rx Etoh Phenob Im/Po) 1 each MISCELLANE ONCE [facility]; Protocol PRN Reason: Consult order Phenobarbital (Phenobarbital 30 Mg Tablet) 30 mg PO BEDTIME [facility] Stop: 09/07/25 21:01 Last Admin: 09/06/25 20:58 Dose: 30 mg Documented By: RAUL Prazosin HCl (Prazosin Hcl 1 Mg Capsule) 1 mg PO BEDTIME [facility]; Protocol Last Admin: 09/06/25 20:57 Dose: 1 mg Documented By: RAUL Quetiapine Fumarate (Quetiapine Fumarate 50 Mg Tablet) 50 mg PO BEDTIME [facility] Last Admin: 09/06/25 20:58 Dose: 50 mg Documented By: RAUL Quetiapine Fumarate (Quetiapine Fumarate 25 Mg Tablet) 25 mg PO TID PRN PRN Reason: Anxiety Last Admin: 09/07/25 01:23 Dose: 25 mg Documented By: RAUL Sertraline HCl (Sertraline Hcl 50 Mg Tablet) 50 mg PO DAILY [facility] Last Admin: 09/07/25 08:08 Dose: 50 mg Documented By: SABAS Sodium Chloride (0.9 % Sodium Chloride Flush 3 Ml Syringe) 3 ml IVFLUSH QSHIFT [facility] Last Admin: 09/07/25 15:33 Dose: Not Given Documented By: SABAS Non-Admin Reason: Previously Administered Trazodone HCl (Trazodone Hcl 100 Mg Tablet) 100 mg PO BEDTIME PRN PRN Reason: Insomnia Last Admin: 09/05/25 21:09 Dose: 100 mg Documented By: RAJ Triamcinolone Acetonide (Triamcinolone Acet 0.1 % Cream 15 Gm Tube) 1 appl TOPICAL BID [facility]; Protocol Last Admin: 09/07/25 08:17 Dose: Not Given Documented By: SABAS Non-Admin Reason: Patient Refused Labs 09/04/25 06:01 09/04/25 06:01 Labs: Laboratory Results - last 24 hr 09/06/25 15:12 Hep Bs Antigen Negative Hep Bs Antibody REACTIVE Hep B Core Total Ab Nonreactive Hepatitis C Ab (EIA) Reactive H HIV 1&2 Ab/P24 Ag 4thGn Nonreactive Assessment and Plan (1) Alcohol use disorder, severe, dependence: Status: Acute Plan 59M PMH mood disorder, etoh dependence, epilepsy, polysubstance dependence, presented with SI and fever: Alcohol dependence with acute withdrawal and withdrawal delirium Continuephenobarbital im x1 dose given, Phenobarb, CIWA 11, thiamine Mental status back to baseline Transient hypoxia, fevers: Pneumonia/Klebsiella bacteremia Due to multifocal pneumonia Continue ceftriaxone, ID consulted Now on room air id eval noted: Klebsiella may be from lung or less likely liver abscess (urine is clear). It is sensitive to most antibiotics and Ceftriaxone is desirable. Nevertheless search for source should occur as should search for immunodeficiency. Would check CT head pending-grossly looks fine -report pending CT abdomen and pelvis with IV contrast done -Mild fluid of the anterior margin of the liver without well-defined intraparenchymal liver abscess at this time. Please consider attention on follow-up to ensure complete resolution. Otherwise continue Ceftiaxone and convert to po cephalosporin possibly if no other source found needing terminal operator IV. Check HIVnegative and Hepatitis C (eia ) positive, but viral load pending Epilepsy Gabapentin Polysubstance dependence Methadone Mood disorder with suicide ideation Sertraline, Ativan, 1:1 sitter care team cleared him yesterday , but patient with still in withdrawals and hallucinating DVT prophylaxis with Lovenox Full code reason for continued hospitalization: Active withdrawal- phenobarbital protocol, need psych input Quality Stroke Does the patient have a stroke diagnosis?: No VTE Prior VTE?: No VTE Risk Level:: Medical - moderate - high VTE Device Contraindication: Treatment Not Indicated VTE Drug Contraindication: N/A - Med Ordered
[2025-09-08] VITALS (7 sets, daily range): BP systolic 97–132; BP diastolic 49–61; PULSE 50–84; RESP 16–18; TEMP 36.1–36.6; O2SAT 93–100
[2025-09-08] MEDS: 0.9 % Sodium Chloride Flush 3 ML SYRINGE IVFLUSH ×2 (01:01→21:09)
--- NOTE | 2025-09-08 06:39 | PC.NURSE ---
Patient removed the telemetry box at 0425 and refused to put it back on. Patient educated on need to monitor heart rate.
[2025-09-08] MEDS: methADONE HCl 20 MG/2 ML ORAL.CONC 135 MG PO (07:18)
[2025-09-08] MEDS: guaiFENesin LA 600 MG TAB.ER.12H PO ×2 (09:05→21:07)
--- NOTE | 2025-09-08 12:15 | P.PNIM_ITS ---
Subjective Subjective Date of Service: 09/09/25 Interval History: mood dis ,si Review of Systems seems somewhat improivng intermittent withdrawals symptoms Physical Exam 2 Exam: Exam: General: AO X 3, no acute distress, anxious Resp: CTA bilateral, no accessory muscles used CVS: S1,S2,RRR GI: soft, non tender, non distended Neuro: motor grossly intact, alert, mild tremor Vital Signs: Vital Signs: Last Vital Signs Temp 97.9 F 09/08/25 11:11 Pulse 54 09/08/25 11:11 Resp 16 09/08/25 11:11 BP 107/54 L 09/08/25 11:11 Pulse Ox 96 09/08/25 11:11 O2 Del Method Room Air 09/08/25 11:11 O2 Flow Rate 3 09/04/25 23:47 BMI result Body Mass Index 24.3 Objective Data Active Medications Acetaminophen (Acetaminophen 325 Mg Tablet) 650 mg PO Q6H PRN PRN Reason: Headache/Pain, Scale 1-10 Last Admin: 09/07/25 12:20 Dose: 650 mg Documented By: SABAS Al Hydroxide/Mg Hydroxide (Magnesium Hydrox/Alum Hydrox 30 Ml Oral.Susp) 30 ml PO Q6H PRN PRN Reason: Heartburn/Nausea Benzocaine (Throat Lozenge, Medicated Lozenge) 1 lozenge MUCOUS MEM Q2H PRN PRN Reason: Sore Throat Calcium Carbonate (Calcium Carbonate 750 Mg Tab.Chew) 750 mg PO Q4H PRN PRN Reason: Heartburn Doxazosin Mesylate (Doxazosin Mesylate 1 Mg Tablet) 1 mg PO BEDTIME [facility]; Protocol Last Admin: 09/07/25 20:30 Dose: 1 mg Documented By: CHARLIE Enoxaparin Sodium (Enoxaparin Sodium 40 Mg/0.4 Ml Syringe) 40 mg SUBCUT Q24H [facility] Last Admin: 09/08/25 07:05 Dose: Not Given Documented By: SABAS Non-Admin Reason: Patient Refused Folic Acid (Folic Acid 1 Mg Tablet) 1 mg PO DAILY [facility] Last Admin: 09/08/25 09:05 Dose: 1 mg Documented By: SABAS Gabapentin (Gabapentin 300 Mg Capsule) 300 mg PO TID [facility] Last Admin: 09/08/25 09:05 Dose: 300 mg Documented By: SAABS Guaifenesin (Guaifenesin La 600 Mg Tab.Er.12h) 600 mg PO BID [facility] Last Admin: 09/08/25 09:05 Dose: 600 mg Documented By: SABAS Guaifenesin (Guaifenesin 200 Mg/10 Ml 10 Ml Liquid) 10 ml PO Q4H PRN PRN Reason: Cough Hydroxyzine HCl (Hydroxyzine Hcl 25 Mg Tablet) 25 mg PO Q6H PRN PRN Reason: mild anxiety Last Admin: 09/08/25 09:41 Dose: 25 mg Documented By: SABAS Ceftriaxone Sodium 1 gm/ (Sodium Chloride) 50 mls @ 100 mls/hr IV Q24H [facility] Last Admin: 09/08/25 01:04 Dose: Not Given Documented By: CHARLIE Non-Admin Reason: Patient Refused Ibuprofen (Ibuprofen 600 Mg Tablet) 600 mg PO Q8H PRN PRN Reason: Pain, Moderate(Pain Scale 4-6) Last Admin: 09/08/25 09:07 Dose: 600 mg Documented By: SABAS Magnesium Hydroxide (Milk Of Magnesia 30 Ml Oral.Susp) 30 ml PO DAILY PRN PRN Reason: Constipation Melatonin (Melatonin 3 Mg Tablet) 6 mg PO BEDTIME PRN PRN Reason: Insomnia Last Admin: 09/07/25 20:35 Dose: 6 mg Documented By: CHARLIE Methadone HCl (Methadone Hcl 20 Mg/2 Ml Oral.Conc) 135 mg PO DAILY@0800 [facility] Last Admin: 09/08/25 07:18 Dose: 135 mg Documented By: SABAS Co-signed By: CHARLIE Nicotine Polacrilex (Nicotine Polacrilex 2 Mg Gum) 4 mg BUCCAL Q2H PRN PRN Reason: Nicotine Cravings Ondansetron HCl (Ondansetron Hcl 4 Mg/2 Ml Vial) 4 mg IVPUSH Q8H PRN PRN Reason: Nausea and Vomiting Pharmacy Consult (Consult Rx Etoh Phenob Im/Po) 1 each MISCELLANE ONCE PRN; Protocol PRN Reason: Consult order Prazosin HCl (Prazosin Hcl 1 Mg Capsule) 1 mg PO BEDTIME [facility]; Protocol Last Admin: 09/07/25 20:30 Dose: 1 mg Documented By: CHARLIE Quetiapine Fumarate (Quetiapine Fumarate 50 Mg Tablet) 50 mg PO BEDTIME [facility] Last Admin: 09/07/25 20:30 Dose: 50 mg Documented By: CHARLIE Quetiapine Fumarate (Quetiapine Fumarate 25 Mg Tablet) 25 mg PO TID PRN PRN Reason: Anxiety Last Admin: 09/07/25 01:23 Dose: 25 mg Documented By: RAUL Sertraline HCl (Sertraline Hcl 50 Mg Tablet) 50 mg PO DAILY [facility] Last Admin: 09/08/25 09:05 Dose: 50 mg Documented By: SABAS Sodium Chloride (0.9 % Sodium Chloride Flush 3 Ml Syringe) 3 ml IVFLUSH QSHIFT [facility] Last Admin: 09/08/25 08:20 Dose: Not Given Documented By: SABAS Non-Admin Reason: Previously Administered Thiamine HCl (Thiamine Hcl 100 Mg Tablet) 200 mg PO DAILY [facility] Last Admin: 09/08/25 09:05 Dose: 200 mg Documented By: SABAS Trazodone HCl (Trazodone Hcl 100 Mg Tablet) 100 mg PO BEDTIME PRN PRN Reason: Insomnia Last Admin: 09/05/25 21:09 Dose: 100 mg Documented By: RAJ Triamcinolone Acetonide (Triamcinolone Acet 0.1 % Cream 15 Gm Tube) 1 appl TOPICAL BID [facility]; Protocol Last Admin: 09/08/25 08:20 Dose: Not Given Documented By: SABAS Non-Admin Reason: Patient Refused Labs 09/04/25 06:01 09/04/25 06:01 Labs: Laboratory Results - last 24 hr 09/07/25 18:05 Phenobarbital 14.6 Assessment and Plan (1) Alcohol use disorder, severe, dependence: Status: Acute Plan 59M PMH mood disorder, etoh dependence, epilepsy, polysubstance dependence, presented with SI and fever: Alcohol dependence with acute withdrawal and withdrawal delirium Continuephenobarbital im x1 dose given, Phenobarb, CIWA 11, thiamine Mental status back to baseline Transient hypoxia, fevers: Pneumonia/Klebsiella bacteremia Due to multifocal pneumonia Continue ceftriaxone, ID consulted Now on room air id eval noted: Klebsiella may be from lung or less likely liver abscess (urine is clear). It is sensitive to most antibiotics and Ceftriaxone is desirable. Nevertheless search for source should occur as should search for immunodeficiency. CT head : No acute intracranial abnormalities. CT abdomen and pelvis with IV contrast done -Mild fluid of the anterior margin of the liver without well-defined intraparenchymal liver abscess at this time. Otherwise continue Ceftiaxone and convert to po cephalosporin possibly if no other source found needing snf IV. 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 right shoulder ct : Intramedullary calcification within right femoral neck, likely representing enchondroma. Consider follow-up humerus or shoulder radiographs in approximately 6 months, to document stability. plan patient says he had injusry of shoulder pain managent if does not improve -may need ortho input. Epilepsy Gabapentin Polysubstance dependence Methadone Mood disorder with suicide ideation Sertraline, Ativan, 1:1 sitter patient still c/o si need psych input for si as well as mood dis and also reeval for inpatient psych need. DVT prophylaxis with Lovenox Full code reason for continued hospitalization: Active withdrawal- phenobarbital protocol, need psych input-due to severe anxiety episodes ,says seroquel does not help, also keep saying si . Quality Stroke Does the patient have a stroke diagnosis?: No VTE Prior VTE?: No VTE Risk Level:: Medical - moderate - high VTE Device Contraindication: Treatment Not Indicated VTE Drug Contraindication: N/A - Med Ordered
--- NOTE | 2025-09-08 17:49 | MHC.RECOVRN ---
TW followed-up with pt in to inquire about ongoing withdrawal symptoms On approach pt was laying in bed, watching TV, while on telephone, with 1:1 staff present at bedside. Pt appeared to be in good spirits, laughing and smiling. No restlessness, aggitation, or diaphoresis noted. Pt states he continues to feel opioid withdrawal symptoms around 4-5pm daily consisting of restless legs, anxiety, and sniffling. He also reports an inability to sleep in the evening. Pt educated on the need to increase dose slowly and reminded him of ability to have prn medications for anxiety and sleep. Pt verbalized understanding. Spoke to Shea Morris NP regarding pt report and was instructed she will visit him in the morning. Pt notified and responded, thank you, I appreciate it and expressed gratitude for follow-up. ACS team to continue to follow.
[2025-09-08] MEDS: Triamcinolone Acet 0.1 % Cream 15 GM TUBE 1 APPL TOPICAL (21:10)
[2025-09-09] VITALS (7 sets, daily range): BP systolic 102–136; BP diastolic 52–82; PULSE 46–83; RESP 17–18; TEMP 36.3–36.8; O2SAT 95–98
[2025-09-09] MEDS: methADONE HCl 20 MG/2 ML ORAL.CONC 135 MG PO (07:29)
[2025-09-09] MEDS: guaiFENesin LA 600 MG TAB.ER.12H PO ×2 (07:30→22:12)
[2025-09-09] MEDS: Triamcinolone Acet 0.1 % Cream 15 GM TUBE 1 APPL TOPICAL ×2 (07:34→22:15)
--- NOTE | 2025-09-09 08:17 | PM.EVENT ---
Event Note Date of Service: 09/09/25 Event Note: Right shoulder x-rays and CT reviewed: CT right shoudler: 1. Intramedullary calcification within right femoral neck, likely representing enchondroma. Consider follow-up humerus or shoulder radiographs in approximately 6 months, to document stability. 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 No acute fracture or dislocation has been observed. Encondroma vs bone infarct - Benign. May followup out patient if having continued pain. NSAIDs, rest, gentle ROM, ice as needed. Time Spent With Patient Time: Total time managing care of this patient today ____ minutes.
--- NOTE | 2025-09-09 10:30 | P.PNADD_ITS ---
Subjective Subjective Date of Service: 09/09/25 Reason For Visit: increased altermental status Interim History: Patient seen in follow up for AUD and OUD Delirium r/t alcohol withdrawal has resolved. Today he is awake, alert, engaged in interview. Pressured, verbalizing anxiety about various things, including methadone dose. At time of visit methadone dose 135mg -states he has been feeling hot and sweaty overnight EKG 09/01 reviewed Review of Systems Constitutional: Reports as per HPI and Reports no additional constitutional complaints Mental Status Exam Mental Status Exam Level of Consciousness: Awake, Appropriate and Alert Patient Behavior: Appropriate, Talkative and Anxious Affect Description: Anxious Speech Pattern: Clear and Pressured Hallucinations: None Thought Content: positive for Intact, positive for Racing and positive for Howard Judgement: Fair Diagnostics Vital Signs (24Hr): Vital Signs - 24 hr 09/08/25 11:11 09/08/25 15:52 09/08/25 20:00 Temperature 97.9 F 97.6 F 97.4 F Pulse Rate 54 58 50 Respiratory Rate 16 16 16 Blood Pressure 107/54 L 116/55 L 101/49 L Pulse Oximetry 96 97 99 Oxygen Delivery Method Room Air Room Air Room Air 09/08/25 23:23 09/08/25 23:25 09/09/25 03:09 Temperature 96.9 F 97.1 F 97.3 F Pulse Rate 84 54 51 Respiratory Rate 18 18 18 Blood Pressure 132/58 L 103/57 L 106/58 L Pulse Oximetry 93 97 95 Oxygen Delivery Method Room Air Room Air Room Air 09/09/25 07:51 Temperature 98.2 F Pulse Rate 75 Respiratory Rate 18 Blood Pressure 120/62 Pulse Oximetry 98 Oxygen Delivery Method Room Air BMI result Body Mass Index 24.3 Labs 09/04/25 06:01 09/04/25 06:01 Labs: Laboratory Results - last 48 hr 09/07/25 18:05 Phenobarbital 14.6 Imaging Radiology Impressions: ITS Impressions Humerus X-Ray 09/06/25 10:03 IMPRESSION: 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 Multifocal pneumonia versus malignancy, right lung. Electronically signed by: Alcon Butts MD 09/06/2025 10:12 AM [facility] Medications Medications Current Medications Acetaminophen (Acetaminophen 325 Mg Tablet) 650 mg PO Q6H PRN PRN Reason: Headache/Pain, Scale 1-10 Last Admin: 09/07/25 12:20 Dose: 650 mg Al Hydroxide/Mg Hydroxide (Magnesium Hydrox/Alum Hydrox 30 Ml Oral.Susp) 30 ml PO Q6H PRN PRN Reason: Heartburn/Nausea Benzocaine (Throat Lozenge, Medicated Lozenge) 1 lozenge MUCOUS MEM Q2H PRN PRN Reason: Sore Throat Calcium Carbonate (Calcium Carbonate 750 Mg Tab.Chew) 750 mg PO Q4H PRN PRN Reason: Heartburn Doxazosin Mesylate (Doxazosin Mesylate 1 Mg Tablet) 1 mg PO BEDTIME [facility]; Protocol Last Admin: 09/08/25 21:07 Dose: 1 mg Enoxaparin Sodium (Enoxaparin Sodium 40 Mg/0.4 Ml Syringe) 40 mg SUBCUT Q24H [facility] Last Admin: 09/09/25 07:30 Dose: 40 mg Folic Acid (Folic Acid 1 Mg Tablet) 1 mg PO DAILY [facility] Last Admin: 09/09/25 07:30 Dose: 1 mg Gabapentin (Gabapentin 300 Mg Capsule) 300 mg PO TID [facility] Last Admin: 09/09/25 07:30 Dose: 300 mg Guaifenesin (Guaifenesin La 600 Mg Tab.Er.12h) 600 mg PO BID [facility] Last Admin: 09/09/25 07:30 Dose: 600 mg Guaifenesin (Guaifenesin 200 Mg/10 Ml 10 Ml Liquid) 10 ml PO Q4H PRN PRN Reason: Cough Hydroxyzine HCl (Hydroxyzine Hcl 25 Mg Tablet) 25 mg PO Q6H PRN PRN Reason: mild anxiety Last Admin: 09/09/25 05:11 Dose: 25 mg Ceftriaxone Sodium 1 gm/ (Sodium Chloride) 50 mls @ 100 mls/hr IV Q24H [facility] Last Infusion: 09/09/25 02:02 Dose: Infused Ibuprofen (Ibuprofen 600 Mg Tablet) 600 mg PO Q8H PRN PRN Reason: Pain, Moderate(Pain Scale 4-6) Last Admin: 09/08/25 09:07 Dose: 600 mg Magnesium Hydroxide (Milk Of Magnesia 30 Ml Oral.Susp) 30 ml PO DAILY PRN PRN Reason: Constipation Melatonin (Melatonin 3 Mg Tablet) 6 mg PO BEDTIME PRN PRN Reason: Insomnia Last Admin: 09/08/25 21:07 Dose: 6 mg Methadone HCl (Methadone Hcl 20 Mg/2 Ml Oral.Conc) 20 mg PO ONCE ONE Stop: 09/09/25 13:01 Nicotine Polacrilex (Nicotine Polacrilex 2 Mg Gum) 4 mg BUCCAL Q2H PRN PRN Reason: Nicotine Cravings Ondansetron HCl (Ondansetron Hcl 4 Mg/2 Ml Vial) 4 mg IVPUSH Q8H PRN PRN Reason: Nausea and Vomiting Pharmacy Consult (Consult Rx Etoh Phenob Im/Po) 1 each MISCELLANE ONCE PRN; Protocol PRN Reason: Consult order Prazosin HCl (Prazosin Hcl 1 Mg Capsule) 1 mg PO BEDTIME [facility]; Protocol Last Admin: 09/08/25 21:07 Dose: 1 mg Quetiapine Fumarate (Quetiapine Fumarate 50 Mg Tablet) 50 mg PO BEDTIME [facility] Last Admin: 09/08/25 21:07 Dose: 50 mg Quetiapine Fumarate (Quetiapine Fumarate 25 Mg Tablet) 25 mg PO TID PRN PRN Reason: Anxiety Last Admin: 09/09/25 05:11 Dose: 25 mg Sertraline HCl (Sertraline Hcl 50 Mg Tablet) 50 mg PO DAILY [facility] Last Admin: 09/09/25 07:30 Dose: 50 mg Sodium Chloride (0.9 % Sodium Chloride Flush 3 Ml Syringe) 3 ml IVFLUSH QSHIFT [facility] Last Admin: 09/08/25 21:09 Dose: 3 ml Thiamine HCl (Thiamine Hcl 100 Mg Tablet) 200 mg PO DAILY [facility] Last Admin: 09/09/25 07:30 Dose: 200 mg Trazodone HCl (Trazodone Hcl 100 Mg Tablet) 100 mg PO BEDTIME PRN PRN Reason: Insomnia Last Admin: 09/08/25 21:07 Dose: 100 mg Triamcinolone Acetonide (Triamcinolone Acet 0.1 % Cream 15 Gm Tube) 1 appl TOPICAL BID [facility]; Protocol Last Admin: 09/09/25 07:34 Dose: 1 appl Allergies Allergies Allergy/AdvReac Type Severity Reaction Status Date / Time tomato sauce Allergy Intermediate Hives Uncoded 08/24/25 18:42 Assessment & Plan Assessment & Plan (1) Alcohol use disorder, severe, dependence: Status: Acute Code(s): F10.20 - Alcohol dependence, uncomplicated Assessment and Plan: * withdrawal resolved * PO thiamine (2) Opioid use disorder: Status: Acute Code(s): F11.90 - Opioid use, unspecified, uncomplicated Assessment and Plan: * additional 20mg methadone today (total 155mg) * AM dosing (09/10) 160mg -goal to resume 180mg Total time managing care of this patient today _25___ minutes.
--- NOTE | 2025-09-09 10:30 | MHC.CM.PN ---
Addendum entered by Tara Everett 09/10/25 12:39: Psych has cleared Patient; housekeeper cleaning cooking is looking for a Substance Abuse Program for Patient. Original Note: Per MD in [facility], Patient still presenting with s/s of hallucinations and SI; MD asking for Psych to re-eval. CM will continue to follow.
[2025-09-09] MEDS: methADONE HCl 20 MG/2 ML ORAL.CONC PO (12:41)
[2025-09-09] MEDS: 0.9 % Sodium Chloride Flush 3 ML SYRINGE IVFLUSH ×2 (12:42→22:15)
--- NOTE | 2025-09-09 12:42 | P.PNID_ITS ---
Subjective Subjective Date of Service: 09/09/25 Critical Care Time (minutes): 15 Comment: he is getting eval from Addiction Medicine He has no complaints Objective Data Labs 09/04/25 06:01 09/04/25 06:01 Physical Exam 2 Vital Signs: Vital Signs: Last Vital Signs Temp 97.5 F 09/09/25 11:39 Pulse 83 09/09/25 11:39 Resp 17 09/09/25 11:39 BP 136/82 09/09/25 11:39 Pulse Ox 96 09/09/25 11:39 O2 Del Method Room Air 09/09/25 11:39 O2 Flow Rate 3 09/04/25 23:47 BMI result Body Mass Index 24.3 Const: General: cooperative Resp: Effort & Inspection: normal respiratory effort Cardio: Rate: regular rate Skin: General skin exam: no rashes or lesions noted Assessment and Plan Assessment and plan (1) Pneumonia: Problem details: pneumonia likely cause of sepsis Would switch to po cephalosporin total 14 d Status: Acute Time Spent With Patient Time: Total time managing care of this patient today ____ minutes.
--- NOTE | 2025-09-09 14:44 | HO.PM.IMPN ---
Subjective Subjective Date of Service: 09/10/25 Interval History: mood dis ,si Review of Systems no new events Review of Systems: Yes all other systems are reviewed and are negative Physical Exam Exam: Exam: General: AO X 3, no acute distress, anxious Resp: CTA bilateral, no accessory muscles used CVS: S1,S2,RRR GI: soft, non tender, non distended Neuro: motor grossly intact, alert. Vital Signs: Vital Signs: Last Vital Signs Temp 97.5 F 09/09/25 11:39 Pulse 83 09/09/25 11:39 Resp 17 09/09/25 11:39 BP 136/82 09/09/25 11:39 Pulse Ox 96 09/09/25 11:39 O2 Del Method Room Air 09/09/25 11:39 O2 Flow Rate 3 09/04/25 23:47 BMI result Body Mass Index 24.3 Objective Data Active Medications Acetaminophen (Acetaminophen 325 Mg Tablet) 650 mg PO Q6H PRN PRN Reason: Headache/Pain, Scale 1-10 Last Admin: 09/07/25 12:20 Dose: 650 mg Documented By: SABAS Al Hydroxide/Mg Hydroxide (Magnesium Hydrox/Alum Hydrox 30 Ml Oral.Susp) 30 ml PO Q6H PRN PRN Reason: Heartburn/Nausea Benzocaine (Throat Lozenge, Medicated Lozenge) 1 lozenge MUCOUS MEM Q2H PRN PRN Reason: Sore Throat Calcium Carbonate (Calcium Carbonate 750 Mg Tab.Chew) 750 mg PO Q4H PRN PRN Reason: Heartburn Clonidine HCl (Clonidine Hcl 0.1 Mg Tablet) 0.1 mg PO BID [facility]; Protocol Last Admin: 09/09/25 12:41 Dose: 0.1 mg Documented By: YOKO Doxazosin Mesylate (Doxazosin Mesylate 1 Mg Tablet) 1 mg PO BEDTIME [facility]; Protocol Last Admin: 09/08/25 21:07 Dose: 1 mg Documented By: AYAD Enoxaparin Sodium (Enoxaparin Sodium 40 Mg/0.4 Ml Syringe) 40 mg SUBCUT Q24H [facility] Last Admin: 09/09/25 07:30 Dose: 40 mg Documented By: YOKO Folic Acid (Folic Acid 1 Mg Tablet) 1 mg PO DAILY [facility] Last Admin: 09/09/25 07:30 Dose: 1 mg Documented By: YOKO Gabapentin (Gabapentin 300 Mg Capsule) 300 mg PO TID [facility] Last Admin: 09/09/25 07:30 Dose: 300 mg Documented By: YOKO Guaifenesin (Guaifenesin La 600 Mg Tab.Er.12h) 600 mg PO BID [facility] Last Admin: 09/09/25 07:30 Dose: 600 mg Documented By: YOKO Guaifenesin (Guaifenesin 200 Mg/10 Ml 10 Ml Liquid) 10 ml PO Q4H PRN PRN Reason: Cough Hydroxyzine HCl (Hydroxyzine Hcl 25 Mg Tablet) 25 mg PO Q6H PRN PRN Reason: mild anxiety Last Admin: 09/09/25 12:41 Dose: 25 mg Documented By: YOKO Ceftriaxone Sodium 1 gm/ (Sodium Chloride) 50 mls @ 100 mls/hr IV Q24H [facility] Last Infusion: 09/09/25 02:02 Dose: Infused Documented By: AYAD Ibuprofen (Ibuprofen 600 Mg Tablet) 600 mg PO Q8H PRN PRN Reason: Pain, Moderate(Pain Scale 4-6) Last Admin: 09/08/25 09:07 Dose: 600 mg Documented By: SABAS Magnesium Hydroxide (Milk Of Magnesia 30 Ml Oral.Susp) 30 ml PO DAILY PRN PRN Reason: Constipation Melatonin (Melatonin 3 Mg Tablet) 6 mg PO BEDTIME PRN PRN Reason: Insomnia Last Admin: 09/08/25 21:07 Dose: 6 mg Documented By: AYAD Methadone HCl (Methadone Hcl 20 Mg/2 Ml Oral.Conc) 160 mg PO DAILY@0800 [facility] Nicotine Polacrilex (Nicotine Polacrilex 2 Mg Gum) 4 mg BUCCAL Q2H PRN PRN Reason: Nicotine Cravings Ondansetron HCl (Ondansetron Hcl 4 Mg/2 Ml Vial) 4 mg IVPUSH Q8H PRN PRN Reason: Nausea and Vomiting Pharmacy Consult (Consult Rx Etoh Phenob Im/Po) 1 each MISCELLANE ONCE [facility]; Protocol PRN Reason: Consult order Prazosin HCl (Prazosin Hcl 1 Mg Capsule) 1 mg PO BEDTIME [facility]; Protocol Last Admin: 09/08/25 21:07 Dose: 1 mg Documented By: AYAD Quetiapine Fumarate (Quetiapine Fumarate 25 Mg Tablet) 25 mg PO TID PRN PRN Reason: Anxiety Last Admin: 09/09/25 05:11 Dose: 25 mg Documented By: AYAD Quetiapine Fumarate (Quetiapine Fumarate 25 Mg Tablet) 75 mg PO BEDTIME [facility] Sertraline HCl (Sertraline Hcl 50 Mg Tablet) 50 mg PO DAILY [facility] Last Admin: 09/09/25 07:30 Dose: 50 mg Documented By: YOKO Sodium Chloride (0.9 % Sodium Chloride Flush 3 Ml Syringe) 3 ml IVFLUSH QSHIFT [facility] Last Admin: 09/09/25 12:42 Dose: 3 ml Documented By: YOKO Thiamine HCl (Thiamine Hcl 100 Mg Tablet) 200 mg PO DAILY [facility] Last Admin: 09/09/25 07:30 Dose: 200 mg Documented By: YOKO Trazodone HCl (Trazodone Hcl 100 Mg Tablet) 100 mg PO BEDTIME PRN PRN Reason: Insomnia Last Admin: 09/08/25 21:07 Dose: 100 mg Documented By: AYAD Triamcinolone Acetonide (Triamcinolone Acet 0.1 % Cream 15 Gm Tube) 1 appl TOPICAL BID [facility]; Protocol Last Admin: 09/09/25 07:34 Dose: 1 appl Documented By: YOKO Labs 09/04/25 06:01 09/04/25 06:01 Assessment and Plan (1) Alcohol use disorder, severe, dependence: Status: Acute Plan 59M PMH mood disorder, etoh dependence, epilepsy, polysubstance dependence, presented with SI and fever: Alcohol dependence with acute withdrawal and withdrawal delirium Improved with phenobarb protocol, thiamine, folic acid Mental status back to baseline Transient hypoxia, fevers: Pneumonia/Klebsiella bacteremia Due to multifocal pneumonia Started on IV antibiotics, cultures sent-found to have Klebsiella bacteremia and evaluated by id eval noted: Klebsiella may be from lung or less likely liver abscess (urine is clear). It is sensitive to most antibiotics and Ceftriaxone is desirable. Nevertheless search for source should occur as should search for immunodeficiency. CT head : No acute intracranial abnormalities. CT abdomen and pelvis with IV contrast done -Mild fluid of the anterior margin of the liver without well-defined intraparenchymal liver abscess at this time. Otherwise continue Ceftiaxone and convert to po cephalosporin possibly if no other source found needing intermediate IV. Check HIVnegative and Hepatitis C (eia ) positive, but viral load pending followed by ID recomended switch to switch po cephalosporin total 14 days total . 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 right shoulder ct : Intramedullary calcification within right femoral neck, likely representing enchondroma. Consider follow-up humerus or shoulder radiographs in approximately 6 months, to document stability. 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 No acute fracture or dislocation has been observed. Encondroma vs bone infarct - Benign. May followup out patient if having continued pain. NSAIDs, rest, gentle ROM, ice as needed outpatient ortho follow up Epilepsy Gabapentin Polysubstance dependence Methadone (additction team adjusting)-to 160 mg. Mood disorder with suicide ideation Sertraline, seroquel ,clonidine seen by psych and care teams multiple times -plan for accepted at [facility] in [place], [place] (about 2 hrs away) and is expected . DVT prophylaxis with Lovenox Full code reason for continued hospitalization:need psych input-placement for above,possible in am. Quality Stroke Does the patient have a stroke diagnosis?: No VTE Prior VTE?: No VTE Risk Level:: Medical - moderate - high VTE Device Contraindication: Treatment Not Indicated VTE Drug Contraindication: N/A - Med Ordered
--- NOTE | 2025-09-09 16:21 | MHC.RECOVRN ---
Addendum entered by Tara Everett 09/11/25 07:46: CM has arranged [facility] to picking tech Patient today at 9AM; RN & MD are aware. Addendum entered by Rico Song RN 09/10/25 14:42: Pt got accepted at [facility] in [place], [place] for CSS level of addiction treatment. He expected there by 11AM tomorrow (09/11) morning. Meds are to be delivered to him by [facility] in the morning. Pt is aware. Dr Arango aware & agreeable to care plan. Rain Morris NP aware. Contact phone ([facility]) # [phone] . Original Note: CSS REFERRALS SENT TO THE FOLLOWING PLACES FOR REVIEW - [facility] - [facility] - [facility]
--- NOTE | 2025-09-10 | ECG_ITS ---
Test Reason : check qt rhythm check Blood Pressure : */* mmHG Vent. Rate : 51 BPM Atrial Rate : 51 BPM P-R Int : 226 ms QRS Dur : 92 ms QT Int : 452 ms P-R-T Axes : 41 59 38 degrees QTcB Int : 416 ms Sinus bradycardia with 1st degree A-V block Otherwise normal ECG When compared with ECG of 01-Sep-2025 23:39, AL interval has increased Vent. rate has decreased by 37 bpm Referred By: Stacie Arango Electronically Signed By: DEBBIE TIM
[2025-09-10 07:10] VITALS: BP 110/51; PULSE 50; RESP 18; TEMP 37.1; O2SAT 98
[2025-09-10] MEDS: Triamcinolone Acet 0.1 % Cream 15 GM TUBE 1 APPL TOPICAL ×2 (07:40→20:40)
[2025-09-10] MEDS: guaiFENesin LA 600 MG TAB.ER.12H PO ×2 (07:41→20:39)
[2025-09-10] MEDS: methADONE HCl 20 MG/2 ML ORAL.CONC 160 MG PO (07:41)
[2025-09-10] MEDS: 0.9 % Sodium Chloride Flush 3 ML SYRINGE IVFLUSH ×2 (07:43→20:42)
[2025-09-10 11:42] VITALS: BP 111/55; PULSE 49; RESP 18; TEMP 36.4; O2SAT 98
--- NOTE | 2025-09-10 14:30 | MHC.RECOVRN ---
Pt got accepted at [facility] in [place], [place] for CSS level of addiction treatment. He expected there by 11AM tomorrow (09/11) morning. Meds are to be delivered to him by [facility] in the morning. Pt is aware. Dr Arango aware & agreeable to care plan. Rain Morris NP aware. Call Contact phone # [phone] .
[2025-09-10 16:00] VITALS: BP 115/56; PULSE 50; RESP 18; TEMP 36; O2SAT 97
[2025-09-10 19:14] VITALS: BP 116/44; PULSE 60; RESP 18; TEMP 36.6; O2SAT 94
[2025-09-11 04:00] VITALS: BP 115/51; PULSE 46; RESP 20; TEMP 36.7; O2SAT 99
[2025-09-11 07:55] VITALS: BP 115/61; PULSE 56; RESP 18; TEMP 36.2; O2SAT 98
[2025-09-11] MEDS: methADONE HCl 20 MG/2 ML ORAL.CONC 160 MG PO (08:02)
[2025-09-11] MEDS: guaiFENesin LA 600 MG TAB.ER.12H PO (08:02)
[2025-09-13 17:43] LABS: HCV Log PCR <1.18 NOT DETECTED Log IU/mL (NOT DETECTED); HepC Viral Load <15 NOT DETECTED IU/mL (NOT DETECTED)
--- NOTE | 2025-10-09 07:01 | P.CDIM_ITS ---
PROVIDER RESPONSE TEXT: To clarify, the appropriate diagnosis supported by the clinical indicators: Gram negative Pneumonia: klebsiella QUERY TEXT: PHYSICIAN'S DOCUMENTATION REQUEST Date of Query: 10/08/2025 05:54 AM EST Patient Name: MARGI SANCHEZ Admit Date: 09/02/2025 Dear Jae Regalado MD, RETROSPECTIVE QUERY A review of the medical record indicates additional documentation may be needed. Please review below and update the documentation accordingly. Clinical Indicators: Discharge summary dated 09/04/25 - possible pneumonia/Klebsiella bacteremia Mulitfocal pneumonia, IV antibiotics, cultures sent found to have Klebsiella bacteremia. Complete antibiotics, repeat chest imaging 3-4 weeks to see resolution of pneumonia. ID 09/06/25 - Klebsiella bacteremia may be from lung. It is sensitive to most antibiotics and Ceftriaxone is desirable. Based on the above, could you clarify in the Progress Notes further specificity regarding the most likely type of pneumonia you suspect you are treating (even if specific organism may not be known)? Staph Pneumonia Please indicate if MRSA or MSSA Strep Pneumonia Please indicate if strep B, strep pneumonia, or other type Gram negative Pneumonia Please indicate if Pseudomonas, Klebsiella, or other Mycoplasma Pneumonia Viral Pneumonia Please indicate parainfluenza, RSV, adenovirus, influenza (indicate type), etc. Other organism Please specify known or suspected organism Other (explain) Clinically unable to determine (explain) Thank you, Nirali Melendrez, CCS, CDIS Use of terms such as suspected, likely, concern for, or probable (associated with a specific diagnosis that is being evaluated, monitored, or treated as if it exists) are acceptable and can be coded in the inpatient setting, when documented at the time of discharge. Please use your independent medical judgment in providing your response. THIS QUERY IS PART OF THE PERMANENT MEDICAL RECORD
== END 2025-09-11 10:21 | disposition other institution (70) | DRG 773 ==
PROVIDERS: Internal Medicine; Physician Assistant; Admitting Provider Hospitalist; Visit Provider Internal Medicine
DX: F10.231 Alcohol dependence with withdrawal delirium (principal); F11.20 Opioid dependence, uncomplicated; J15.0 Pneumonia due to Klebsiella pneumoniae; R78.81 Bacteremia; R45.851 Suicidal ideations; E51.2 Wernicke's encephalopathy; G40.909 Epilepsy, unspecified, not intractable, without status epilepticus; D64.9 Anemia, unspecified; F14.10 Cocaine abuse, uncomplicated; F33.9 Major depressive disorder, recurrent, unspecified; Z59.02 Unsheltered homelessness; F19.20 Other psychoactive substance dependence, uncomplicated; D16.01 Benign neoplasm of scapula and long bones of right upper limb; Z20.822 Contact with and (suspected) exposure to COVID-19; Z79.899 Other long term (current) drug therapy
CPT/HCPCS: 36415; 70450; 73060; 73200; 74177; 80048; 80053; 80076; 80184; 82140; 82607; 82746; 83540; 83735; 85007; 85025; 85027; 85610; 86704; 86706; 86803; 87340; 87389; 87522; 87633; 93005; J0696; J1650; J2560; J3411; J7120; Q9967; S9485

== ENCOUNTER 2025-09-02 01:07 | Outpatient (BNV) | payer OTHER, SELFPAY | END 2025-09-06 10:03 | PROVIDERS: Admitting Provider Hospitalist; Visit Provider Radiology Diagnostic Radiology | DX: M25.511 Pain in right shoulder (principal) | CPT/HCPCS: 70450; 73060 ==

== ENCOUNTER → 2025-09-02 01:07 | Outpatient (BNV) | payer OTHER, SELFPAY | PROVIDERS: Admitting Provider Hospitalist; Visit Provider Internal Medicine | DX: J18.9 Pneumonia, unspecified organism (principal) | CPT/HCPCS: 99222; 99232 ==

== ENCOUNTER → 2025-09-02 01:07 | Outpatient (BNV) | payer OTHER, SELFPAY | PROVIDERS: Admitting Provider Hospitalist; Visit Provider Nurse Practitioner Psychiatric/Mental Health | DX: F11.90 Opioid use, unspecified, uncomplicated (principal); F10.20 Alcohol dependence, uncomplicated | CPT/HCPCS: 99232 ==

== ENCOUNTER → 2025-09-02 01:07 | Outpatient (BNV) | payer OTHER, SELFPAY | PROVIDERS: Admitting Provider Hospitalist; Visit Provider Internal Medicine | DX: F10.10 Alcohol abuse, uncomplicated (principal) | CPT/HCPCS: 99232 ==